=== PATIENT | female | born 1995 | race Caucasian/White ===

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

== ENCOUNTER 2017-04-10 12:29 | Emergency (ER) | payer OTHER ==
[2017-04-10 13:27] LABS: Basophils # (A) 0.1 k/uL (0-0.2); Basophils % (A) 1 %; CH 27.8; CHCM 32.6; Eosinophils # (A) 0.4 k/uL (0-0.7); Eosinophils % (A) 5 %; HCT 40.4 % (34.0-46.0); HDW 2.32; HGB 13.1 gm/dL (11.4-16.0); Luc % (Auto) 1; Lymphocytes # (A) 1.8 k/uL (1.0-4.8); Lymphocytes % (A) 22 %; MCH 27.7 pg (25.0-35.0); MCHC 32.3 g/dL (31.0-37.0); MCV 85.6 fL (80.0-100.0); Mean Platelet Volume 6.8; Monocytes # (A) 0.6 k/uL (0-1.0); Monocytes % (A) 7 %; Neutrophils # (A) 5.5 k/uL (1.3-7.7); Neutrophils % (A) 65 %; RBC 4.71 m/uL (3.80-5.40); RDW 14.3 % (11.5-15.5); WBC 8.5 k/uL (4.0-11.0); WBC (Perox) 8.78
--- NOTE | 2017-04-10 13:31 | XR ---
EXAMINATION TYPE: XR KUB DATE OF EXAM: 04/10/2017 1:20 PM CLINICAL HISTORY: Lower abdominal pain for one week TECHNIQUE: Single upright image of the abdomen is obtained. COMPARISON: None. FINDINGS: Scattered gas is seen in non-distended small bowel loops. Gas and fecal material is seen in non-distended colon. Paucity of gas is noted within the upper abdomen. There is no visceromegaly, pn eumoperitoneum, or abnormal calcification appreciated. The lung bases are clear and the osseous struc tures are intact. IMPRESSION: Nonobstructive bowel gas pattern.
[2017-04-10 13:39] LABS: Anion Gap 10 mmol/L; Blood Urea Nitrogen 13 mg/dL (7-17); Carbon Dioxide 23 mmol/L (22-30); Chloride 104 mmol/L (98-107); Glucose 95 mg/dL (74-99); Potassium 4.4 mmol/L (3.5-5.1); Sodium 137 mmol/L (137-145)
[2017-04-10 13:40] LABS: ALT 47 U/L (9-52); AST 24 U/L (14-36); Alkaline Phosphatase 92 U/L (38-126); Amylase 43 U/L (30-110); Calcium 9.8 mg/dL (8.4-10.2); Non-African American GFR(MDRD) >60 (>60 ml/min/1.73 sqM); Total Bilirubin 0.4 mg/dL (0.2-1.3); Total Protein 7.5 g/dL (6.3-8.2)
[2017-04-10 13:41] LABS: Appearance,Urine Cloudy (Clear); Bilirubin,Urine Negative (Negative); Glucose,Urine (UA) Negative (Negative); Ketones,Urine Negative (Negative); Leukocyte Esterase,Urine Negative (Negative); Mucus,Urine Rare /hpf; Nitrite,Urine Negative (Negative); Particle Count 3750; Protein,Urine Trace (Negative); RBC,Urine <1 /hpf (0-5); Squamous Epithelial Cell,Urine 4 /hpf (0-4); UA Billing (MACRO vs. MICRO) MICRO; Urobilinogen,Urine <2.0 mg/dL (<2.0); WBC,Urine 2 /hpf (0-5)
--- NOTE | 2017-04-10 13:58 | ED ---
Abdominal Pain HPI - General Chief Complaint: Abdominal Pain Stated Complaint: Abd Pain Time Seen by Provider: 04/10/17 12:50 Source: patient, RN notes reviewed Mode of arrival: ambulatory Limitations: no limitations - History of Present Illness Initial Comments: This a 21-year-old female presents emergency Department with chief complaint of lower abdominal pain. Patient states pain in her lower pelvic or suprapubic region and seems to wax and wane . Patient denies any dysuria or urinary frequency. Denies any vaginal bleeding vaginal discharge. She denies any chance . Patient denies any constipation, diarrhea, fever, chills. She states it has been present for last week and no changes. Patient had no prior abdominal surgeries. - Related Data Previous Rx's Medication Instructions Recorded Doxycycline Monohydrate [Monodox] 100 mg PO Q12HR #28 cap 04/10/17 Ibuprofen [Motrin] 600 mg PO Q8HR PRN #30 tab 04/10/17 Allergies Allergy/AdvReac Type Severity Reaction Status Date / Time banana Allergy Rash/Hives Verified 04/10/17 13:12 Review of Systems ROS Statement: Those systems with pertinent positive or pertinent negative responses have been documented in the HPI. ROS Other: All systems not noted in ROS Statement are negative. Past Medical History Past Medical History: No Reported History History of Any Multi-Drug Resistant Organisms: None Reported Past Surgical History: No Surgical Hx Reported Past Psychological History: Depression Smoking Status: Never smoker Past Alcohol Use History: None Reported Past Drug Use History: None Reported General Exam Limitations: no limitations General appearance: alert, in no apparent distress Head exam: Present: atraumatic, normocephalic, normal inspection Neck exam: Present: normal inspection, full ROM. Absent: tenderness, meningismus, lymphadenopathy Respiratory exam: Present: normal lung sounds bilaterally. Absent: respiratory distress, wheezes, rales, rhonchi, stridor Cardiovascular Exam: Present: regular rate, normal rhythm, normal heart sounds. Absent: systolic murmur, diastolic murmur, rubs, gallop, clicks GI/Abdominal exam: Present: soft, tenderness (Suprapubic Tenderness), normal bowel sounds. Absent: distended, guarding, rebound, rigid External exam: Present: normal external exam, other (Exam performed with Paty MANCIA) Speculum exam: Present: vaginal discharge, cervical discharge By manual exam: Present: cervical motion tenderness, adnexal tenderness (Right) Back exam: Absent: CVA tenderness (R), CVA tenderness (L) Skin exam: Present: warm, dry, intact, normal color. Absent: rash Course Vital Signs 04/10/17 12:43 Temperature 98.2 F Pulse Rate 99 Respiratory 18 Rate Blood Pressure 114/62 O2 Sat by Pulse 99 Oximetry Medical Decision Making - Medical Decision Making 21-year-old female presented for lower abdominal pain, pelvic region pain. Patient ultrasound is concerned about pelvic inflammatory disease/pyosaphlinx. We treated with azithromycin, Rocephin in the emergency Department and discharged on doxycycline for 14 days. Patient will follow-up with Dr. Hull her [facility]. Patient will return for any worsening symptoms including fever, increasing pain or any other concerns. - Lab Data Result diagrams: 04/10/17 13:08 04/10/17 13:08 Lab Results 04/10/17 04/10/17 04/10/17 Range/Units 13:08 13:08 13:08 WBC 8.5 (4.0-11.0) k/uL RBC 4.71 (3.80-5.40) m/uL Hgb 13.1 (11.4-16.0) gm/dL Hct 40.4 (34.0-46.0) % MCV 85.6 (80.0-100.0) fL MCH 27.7 (25.0-35.0) pg MCHC 32.3 (31.0-37.0) g/dL RDW 14.3 (11.5-15.5) % Plt Count 334 (150-450) k/uL Neutrophils % 65 % Lymphocytes % 22 % Monocytes % 7 % Eosinophils % 5 % Basophils % 1 % Neutrophils # 5.5 (1.3-7.7) k/uL Lymphocytes # 1.8 (1.0-4.8) k/uL Monocytes # 0.6 (0-1.0) k/uL Eosinophils # 0.4 (0-0.7) k/uL Basophils # 0.1 (0-0.2) k/uL Sodium 137 (137-145) mmol/L Potassium 4.4 (3.5-5.1) mmol/L Chloride 104 (98-107) mmol/L Carbon Dioxide 23 (22-30) mmol/L Anion Gap 10 mmol/L BUN 13 (7-17) mg/dL Creatinine 0.60 (0.52-1.04) mg/dL Est GFR (MDRD) Af Amer >60 (>60 ml/min/1.73 sqM) Est GFR (MDRD) Non-Af >60 (>60 ml/min/1.73 sqM) Glucose 95 (74-99) mg/dL Calcium 9.8 (8.4-10.2) mg/dL Total Bilirubin 0.4 (0.2-1.3) mg/dL AST 24 (14-36) U/L ALT 47 (9-52) U/L Alkaline Phosphatase 92 (38-126) U/L Total Protein 7.5 (6.3-8.2) g/dL Albumin 4.6 (3.5-5.0) g/dL Amylase 43 (30-110) U/L Lipase 65 (23-300) U/L Urine Color Yellow Urine Appearance Cloudy H (Clear) Urine pH 7.0 (5.0-8.0) Ur Specific [place] 1.020 (1.001-1.035) Urine Protein Trace H (Negative) Urine Glucose (UA) Negative (Negative) Urine Ketones Negative (Negative) Urine Blood Negative (Negative) Urine Nitrite Negative (Negative) Urine Bilirubin Negative (Negative) Urine Urobilinogen <2.0 (<2.0) mg/dL Ur Leukocyte Esterase Negative (Negative) Urine RBC <1 (0-5) /hpf Urine WBC 2 (0-5) /hpf Ur Squamous Epith Cells 4 (0-4) /hpf Urine Mucus Rare H (None) /hpf Urine HCG, Qual (Not Detectd) 04/10/17 Range/Units 13:08 WBC (4.0-11.0) k/uL RBC (3.80-5.40) m/uL Hgb (11.4-16.0) gm/dL Hct (34.0-46.0) % MCV (80.0-100.0) fL MCH (25.0-35.0) pg MCHC (31.0-37.0) g/dL RDW (11.5-15.5) % Plt Count (150-450) k/uL Neutrophils % % Lymphocytes % % Monocytes % % Eosinophils % % Basophils % % Neutrophils # (1.3-7.7) k/uL Lymphocytes # (1.0-4.8) k/uL Monocytes # (0-1.0) k/uL Eosinophils # (0-0.7) k/uL Basophils # (0-0.2) k/uL Sodium (137-145) mmol/L Potassium (3.5-5.1) mmol/L Chloride (98-107) mmol/L Carbon Dioxide (22-30) mmol/L Anion Gap mmol/L BUN (7-17) mg/dL Creatinine (0.52-1.04) mg/dL Est GFR (MDRD) Af Amer (>60 ml/min/1.73 sqM) Est GFR (MDRD) Non-Af (>60 ml/min/1.73 sqM) Glucose (74-99) mg/dL Calcium (8.4-10.2) mg/dL Total Bilirubin (0.2-1.3) mg/dL AST (14-36) U/L ALT (9-52) U/L Alkaline Phosphatase (38-126) U/L Total Protein (6.3-8.2) g/dL Albumin (3.5-5.0) g/dL Amylase (30-110) U/L Lipase (23-300) U/L Urine Color Urine Appearance (Clear) Urine pH (5.0-8.0) Ur Specific [place] (1.001-1.035) Urine Protein (Negative) Urine Glucose (UA) (Negative) Urine Ketones (Negative) Urine Blood (Negative) Urine Nitrite (Negative) Urine Bilirubin (Negative) Urine Urobilinogen (<2.0) mg/dL Ur Leukocyte Esterase (Negative) Urine RBC (0-5) /hpf Urine WBC (0-5) /hpf Ur Squamous Epith Cells (0-4) /hpf Urine Mucus (None) /hpf Urine HCG, Qual Not Detected (Not Detectd) Disposition Clinical Impression: Pyosalpinx, PID (acute pelvic inflammatory disease) Disposition: HOME SELF-CARE Condition: Stable Instructions: Pelvic Inflammatory Disease (ED) Additional Instructions: Follow-up with your [facility] as discussed. Please return to the Emergency Department if symptoms worsen or any other concerns. Prescriptions: Doxycycline Monohydrate [Monodox] 100 mg PO Q12HR #28 cap Ibuprofen [Motrin] 600 mg PO Q8HR PRN #30 tab PRN Reason: Pain Referrals: Tatiana Adame III, MD [Primary Care Provider] - 1-2 days Time of Disposition: 16:22
--- NOTE | 2017-04-10 15:10 | US ---
EXAMINATION TYPE: US transvaginal DATE OF EXAM: 04/10/2017 COMPARISON: NONE CLINICAL HISTORY: Pain. General lower pelvic pain, No previous surgeries TECHNIQUE: Transvaginal (TV) Date of LMP: 03/03/2017, EXAM MEASUREMENTS: Uterus: 6.6 x 5.7 x 4.3 cm Endometrial Stripe: 1.5 cm Right Ovary: 2.8 x 1.6 x 1.7 cm Left Ovary: 3.2 x 2.1 x 2.2 cm 1. Uterus: Retroflexed wnl as visualized 2. Endometrium: Upper limits of normal for a premenopausal female 3. Right Ovary: follicles seen 4. Left Ovary: Follicles seen, largest = 1.7 x 1.9 x 1.6 cm Spectral, color and waveform doppler imaging shows good arterial and venous flow within the ovaries ; there is no evidence for ovarian torsion. 5. Bilateral Adnexa: cystic lesion seen in right adnexa, adjacent to uterus = 1.6 x 1.1 x 1.3 cm wit h adjacent free fluid. This is contiguous with an elongated tubular structure seen on image 35 contai barry debris. No internal vascular flow is present. This does not appear to be contiguous with the ova ry. 6. Posterior cul-de-sac: no free fluid IMPRESSION: Right adnexal 1.6 cm cystic region appearing to be contiguous with an elongated tubular structure con taining internal echogenicity and adjacent free fluid. Findings are concerning for hematosalpinx or p yosalpinx with tubo-ovarian abscess. Correlate for history of PID.
[2017-04-10] MEDS ORDERED: RX INFO: IV CONTRAST WAS GIVEN 1 EACH MISC MISCELLANE PRN (15:14)
[2017-04-10] MEDS ORDERED: ONDANSETRON 4 MG/2 ML VIAL IVP STA (15:15)
[2017-04-10] MEDS ORDERED: MORPHINE SULFATE 2 MG/ML SYRINGE IVP ONE (15:15)
--- NOTE | 2017-04-10 16:01 | CT ---
EXAMINATION TYPE: CT abdomen pelvis w con DATE OF EXAM: 04/10/2017 COMPARISON: Transvaginal ultrasound same date HISTORY: Right sided pain x [address] DLP: 1137.40 mGycm Automated exposure control for dose reduction was used. TECHNIQUE: Helical acquisition of images from the lung bases through the pelvis have been completed. CONTRAST: Performed without Oral Contrast and with IV Contrast, patient injected with 100 mL of Omnipaque 300. FINDINGS: LUNG BASES: No significant abnormality is appreciated. AORTA: No significant abnormality is appreciated. LIVER/GB: Liver shows low attenuation possibly due to fatty infiltration, gallbladder is normal PANCREAS: No significant abnormality is seen. SPLEEN: No significant abnormality is seen. ADRENALS: No significant abnormality is seen. KIDNEYS: No significant abnormality is seen. Umbilical hernia contains fat. REPRODUCTIVE ORGANS: No significant abnormality is seen, minimal free fluid in the pelvis BOWEL: Small bowel folds show some thickened dominique. Question some thickened dominique of the transverse colon. The appendix is not inflamed, luminal high density could represent appendicolith. No evident o bstruction. FREE AIR: No Free Air visible. ASCITES: None visible. PELVIC ADENOPATHY: None visualized. RETROPERITONEAL ADENOPATHY: No Retroperitoneal Adenopathy visible. URINARY BLADDER: No significant abnormality is seen. OSSEOUS STRUCTURES: No significant abnormality is seen. IMPRESSION: CORRELATE FOR ENTERITIS, COLITIS. HEPATIC STEATOSIS. PROBABLE PHYSIOLOGIC FREE FLUID IN THE PELVIS. P OSSIBLE APPENDICOLITHS. FOLLOW-UP INDICATED.
[2017-04-10] MEDS ORDERED: AZITHROMYCIN 250 MG TAB PO STA (16:17)
[2017-04-10] MEDS ORDERED: cefTRIAXone 250 MG VIAL IV STA (16:17)
[2017-04-10 17:22] VITALS: BP 113/58; PULSE 79; RESP 18; TEMP 98.1
== END 2017-04-10 17:21 | disposition home or self-care (01) ==
LOC: EC 12:29
DX: N70.91 Salpingitis, unspecified (principal); N73.0 Acute parametritis and pelvic cellulitis; Z91.018 Allergy to other foods
CPT/HCPCS: 99284; 96374; 96375; 36415; 80053; 87591; 87491; 82150; 83690; 85025; 81001; 81025; 87808; 87070; 74000; 93975; 76830; 74177; J2405; J0696; J2270; Q9967; 87205

== ENCOUNTER 2017-09-18 16:27 | Emergency (ER) | payer OTHER ==
[2017-09-18 17:06] VITALS: RESP 18
[2017-09-18 17:31] LABS: Basophils % (A) 0 %; Eosinophils # (A) 0.3 k/uL (0-0.7); Eosinophils % (A) 4 %; HCT 41.9 % (34.0-46.0); HGB 13.9 gm/dL (11.4-16.0); Lymphocytes # (A) 1.6 k/uL (1.0-4.8); Lymphocytes % (A) 24 %; MCH 27.4 pg (25.0-35.0); MCHC 33.1 g/dL (31.0-37.0); MCV 82.7 fL (80.0-100.0); Mean Platelet Volume 7.9; Monocytes # (A) 0.6 k/uL (0-1.0); Monocytes % (A) 8 %; Neutrophils # (A) 4.4 k/uL (1.3-7.7); Neutrophils % (A) 63 %; Platelet Count 210 k/uL (150-450); RBC 5.07 m/uL (3.80-5.40); RDW 12.7 % (11.5-15.5); WBC 6.9 k/uL (4.0-11.0)
[2017-09-18 17:48] LABS: ALT 27 U/L (9-52); AST 20 U/L (14-36); Albumin 4.6 g/dL (3.5-5.0); Alkaline Phosphatase 109 U/L (38-126); Amylase 45 U/L (30-110); Anion Gap 12 mmol/L; Blood Urea Nitrogen 9 mg/dL (7-17); Calcium 9.6 mg/dL (8.4-10.2); Carbon Dioxide 22 mmol/L (22-30); Chloride 106 mmol/L (98-107); Glucose 91 mg/dL (74-99); Lipase 95 U/L (23-300); Potassium 4.3 mmol/L (3.5-5.1); Sodium 140 mmol/L (137-145); Total Bilirubin 0.2 mg/dL (0.2-1.3); Total Protein 7.4 g/dL (6.3-8.2)
--- NOTE | 2017-09-18 19:09 | ED ---
General Adult HPI - General Chief complaint: Abdominal Pain Stated complaint: Stomach pain Time Seen by Provider: 09/18/17 19:04 Source: patient, RN notes reviewed, old records reviewed Mode of arrival: ambulatory Limitations: no limitations - History of Present Illness Initial comments: 22-year-old female with no significant past medical history presents for evaluation of abdominal pain patient describes the pain as sharp in nature. Has been crampy and worsening over the past 3 days. Patient normally has 1-2 bowel movements daily. She states she had one bowel movement yesterday and this was hard. She denies any vaginal bleeding or vaginal discharge. She believes she is not . She denies upper abdominal pain. Describes the pain is primarily around her bellybutton. No nausea vomiting. No diarrhea. No fever or chills. Patient has had issues with abdominal pain in the past. - Related Data Home Medications Medication Instructions Recorded Confirmed Acetaminophen Tab [Tylenol Tab] 325 mg PO Q4H PRN 09/18/17 09/18/17 Previous Rx's Medication Instructions Recorded Polyethylene Glycol 3350 [Miralax] 17 gm PO DAILY #527 gm 09/18/17 Allergies Allergy/AdvReac Type Severity Reaction Status Date / Time banana Allergy Rash/Hives Verified 09/18/17 20:02 Review of Systems ROS Statement: Those systems with pertinent positive or pertinent negative responses have been documented in the HPI. ROS Other: All systems not noted in ROS Statement are negative. Past Medical History Past Medical History: No Reported History History of Any Multi-Drug Resistant Organisms: None Reported Past Surgical History: No Surgical Hx Reported Past Anesthesia/Blood Transfusion Reactions: No Reported Reaction Past Psychological History: Depression Smoking Status: Never smoker Past Alcohol Use History: None Reported Past Drug Use History: None Reported - Past Family History Mother Family Medical History: CVA/TIA Additional Family Medical History / Comment(s): Mother . Patient unsure of how or the age she passed. Father Family Medical History: CVA/TIA Additional Family Medical History / Comment(s): Patient's father passed. Patient unsure of age or how he passed. Brother(s) Family Medical History: Diabetes Mellitus Additional Family Medical History / Comment(s): Pt. reports she has 3 biological brothers who are all diabetic, have PTSD, Depression, and Bipolar. General Exam Limitations: no limitations General appearance: alert, in no apparent distress Head exam: Present: atraumatic, normocephalic Eye exam: Present: normal appearance, PERRL ENT exam: Present: normal exam Neck exam: Present: normal inspection. Absent: tenderness, meningismus Respiratory exam: Present: normal lung sounds bilaterally. Absent: respiratory distress, wheezes Cardiovascular Exam: Present: regular rate, normal rhythm GI/Abdominal exam: Present: soft, tenderness (Generalized tenderness to palpation all 4 quadrants no rebound or guarding). Absent: distended, guarding , rebound Extremities exam: Present: normal inspection, normal capillary refill. Absent: pedal edema Neurological exam: Present: alert, oriented X3, CN II-XII intact. Absent: motor sensory deficit Psychiatric exam: Present: normal affect, normal mood Skin exam: Present: warm, dry, intact. Absent: cyanosis, diaphoretic Course Vital Signs 09/18/17 17:04 Temperature 98.3 F Pulse Rate 97 Respiratory 18 Rate Blood Pressure 97/54 O2 Sat by Pulse 95 Oximetry Medical Decision Making - Medical Decision Making 22-year-old female presenting with generalized crampy abdominal pain. Patient does have mild tenderness although this is nonfocal. History to support constipation although abdominal x-ray does not reveal significant stool burning. There is no obstruction or intraperitoneal free air. CBC and CMP are within normal limits. Patient will give a trial of MiraLAX and will return with worsening or changing symptoms. She will follow-up with her primary care physician. - Lab Data Result diagrams: 09/18/17 17:18 09/18/17 17:18 Lab Results 09/18/17 09/18/17 09/18/17 Range/Units 17:18 17:18 19:15 WBC 6.9 (4.0-11.0) k/uL RBC 5.07 (3.80-5.40) m/uL Hgb 13.9 (11.4-16.0) gm/dL Hct 41.9 (34.0-46.0) % MCV 82.7 (80.0-100.0) fL MCH 27.4 (25.0-35.0) pg MCHC 33.1 (31.0-37.0) g/dL RDW 12.7 (11.5-15.5) % Plt Count 210 (150-450) k/uL Neutrophils % 63 % Lymphocytes % 24 % Monocytes % 8 % Eosinophils % 4 % Basophils % 0 % Neutrophils # 4.4 (1.3-7.7) k/uL Lymphocytes # 1.6 (1.0-4.8) k/uL Monocytes # 0.6 (0-1.0) k/uL Eosinophils # 0.3 (0-0.7) k/uL Basophils # 0.0 (0-0.2) k/uL Sodium 140 (137-145) mmol/L Potassium 4.3 (3.5-5.1) mmol/L Chloride 106 (98-107) mmol/L Carbon Dioxide 22 (22-30) mmol/L Anion Gap 12 mmol/L BUN 9 (7-17) mg/dL Creatinine 0.60 (0.52-1.04) mg/dL Est GFR (CKD-EPI)AfAm >90 (>60 ml/min/1.73 sqM) Est GFR (CKD-EPI)NonAf >90 (>60 ml/min/1.73 sqM) Glucose 91 (74-99) mg/dL Calcium 9.6 (8.4-10.2) mg/dL Total Bilirubin 0.2 (0.2-1.3) mg/dL AST 20 (14-36) U/L ALT 27 (9-52) U/L Alkaline Phosphatase 109 (38-126) U/L Total Protein 7.4 (6.3-8.2) g/dL Albumin 4.6 (3.5-5.0) g/dL Amylase 45 (30-110) U/L Lipase 95 (23-300) U/L Urine Color Urine Appearance (Clear) Urine pH (5.0-8.0) Ur Specific [place] (1.001-1.035) Urine Protein (Negative) Urine Glucose (UA) (Negative) Urine Ketones (Negative) Urine Blood (Negative) Urine Nitrite (Negative) Urine Bilirubin (Negative) Urine Urobilinogen (<2.0) mg/dL Ur Leukocyte Esterase (Negative) Urine RBC (0-5) /hpf Urine WBC (0-5) /hpf Urine WBC Clumps (None) /hpf Ur Squamous Epith Cells (0-4) /hpf Urine Bacteria (None) /hpf Urine Mucus (None) /hpf Urine HCG, Qual Not Detected (Not Detectd) 09/18/17 Range/Units 19:15 WBC (4.0-11.0) k/uL RBC (3.80-5.40) m/uL Hgb (11.4-16.0) gm/dL Hct (34.0-46.0) % MCV (80.0-100.0) fL MCH (25.0-35.0) pg MCHC (31.0-37.0) g/dL RDW (11.5-15.5) % Plt Count (150-450) k/uL Neutrophils % % Lymphocytes % % Monocytes % % Eosinophils % % Basophils % % Neutrophils # (1.3-7.7) k/uL Lymphocytes # (1.0-4.8) k/uL Monocytes # (0-1.0) k/uL Eosinophils # (0-0.7) k/uL Basophils # (0-0.2) k/uL Sodium (137-145) mmol/L Potassium (3.5-5.1) mmol/L Chloride (98-107) mmol/L Carbon Dioxide (22-30) mmol/L Anion Gap mmol/L BUN (7-17) mg/dL Creatinine (0.52-1.04) mg/dL Est GFR (CKD-EPI)AfAm (>60 ml/min/1.73 sqM) Est GFR (CKD-EPI)NonAf (>60 ml/min/1.73 sqM) Glucose (74-99) mg/dL Calcium (8.4-10.2) mg/dL Total Bilirubin (0.2-1.3) mg/dL AST (14-36) U/L ALT (9-52) U/L Alkaline Phosphatase (38-126) U/L Total Protein (6.3-8.2) g/dL Albumin (3.5-5.0) g/dL Amylase (30-110) U/L Lipase (23-300) U/L Urine Color Yellow Urine Appearance Cloudy H (Clear) Urine pH 6.5 (5.0-8.0) Ur Specific [place] 1.019 (1.001-1.035) Urine Protein 1+ H (Negative) Urine Glucose (UA) Negative (Negative) Urine Ketones Negative (Negative) Urine Blood Negative (Negative) Urine Nitrite Negative (Negative) Urine Bilirubin Negative (Negative) Urine Urobilinogen <2.0 (<2.0) mg/dL Ur Leukocyte Esterase Negative (Negative) Urine RBC 9 H (0-5) /hpf Urine WBC 3 (0-5) /hpf Urine WBC Clumps Few H (None) /hpf Ur Squamous Epith Cells 9 H (0-4) /hpf Urine Bacteria Rare H (None) /hpf Urine Mucus Moderate H (None) /hpf Urine HCG, Qual (Not Detectd) Disposition Clinical Impression: Abdominal pain Disposition: HOME SELF-CARE Instructions: Abdominal Pain (ED) Prescriptions: Polyethylene Glycol 3350 [Miralax] 17 gm PO DAILY #527 gm Is patient prescribed a controlled substance at d/c from ED?: No Referrals: Tatiana Adame III, MD [Primary Care Provider] - 1-2 days Time of Disposition: 20:26
[2017-09-18] MEDS ORDERED: DICYCLOMINE 10 MG/ML 2 ML AMP IM STA (19:11)
[2017-09-18 19:49] LABS: Appearance,Urine Cloudy (Clear); Bacteria,Urine Rare /hpf; Bilirubin,Urine Negative (Negative); Blood,Urine Negative (Negative); Color,Urine Yellow; Glucose,Urine (UA) Negative (Negative); Ketones,Urine Negative (Negative); Leukocyte Esterase,Urine Negative (Negative); Mucus,Urine Moderate /hpf; Nitrite,Urine Negative (Negative); PH, Urine 6.5 (5.0-8.0); Protein,Urine 1+ (Negative); RBC,Urine 9 /hpf (0-5); Specific Gravity,Urine 1.019 (1.001-1.035); Squamous Epithelial Cell,Urine 9 /hpf (0-4); Urobilinogen,Urine <2.0 mg/dL (<2.0); WBC,Urine 3 /hpf (0-5)
--- NOTE | 2017-09-18 19:56 | XR ---
EXAMINATION TYPE: XR KUB, two-view DATE OF EXAM: 09/18/2017 COMPARISON: 04/10/2017 HISTORY: Sharp abdominal pain, mildly constipated TECHNIQUE: 2 upright views FINDINGS: Bowel gas pattern is normal. There is no pneumatosis or pneumoperitoneum. The bones and joints and soft tissues and visualized lower chest are unremarkable. IMPRESSION: Negative examination
[2017-09-18 20:36] VITALS: BP 108/58; PULSE 69; TEMP 98.8
== END 2017-09-18 20:36 | disposition home or self-care (01) ==
LOC: EC 16:27
DX: R10.9 Unspecified abdominal pain (principal); Z91.018 Allergy to other foods
CPT/HCPCS: 36415; 80053; 82150; 83690; 85025; 81001; 81025; 74018; 99284; 96372; J0500

== ENCOUNTER 2018-07-02 21:50 | Emergency (ER) | payer OTHER ==
[2018-07-02 21:58] VITALS: BP 111/75; PULSE 97; RESP 20; TEMP 98.4
--- NOTE | 2018-07-02 22:25 | ED ---
Psych HPI - General Chief Complaint: Psychiatric Symptoms Stated Complaint: Suicidal Time Seen by Provider: 07/02/18 22:04 Source: patient Mode of arrival: ambulatory - History of Present Illness Initial Comments: This patient is a 22-year-old woman who presents to be evaluated related to wanting to take an overdose of pills. The patient reports that she had been caught cheating on her now ex fianc, and had an argument. This occurred a few hours ago and then she was feeling very stressed and felt she wanted to take an overdose of pills. Patient denies any auditory hallucinations. MD Complaint: suicidal ideation Onset/Timin -: hour(s) Associated Psychiatric Symptoms: depression Quality: constant Improves With: none Worsens With: none Context: significant life stressor - Related Data Home Medications Medication Instructions Recorded Confirmed Sertraline [Zoloft] 100 mg PO DAILY 07/02/18 07/02/18 Allergies Allergy/AdvReac Type Severity Reaction Status Date / Time banana Allergy Rash/Hives Verified 07/02/18 22:19 morphine AdvReac Nausea & Verified 07/02/18 22:19 Vomiting Review of Systems ROS Statement: Those systems with pertinent positive or pertinent negative responses have been documented in the HPI. ROS Other: All systems not noted in ROS Statement are negative. Constitutional: Denies: fever, chills Respiratory: Denies: cough, dyspnea Cardiovascular: Denies: chest pain, palpitations Gastrointestinal: Denies: abdominal pain, vomiting, diarrhea Genitourinary: Denies: abnormal menses Musculoskeletal: Denies: back pain Skin: Denies: rash Neurological: Denies: headache Psychiatric: Reports: depression, suicidal thoughts. Denies: auditory hallucinations, visual hallucinations, homicidal thoughts Past Medical History Past Medical History: No Reported History History of Any Multi-Drug Resistant Organisms: None Reported Past Surgical History: No Surgical Hx Reported Past Anesthesia/Blood Transfusion Reactions: No Reported Reaction Past Psychological History: Bipolar, Depression Smoking Status: Never smoker Past Alcohol Use History: None Reported Past Drug Use History: None Reported - Past Family History Mother Family Medical History: CVA/TIA Additional Family Medical History / Comment(s): Mother . Patient unsure of how or the age she passed. Father Family Medical History: CVA/TIA Additional Family Medical History / Comment(s): Patient's father passed. Patient unsure of age or how he passed. Brother(s) Family Medical History: Diabetes Mellitus Additional Family Medical History / Comment(s): Pt. reports she has 3 biological brothers who are all diabetic, have PTSD, Depression, and Bipolar. General Exam Limitations: no limitations General appearance: alert, in no apparent distress Head exam: Present: atraumatic, normocephalic Eye exam: Present: normal appearance. Absent: scleral icterus, conjunctival injection ENT exam: Present: normal oropharynx Respiratory exam: Present: normal lung sounds bilaterally. Absent: respiratory distress, wheezes, rales, rhonchi, stridor Cardiovascular Exam: Present: regular rate, normal rhythm, normal heart sounds. Absent: systolic murmur, diastolic murmur, rubs, gallop GI/Abdominal exam: Present: soft. Absent: distended, tenderness, guarding, rebound, mass Extremities exam: Present: normal inspection, normal capillary refill. Absent: pedal edema, calf tenderness Neurological exam: Present: alert, normal gait Psychiatric exam: Present: normal affect, normal mood, suicidal ideation. Absent: agitated, anxious, flat affect, manic, homicidal ideation Skin exam: Present: warm, dry, intact, normal color. Absent: rash Course Vital Signs 07/02/18 21:53 Temperature 98.4 F Pulse Rate 97 Respiratory 20 Rate Blood Pressure 111/75 O2 Sat by Pulse 99 Oximetry Medical Decision Making - Lab Data Lab Results 07/03/18 Range/Units 00:50 Urine Opiates Screen Not Detected (NotDetected) Ur Oxycodone Screen Not Detected (NotDetected) Urine Methadone Screen Not Detected (NotDetected) Ur Propoxyphene Screen Not Detected (NotDetected) Ur Barbiturates Screen Not Detected (NotDetected) U Tricyclic Antidepress Not Detected (NotDetected) Ur Phencyclidine Scrn Not Detected (NotDetected) Ur Amphetamines Screen Not Detected (NotDetected) U Methamphetamines Scrn Not Detected (NotDetected) U Benzodiazepines Scrn Not Detected (NotDetected) Urine Cocaine Screen Not Detected (NotDetected) U Marijuana (THC) Screen Not Detected (NotDetected) Disposition Clinical Impression: Mood disorder Disposition: HOME SELF-CARE Condition: Fair Instructions (If sedation given, give patient instructions): Mood Disorders (ED ) Is patient prescribed a controlled substance at d/c from ED?: No Referrals: Anatoliy Tang, [Primary Care Provider] - 1-2 days
[2018-07-03 01:06] LABS: Amphetamine Screen,Urine Not Detected (NotDetected); Barbiturate Screen,Urine Not Detected (NotDetected); Benzodiazepines Screen,Urine Not Detected (NotDetected); Cocaine Screen,Urine Not Detected (NotDetected); Methadone Screen, Urine Not Detected (NotDetected); Opiate Screen,Urine Not Detected (NotDetected); Oxycodone Screen, Urine Not Detected (NotDetected); Phencyclidine Screen,Urine Not Detected (NotDetected); Tricyclic Antidepressant,Urine Not Detected (NotDetected); Urn Cannabinoid Scrn Not Detected (NotDetected)
== END 2018-07-03 03:37 | disposition home or self-care (01) ==
LOC: EC 21:50
DX: F31.30 Bipolar disorder, current episode depressed, mild or moderate severity, unspecified (principal); R45.851 Suicidal ideations; Z88.5 Allergy status to narcotic agent; Z91.018 Allergy to other foods; Z79.899 Other long term (current) drug therapy; Z81.8 Family history of other mental and behavioral disorders
CPT/HCPCS: 80306; 99284

== ENCOUNTER 2018-08-29 00:45 | Emergency (ER) | payer OTHER ==
[2018-08-29 01:20] VITALS: RESP 18
[2018-08-29] MEDS ORDERED: LIDOCAINE 1% INJ 10MG/ML (20 ML MDV) SQ ONE (02:09)
[2018-08-29 02:34] LABS: Appearance,Urine Cloudy (Clear); Bilirubin,Urine Negative (Negative); Blood,Urine Negative (Negative); Color,Urine Yellow; Glucose,Urine (UA) Negative (Negative); Ketones,Urine Negative (Negative); Leukocyte Esterase,Urine Negative (Negative); Mucus,Urine Many /hpf; Nitrite,Urine Negative (Negative); Protein,Urine 1+ (Negative); RBC,Urine 1 /hpf (0-5); Specific Gravity,Urine 1.037 (1.001-1.035); Squamous Epithelial Cell,Urine 7 /hpf (0-4); WBC,Urine 3 /hpf (0-5)
--- NOTE | 2018-08-29 03:13 | XR ---
EXAM: XR Abdomen, 1 View CLINICAL HISTORY: Pain TECHNIQUE: Frontal supine view of the abdomen/pelvis. COMPARISON: 09/18/2017 FINDINGS: Intraperitoneal space: No pneumoperitoneum identified underlying the hemidiaphragms on the upright examination. Gastrointestinal tract: There is mild to moderate stool in the ascending colon and suggested in the distal rectosigmoid colon. Bowel gas is predominantly noted in the colon. There is a relative paucity of bowel gas in the small bowel. No dilated loops of bowel or significant air-fluid levels identified. Bones/joints: Unremarkable. IMPRESSION: Nonspecific, nonobstructive bowel gas pattern.
[2018-08-29] MEDS ORDERED: MAGNESIUM CITRATE 296 ML BOTTLE PO ONE (03:18)
[2018-08-29] MEDS ORDERED: SULFAMETH-TMP DS STARTER PACK 2 TAB BTL PO STA (03:18)
--- NOTE | 2018-08-29 03:21 | ED ---
Skin/Abscess/FB HPI - General Source: patient Mode of arrival: ambulatory Limitations: no limitations <Pily Campos - Last Filed: 08/29/18 12:33> <Tiarra Liu - Last Filed: 08/29/18 21:58> - General Chief complaint: Skin/Abscess/Foreign Body Stated complaint: Large Boil Vaginal Area Time Seen by Provider: 08/29/18 02:02 - History of Present Illness Initial comments: 22-year-old female patient presents to the emergency department today for evaluation of abscess to the genital region. Patient states that she noticed the area started to swell yesterday. Patient states she did try to squeeze it was unable to get out any drainage. She states the area is becoming increasingly painful. She denies any fever or chills with this. Denies any history of similar lesion. She denies being sexually active or concern for sexually transmitted infections. Denies vaginal bleeding or discharge. Patient is also reporting some mild lower abdominal pain and discomfort. She denies any nausea or vomiting with this. Denies any constipation or diarrhea. States last bowel movement was yesterday was normal for her. Patient denies any recent rash, shortness breath, chest pain, back pain, numbness, tingling, dizziness, weakness, hematuria, dysuria, urinary urgency, urinary frequency, headache, visual changes, or any other complaints. (Pily Campos) - Related Data Home Medications Medication Instructions Recorded Confirmed Sertraline [Zoloft] 100 mg PO DAILY 07/02/18 07/02/18 Previous Rx's Medication Instructions Recorded Sulfamethoxazole/Trimethoprim 1 each PO BID #20 tablet 08/29/18 [Bactrim DS 800-160 mg] Allergies Allergy/AdvReac Type Severity Reaction Status Date / Time banana Allergy Rash/Hives Verified 08/29/18 01:20 morphine AdvReac Nausea & Verified 08/29/18 01:20 Vomiting Review of Systems ROS Other: All systems not noted in ROS Statement are negative. <Pily Campos - Last Filed: 08/29/18 12:33> ROS Other: All systems not noted in ROS Statement are negative. <Tiarra Liu - Last Filed: 08/29/18 21:58> ROS Statement: Those systems with pertinent positive or pertinent negative responses have been documented in the HPI. Past Medical History Past Medical History: No Reported History History of Any Multi-Drug Resistant Organisms: None Reported Past Surgical History: No Surgical Hx Reported Past Anesthesia/Blood Transfusion Reactions: No Reported Reaction Past Psychological History: Anxiety, Bipolar, Depression Smoking Status: Current every day smoker Past Alcohol Use History: None Reported Past Drug Use History: None Reported - Past Family History Mother Family Medical History: CVA/TIA Additional Family Medical History / Comment(s): Mother . Patient unsure of how or the age she passed. Father Family Medical History: CVA/TIA Additional Family Medical History / Comment(s): Patient's father passed. Patient unsure of age or how he passed. Brother(s) Family Medical History: Diabetes Mellitus Additional Family Medical History / Comment(s): Pt. reports she has 3 biological brothers who are all diabetic, have PTSD, Depression, and Bipolar. <Pily Campos M - Last Filed: 08/29/18 12:33> General Exam Limitations: no limitations General appearance: alert, in no apparent distress, other (This is a well- developed, well-nourished adult female patient in no acute distress. Vital signs upon presentation are temperature 98.3F, pulse 88, respirations 18, blood pressure 100/64, pulse ox 97% on room air.) Eye exam: Present: normal appearance, PERRL, EOMI. Absent: scleral icterus, conjunctival injection, periorbital swelling ENT exam: Present: normal exam, normal oropharynx, mucous membranes moist Respiratory exam: Present: normal lung sounds bilaterally. Absent: respiratory distress, wheezes, rales, rhonchi, stridor Cardiovascular Exam: Present: regular rate, normal rhythm, normal heart sounds. Absent: systolic murmur, diastolic murmur, rubs, gallop, clicks GI/Abdominal exam: Present: soft, normal bowel sounds. Absent: distended, tenderness, guarding, rebound, rigid External exam: Present: other (Patient has 2 cm abscess noted to the left upper labia majora, this is fluctuant with small surrounding erythema approximately 1 cm circumferentially. No drainage currently.) Neurological exam: Present: alert, oriented X3, CN II-XII intact Psychiatric exam: Present: normal affect, normal mood Skin exam: Present: warm, dry, intact, normal color. Absent: rash <Pily Campos - Last Filed: 08/29/18 12:33> Course Vital Signs 08/29/18 08/29/18 01:18 03:34 Temperature 98.3 F 98 F Pulse Rate 88 83 Respiratory 18 18 Rate Blood Pressure 100/64 108/60 O2 Sat by Pulse 97 100 Oximetry Procedures - Incision & Drainage Consent Obtained: verbal consent Indication: Abscess Site: vulva/vagina Size (cm): 2 Anesthetic Used: lidocaine 1% Amount (mLs): 5 I&D Cleaning Method: Betadine Scalpel Used: #11 Needle Aspiration Performed?: No Irrigation Performed?: No I&D Drainage Obtained: Pus, Blood Culture Obtained?: Yes Patient Tolerated Procedure: well, no complications <Pily Campos - Last Filed: 08/29/18 12:33> Medical Decision Making - Radiology Data Radiology results: report reviewed, image reviewed <Pily Campos - Last Filed: 08/29/18 12:33> <Tiarra Liu - Last Filed: 08/29/18 21:58> - Medical Decision Making 22-year-old female patient presents to the emergency department today for evaluation of abscess to the left labia majora and some mild lower abdominal pain. Patient is tolerating oral intake denies any vomiting or diarrhea. Physical examination did reveal 2 cm abscess to the left upper labia majora, this was fluctuant, did perform incision and drainage and did obtain culture. Patient's abdomen was soft and nontender. Did perform urinalysis which was negative for any evidence of infection, hCG was negative. KUB x-ray was obtained and showed evidence for colonic stool retention. Patient will be discharged with prescription for Bactrim and instructions to apply warm compresses over the abscessed area. She'll also be given magnesium citrate to 8 with bowel movements. She is instructed to follow-up with her primary care physician for reevaluation of the wound in 1-2 days. Return parameters were discussed in detail. She verbalizes understanding and agrees with this plan. (Pily Campos) I was available for consultation in the emergency department. The history and physical exam were done by the midlevel provider. I was consulted for this patient's care. I reviewed the case with the midlevel provider and based on their presentation of the patient, I agree with the assessment, medical decision making and plan of care as documented. (Tiarra Liu) - Lab Data Lab Results 08/29/18 08/29/18 Range/Units 02:15 02:15 Urine Color Yellow Urine Appearance Cloudy H (Clear) Urine pH 6.0 (5.0-8.0) Ur Specific [place] 1.037 H (1.001-1.035) Urine Protein 1+ H (Negative) Urine Glucose (UA) Negative (Negative) Urine Ketones Negative (Negative) Urine Blood Negative (Negative) Urine Nitrite Negative (Negative) Urine Bilirubin Negative (Negative) Urine Urobilinogen 2.0 (<2.0) mg/dL Ur Leukocyte Esterase Negative (Negative) Urine RBC 1 (0-5) /hpf Urine WBC 3 (0-5) /hpf Ur Squamous Epith Cells 7 H (0-4) /hpf Urine Mucus Many H (None) /hpf Urine HCG, Qual Not Detected (Not Detectd) - Radiology Data One view x-ray of the abdomen is obtained. Report was reviewed in its entirety. Impression by Dr. Servin shows nonspecific, nonobstructive bowel gas pattern however findings did show mild to moderate stool in the ascending colon and suggested and the distal rectosigmoid colon. (Pily Campos) Disposition Is patient prescribed a controlled substance at d/c from ED?: No Time of Disposition: 03:20 <Pily Campos - Last Filed: 08/29/18 12:33> <Tiarra Liu - Last Filed: 08/29/18 21:58> Clinical Impression: Abscess of genital labia, Abdominal pain Disposition: HOME SELF-CARE Condition: Good Instructions (If sedation given, give patient instructions): Abdominal Pain (ED), Abscess Incision and Drainage (DC) Additional Instructions: Apply warm compresses over the abscessed area 20 minutes at a time at least 4 times daily. Drink one half bottle of magnesium citrate, if no stool results within 12 hours drink the other half. Increase fluids and physical activity. Return to the emergency department if abdominal pain changes or worsens. Follow-up with your primary care physician for recheck in 1-2 days. Return to the emergency department for any other new, worsening, or concerning symptoms. Prescriptions: Sulfamethoxazole/Trimethoprim [Bactrim DS 800-160 mg] 1 each PO BID #20 tablet Referrals: Anatoliy Tang, [Primary Care Provider] - 1-2 days
[2018-08-29] MEDS ORDERED: ONDANSETRON ODT 4 MG TAB PO STA (03:32)
[2018-08-29 03:35] VITALS: BP 108/60; PULSE 83; TEMP 98
== END 2018-08-29 03:34 | disposition home or self-care (01) ==
LOC: EC 00:45
DX: N76.4 Abscess of vulva (principal); R10.30 Lower abdominal pain, unspecified; F31.9 Bipolar disorder, unspecified; F41.9 Anxiety disorder, unspecified; F17.200 Nicotine dependence, unspecified, uncomplicated; Z79.899 Other long term (current) drug therapy; Z88.5 Allergy status to narcotic agent; Z91.018 Allergy to other foods
CPT/HCPCS: 56405; 74018; 81001; 81025; 87070; 87205; 99283

== ENCOUNTER 2018-09-03 22:54 | Emergency (ER) | payer OTHER ==
[2018-09-03 23:11] VITALS: BP 106/55; PULSE 100; RESP 18; TEMP 98.6
[2018-09-03] MEDS ORDERED: KETOROLAC 60 MG/2 ML VIAL IM STA (23:19)
--- NOTE | 2018-09-03 23:22 | ED ---
Lower Extremity Injury HPI - General Chief Complaint: Extremity Injury, Lower Stated Complaint: Bilateral Leg Pain Time Seen by Provider: 09/03/18 23:15 Source: patient, RN notes reviewed Mode of arrival: ambulatory Limitations: no limitations - History of Present Illness Initial Comments: 23-year-old female presents emergency Department with chief complaint of bilateral leg pain. Patient states she has been riding around and she'll call days states that she just feels tight and states that she had walking states her legs 8. Patient denies any swelling redness numbness area patient states that she did not take any medications prior to come for this. Patient states that she had no injury no back pain denies any bowel bladder incontinence or re tention. Patient states she just feels like she needs to stretch her legs though she did not attempt to this. - Related Data Home Medications Medication Instructions Recorded Confirmed Sertraline [Zoloft] 100 mg PO DAILY 07/02/18 07/02/18 Previous Rx's Medication Instructions Recorded Sulfamethoxazole/Trimethoprim 1 each PO BID #20 tablet 08/29/18 [Bactrim DS 800-160 mg] Ibuprofen [Motrin] 600 mg PO Q8HR PRN #30 tab 09/03/18 Allergies Allergy/AdvReac Type Severity Reaction Status Date / Time banana Allergy Rash/Hives Verified 09/03/18 23:11 morphine AdvReac Nausea & Verified 09/03/18 23:11 Vomiting Review of Systems ROS Statement: Those systems with pertinent positive or pertinent negative responses have been documented in the HPI. ROS Other: All systems not noted in ROS Statement are negative. Past Medical History Past Medical History: No Reported History History of Any Multi-Drug Resistant Organisms: None Reported Past Surgical History: No Surgical Hx Reported Past Anesthesia/Blood Transfusion Reactions: No Reported Reaction Past Psychological History: Anxiety, Bipolar, Depression Smoking Status: Current every day smoker Past Alcohol Use History: None Reported Past Drug Use History: None Reported - Past Family History Mother Family Medical History: CVA/TIA Additional Family Medical History / Comment(s): Mother . Patient unsure of how or the age she passed. Father Family Medical History: CVA/TIA Additional Family Medical History / Comment(s): Patient's father passed. Patient unsure of age or how he passed. Brother(s) Family Medical History: Diabetes Mellitus Additional Family Medical History / Comment(s): Pt. reports she has 3 biological brothers who are all diabetic, have PTSD, Depression, and Bipolar. General Exam Limitations: no limitations General appearance: alert, in no apparent distress Head exam: Present: atraumatic, normocephalic, normal inspection Respiratory exam: Present: normal lung sounds bilaterally. Absent: respiratory distress, wheezes, rales, rhonchi, stridor Cardiovascular Exam: Present: regular rate, normal rhythm, normal heart sounds. Absent: systolic murmur, diastolic murmur, rubs, gallop, clicks GI/Abdominal exam: Present: soft, normal bowel sounds. Absent: distended, tenderness, guarding, rebound, rigid Extremities exam: Present: other (Lower extremity strength equal bilaterally neurovascular intact equal color equal warmth no lesions or sores. Patient has full range of motion full-strength) Back exam: Present: full ROM. Absent: tenderness, paraspinal tenderness, vertebral tenderness Neurological exam: Present: reflexes normal. Absent: motor sensory deficit Course Vital Signs 09/03/18 23:09 Temperature 98.6 F Pulse Rate 100 Respiratory 18 Rate Blood Pressure 106/55 O2 Sat by Pulse 97 Oximetry Medical Decision Making - Medical Decision Making 31-year-old female presented for leg pain. This is bilateral with no acute findings or concerns. Patient has full strength neurovascular intact there is no localized tenderness. Patient just feels pain when she stretches her legs. Patient we given Toradol and discharge. Disposition Clinical Impression: Leg pain, bilateral Disposition: HOME SELF-CARE Condition: Stable Instructions (If sedation given, give patient instructions): Leg Pain (ED) Additional Instructions: Please return to the Emergency Department if symptoms worsen or any other concerns. Prescriptions: Ibuprofen [Motrin] 600 mg PO Q8HR PRN #30 tab PRN Reason: Pain Is patient prescribed a controlled substance at d/c from ED?: No Referrals: Anatoliy Tang DO [Primary Care Provider] - 1-2 days Time of Disposition: 23:21
== END 2018-09-03 23:32 | disposition home or self-care (01) ==
LOC: EC 22:54
DX: M79.605 Pain in left leg (principal); M79.604 Pain in right leg; F31.9 Bipolar disorder, unspecified; F41.9 Anxiety disorder, unspecified; F17.200 Nicotine dependence, unspecified, uncomplicated; Z79.899 Other long term (current) drug therapy; Z88.5 Allergy status to narcotic agent; Z91.018 Allergy to other foods
CPT/HCPCS: 99283; 96372; J1885

== ENCOUNTER 2018-10-22 14:35 | Emergency (ER) | payer OTHER ==
[2018-10-22 14:40] VITALS: BP 99/64; PULSE 79; RESP 18; TEMP 98
--- NOTE | 2018-10-22 14:46 | ED ---
Female Urogenital HPI - General Chief complaint: Vaginal Bleeding Stated complaint: blood in urine Time Seen by Provider: 10/22/18 14:41 Source: patient Mode of arrival: ambulatory Limitations: no limitations - History of Present Illness Initial comments: 23-year-old male presenting for blood in urine. Patient states that she noticed blood in her urine about hour prior to presentation. She states she is unsure if is coming from her urethra or vagina. Patient states she does have some lower abdominal cramping. Patient states she isn't supposed to start her period until the 15th and feels this is early. Patient states that she has tried for is unsure of her status she denies taking at home test. Patient denies any dysuria urgency or frequency denies any back pain. Chills or night sweats. Patient denies any severe abdominal pain states the lower abdominal cramping is more of a discomfort. Patient denies any radiation of the pain. Remaining review of systems negative upon arrival patient appears well there is no signs of acute distress. Last Menstrual Period: 10/01/18 - Related Data Home Medications Medication Instructions Recorded Confirmed Sertraline [Zoloft] 100 mg PO HS 07/02/18 10/22/18 Pnv No.95/Ferrous Fum/Folic AC 1 tab PO HS 10/22/18 10/22/18 [ Multivitamin Tablet] QUEtiapine [SEROquel] 25 mg PO HS 10/22/18 10/22/18 Allergies Allergy/AdvReac Type Severity Reaction Status Date / Time banana Allergy Rash/Hives Verified 10/22/18 14:49 morphine AdvReac Nausea & Verified 10/22/18 14:49 Vomiting Review of Systems ROS Statement: Those systems with pertinent positive or pertinent negative responses have been documented in the HPI. ROS Other: All systems not noted in ROS Statement are negative. Past Medical History Past Medical History: No Reported History History of Any Multi-Drug Resistant Organisms: None Reported Past Surgical History: No Surgical Hx Reported Past Anesthesia/Blood Transfusion Reactions: No Reported Reaction Past Psychological History: Anxiety, Bipolar, Depression Smoking Status: Current every day smoker Past Alcohol Use History: None Reported Past Drug Use History: None Reported - Past Family History Mother Family Medical History: CVA/TIA Additional Family Medical History / Comment(s): Mother . Patient unsure of how or the age she passed. Father Family Medical History: CVA/TIA Additional Family Medical History / Comment(s): Patient's father passed. Patient unsure of age or how he passed. Brother(s) Family Medical History: Diabetes Mellitus Additional Family Medical History / Comment(s): Pt. reports she has 3 biological brothers who are all diabetic, have PTSD, Depression, and Bipolar. General Exam - General Exam Comments Initial Comments: General: The patient is awake and alert, in no distress, and does not appear acutely ill. Eye: Pupils are equal, round and reactive to light, extra-ocular movements are intact. No nystagmus. There is normal conjunctiva bilaterally. No signs of icterus. Cardiovascular: There is a regular rate and rhythm. No murmur, rub or gallop is appreciated. Respiratory: Lungs are clear to auscultation, respirations are non-labored, breath sounds are equal. No wheezes, stridor, rales, or rhonchi. Gastrointestinal: Soft, non-distended, non-tender abdomen without masses or organomegaly noted. There is no rebound or guarding present. No CVA tenderness. Bowel sounds are unremarkable. Pelvic: No external lesions, normal female hair pattern. Vaginal close a pink well rugated. Cervical os closed. Blood coming from eyes. Scant amount of da rk red blood in vaginal vault. No evidence of vaginal discharge. No adnexal or cervical motion tenderness. Musculoskeletal: Normal ROM, no tenderness. Strength 5/5. Sensation intact. Radial pulses equal bilaterally 2+. Neurological: A&O x 3. CN II-XII intact, There are no obvious motor or sensory deficits. Coordination appears grossly intact. Speech is normal. Skin: Skin is warm and dry and no rashes or lesions are noted. Psychiatric: Cooperative, appropriate mood & affect, normal judgment. Limitations: no limitations Course Vital Signs 10/22/18 14:37 Temperature 98.0 F Pulse Rate 79 Respiratory 18 Rate Blood Pressure 99/64 O2 Sat by Pulse 98 Oximetry Medical Decision Making - Medical Decision Making Very well-appearing 23-year-old female presenting today for chief complaint of blood in urine. Pt has gross blood in urine upon examination of specimen. Pelvic revealed vaginal bleeding. HCG (-). Blood on UA. Not a clean specimen. Will culture, no dysuria, urgency or frequency. No tenderness on abdominal examination or upon adnexal and cervical motion testing. Denies flank or CVA tenderness. At this time feel this is menstruation. Patient was encouraged to take a repeat test if she is concerned for within 1 week. Patient is to follow-up with [facility]-Dr. Head. Patient is agreeable with care plan as well as discharge. After discussing case with Dr. Chan over phone, pt was discharged appearing well. - Lab Data Lab Results 10/22/18 10/22/18 Range/Units 14:54 15:30 Urine Color Yellow Urine Appearance Cloudy H (Clear) Urine pH 6.0 (5.0-8.0) Ur Specific [place] 1.026 (1.001-1.035) Urine Protein 1+ H (Negative) Urine Glucose (UA) Negative (Negative) Urine Ketones Negative (Negative) Urine Blood Moderate H (Negative) Urine Nitrite Negative (Negative) Urine Bilirubin Negative (Negative) Urine Urobilinogen <2.0 (<2.0) mg/dL Ur Leukocyte Esterase Small H (Negative) Urine RBC >182 H (0-5) /hpf Ur Squamous Epith Cells 11 H (0-4) /hpf Urine Bacteria Many H (None) /hpf Urine Mucus Occasional H (None) /hpf Urine HCG, Qual Not Detected (Not Detectd) Disposition Clinical Impression: Vaginal bleeding Disposition: HOME SELF-CARE Condition: Good Instructions (If sedation given, give patient instructions): Menstruation (ED) Additional Instructions: Please use medication as discussed. Please follow-up with OBGYN in the next 2-3 days. Please return to emergency room if the symptoms increase or worsen or for any other concerns. Is patient prescribed a controlled substance at d/c from ED?: No Referrals: Anatoliy Tang DO [Primary Care Provider] - 1-2 days Time of Disposition: 15:46
[2018-10-22 15:44] LABS: Appearance,Urine Cloudy (Clear); Bacteria,Urine Many /hpf; Bilirubin,Urine Negative (Negative); Blood,Urine Moderate (Negative); Color,Urine Yellow; Glucose,Urine (UA) Negative (Negative); Ketones,Urine Negative (Negative); Leukocyte Esterase,Urine Small (Negative); Mucus,Urine Occasional /hpf; Nitrite,Urine Negative (Negative); Protein,Urine 1+ (Negative); RBC,Urine >182 /hpf (0-5); Specific Gravity,Urine 1.026 (1.001-1.035); Squamous Epithelial Cell,Urine 11 /hpf (0-4); Urobilinogen,Urine <2.0 mg/dL (<2.0)
== END 2018-10-22 15:58 | disposition home or self-care (01) ==
LOC: EC 14:35
DX: N93.9 Abnormal uterine and vaginal bleeding, unspecified (principal); R10.30 Lower abdominal pain, unspecified; F41.9 Anxiety disorder, unspecified; F32.9 Major depressive disorder, single episode, unspecified; F17.200 Nicotine dependence, unspecified, uncomplicated; Z79.899 Other long term (current) drug therapy; Z91.018 Allergy to other foods; Z88.5 Allergy status to narcotic agent
CPT/HCPCS: 81001; 81025; 87086; 99284

== ENCOUNTER 2019-02-07 03:37 | Emergency (ER) | payer OTHER ==
[2019-02-07 03:44] VITALS: RESP 16; TEMP 98.2
[2019-02-07 04:17] LABS: Appearance,Urine Cloudy (Clear); Bacteria,Urine Rare /hpf; Bilirubin,Urine Negative (Negative); Blood,Urine Negative (Negative); Color,Urine Yellow; Glucose,Urine (UA) Negative (Negative); Ketones,Urine Negative (Negative); Leukocyte Esterase,Urine Moderate (Negative); Mucus,Urine Moderate /hpf; Nitrite,Urine Negative (Negative); PH, Urine 5.5 (5.0-8.0); Protein,Urine Trace (Negative); RBC,Urine 1 /hpf (0-5); Specific Gravity,Urine 1.031 (1.001-1.035); Squamous Epithelial Cell,Urine 8 /hpf (0-4); Urobilinogen,Urine <2.0 mg/dL (<2.0)
--- NOTE | 2019-02-07 04:52 | XR ---
EXAM: XR Abdomen, 2 Views CLINICAL HISTORY: Abdominal pain. TECHNIQUE: Frontal view of the abdomen/pelvis with upright view of the abdomen. COMPARISON: 08/29/2018. 09/18/2017. FINDINGS: Intraperitoneal space: No free air. Gastrointestinal tract: Nonspecific bowel gas pattern No dilation. Bones/joints: Osseous structures are unremarkable. Other findings: Mild to moderate quantity of stool. No abnormal calcifications. IMPRESSION: Nonspecific bowel gas pattern. No free air.
[2019-02-07] MEDS ORDERED: SODIUM CHLORIDE 0.9% 1,000 ML IV STA (05:52)
[2019-02-07] MEDS ORDERED: ONDANSETRON 4 MG/2 ML VIAL IVP STA (05:52)
[2019-02-07 06:29] LABS: Basophils # (A) 0.1 k/uL (0-0.2); Basophils % (A) 1 %; Eosinophils # (A) 0.6 k/uL (0-0.7); Eosinophils % (A) 5 %; HCT 37.6 % (34.0-46.0); HGB 12.5 gm/dL (11.4-16.0); Lymphocytes # (A) 3.3 k/uL (1.0-4.8); Lymphocytes % (A) 29 %; MCH 29.5 pg (25.0-35.0); MCHC 33.2 g/dL (31.0-37.0); MCV 88.9 fL (80.0-100.0); Mean Platelet Volume 6.2; Monocytes # (A) 0.7 k/uL (0-1.0); Monocytes % (A) 6 %; Neutrophils # (A) 6.4 k/uL (1.3-7.7); Neutrophils % (A) 57 %; Platelet Count 326 k/uL (150-450); RBC 4.23 m/uL (3.80-5.40); RDW 13.6 % (11.5-15.5); WBC 11.3 k/uL (3.8-10.6)
[2019-02-07 06:42] LABS: ALT 42 U/L (9-52); AST 29 U/L (14-36); African American GFR (CKD) >90 (>60 ml/min/1.73 sqM); Albumin 4.4 g/dL (3.5-5.0); Alkaline Phosphatase 78 U/L (38-126); Anion Gap 12 mmol/L; Blood Urea Nitrogen 14 mg/dL (7-17); Calcium 10.1 mg/dL (8.4-10.2); Carbon Dioxide 23 mmol/L (22-30); Chloride 104 mmol/L (98-107); Glucose 92 mg/dL (74-99); Potassium 4.7 mmol/L (3.5-5.1); Sodium 139 mmol/L (137-145); Total Bilirubin 0.2 mg/dL (0.2-1.3); Total Protein 7.4 g/dL (6.3-8.2)
[2019-02-07] MEDS ORDERED: KETOROLAC 30 MG/ML 1 ML VIAL IVP STA (07:10)
--- NOTE | 2019-02-07 07:20 | CT ---
EXAMINATION TYPE: CT abdomen pelvis w con DATE OF EXAM: 02/07/2019 REFERENCE: Previous study dated 04/10/2017. HISTORY: abdominal pain HISTORY: Generalized lower abdominal/pelvic pain, nausea, vomiting CT DLP: 1247.1 mGy Automated exposure control for dose reduction was used. TECHNIQUE: Helical acquisition through the abdomen and pelvis was obtained following the oral ingesti on of without Oral Contrast and following intravenous administration of 100 mL of Isovue 300. The brenda a was reformatted in axial, coronal and sagittal projections. FINDINGS: Visualized portions of the lungs are clear. There is no pleural or pericardial fluid. The heart is not enlarged. Within the abdomen, the liver is upper limits of normal in size. The liver is somewhat low attenuatin g and may be fatty infiltrated. The spleen and gallbladder are normal. Both adrenal glands are normal. Both kidneys demonstrate function and appear morphologically normal. The pancreas is unremarkable. There is no significant retroperitoneal, iliac or inguinal adenopathy. The bladder is unremarkable. The uterus is retroflexed. There is a 1.7 cm hypoattenuating lesion just posterior to the uterus whic h may reflect an ovarian cyst. There is no significant diverticular change and there is no radiographic evidence of diverticulitis. The appendix is unremarkable. Small bowel loops are of normal caliber. There is a periumbilical hernia containing fat only with a mouth measuring 3.7 cm. There is no free fluid and no free air. No bony lesion is seen. IMPRESSION: 1. NO ACUTE INFLAMMATORY ABNORMALITY. 2. QUESTIONABLE, SMALL RIGHT ADNEXAL CYST. 3. PERIUMBILICAL HERNIA CONTAINING FAT ONLY.
[2019-02-07 07:28] VITALS: BP 108/72; PULSE 82
--- NOTE | 2019-02-07 07:43 | ED ---
Abdominal Pain HPI - General Chief Complaint: Abdominal Pain Stated Complaint: dental & abdominal pain Time Seen by Provider: 02/07/19 03:45 Source: patient Mode of arrival: ambulatory Limitations: no limitations - History of Present Illness Initial Comments: The patient is a 23 year old female with no past medical history presents emergency Department with reported lower abdominal cramping and left-sided tooth pain. The patient reports that her tooth has been hurting her for the past month. She also admits to lower abdominal cramping that has been present for 3 days. The patient does have poor dentition. Normally does not follow with a dentist. States that she has had previous cavities filled however she did believe she lost one. She has not been taking anything for her pain at home. She does have a follow-up appointment scheduled with her dentist however she is concerned it is infected. Denies any shortness of breath or throat pain. This did not feel as if her throat is closing off. No reported fevers or chills. No facial swelling. The patient then developed the lower abdominal cramping 3 days ago. She has had associated nausea and has had difficulty holding down food and drink. She denies any abnormal vaginal bleeding or discharge. Denies any dysuria, hematuria and difficulty voiding. Denies any changes in her bowel moments include diarrhea, constant patient, melanotic stools or hematochezia. No sick contacts with similar symptoms. No recent travel or antibiotic use. There are no other alleviating, precipitating or modifying factors - Related Data Home Medications Medication Instructions Recorded Confirmed Sertraline [Zoloft] 100 mg PO HS 07/02/18 02/07/19 QUEtiapine [SEROquel] 25 mg PO HS 10/22/18 02/07/19 Previous Rx's Medication Instructions Recorded Amoxic-Pot Clav 875-125Mg 1 tab PO Q12HR #14 tablet 02/07/19 [Augmentin 875-125] Naproxen [Naprosyn] 500 mg PO Q12HR PRN #20 tab 02/07/19 Allergies Allergy/AdvReac Type Severity Reaction Status Date / Time banana Allergy Rash/Hives Verified 02/07/19 07:52 morphine AdvReac Nausea & Verified 02/07/19 07:52 Vomiting Review of Systems ROS Statement: Those systems with pertinent positive or pertinent negative responses have been documented in the HPI. ROS Other: All systems not noted in ROS Statement are negative. Past Medical History Past Medical History: No Reported History History of Any Multi-Drug Resistant Organisms: None Reported Past Surgical History: No Surgical Hx Reported Past Anesthesia/Blood Transfusion Reactions: No Reported Reaction Past Psychological History: Anxiety, Bipolar, Depression Smoking Status: Current every day smoker Past Alcohol Use History: None Reported Past Drug Use History: None Reported - Past Family History Mother Family Medical History: CVA/TIA Additional Family Medical History / Comment(s): Mother . Patient unsure of how or the age she passed. Father Family Medical History: CVA/TIA Additional Family Medical History / Comment(s): Patient's father passed. Patient unsure of age or how he passed. Brother(s) Family Medical History: Diabetes Mellitus Additional Family Medical History / Comment(s): Pt. reports she has 3 biological brothers who are all diabetic, have PTSD, Depression, and Bipolar. General Exam Limitations: no limitations General appearance: alert, in no apparent distress Head exam: Present: atraumatic, normocephalic, normal inspection Eye exam: Present: normal appearance, PERRL, EOMI. Absent: scleral icterus, conjunctival injection, periorbital swelling ENT exam: Present: normal exam, mucous membranes moist, other (multiple dental caries. No signs of ludwigs angina. No dental abscess. No oral swelling. No drooling, trismus, hoarseness or stridor) Neck exam: Present: normal inspection. Absent: tenderness, meningismus, lymphadenopathy Respiratory exam: Present: normal lung sounds bilaterally. Absent: respiratory distress, wheezes, rales, rhonchi, stridor Cardiovascular Exam: Present: regular rate, normal rhythm, normal heart sounds. Absent: systolic murmur, diastolic murmur, rubs, gallop, clicks GI/Abdominal exam: Present: soft, normal bowel sounds. Absent: distended, tenderness, guarding, rebound, rigid Extremities exam: Present: normal inspection, full ROM, normal capillary refill. Absent: tenderness, pedal edema, joint swelling, calf tenderness Back exam: Present: normal inspection Neurological exam: Present: alert, oriented X3, CN II-XII intact Psychiatric exam: Present: normal affect, normal mood Skin exam: Present: warm, dry, intact, normal color. Absent: rash Course Vital Signs 02/07/19 02/07/19 02/07/19 03:42 06:20 06:40 Temperature 98.2 F Pulse Rate 98 Respiratory 16 Rate Blood Pressure 115/70 108/62 107/68 O2 Sat by Pulse 98 100 99 Oximetry 02/07/19 02/07/19 02/07/19 07:10 07:20 07:27 Temperature Pulse Rate 82 Respiratory 16 Rate Blood Pressure 118/74 117/77 108/72 O2 Sat by Pulse 99 99 99 Oximetry Medical Decision Making - Medical Decision Making Upon arrival the patient is placed into room 17. 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 A thorough history and physical exam was performed. Pe ripheral IV is established. The patient was given a liter bolus of normal saline. She was also given 4 miligrams of Zofran for nausea and 15 mg of Toradol for pain. Lab studies were conducted. She was sent over for CT for abdomen and pelvis. Laboratory studies are essentially unremarkable. CT does not demonstrate any acute findings. I did discuss these results with the patient. States she feels improved at this time. She is able to tolerate by mouth intake. Abdomen remained soft without peritoneal signs. I will provide the patient with a prescription for Zofran. I also provided her with prescription for Augmentin for her dental pain. She is to take Naprosyn for her dental pain. The patient to follow-up with her dentist for extraction of the tooth. She does follow up with her primary care physician for abdominal pain. If she has any new or worsening symptoms she should return to the emergency room. The patient was discharged in stable condition - Lab Data Result diagrams: 02/07/19 06:07 02/07/19 06:07 Lab Results 02/07/19 02/07/19 02/07/19 Range/Units 03:44 03:44 06:07 WBC (3.8-10.6) k/uL RBC (3.80-5.40) m/uL Hgb (11.4-16.0) gm/dL Hct (34.0-46.0) % MCV (80.0-100.0) fL MCH (25.0-35.0) pg MCHC (31.0-37.0) g/dL RDW (11.5-15.5) % Plt Count (150-450) k/uL Neutrophils % % Lymphocytes % % Monocytes % % Eosinophils % % Basophils % % Neutrophils # (1.3-7.7) k/uL Lymphocytes # (1.0-4.8) k/uL Monocytes # (0-1.0) k/uL Eosinophils # (0-0.7) k/uL Basophils # (0-0.2) k/uL Sodium (137-145) mmol/L Potassium (3.5-5.1) mmol/L Chloride (98-107) mmol/L Carbon Dioxide (22-30) mmol/L Anion Gap mmol/L BUN (7-17) mg/dL Creatinine (0.52-1.04) mg/dL Est GFR (CKD-EPI)AfAm (>60 ml/min/1.73 sqM) Est GFR (CKD-EPI)NonAf (>60 ml/min/1.73 sqM) Glucose (74-99) mg/dL Plasma Lactic Acid [place] 1.2 (0.7-2.0) mmol/L Calcium (8.4-10.2) mg/dL Total Bilirubin (0.2-1.3) mg/dL AST (14-36) U/L ALT (9-52) U/L Alkaline Phosphatase (38-126) U/L Total Protein (6.3-8.2) g/dL Albumin (3.5-5.0) g/dL Lipase (23-300) U/L Urine Color Yellow Urine Appearance Cloudy H (Clear) Urine pH 5.5 (5.0-8.0) Ur Specific [place] 1.031 (1.001-1.035) Urine Protein Trace H (Negative) Urine Glucose (UA) Negative (Negative) Urine Ketones Negative (Negative) Urine Blood Negative (Negative) Urine Nitrite Negative (Negative) Urine Bilirubin Negative (Negative) Urine Urobilinogen <2.0 (<2.0) mg/dL Ur Leukocyte Esterase Moderate H (Negative) Urine RBC 1 (0-5) /hpf Urine WBC 7 H (0-5) /hpf Ur Squamous Epith Cells 8 H (0-4) /hpf Urine Bacteria Rare H (None) /hpf Urine Mucus Moderate H (None) /hpf Urine HCG, Qual Not Detected (Not Detectd) 02/07/19 02/07/19 Range/Units 06:07 06:07 WBC 11.3 H (3.8-10.6) k/uL RBC 4.23 (3.80-5.40) m/uL Hgb 12.5 (11.4-16.0) gm/dL Hct 37.6 (34.0-46.0) % MCV 88.9 (80.0-100.0) fL MCH 29.5 (25.0-35.0) pg MCHC 33.2 (31.0-37.0) g/dL RDW 13.6 (11.5-15.5) % Plt Count 326 (150-450) k/uL Neutrophils % 57 % Lymphocytes % 29 % Monocytes % 6 % Eosinophils % 5 % Basophils % 1 % Neutrophils # 6.4 (1.3-7.7) k/uL Lymphocytes # 3.3 (1.0-4.8) k/uL Monocytes # 0.7 (0-1.0) k/uL Eosinophils # 0.6 (0-0.7) k/uL Basophils # 0.1 (0-0.2) k/uL Sodium 139 (137-145) mmol/L Potassium 4.7 (3.5-5.1) mmol/L Chloride 104 (98-107) mmol/L Carbon Dioxide 23 (22-30) mmol/L Anion Gap 12 mmol/L BUN 14 (7-17) mg/dL Creatinine 0.58 (0.52-1.04) mg/dL Est GFR (CKD-EPI)AfAm >90 (>60 ml/min/1.73 sqM) Est GFR (CKD-EPI)NonAf >90 (>60 ml/min/1.73 sqM) Glucose 92 (74-99) mg/dL Plasma Lactic Acid [place] (0.7-2.0) mmol/L Calcium 10.1 (8.4-10.2) mg/dL Total Bilirubin 0.2 (0.2-1.3) mg/dL AST 29 (14-36) U/L ALT 42 (9-52) U/L Alkaline Phosphatase 78 (38-126) U/L Total Protein 7.4 (6.3-8.2) g/dL Albumin 4.4 (3.5-5.0) g/dL Lipase 73 (23-300) U/L Urine Color Urine Appearance (Clear) Urine pH (5.0-8.0) Ur Specific [place] (1.001-1.035) Urine Protein (Negative) Urine Glucose (UA) (Negative) Urine Ketones (Negative) Urine Blood (Negative) Urine Nitrite (Negative) Urine Bilirubin (Negative) Urine Urobilinogen (<2.0) mg/dL Ur Leukocyte Esterase (Negative) Urine RBC (0-5) /hpf Urine WBC (0-5) /hpf Ur Squamous Epith Cells (0-4) /hpf Urine Bacteria (None) /hpf Urine Mucus (None) /hpf Urine HCG, Qual (Not Detectd) Disposition Clinical Impression: Abdominal pain, Dentalgia Disposition: HOME SELF-CARE Condition: Stable Instructions (If sedation given, give patient instructions): Abdominal Pain (ED), Toothache (ED) Additional Instructions: Please follow-up with your primary care doctor in 2-4 days. Return to the emergency room for any new or worsening symptoms. You must see a dentist to have your tooth extracted Prescriptions: Amoxic-Pot Clav 875-125Mg [Augmentin 875-125] 1 tab PO Q12HR #14 tablet Naproxen [Naprosyn] 500 mg PO Q12HR PRN #20 tab PRN Reason: Pain Is patient prescribed a controlled substance at d/c from ED?: No Referrals: Anatoliy Tang DO [Primary Care Provider] - 1-2 days Time of Disposition: 07:43
== END 2019-02-07 07:49 | disposition home or self-care (01) ==
LOC: EC 03:37
DX: K02.9 Dental caries, unspecified (principal); R10.30 Lower abdominal pain, unspecified; R11.0 Nausea; F31.9 Bipolar disorder, unspecified; F41.9 Anxiety disorder, unspecified; F17.200 Nicotine dependence, unspecified, uncomplicated; Z88.5 Allergy status to narcotic agent; Z91.018 Allergy to other foods; Z79.899 Other long term (current) drug therapy
CPT/HCPCS: 99284; 96374; 96375; 96361; 36415; 80053; 83605; 83690; 85025; 81001; 81025; 74018; 74177; J2405; J1885; Q9967

== ENCOUNTER 2019-03-15 10:49 | Emergency (ER) | payer OTHER ==
[2019-03-15 11:10] VITALS: RESP 16; TEMP 98
[2019-03-15] MEDS ORDERED: SODIUM CHLORIDE 0.9% 1,000 ML IV STA (11:21)
[2019-03-15] MEDS ORDERED: SODIUM CHLORIDE 0.9% 1,000 ML IV ONE (11:21)
[2019-03-15 12:01] VITALS: BP 103/63; PULSE 73
[2019-03-15 12:22] LABS: Basophils # (A) 0.1 k/uL (0-0.2); Basophils % (A) 1 %; Eosinophils # (A) 0.2 k/uL (0-0.7); Eosinophils % (A) 2 %; HCT 39.7 % (34.0-46.0); Lymphocytes # (A) 1.7 k/uL (1.0-4.8); Lymphocytes % (A) 15 %; MCH 29.3 pg (25.0-35.0); MCHC 32.6 g/dL (31.0-37.0); MCV 89.9 fL (80.0-100.0); Mean Platelet Volume 6.2; Monocytes # (A) 0.7 k/uL (0-1.0); Monocytes % (A) 6 %; Neutrophils # (A) 8.1 k/uL (1.3-7.7); Neutrophils % (A) 74 %; Platelet Count 315 k/uL (150-450); RBC 4.42 m/uL (3.80-5.40); RDW 12.9 % (11.5-15.5)
[2019-03-15 12:30] LABS: Appearance,Urine Cloudy (Clear); Bacteria,Urine Occasional /hpf; Bilirubin,Urine Negative (Negative); Blood,Urine Negative (Negative); Color,Urine Yellow; Glucose,Urine (UA) Negative (Negative); Ketones,Urine 1+ (Negative); Leukocyte Esterase,Urine Moderate (Negative); Mucus,Urine Many /hpf; Nitrite,Urine Negative (Negative); PH, Urine 6.5 (5.0-8.0); Protein,Urine Trace (Negative); Specific Gravity,Urine 1.024 (1.001-1.035); Squamous Epithelial Cell,Urine 7 /hpf (0-4); Urobilinogen,Urine <2.0 mg/dL (<2.0); WBC,Urine 4 /hpf (0-5)
[2019-03-15 12:33] LABS: ALT 24 U/L (9-52); AST 19 U/L (14-36); African American GFR (CKD) >90 (>60 ml/min/1.73 sqM); Albumin 4.2 g/dL (3.5-5.0); Alkaline Phosphatase 70 U/L (38-126); Amylase <30 U/L (30-110); Anion Gap 9 mmol/L; Blood Urea Nitrogen 8 mg/dL (7-17); Calcium 9.6 mg/dL (8.4-10.2); Carbon Dioxide 21 mmol/L (22-30); Chloride 107 mmol/L (98-107); Glucose 86 mg/dL (74-99); Potassium 4.7 mmol/L (3.5-5.1); Sodium 137 mmol/L (137-145); Total Bilirubin 0.6 mg/dL (0.2-1.3); Total Protein 7.3 g/dL (6.3-8.2)
--- NOTE | 2019-03-15 12:33 | ED ---
Abdominal Pain HPI - General Chief Complaint: Abdominal Pain Stated Complaint: early /abdominal pain Time Seen by Provider: 03/15/19 11:07 Source: patient, RN notes reviewed, old records reviewed Mode of arrival: ambulatory Limitations: no limitations - History of Present Illness Initial Comments: Pt is a pleasant 23 year old female, approximately 10 weeks presents with lower abdominal cramping. She denies vaginal bleeding or di scharge. She is to see Dr. Couch on Saturday. Patient has no specific fevers or chills. Denies nausea and vomiting. She reports normal urination and bowel habits. She has not had any testing on this . - Related Data Home Medications Medication Instructions Recorded Confirmed Sertraline [Zoloft] 100 mg PO HS 07/02/18 02/07/19 QUEtiapine [SEROquel] 25 mg PO HS 10/22/18 02/07/19 Previous Rx's Medication Instructions Recorded Amoxic-Pot Clav 875-125Mg 1 tab PO Q12HR #14 tablet 02/07/19 [Augmentin 875-125] Naproxen [Naprosyn] 500 mg PO Q12HR PRN #20 tab 02/07/19 Cephalexin [Keflex] 500 mg PO Q6HR 3 Days #12 cap 03/15/19 Allergies Allergy/AdvReac Type Severity Reaction Status Date / Time banana Allergy Rash/Hives Verified 02/07/19 07:52 morphine AdvReac Nausea & Verified 02/07/19 07:52 Vomiting Review of Systems ROS Statement: Those systems with pertinent positive or pertinent negative responses have been documented in the HPI. ROS Other: All systems not noted in ROS Statement are negative. Past Medical History Past Medical History: No Reported History History of Any Multi-Drug Resistant Organisms: None Reported Past Surgical History: No Surgical Hx Reported Past Anesthesia/Blood Transfusion Reactions: No Reported Reaction Past Psychological History: Anxiety, Bipolar, Depression Smoking Status: Current every day smoker Past Alcohol Use History: None Reported Past Drug Use History: None Reported - Past Family History Mother Family Medical History: CVA/TIA Additional Family Medical History / Comment(s): Mother . Patient unsure of how or the age she passed. Father Family Medical History: CVA/TIA Additional Family Medical History / Comment(s): Patient's father passed. Patient unsure of age or how he passed. Brother(s) Family Medical History: Diabetes Mellitus Additional Family Medical History / Comment(s): Pt. reports she has 3 biological brothers who are all diabetic, have PTSD, Depression, and Bipolar. General Exam - General Exam Comments Initial Comments: 23 year old female, no distress. Limitations: no limitations General appearance: alert, in no apparent distress Head exam: Present: atraumatic, normocephalic, normal inspection Eye exam: Present: normal appearance, PERRL, EOMI. Absent: scleral icterus, conjunctival injection, periorbital swelling ENT exam: Present: normal exam, mucous membranes moist Neck exam: Present: normal inspection. Absent: tenderness, meningismus, lymphadenopathy Respiratory exam: Present: normal lung sounds bilaterally. Absent: respiratory distress, wheezes, rales, rhonchi, stridor Cardiovascular Exam: Present: regular rate, normal rhythm, normal heart sounds. Absent: systolic murmur, diastolic murmur, rubs, gallop, clicks GI/Abdominal exam: Present: soft, tenderness (miniminal suprapubic tenderness. ), normal bowel sounds. Absent: distended, guarding, rebound, rigid Back exam: Present: normal inspection Neurological exam: Present: alert, oriented X3, CN II-XII intact Psychiatric exam: Present: normal affect, normal mood Course Vital Signs 03/15/19 03/15/19 11:07 11:59 Temperature 98 F Pulse Rate 82 73 Respiratory 16 16 Rate Blood Pressure 135/100 103/63 O2 Sat by Pulse 99 100 Oximetry Medical Decision Making - Medical Decision Making Patient is a 23 year old female with CC of lower abdominal pain in early . She has minimal suprapubic tenderness. Patient US shows viable IUP measuring 6 weeks. UA shows asymptomatic bacteuria. Will place on ABX. Patient is Rh positive and denies vaginal bleeding. Discussed PCP and OB follow up. - Lab Data Result diagrams: 03/15/19 11:55 03/15/19 11:55 Lab Results 03/15/19 03/15/19 03/15/19 Range/Units 11:55 11:55 11:55 WBC (3.8-10.6) k/uL RBC (3.80-5.40) m/uL Hgb (11.4-16.0) gm/dL Hct (34.0-46.0) % MCV (80.0-100.0) fL MCH (25.0-35.0) pg MCHC (31.0-37.0) g/dL RDW (11.5-15.5) % Plt Count (150-450) k/uL Neutrophils % % Lymphocytes % % Monocytes % % Eosinophils % % Basophils % % Neutrophils # (1.3-7.7) k/uL Lymphocytes # (1.0-4.8) k/uL Monocytes # (0-1.0) k/uL Eosinophils # (0-0.7) k/uL Basophils # (0-0.2) k/uL PT (9.0-12.0) sec INR (<1.2) APTT (22.0-30.0) sec Sodium 137 (137-145) mmol/L Potassium 4.7 (3.5-5.1) mmol/L Chloride 107 (98-107) mmol/L Carbon Dioxide 21 L (22-30) mmol/L Anion Gap 9 mmol/L BUN 8 (7-17) mg/dL Creatinine 0.59 (0.52-1.04) mg/dL Est GFR (CKD-EPI)AfAm >90 (>60 ml/min/1.73 sqM) Est GFR (CKD-EPI)NonAf >90 (>60 ml/min/1.73 sqM) Glucose 86 (74-99) mg/dL Calcium 9.6 (8.4-10.2) mg/dL Total Bilirubin 0.6 (0.2-1.3) mg/dL AST 19 (14-36) U/L ALT 24 (9-52) U/L Alkaline Phosphatase 70 (38-126) U/L Total Protein 7.3 (6.3-8.2) g/dL Albumin 4.2 (3.5-5.0) g/dL Amylase <30 L (30-110) U/L Lipase 62 (23-300) U/L HCG, Quant 00696.7 mIU/mL Urine Color Urine Appearance (Clear) Urine pH (5.0-8.0) Ur Specific [place] (1.001-1.035) Urine Protein (Negative) Urine Glucose (UA) (Negative) Urine Ketones (Negative) Urine Blood (Negative) Urine Nitrite (Negative) Urine Bilirubin (Negative) Urine Urobilinogen (<2.0) mg/dL Ur Leukocyte Esterase (Negative) Urine WBC (0-5) /hpf Ur Squamous Epith Cells (0-4) /hpf Urine Bacteria (None) /hpf Urine Mucus (None) /hpf Chlamydia Source Urine Chlamydia DNA (PCR) Negative (Neg,Equiv) N. gonorrhoeae Source N.gonorrhoeae DNA Probe (Neg,Equiv) Blood Type A Positive Blood Type Recheck No Previous Record Bld Type Recheck Status No 03/15/19 03/15/19 03/15/19 Range/Units 11:55 11:55 11:55 WBC 11.0 H (3.8-10.6) k/uL RBC 4.42 (3.80-5.40) m/uL Hgb 13.0 (11.4-16.0) gm/dL Hct 39.7 (34.0-46.0) % MCV 89.9 (80.0-100.0) fL MCH 29.3 (25.0-35.0) pg MCHC 32.6 (31.0-37.0) g/dL RDW 12.9 (11.5-15.5) % Plt Count 315 (150-450) k/uL Neutrophils % 74 % Lymphocytes % 15 % Monocytes % 6 % Eosinophils % 2 % Basophils % 1 % Neutrophils # 8.1 H (1.3-7.7) k/uL Lymphocytes # 1.7 (1.0-4.8) k/uL Monocytes # 0.7 (0-1.0) k/uL Eosinophils # 0.2 (0-0.7) k/uL Basophils # 0.1 (0-0.2) k/uL PT 10.3 (9.0-12.0) sec INR 1.0 (<1.2) APTT 25.0 (22.0-30.0) sec Sodium (137-145) mmol/L Potassium (3.5-5.1) mmol/L Chloride (98-107) mmol/L Carbon Dioxide (22-30) mmol/L Anion Gap mmol/L BUN (7-17) mg/dL Creatinine (0.52-1.04) mg/dL Est GFR (CKD-EPI)AfAm (>60 ml/min/1.73 sqM) Est GFR (CKD-EPI)NonAf (>60 ml/min/1.73 sqM) Glucose (74-99) mg/dL Calcium (8.4-10.2) mg/dL Total Bilirubin (0.2-1.3) mg/dL AST (14-36) U/L ALT (9-52) U/L Alkaline Phosphatase (38-126) U/L Total Protein (6.3-8.2) g/dL Albumin (3.5-5.0) g/dL Amylase (30-110) U/L Lipase (23-300) U/L HCG, Quant mIU/mL Urine Color Urine Appearance (Clear) Urine pH (5.0-8.0) Ur Specific [place] (1.001-1.035) Urine Protein (Negative) Urine Glucose (UA) (Negative) Urine Ketones (Negative) Urine Blood (Negative) Urine Nitrite (Negative) Urine Bilirubin (Negative) Urine Urobilinogen (<2.0) mg/dL Ur Leukocyte Esterase (Negative) Urine WBC (0-5) /hpf Ur Squamous Epith Cells (0-4) /hpf Urine Bacteria (None) /hpf Urine Mucus (None) /hpf Chlamydia Source Chlamydia DNA (PCR) (Neg,Equiv) N. gonorrhoeae Source Urine N.gonorrhoeae DNA Probe Negative (Neg,Equiv) Blood Type Blood Type Recheck Bld Type Recheck Status 03/15/19 Range/Units 11:55 WBC (3.8-10.6) k/uL RBC (3.80-5.40) m/uL Hgb (11.4-16.0) gm/dL Hct (34.0-46.0) % MCV (80.0-100.0) fL MCH (25.0-35.0) pg MCHC (31.0-37.0) g/dL RDW (11.5-15.5) % Plt Count (150-450) k/uL Neutrophils % % Lymphocytes % % Monocytes % % Eosinophils % % Basophils % % Neutrophils # (1.3-7.7) k/uL Lymphocytes # (1.0-4.8) k/uL Monocytes # (0-1.0) k/uL Eosinophils # (0-0.7) k/uL Basophils # (0-0.2) k/uL PT (9.0-12.0) sec INR (<1.2) APTT (22.0-30.0) sec Sodium (137-145) mmol/L Potassium (3.5-5.1) mmol/L Chloride (98-107) mmol/L Carbon Dioxide (22-30) mmol/L Anion Gap mmol/L BUN (7-17) mg/dL Creatinine (0.52-1.04) mg/dL Est GFR (CKD-EPI)AfAm (>60 ml/min/1.73 sqM) Est GFR (CKD-EPI)NonAf (>60 ml/min/1.73 sqM) Glucose (74-99) mg/dL Calcium (8.4-10.2) mg/dL Total Bilirubin (0.2-1.3) mg/dL AST (14-36) U/L ALT (9-52) U/L Alkaline Phosphatase (38-126) U/L Total Protein (6.3-8.2) g/dL Albumin (3.5-5.0) g/dL Amylase (30-110) U/L Lipase (23-300) U/L HCG, Quant mIU/mL Urine Color Yellow Urine Appearance Cloudy H (Clear) Urine pH 6.5 (5.0-8.0) Ur Specific [place] 1.024 (1.001-1.035) Urine Protein Trace H (Negative) Urine Glucose (UA) Negative (Negative) Urine Ketones 1+ H (Negative) Urine Blood Negative (Negative) Urine Nitrite Negative (Negative) Urine Bilirubin Negative (Negative) Urine Urobilinogen <2.0 (<2.0) mg/dL Ur Leukocyte Esterase Moderate H (Negative) Urine WBC 4 (0-5) /hpf Ur Squamous Epith Cells 7 H (0-4) /hpf Urine Bacteria Occasional H (None) /hpf Urine Mucus Many H (None) /hpf Chlamydia Source Chlamydia DNA (PCR) (Neg,Equiv) N. gonorrhoeae Source N.gonorrhoeae DNA Probe (Neg,Equiv) Blood Type Blood Type Recheck Bld Type Recheck Status - Radiology Data Radiology results: report reviewed US shows viable IUP measuring 6 weeks and 1 day. KATE is 11/07/2019 Disposition Clinical Impression: 6 weeks gestation of , Asymptomatic bacteriuria during Disposition: HOME SELF-CARE Condition: Good Instructions (If sedation given, give patient instructions): (ED) Additional Instructions: Follow-up tomorrow with your CAR MANAGER. Return to the emergency department if any alarming signs or symptoms occur. Prescriptions: Cephalexin [Keflex] 500 mg PO Q6HR 3 Days #12 cap Is patient prescribed a controlled substance at d/c from ED?: No Referrals: Anatoliy Tang DO [Primary Care Provider] - 1-2 days Time of Disposition: 14:08
[2019-03-15 12:40] LABS: Prothrombin Time 10.3 sec (9.0-12.0)
--- NOTE | 2019-03-15 13:05 | US ---
EXAMINATION TYPE: Transabdominal DATE OF EXAM: 03/15/2019 12:38 PM COMPARISON: NONE CLINICAL HISTORY: abd pain, early preg. Pelvic pain x 1 day, + at home test 2 days ago, gra eduar 2, para 1 EXAM PERFORMED: Transabdominal (TA) EXAM MEASUREMENTS: GESTATIONAL AGE / DATING Physician Established: Not established yet Dates by LMP: (10 weeks/3 days) EDC: 10/08/2019 Dates by First Scan: This is 1st scan Dates by Current Scan for: ( 6 weeks/1 days) EDC: 11/07/2019 MATERNAL ANATOMY Uterus: 9.7 x 6.3 x 6.7cm, retroverted Right Ovary: 3.6 x 2.3 x 2.8cm Left Ovary: 2.9 x 1.5 x 2.0cm Post CDS / Adnexa: wnl Presence of free fluid: no Presence of corpus luteal cyst: right ovary: 1.5 x 1.8 x 1.3cm Presence of subchorionic bleed: no GESTATION / SURVEY CRL: 0.5cm (6 weeks/2 days) MSD: 1.6cm (5 weeks/6 days) Yolk Sac (normal less than 6mm): 3.6mm Heart Rate: 119 bpm Rhythm: Normal IUP: Viable IUP Date of LMP: 01/01/2019 Beta HcG (if available): Not available at time of exam. IMPRESSION: VIABLE INTRAUTERINE GESTATION WITH A GESTATIONAL AGE OF 6 WEEKS 1 DAY +/- 5 DAYS. ESTIMATED DATE CONF INEMENT BASED ON THIS EXAMINATION IS 11/07/2019
[2019-03-15 13:16] LABS: HCG,Quantitative Serum 39144.7 mIU/mL
[2019-03-17 13:50] LABS: C. trachomatis,PCR Negative (Neg,Equiv); Chlamydia trachomatis Source Urine
[2019-03-17 14:10] LABS: N. gonorrhoeae,PCR Negative (Neg,Equiv); Neisseria Source Urine
== END 2019-03-15 14:15 | disposition home or self-care (01) ==
LOC: EC 10:49
DX: O99.89 Other specified diseases and conditions complicating pregnancy, childbirth and the puerperium (principal); R82.71 Bacteriuria; O99.341 Other mental disorders complicating pregnancy, first trimester; F41.9 Anxiety disorder, unspecified; F31.9 Bipolar disorder, unspecified; O99.331 Smoking (tobacco) complicating pregnancy, first trimester; F17.200 Nicotine dependence, unspecified, uncomplicated; Z3A.01 Less than 8 weeks gestation of pregnancy; Z79.899 Other long term (current) drug therapy; Z88.5 Allergy status to narcotic agent; Z91.018 Allergy to other foods
CPT/HCPCS: 36415; 76801; 80053; 81001; 82150; 83690; 84702; 85025; 85610; 85730; 86900; 86901; 87491; 87591; 96360; 99284

== ENCOUNTER 2019-07-08 19:48 | Outpatient (CLI) | payer OTHER ==
--- NOTE | 2019-07-08 21:42 | US ---
EXAMINATION TYPE: US OB limited DATE OF EXAM: 07/08/2019 COMPARISON: US CLINICAL HISTORY: AUTUMN and cervical length if AUTUMN within normal limit. AUTUMN and Cervix length if AUTUMN wn l. EXAM PERFORMED: Transabdominal (TA) GESTATIONAL AGE / DATING Physician Established: (22 weeks/6 days) EDC: 11/05/2019 No growth performed on today?s study per ordering physician SURVEY AUTUMN: 18.22 cm Upper limits of normal for hospital guidelines (10-18 cm). Ultrasound evidence of premature rupture of membranes? No CERVICAL LENGTH (transabdominal: norm > 3.0cm): 3.36 cm Limited. Transvaginal exam unnecessary per doctor. HEART RATE: 150 bpm RHYTHM: Normal IMPRESSION: Negative exam. Amniotic fluid is normal. Normal cervix. Cervix is closed.
[2019-07-08 21:58] VITALS: BP 115/69; PULSE 104; RESP 18; TEMP 97.1
--- NOTE | 2019-07-19 10:03 | P.MSEPDOC ---
Presenting Problems - Arrival Data Date of Arrival on Unit: 07/08/19 Time of Arrival on Unit: 19:48 Mode of Transport: Ambulatory - Complaint OB-Reason for Admission/Chief Complaint: Rule Out SROM, Decreased Movement, Pain Comment: pt here for leaking clear fluid since this morning, cramping since 1600, and states no movement since last night at 2130 Medical History - Information : 2 Para: 1 Term: 1 : 0 Abortions: Spontaneous or Elective: 0 Number of Living Children: 0 - Gestational Age Gestational Age by KATE (wks/days): 22 Weeks and 6 Days Review of Systems - Review of Systems Constitutional: No problems Breast: No problems ENT: No problems Cardiovascular: No problems Respiratory: No problems Gastrointestinal: No problems Genitourinary: No problems Musculoskeletal: No problems Neurological: No problems Skin: No problems Vital Signs - Temperature Temperature: 97.1 F Temperature Source: Temporal Artery Scan - Pulse Right Pulse Oximetery Pulse Rate: 104 Pulse Assessment Method: Pulse Oximetry - Respirations Respiratory Rate: 18 Oxygen Delivery Method: Room Air O2 Sat by Pulse Oximetry: 99 - Blood Pressure Right Arm Blood Pressure: 115/69 Blood Pressure Mean: 84 Blood Pressure Source: Automatic Cuff Medical Screen Scoring (Pre) - Cervical Exam Dilation: 0 cm = 0 Membranes: Intact - Uterine Contractions Frequency: N/A Duration: N/A Intensity: N/A - Maternal Vital Signs Maternal Temperature: N/A Maternal Blood Pressure: N/A Signs of Preeclampsia: N/A Maternal Respirations: N/A - Maternal Trauma Maternal Trauma: N/A - Assessment - Baby A Baseline FHR: 150 Heart Rate - NICHD Category: Category I (Normal) = 0 Position: N/A Station: N/A - Total Score - Baby A Total Score - Baby A: 0 - Total Score - Baby B Total Score - Baby B: 0 - Total Score - Baby C Total Score - Baby C: 0 - Level of Risk - Baby A Level of Risk - Baby A: Low (0-5) - Level of Risk - Baby B Level of Risk - Baby B: Low (0-5) - Level of Risk - Baby C Level of Risk - Baby C: Low (0-5) Physician Notification (Pre) - Physician Notified Physician Notified Date: 07/08/19 Physician Notified Time: 20:47 New Order Received: Yes - Notification Comment Comment: Amnisure negative, no leaking noted on sterile speculum exam, US done for AUTUMN (18), cervix closed, thick, high. pt discharged home with instructions to follow up with her physician tomorrow. Disposition - Disposition OB Disposition: Discharge to home Discharge Date: 07/08/19 Discharge Time: 21:45 I agree with the RN Medical Screening Exam: Yes Risk & Benefit of care provided described in d/c instruction: Yes Diagnosis: FALSE LABOR BEFORE 37 COMPLETED WEEKS OF GEST, SECOND TRI
== END 2019-07-08 21:45 | disposition home or self-care (01) ==
LOC: FBPOP 19:48
PROVIDERS: ATTEND Obstetrics & Gynecology
DX: O47.02 False labor before 37 completed weeks of gestation, second trimester (principal); Z3A.22 22 weeks gestation of pregnancy
CPT/HCPCS: 76815; G0463; 99213

== ENCOUNTER → 2020-05-28 | Outpatient (CLI) | payer OTHER ==
--- NOTE | 2020-05-28 13:19 | MR ---
EXAMINATION TYPE: MR cervical spine wo con DATE OF EXAM: 05/28/2020 COMPARISON: None HISTORY: Neck pain, stiffness, headaches Multiplanar multiecho imaging of the cervical spine was performed without contrast. Cervical vertebra have normal alignment. Disc spaces are normal. Cervical spinal cord has normal sign al pattern. There is no edema. There is no cervical paraspinal mass. There is no evidence of bony kristina tructive process. The neural foramina appear widely patent. IMPRESSION: Normal MR scan of the cervical spine.
== END | disposition home or self-care (01) ==
LOC: RADMRIMAIN 12:30
PROVIDERS: ATTEND Specialist
DX: Q07.00 Arnold-Chiari syndrome without spina bifida or hydrocephalus (principal)
CPT/HCPCS: 72141

== ENCOUNTER → 2020-06-16 | Outpatient (CLI) | payer OTHER ==
--- NOTE | 2020-06-16 13:45 | XR ---
EXAMINATION TYPE: XR thoracic spine complete DATE OF EXAM: 06/16/2020 COMPARISON: None HISTORY: Back pain, Chiari malformation, seizure TECHNIQUE: Three-view thoracic spine FINDINGS: There are 12 thoracic type vertebral bodies. The pedicles are intact. Disc heights are pres erved. Vertebral body heights are preserved. Alignment is normal. IMPRESSION: 1. Normal three-view thoracic spine
--- NOTE | 2020-06-16 13:46 | XR ---
EXAMINATION TYPE: XR cervical spine comp DATE OF EXAM: 06/16/2020 COMPARISON: None HISTORY: Pain Chiari malformation TECHNIQUE: Five-view cervical spine FINDINGS: Vertebral body heights are preserved. Disc heights are preserved. Alignment is normal. Post erior spinal lamellar line is intact. Foramen are patent. Prevertebral space is normal. The odontoid is limited with overlying occiput. IMPRESSION: 1. Normal 5 view cervical spine
== END | disposition home or self-care (01) ==
LOC: RADXRMAIN 11:58
PROVIDERS: ATTEND Nurse Practitioner Family
DX: M54.2 Cervicalgia (principal)
CPT/HCPCS: 72050; 72072

== ENCOUNTER 2021-02-09 13:10 | Emergency (ER) | payer OTHER ==
--- NOTE | 2021-02-09 13:49 | ED ---
Dizziness HPI - General Chief Complaint: Dizziness Stated Complaint: Dizziness Source: patient Mode of arrival: ambulatory Limitations: no limitations - History of Present Illness Initial Comments: Patient is a 25-year-old female with past medical history of Chiari malformation who presents emergency Department with reported generalized fatigue and vertigo. She states that for the past several days she has had extreme weakness with poor food intake. She also has the sensation that the room is spinning on her. Denies any recent head trauma. States that her malformation and causes her to have frequent headaches however denies any dizziness. She denies any unilateral numbness, tingling or weakness. No concern for . No abdominal pain. No changes in her bowel or bladder habits. No vomiting. No chest pain or shortness of breath. She did see Dr. Nicole in office for her symptoms and he recommended that she come into the emergency room for further evaluation. No other alleviating, precipitating or modifying factors - Related Data Home Medications Medication Instructions Recorded Confirmed Cyclobenzaprine [Flexeril] 10 mg PO BID PRN 02/09/21 02/09/21 Meclizine [Antivert] 25 mg PO TID PRN 02/09/21 02/09/21 Norelgestromin/Ethin.estradiol 1 patch TRANSDERM DIRECTED 02/09/21 02/09/21 [Xulane 150-35 Mcg/Day Patch] Ondansetron [Zofran] 4 mg PO BID PRN 02/09/21 02/09/21 SUMAtriptan succinate [Imitrex] 50 mg PO DAILY PRN 02/09/21 02/09/21 Sertraline [Zoloft] 25 mg PO DIRECTED 02/09/21 02/09/21 levETIRAcetam 1,000 mg PO BID 02/09/21 02/09/21 Allergies Allergy/AdvReac Type Severity Reaction Status Date / Time banana Allergy Rash/Hives Verified 02/09/21 15:05 morphine AdvReac Nausea & Verified 02/09/21 15:05 Vomiting Review of Systems ROS Statement: Those systems with pertinent positive or pertinent negative responses have been documented in the HPI. ROS Other: All systems not noted in ROS Statement are negative. Past Medical History Past Medical History: No Reported History Additional Past Medical History / Comment(s): chiari malformation. History of Any Multi-Drug Resistant Organisms: None Reported Past Surgical History: No Surgical Hx Reported Past Anesthesia/Blood Transfusion Reactions: No Reported Reaction Past Psychological History: Anxiety, Bipolar, Depression Smoking Status: Never smoker Past Alcohol Use History: None Reported Past Drug Use History: None Reported - Past Family History Mother Family Medical History: CVA/TIA Additional Family Medical History / Comment(s): Mother . Patient unsure of how or the age she passed. Father Family Medical History: CVA/TIA Additional Family Medical History / Comment(s): Patient's father passed. Patient unsure of age or how he passed. Brother(s) Family Medical History: Diabetes Mellitus Additional Family Medical History / Comment(s): Pt. reports she has 3 biological brothers who are all diabetic, have PTSD, Depression, and Bipolar. General Exam Limitations: no limitations Course Vital Signs 02/09/21 02/09/21 02/09/21 13:23 15:30 16:42 Temperature 98.6 F 97.8 F Pulse Rate 93 92 90 Respiratory 16 20 20 Rate Blood Pressure 94/65 100/77 118/68 O2 Sat by Pulse 95 98 98 Oximetry EKG Findings - EKG Comments: EKG Findings:: EKG demonstrates normal sinus rhythm with a ventricular rate of 7 7. NM interval is 132. QRS 84. QTC of 407. No acute ST segment elevations or depressions concerning for ischemic changes. No signs of Mutck-Zfzjdferx-Oychr or Brugada syndrome Medical Decision Making - Medical Decision Making Upon arrival patient is placed into room 14. A thorough history and physical exam is performed. She is to continuous pulse ox and cardiac monitoring. 12- lead EKG was performed. Laboratory studies are conducted and reviewed. Laboratory studies are within normal limits. Urinalysis demonstrates large leukocyte esterase, 6 red blood cells and 6 white blood cells. Patient has no urinary complaints. HCG is negative. CT of the brain is performed which inserts no acute intracranial process. She was given a dose of meclizine without improvement in her symptoms. I did discuss diagnosis, differential treatment options. Patient is eager to go home at this time. Patient will follow up with her primary care physician in regards to her symptoms. Return for any new or worsening symptoms. Patient agreed to the treatment plan and was discharged home in stable condition - Lab Data Result diagrams: 02/09/21 14:16 09/23/21 14:16 Lab Results 02/09/21 02/09/21 02/09/21 Range/Units 14:16 14:16 14:16 WBC 9.3 (3.8-10.6) k/uL RBC 4.54 (3.80-5.40) m/uL Hgb 12.4 (11.4-16.0) gm/dL Hct 39.4 (34.0-46.0) % MCV 86.7 (80.0-100.0) fL MCH 27.4 (25.0-35.0) pg MCHC 31.6 (31.0-37.0) g/dL RDW 13.0 (11.5-15.5) % Plt Count 420 (150-450) k/uL MPV 7.0 Neutrophils % 68 % Lymphocytes % 21 % Monocytes % 6 % Eosinophils % 3 % Basophils % 0 % Neutrophils # 6.4 (1.3-7.7) k/uL Lymphocytes # 1.9 (1.0-4.8) k/uL Monocytes # 0.6 (0-1.0) k/uL Eosinophils # 0.3 (0-0.7) k/uL Basophils # 0.0 (0-0.2) k/uL Sodium (137-145) mmol/L Potassium (3.5-5.1) mmol/L Chloride (98-107) mmol/L Carbon Dioxide (22-30) mmol/L Anion Gap mmol/L BUN (7-17) mg/dL Creatinine (0.52-1.04) mg/dL Est GFR (CKD-EPI)AfAm (>60 ml/min/1.73 sqM) Est GFR (CKD-EPI)NonAf (>60 ml/min/1.73 sqM) Glucose (74-99) mg/dL Calcium (8.4-10.2) mg/dL Total Bilirubin (0.2-1.3) mg/dL AST (14-36) U/L ALT (4-34) U/L Alkaline Phosphatase (38-126) U/L Troponin I (0.000-0.034) ng/mL Total Protein (6.3-8.2) g/dL Albumin (3.5-5.0) g/dL Urine Color Light Yellow Urine Appearance Clear (Clear) Urine pH 6.5 (5.0-8.0) Ur Specific [place] 1.009 (1.001-1.035) Urine Protein Negative (Negative) Urine Glucose (UA) Negative (Negative) Urine Ketones Negative (Negative) Urine Blood Negative (Negative) Urine Nitrite Negative (Negative) Urine Bilirubin Negative (Negative) Urine Urobilinogen <2.0 (<2.0) mg/dL Ur Leukocyte Esterase Large H (Negative) Urine RBC 6 H (0-5) /hpf Urine WBC 6 H (0-5) /hpf Ur Squamous Epith Cells 2 (0-4) /hpf Urine Bacteria Rare H (None) /hpf Urine Mucus Rare H (None) /hpf Urine HCG, Qual Not Detected (Not Detectd) 02/09/21 02/09/21 Range/Units 14:16 14:16 WBC (3.8-10.6) k/uL RBC (3.80-5.40) m/uL Hgb (11.4-16.0) gm/dL Hct (34.0-46.0) % MCV (80.0-100.0) fL MCH (25.0-35.0) pg MCHC (31.0-37.0) g/dL RDW (11.5-15.5) % Plt Count (150-450) k/uL MPV Neutrophils % % Lymphocytes % % Monocytes % % Eosinophils % % Basophils % % Neutrophils # (1.3-7.7) k/uL Lymphocytes # (1.0-4.8) k/uL Monocytes # (0-1.0) k/uL Eosinophils # (0-0.7) k/uL Basophils # (0-0.2) k/uL Sodium 136 L (137-145) mmol/L Potassium 5.0 (3.5-5.1) mmol/L Chloride 107 (98-107) mmol/L Carbon Dioxide 20 L (22-30) mmol/L Anion Gap 9 mmol/L BUN 9 (7-17) mg/dL Creatinine 0.60 (0.52-1.04) mg/dL Est GFR (CKD-EPI)AfAm >90 (>60 ml/min/1.73 sqM) Est GFR (CKD-EPI)NonAf >90 (>60 ml/min/1.73 sqM) Glucose 93 (74-99) mg/dL Calcium 9.3 (8.4-10.2) mg/dL Total Bilirubin 0.6 (0.2-1.3) mg/dL AST 32 (14-36) U/L ALT 12 (4-34) U/L Alkaline Phosphatase 69 (38-126) U/L Troponin I <0.012 (0.000-0.034) ng/mL Total Protein 7.4 (6.3-8.2) g/dL Albumin 4.2 (3.5-5.0) g/dL Urine Color Urine Appearance (Clear) Urine pH (5.0-8.0) Ur Specific [place] (1.001-1.035) Urine Protein (Negative) Urine Glucose (UA) (Negative) Urine Ketones (Negative) Urine Blood (Negative) Urine Nitrite (Negative) Urine Bilirubin (Negative) Urine Urobilinogen (<2.0) mg/dL Ur Leukocyte Esterase (Negative) Urine RBC (0-5) /hpf Urine WBC (0-5) /hpf Ur Squamous Epith Cells (0-4) /hpf Urine Bacteria (None) /hpf Urine Mucus (None) /hpf Urine HCG, Qual (Not Detectd) Disposition Clinical Impression: Vertigo Disposition: HOME SELF-CARE Condition: Stable Instructions (If sedation given, give patient instructions): Dizziness (ED) Additional Instructions: Follow-up with primary care doctor in 2-4 days. Return to the ED for any new or worsening symptoms. Is patient prescribed a controlled substance at d/c from ED?: No Referrals: Tony Rizzo MD [Primary Care Provider] - 1-2 days Time of Disposition: 16:21
[2021-02-09] MEDS ORDERED: SODIUM CHLORIDE 0.9% 1,000 ML IV ONE (14:05)
[2021-02-09] MEDS ORDERED: MECLIZINE 12.5 MG TAB PO STA (14:05)
[2021-02-09 14:48] LABS: Basophils % (A) 0 %; Eosinophils # (A) 0.3 k/uL (0-0.7); Eosinophils % (A) 3 %; HCT 39.4 % (34.0-46.0); HGB 12.4 gm/dL (11.4-16.0); Lymphocytes # (A) 1.9 k/uL (1.0-4.8); Lymphocytes % (A) 21 %; MCH 27.4 pg (25.0-35.0); MCHC 31.6 g/dL (31.0-37.0); MCV 86.7 fL (80.0-100.0); Monocytes # (A) 0.6 k/uL (0-1.0); Monocytes % (A) 6 %; Neutrophils # (A) 6.4 k/uL (1.3-7.7); Neutrophils % (A) 68 %; Platelet Count 420 k/uL (150-450); RBC 4.54 m/uL (3.80-5.40); WBC 9.3 k/uL (3.8-10.6)
[2021-02-09 14:55] LABS: ALT 12 U/L (4-34); AST 32 U/L (14-36); African American GFR (CKD) >90 (>60 ml/min/1.73 sqM); Albumin 4.2 g/dL (3.5-5.0); Alkaline Phosphatase 69 U/L (38-126); Anion Gap 9 mmol/L; Blood Urea Nitrogen 9 mg/dL (7-17); Calcium 9.3 mg/dL (8.4-10.2); Carbon Dioxide 20 mmol/L (22-30); Chloride 107 mmol/L (98-107); Glucose 93 mg/dL (74-99); Non-African American GFR(CKD) >90 (>60 ml/min/1.73 sqM); Sodium 136 mmol/L (137-145); Total Bilirubin 0.6 mg/dL (0.2-1.3); Total Protein 7.4 g/dL (6.3-8.2)
[2021-02-09 14:59] LABS: Appearance,Urine Clear (Clear); Bacteria,Urine Rare /hpf; Bilirubin,Urine Negative (Negative); Blood,Urine Negative (Negative); Color,Urine Light Yellow; Glucose,Urine (UA) Negative (Negative); Ketones,Urine Negative (Negative); Leukocyte Esterase,Urine Large (Negative); Mucus,Urine Rare /hpf; Nitrite,Urine Negative (Negative); PH, Urine 6.5 (5.0-8.0); Protein,Urine Negative (Negative); RBC,Urine 6 /hpf (0-5); Specific Gravity,Urine 1.009 (1.001-1.035); Squamous Epithelial Cell,Urine 2 /hpf (0-4); Urobilinogen,Urine <2.0 mg/dL (<2.0); WBC,Urine 6 /hpf (0-5)
--- NOTE | 2021-02-09 15:30 | CT ---
EXAMINATION TYPE: CT brain wo con DATE OF EXAM: 02/09/2021 COMPARISON: None HISTORY: Headache and dizziness with visual disturbance. CT DLP: 1080.[address] of the brain was performed. The ventricles, basal cisterns and sulci overlying the cerebral convexities demonstrate a normal appe arance. There is no evidence for intracranial hemorrhage or sulcal effacement. No mass effects are seen. Osseous calvarium is intact. If symptoms persist consider MRI as clinically warranted. IMPRESSION: 1. No acute intracranial process is seen at this time.
[2021-02-09 16:42] VITALS: RESP 20
[2021-02-09 16:43] VITALS: BP 118/68; PULSE 90; TEMP 97.8
== END 2021-02-09 16:42 | disposition home or self-care (01) ==
LOC: EC 13:10
DX: R42 Dizziness and giddiness (principal); R51.9 Headache, unspecified; R53.83 Other fatigue; F31.9 Bipolar disorder, unspecified; F41.9 Anxiety disorder, unspecified
CPT/HCPCS: 36415; 70450; 80053; 81001; 81025; 84484; 85025; 93005; 96360; 99284

== ENCOUNTER 2021-08-12 11:55 | Emergency (ER) | payer OTHER ==
[2021-08-12 12:25] VITALS: RESP 18
[2021-08-12 12:43] LABS: Basophils % (A) 0 %; Eosinophils # (A) 0.1 k/uL (0-0.7); Eosinophils % (A) 1 %; HCT 37.8 % (34.0-46.0); HGB 12.3 gm/dL (11.4-16.0); Lymphocytes # (A) 1.8 k/uL (1.0-4.8); Lymphocytes % (A) 20 %; MCH 27.9 pg (25.0-35.0); MCHC 32.6 g/dL (31.0-37.0); MCV 85.5 fL (80.0-100.0); Mean Platelet Volume 6.7; Monocytes # (A) 0.5 k/uL (0-1.0); Monocytes % (A) 6 %; Neutrophils # (A) 6.6 k/uL (1.3-7.7); Neutrophils % (A) 72 %; Platelet Count 372 k/uL (150-450); RBC 4.42 m/uL (3.80-5.40); RDW 14.4 % (11.5-15.5); WBC 9.1 k/uL (3.8-10.6)
[2021-08-12 12:45] LABS: Appearance,Urine Cloudy (Clear); Bacteria,Urine Few /hpf; Bilirubin,Urine Negative (Negative); Blood,Urine Negative (Negative); Color,Urine Yellow; Glucose,Urine (UA) Negative (Negative); Ketones,Urine 2+ (Negative); Leukocyte Esterase,Urine Moderate (Negative); Mucus,Urine Many /hpf; Nitrite,Urine Negative (Negative); Protein,Urine 1+ (Negative); RBC,Urine 5 /hpf (0-5); Specific Gravity,Urine 1.028 (1.001-1.035); Squamous Epithelial Cell,Urine 12 /hpf (0-4); Urobilinogen,Urine <2.0 mg/dL (<2.0); WBC,Urine 6 /hpf (0-5)
[2021-08-12 12:53] LABS: ALT 14 U/L (4-34); AST 19 U/L (14-36); African American GFR (CKD) >90 (>60 ml/min/1.73 sqM); Alkaline Phosphatase 70 U/L (38-126); Anion Gap 9 mmol/L; Blood Urea Nitrogen 7 mg/dL (7-17); Calcium 8.9 mg/dL (8.4-10.2); Carbon Dioxide 19 mmol/L (22-30); Chloride 106 mmol/L (98-107); Glucose 91 mg/dL (74-99); Non-African American GFR(CKD) >90 (>60 ml/min/1.73 sqM); Potassium 4.2 mmol/L (3.5-5.1); Sodium 134 mmol/L (137-145); Total Bilirubin 0.5 mg/dL (0.2-1.3); Total Protein 7.1 g/dL (6.3-8.2)
[2021-08-12] MEDS ORDERED: SODIUM CHLORIDE 0.9% 1,000 ML IV ONE (12:56)
[2021-08-12] MEDS ORDERED: ONDANSETRON 4 MG/2 ML VIAL IVP STA (12:56)
--- NOTE | 2021-08-12 13:05 | ED ---
General Adult HPI - General Chief complaint: Back Pain/Injury Stated complaint: Abdominal pain, 7weeks Time Seen by Provider: 08/12/21 12:00 Source: patient Mode of arrival: ambulatory Limitations: no limitations - History of Present Illness Initial comments: 25-year-old female presents emergency room with suprapubic cramping which started this morning. Reports that she is currently 7 weeks [address] Head. Has had an ultrasound to confirm normal . Awoke this morning with pain. Denies any bleeding. No fevers or vaginal discharge. No changes in her urination to include dysuria, hematuria or difficult voiding. Denies diarrhea, hematochezia, constipation or melenic stools. Patient has had issues with hyperglycemia in previous . Reports her blood type is A+. No other alleviating, precipitating or modifying factors. - Related Data Home Medications Medication Instructions Recorded Confirmed Cyclobenzaprine [Flexeril] 10 mg PO BID PRN 02/09/21 02/09/21 Meclizine [Antivert] 25 mg PO TID PRN 02/09/21 02/09/21 Norelgestromin/Ethin.estradiol 1 patch TRANSDERM DIRECTED 02/09/21 02/09/21 [Xulane 150-35 Mcg/Day Patch] Ondansetron [Zofran] 4 mg PO BID PRN 02/09/21 02/09/21 SUMAtriptan succinate [Imitrex] 50 mg PO DAILY PRN 02/09/21 02/09/21 Sertraline [Zoloft] 25 mg PO DIRECTED 02/09/21 02/09/21 levETIRAcetam 1,000 mg PO BID 02/09/21 02/09/21 Previous Rx's Medication Instructions Recorded Cephalexin [Keflex] 500 mg PO BID #14 cap 08/12/21 Allergies Allergy/AdvReac Type Severity Reaction Status Date / Time banana Allergy Rash/Hives Verified 08/12/21 12:25 morphine AdvReac Nausea & Verified 08/12/21 12:25 Vomiting Review of Systems ROS Statement: Those systems with pertinent positive or pertinent negative responses have been documented in the HPI. ROS Other: All systems not noted in ROS Statement are negative. Past Medical History Past Medical History: No Reported History Additional Past Medical History / Comment(s): chiari malformation. G8, P2, A5 History of Any Multi-Drug Resistant Organisms: None Reported Past Surgical History: No Surgical Hx Reported Past Anesthesia/Blood Transfusion Reactions: No Reported Reaction Past Psychological History: Anxiety, Bipolar, Depression Smoking Status: Never smoker Past Alcohol Use History: None Reported Past Drug Use History: None Reported - Past Family History Mother Family Medical History: CVA/TIA Additional Family Medical History / Comment(s): Mother . Patient unsure of how or the age she passed. Father Family Medical History: CVA/TIA Additional Family Medical History / Comment(s): Patient's father passed. Patient unsure of age or how he passed. Brother(s) Family Medical History: Diabetes Mellitus Additional Family Medical History / Comment(s): Pt. reports she has 3 biological brothers who are all diabetic, have PTSD, Depression, and Bipolar. General Exam Limitations: no limitations Course Vital Signs 08/12/21 08/12/21 08/12/21 12:00 12:36 15:00 Temperature 98.7 F 98.0 F Pulse Rate 79 72 74 Respiratory 18 18 18 Rate Blood Pressure 110/72 109/69 112/77 O2 Sat by Pulse 100 99 98 Oximetry Medical Decision Making - Medical Decision Making Upon arrival patient was placed in room 22. A thorough history and physical exam was performed. IV access was established the patient was given a 1 L bolus of normal saline, 650 mg Tylenol, 4 mg of Zofran. Laboratory studies are conducted which demonstrates 2+ ketones in the urine, moderate leukocyte esterase, 6 white blood cells and few bacteria. Specimen is not a clean catch however since she is she will be treated for urinary tract infection with Keflex. Quant is 92,125. Ultrasound was performed which demonstrates intrauterine measuring 7 weeks, 6 days. Tiny subchorionic bleed. Patient has no active bleeding at this time. Patient will be discharged home and instructed to take Tylenol. She has been prescribed Zofran by her primary care doctor. She is to follow up with them next week. Return for any new or worsening symptoms. Patient agreed to the treatment plan she is discharged home in stable condition - Lab Data Result diagrams: 08/12/21 12:34 08/12/21 12:34 Lab Results 08/12/21 08/12/21 08/12/21 Range/Units 12:34 12:34 12:35 WBC 9.1 (3.8-10.6) k/uL RBC 4.42 (3.80-5.40) m/uL Hgb 12.3 (11.4-16.0) gm/dL Hct 37.8 (34.0-46.0) % MCV 85.5 (80.0-100.0) fL MCH 27.9 (25.0-35.0) pg MCHC 32.6 (31.0-37.0) g/dL RDW 14.4 (11.5-15.5) % Plt Count 372 (150-450) k/uL MPV 6.7 Neutrophils % 72 % Lymphocytes % 20 % Monocytes % 6 % Eosinophils % 1 % Basophils % 0 % Neutrophils # 6.6 (1.3-7.7) k/uL Lymphocytes # 1.8 (1.0-4.8) k/uL Monocytes # 0.5 (0-1.0) k/uL Eosinophils # 0.1 (0-0.7) k/uL Basophils # 0.0 (0-0.2) k/uL Sodium 134 L (137-145) mmol/L Potassium 4.2 (3.5-5.1) mmol/L Chloride 106 (98-107) mmol/L Carbon Dioxide 19 L (22-30) mmol/L Anion Gap 9 mmol/L BUN 7 (7-17) mg/dL Creatinine 0.63 (0.52-1.04) mg/dL Est GFR (CKD-EPI)AfAm >90 (>60 ml/min/1.73 sqM) Est GFR (CKD-EPI)NonAf >90 (>60 ml/min/1.73 sqM) Glucose 91 (74-99) mg/dL Calcium 8.9 (8.4-10.2) mg/dL Total Bilirubin 0.5 (0.2-1.3) mg/dL AST 19 (14-36) U/L ALT 14 (4-34) U/L Alkaline Phosphatase 70 (38-126) U/L Total Protein 7.1 (6.3-8.2) g/dL Albumin 4.0 (3.5-5.0) g/dL HCG, Quant 01055.5 mIU/mL Urine Color Yellow Urine Appearance Cloudy H (Clear) Urine pH 7.0 (5.0-8.0) Ur Specific [place] 1.028 (1.001-1.035) Urine Protein 1+ H (Negative) Urine Glucose (UA) Negative (Negative) Urine Ketones 2+ H (Negative) Urine Blood Negative (Negative) Urine Nitrite Negative (Negative) Urine Bilirubin Negative (Negative) Urine Urobilinogen <2.0 (<2.0) mg/dL Ur Leukocyte Esterase Moderate H (Negative) Urine RBC 5 (0-5) /hpf Urine WBC 6 H (0-5) /hpf Ur Squamous Epith Cells 12 H (0-4) /hpf Urine Bacteria Few H (None) /hpf Urine Mucus Many H (None) /hpf Disposition Clinical Impression: Suprapubic pain, First trimester , Abnormal urinalysis Disposition: HOME SELF-CARE Condition: Stable Instructions (If sedation given, give patient instructions): Abdominal Pain in (ED) Additional Instructions: Please take the antibiotics as directed. Call your [facility] ANALYST and follow-up with him next week. Return for any new or worsening symptoms Prescriptions: Cephalexin [Keflex] 500 mg PO BID #14 cap Is patient prescribed a controlled substance at d/c from ED?: No Referrals: Tony Rizzo MD [Primary Care Provider] - 1-2 days Juanito Head DO [REFERRING] - 1-2 days Time of Disposition: 14:49
[2021-08-12] MEDS ORDERED: ACETAMINOPHEN TAB 325 MG TAB PO STA (13:06)
[2021-08-12] MEDS ORDERED: cefTRIAXone IN SWFI 1,000 MG/10 ML SYRINGE IVP STA (13:26)
--- NOTE | 2021-08-12 13:55 | US ---
EXAMINATION TYPE: Transabdominal DATE OF EXAM: 08/12/2021 1:45 PM COMPARISON: NONE CLINICAL HISTORY: 7 weeks , pain. Pelvic pain EXAM PERFORMED: Transabdominal (TA) EXAM MEASUREMENTS: GESTATIONAL AGE / DATING Physician Established: Not yet established Dates by LMP: (9 weeks/4 days) EDC: 03/13/2022 Dates by First Scan: No previous this is first scan Dates by Current Scan for: (7 weeks/6 days) EDC: 03/25/2022 MATERNAL ANATOMY Uterus: 10.9 x 6.5 x 7.1cm Right Ovary: 2.1 x 1.4 x 1.8cm Left Ovary: 2.8 x 2.2 x 2.7cm Post CDS / Adnexa: wnl Presence of free fluid: no Presence of corpus luteal cyst: left ovary: 2.1 x 1.5 x 2.1cm Presence of subchorionic bleed: 2.1 x 1.0 x 1.9cm inferior to gestational sac GESTATION / SURVEY CRL: 1.5cm (7 weeks/6 days) Yolk Sac (normal less than 6mm): 4.1mm Heart Rate: 161 bpm Rhythm: Normal IUP: Viable IUP Date of LMP: 06/06/2021 Beta HcG (if available): Not available at time of exam IMPRESSION: 1. Single live intrauterine with calculated ultrasound age of 7 weeks 6 days by crown rump length. 2. Tiny subchorionic bleed.
[2021-08-12 14:01] LABS: HCG,Quantitative Serum 92125.5 mIU/mL
[2021-08-12 15:17] VITALS: BP 112/77; PULSE 74; TEMP 98
== END 2021-08-12 15:00 | disposition home or self-care (01) ==
LOC: EC 11:55
DX: O26.891 Other specified pregnancy related conditions, first trimester (principal); O28.8 Other abnormal findings on antenatal screening of mother; O99.341 Other mental disorders complicating pregnancy, first trimester; R10.2 Pelvic and perineal pain; F41.9 Anxiety disorder, unspecified; F31.9 Bipolar disorder, unspecified; Z88.5 Allergy status to narcotic agent; Z3A.01 Less than 8 weeks gestation of pregnancy
CPT/HCPCS: 99284; 96374; 96375; 96361; 36415; 80053; 85025; 81001; 84702; 76801; J2405; J0696

== ENCOUNTER 2021-09-15 12:09 | Emergency (ER) | payer OTHER ==
[2021-09-15 12:21] VITALS: TEMP 98.4
[2021-09-15] MEDS ORDERED: SODIUM CHLORIDE 0.9% 1,000 ML IV STA (12:42)
[2021-09-15 13:40] LABS: Basophils % (A) 0 %; Eosinophils # (A) 0.1 k/uL (0-0.7); Eosinophils % (A) 1 %; HCT 36.6 % (34.0-46.0); HGB 11.9 gm/dL (11.4-16.0); Lymphocytes # (A) 1.8 k/uL (1.0-4.8); Lymphocytes % (A) 17 %; MCH 27.4 pg (25.0-35.0); MCHC 32.7 g/dL (31.0-37.0); Mean Platelet Volume 6.9; Monocytes # (A) 0.5 k/uL (0-1.0); Monocytes % (A) 4 %; Neutrophils # (A) 8.2 k/uL (1.3-7.7); Neutrophils % (A) 77 %; Platelet Count 337 k/uL (150-450); RBC 4.35 m/uL (3.80-5.40); RDW 15.1 % (11.5-15.5); WBC 10.8 k/uL (3.8-10.6)
--- NOTE | 2021-09-15 13:40 | US ---
EXAMINATION TYPE: Transabdominal DATE OF EXAM: 09/15/2021 1:16 PM COMPARISON: Prior also August 12, 2021 CLINICAL HISTORY: Abdominal Pain. Abdominal cramping EXAM PERFORMED: Transabdominal (TA) EXAM MEASUREMENTS: GESTATIONAL AGE / DATING Physician Established: Not yet established Dates by LMP: (12 weeks/3 days) EDC: 03/27/22 Dates by First Scan: (12 weeks/5 days) EDC: 03/25/22 Dates by Current Scan for: (13 weeks/4 days) EDC: 03/19/22 MATERNAL ANATOMY Uterus: 15.1 x 6.6 x 10.5cm Right Ovary: 2.6 x 1.8 x 2.5cm Left Ovary: 2.8 x 2.1 x 2.1cm Post CDS / Adnexa: wnl Presence of free fluid: no Presence of corpus luteal cyst: yes, cystic area left ovary = 2.0 x 1.6 x 1.4cm GESTATION / SURVEY CRL: 7.4cm (13 weeks/4 days) Yolk Sac (normal less than 6mm): not seen Heart Rate: 165 bpm Rhythm: Normal IUP: Viable IUP Age Appropriate Anatomy Cord Insertion: wnl Limbs: wnl Calvarium: wnl Date of LMP: 06/20/21 Beta HcG (if available): Not available at this time Single live intrauterine gestation is redemonstrated. No free fluid in pelvic cul-de-sac. Satisfactor y interval growth based on biometry measurements. Both ovaries are present. Within the left ovary there is suspected corpus luteal cyst redemonstrated. IMPRESSION: As above.
[2021-09-15 13:49] LABS: ALT 10 U/L (4-34); AST 15 U/L (14-36); African American GFR (CKD) >90 (>60 ml/min/1.73 sqM); Albumin 3.8 g/dL (3.5-5.0); Alkaline Phosphatase 56 U/L (38-126); Amylase 60 U/L (30-110); Anion Gap 8 mmol/L; Appearance,Urine Cloudy (Clear); Bacteria,Urine Occasional /hpf; Bilirubin,Urine Negative (Negative); Blood Urea Nitrogen 10 mg/dL (7-17); Blood,Urine Negative (Negative); Budding Yeast,Urine Rare /hpf; Calcium 9.1 mg/dL (8.4-10.2); Carbon Dioxide 21 mmol/L (22-30); Chloride 106 mmol/L (98-107); Color,Urine Yellow; Glucose 81 mg/dL (74-99); Glucose,Urine (UA) Negative (Negative); Ketones,Urine 2+ (Negative); Leukocyte Esterase,Urine Negative (Negative); Lipase 76 U/L (23-300); Mucus,Urine Occasional /hpf; Nitrite,Urine Negative (Negative); Non-African American GFR(CKD) >90 (>60 ml/min/1.73 sqM); PH, Urine 7.5 (5.0-8.0); Potassium 4.2 mmol/L (3.5-5.1); Protein,Urine Trace (Negative); RBC,Urine 1 /hpf (0-5); Sodium 135 mmol/L (137-145); Specific Gravity,Urine 1.024 (1.001-1.035); Squamous Epithelial Cell,Urine 4 /hpf (0-4); Total Bilirubin 0.3 mg/dL (0.2-1.3); Total Protein 7.1 g/dL (6.3-8.2); Urobilinogen,Urine <2.0 mg/dL (<2.0); WBC,Urine 2 /hpf (0-5)
--- NOTE | 2021-09-15 14:40 | ED ---
Abdominal Pain HPI - General Chief Complaint: Abdominal Pain Stated Complaint: 13 weeks , Abd pain, vomiting Time Seen by Provider: 09/15/21 12:29 Source: patient, RN notes reviewed Mode of arrival: ambulatory Limitations: no limitations - History of Present Illness Initial Comments: This is a 26-year-old female who presents to the emergency department for abdominal pain that began yesterday. Patient is 13 weeks . Denies any vaginal bleeding or discharge. States that she has associated nausea and vomiting. States that she is concerned because she has had 3 miscarriages in the past, and wants to make sure that the baby is okay. She does have a prescription for Zofran and took one of them yesterday. She did have an ultrasound at 7 weeks with a minor subchorionic bleed and has not had issues since. She is not scheduled to see her suture winder hand again for a few weeks. MD Complaint: abdominal pain Onset/Timin -: days(s) - Related Data Patient : Yes Number of weeks : 13 Home Medications Medication Instructions Recorded Confirmed Cyclobenzaprine [Flexeril] 10 mg PO BID PRN 02/09/21 02/09/21 Meclizine [Antivert] 25 mg PO TID PRN 02/09/21 02/09/21 Norelgestromin/Ethin.estradiol 1 patch TRANSDERM DIRECTED 02/09/21 02/09/21 [Xulane 150-35 Mcg/Day Patch] Ondansetron [Zofran] 4 mg PO BID PRN 02/09/21 02/09/21 SUMAtriptan succinate [Imitrex] 50 mg PO DAILY PRN 02/09/21 02/09/21 Sertraline [Zoloft] 25 mg PO DIRECTED 02/09/21 02/09/21 levETIRAcetam 1,000 mg PO BID 02/09/21 02/09/21 Previous Rx's Medication Instructions Recorded Cephalexin [Keflex] 500 mg PO BID #14 cap 08/12/21 Cephalexin [Keflex] 500 mg PO Q8HR 5 Days #15 cap 09/15/21 Allergies Allergy/AdvReac Type Severity Reaction Status Date / Time banana Allergy Rash/Hives Verified 09/15/21 12:21 morphine AdvReac Nausea & Verified 09/15/21 12:21 Vomiting Review of Systems ROS Statement: Those systems with pertinent positive or pertinent negative responses have been documented in the HPI. ROS Other: All systems not noted in ROS Statement are negative. Constitutional: Denies: fever, chills ENT: Denies: ear pain, throat pain Respiratory: Denies: cough, dyspnea Cardiovascular: Denies: chest pain, palpitations Gastrointestinal: Reports: abdominal pain, nausea, vomiting. Denies: diarrhea, constipation Genitourinary: Denies: urgency, dysuria Musculoskeletal: Denies: back pain Skin: Denies: rash Neurological: Denies: headache Past Medical History Past Medical History: No Reported History Additional Past Medical History / Comment(s): chiari malformation. G9, P2, A5 History of Any Multi-Drug Resistant Organisms: None Reported Past Surgical History: No Surgical Hx Reported Past Anesthesia/Blood Transfusion Reactions: No Reported Reaction Past Psychological History: Anxiety, Bipolar, Depression Smoking Status: Never smoker Past Alcohol Use History: None Reported Past Drug Use History: None Reported - Past Family History Mother Family Medical History: CVA/TIA Additional Family Medical History / Comment(s): Mother . Patient unsure of how or the age she passed. Father Family Medical History: CVA/TIA Additional Family Medical History / Comment(s): Patient's father passed. Patient unsure of age or how he passed. Brother(s) Family Medical History: Diabetes Mellitus Additional Family Medical History / Comment(s): Pt. reports she has 3 biological brothers who are all diabetic, have PTSD, Depression, and Bipolar. General Exam Limitations: no limitations General appearance: alert, in no apparent distress Head exam: Present: atraumatic, normocephalic, normal inspection Respiratory exam: Present: normal lung sounds bilaterally. Absent: respiratory distress, wheezes, rales, rhonchi, stridor Cardiovascular Exam: Present: regular rate, normal rhythm, normal heart sounds. Absent: systolic murmur, diastolic murmur, rubs, gallop, clicks Neurological exam: Present: alert, oriented X3, CN II-XII intact Psychiatric exam: Present: normal affect, normal mood Skin exam: Present: warm, dry, intact, normal color. Absent: rash Course Vital Signs 09/15/21 09/15/21 12:19 15:11 Temperature 98.4 F Pulse Rate 94 89 Respiratory 20 17 Rate Blood Pressure 111/71 106/80 O2 Sat by Pulse 98 99 Oximetry Medical Decision Making - Medical Decision Making This is a 26-year-old female who presents to the emergency department for abdominal pain with . Lab work was unremarkable and she was negative for COVID and influenza. UA did reveal asymptomatic bacteriuria. Patient discharged with a 5 day course of Keflex. ultrasound obtained, which revealed a single live intrauterine with a heart rate of 165 bpm. Discussed with the patient that this may be related to round ligament pain and I suggested a maternity support belt. She can also take Tylenol as needed for pain. Instructed her to follow up with her suture winder hand to discuss this issue further. Return precautions reviewed in depth, the patient is instructed to return to the emergency department with any new, worsening, or concerning symptoms. Patient verbalized understanding. This case was discussed in detail with the attending ED physician. Presentation, findings, and treatment plan discussed in detail as well. - Lab Data Result diagrams: 09/15/21 13:24 09/15/21 13:24 Lab Results 09/15/21 09/15/21 09/15/21 Range/Units 13:24 13:24 13:24 WBC 10.8 H (3.8-10.6) k/uL RBC 4.35 (3.80-5.40) m/uL Hgb 11.9 (11.4-16.0) gm/dL Hct 36.6 (34.0-46.0) % MCV 84.0 (80.0-100.0) fL MCH 27.4 (25.0-35.0) pg MCHC 32.7 (31.0-37.0) g/dL RDW 15.1 (11.5-15.5) % Plt Count 337 (150-450) k/uL MPV 6.9 Neutrophils % 77 % Lymphocytes % 17 % Monocytes % 4 % Eosinophils % 1 % Basophils % 0 % Neutrophils # 8.2 H (1.3-7.7) k/uL Lymphocytes # 1.8 (1.0-4.8) k/uL Monocytes # 0.5 (0-1.0) k/uL Eosinophils # 0.1 (0-0.7) k/uL Basophils # 0.0 (0-0.2) k/uL Sodium 135 L (137-145) mmol/L Potassium 4.2 (3.5-5.1) mmol/L Chloride 106 (98-107) mmol/L Carbon Dioxide 21 L (22-30) mmol/L Anion Gap 8 mmol/L BUN 10 (7-17) mg/dL Creatinine 0.47 L (0.52-1.04) mg/dL Est GFR (CKD-EPI)AfAm >90 (>60 ml/min/1.73 sqM) Est GFR (CKD-EPI)NonAf >90 (>60 ml/min/1.73 sqM) Glucose 81 (74-99) mg/dL Plasma Lactic Acid [place] (0.7-2.0) mmol/L Calcium 9.1 (8.4-10.2) mg/dL Total Bilirubin 0.3 (0.2-1.3) mg/dL AST 15 (14-36) U/L ALT 10 (4-34) U/L Alkaline Phosphatase 56 (38-126) U/L Troponin I (0.000-0.034) ng/mL Total Protein 7.1 (6.3-8.2) g/dL Albumin 3.8 (3.5-5.0) g/dL Amylase 60 (30-110) U/L Lipase 76 (23-300) U/L HCG, Quant 04028.0 mIU/mL Urine Color Yellow Urine Appearance Cloudy H (Clear) Urine pH 7.5 (5.0-8.0) Ur Specific [place] 1.024 (1.001-1.035) Urine Protein Trace H (Negative) Urine Glucose (UA) Negative (Negative) Urine Ketones 2+ H (Negative) Urine Blood Negative (Negative) Urine Nitrite Negative (Negative) Urine Bilirubin Negative (Negative) Urine Urobilinogen <2.0 (<2.0) mg/dL Ur Leukocyte Esterase Negative (Negative) Urine RBC 1 (0-5) /hpf Urine WBC 2 (0-5) /hpf Ur Squamous Epith Cells 4 (0-4) /hpf Urine Bacteria Occasional H (None) /hpf Urine Mucus Occasional H (None) /hpf Urine Yeast (Budding) Rare H (None) /hpf Coronavirus (PCR) (Not Detectd) Influenza Type A RNA (Not Detectd) Influenza Type B (PCR) (Not Detectd) 09/15/21 09/15/21 09/15/21 Range/Units 13:24 13:24 13:24 WBC (3.8-10.6) k/uL RBC (3.80-5.40) m/uL Hgb (11.4-16.0) gm/dL Hct (34.0-46.0) % MCV (80.0-100.0) fL MCH (25.0-35.0) pg MCHC (31.0-37.0) g/dL RDW (11.5-15.5) % Plt Count (150-450) k/uL MPV Neutrophils % % Lymphocytes % % Monocytes % % Eosinophils % % Basophils % % Neutrophils # (1.3-7.7) k/uL Lymphocytes # (1.0-4.8) k/uL Monocytes # (0-1.0) k/uL Eosinophils # (0-0.7) k/uL Basophils # (0-0.2) k/uL Sodium (137-145) mmol/L Potassium (3.5-5.1) mmol/L Chloride (98-107) mmol/L Carbon Dioxide (22-30) mmol/L Anion Gap mmol/L BUN (7-17) mg/dL Creatinine (0.52-1.04) mg/dL Est GFR (CKD-EPI)AfAm (>60 ml/min/1.73 sqM) Est GFR (CKD-EPI)NonAf (>60 ml/min/1.73 sqM) Glucose (74-99) mg/dL Plasma Lactic Acid [place] 1.4 (0.7-2.0) mmol/L Calcium (8.4-10.2) mg/dL Total Bilirubin (0.2-1.3) mg/dL AST (14-36) U/L ALT (4-34) U/L Alkaline Phosphatase (38-126) U/L Troponin I <0.012 (0.000-0.034) ng/mL Total Protein (6.3-8.2) g/dL Albumin (3.5-5.0) g/dL Amylase (30-110) U/L Lipase (23-300) U/L HCG, Quant mIU/mL Urine Color Urine Appearance (Clear) Urine pH (5.0-8.0) Ur Specific [place] (1.001-1.035) Urine Protein (Negative) Urine Glucose (UA) (Negative) Urine Ketones (Negative) Urine Blood (Negative) Urine Nitrite (Negative) Urine Bilirubin (Negative) Urine Urobilinogen (<2.0) mg/dL Ur Leukocyte Esterase (Negative) Urine RBC (0-5) /hpf Urine WBC (0-5) /hpf Ur Squamous Epith Cells (0-4) /hpf Urine Bacteria (None) /hpf Urine Mucus (None) /hpf Urine Yeast (Budding) (None) /hpf Coronavirus (PCR) (Not Detectd) Influenza Type A RNA Not Detected (Not Detectd) Influenza Type B (PCR) Not Detected (Not Detectd) 09/15/21 Range/Units 13:24 WBC (3.8-10.6) k/uL RBC (3.80-5.40) m/uL Hgb (11.4-16.0) gm/dL Hct (34.0-46.0) % MCV (80.0-100.0) fL MCH (25.0-35.0) pg MCHC (31.0-37.0) g/dL RDW (11.5-15.5) % Plt Count (150-450) k/uL MPV Neutrophils % % Lymphocytes % % Monocytes % % Eosinophils % % Basophils % % Neutrophils # (1.3-7.7) k/uL Lymphocytes # (1.0-4.8) k/uL Monocytes # (0-1.0) k/uL Eosinophils # (0-0.7) k/uL Basophils # (0-0.2) k/uL Sodium (137-145) mmol/L Potassium (3.5-5.1) mmol/L Chloride (98-107) mmol/L Carbon Dioxide (22-30) mmol/L Anion Gap mmol/L BUN (7-17) mg/dL Creatinine (0.52-1.04) mg/dL Est GFR (CKD-EPI)AfAm (>60 ml/min/1.73 sqM) Est GFR (CKD-EPI)NonAf (>60 ml/min/1.73 sqM) Glucose (74-99) mg/dL Plasma Lactic Acid [place] (0.7-2.0) mmol/L Calcium (8.4-10.2) mg/dL Total Bilirubin (0.2-1.3) mg/dL AST (14-36) U/L ALT (4-34) U/L Alkaline Phosphatase (38-126) U/L Troponin I (0.000-0.034) ng/mL Total Protein (6.3-8.2) g/dL Albumin (3.5-5.0) g/dL Amylase (30-110) U/L Lipase (23-300) U/L HCG, Quant mIU/mL Urine Color Urine Appearance (Clear) Urine pH (5.0-8.0) Ur Specific [place] (1.001-1.035) Urine Protein (Negative) Urine Glucose (UA) (Negative) Urine Ketones (Negative) Urine Blood (Negative) Urine Nitrite (Negative) Urine Bilirubin (Negative) Urine Urobilinogen (<2.0) mg/dL Ur Leukocyte Esterase (Negative) Urine RBC (0-5) /hpf Urine WBC (0-5) /hpf Ur Squamous Epith Cells (0-4) /hpf Urine Bacteria (None) /hpf Urine Mucus (None) /hpf Urine Yeast (Budding) (None) /hpf Coronavirus (PCR) Not Detected (Not Detectd) Influenza Type A RNA (Not Detectd) Influenza Type B (PCR) (Not Detectd) - Radiology Data Radiology results: report reviewed, image reviewed Disposition Clinical Impression: Abdominal pain in Disposition: HOME SELF-CARE Instructions (If sedation given, give patient instructions): Abdominal Pain in (ED) Additional Instructions: Return to the emergency department with any new, worsening, or concerning symptoms. Consider purchasing a maternity support belt for pain. You can use Tylenol as needed. Take the Keflex as prescribed for 5 days. Contact your suture winder hand for a follow-up appointment. Prescriptions: Cephalexin [Keflex] 500 mg PO Q8HR 5 Days #15 cap Is patient prescribed a controlled substance at d/c from ED?: No Referrals: Tony Rizzo MD [Primary Care Provider] - 1-2 days
[2021-09-15 15:12] VITALS: BP 106/80; PULSE 89; RESP 17
== END 2021-09-15 15:12 | disposition home or self-care (01) ==
LOC: EC 12:09
DX: O26.891 Other specified pregnancy related conditions, first trimester (principal); R10.9 Unspecified abdominal pain; O99.341 Other mental disorders complicating pregnancy, first trimester; F31.9 Bipolar disorder, unspecified; F41.9 Anxiety disorder, unspecified; Z3A.13 13 weeks gestation of pregnancy; Z20.822 Contact with and (suspected) exposure to COVID-19; Z79.899 Other long term (current) drug therapy
CPT/HCPCS: 36415; 76801; 80053; 81001; 82150; 83605; 83690; 84484; 84702; 85025; 87502; 87635; 96360; 99284

== ENCOUNTER 2021-09-21 16:35 | Emergency (ER) | payer OTHER ==
[2021-09-21 17:04] VITALS: RESP 18
[2021-09-21] MEDS ORDERED: METOCLOPRAMIDE 10 MG TAB PO STA (17:05)
[2021-09-21] MEDS ORDERED: SODIUM CHLORIDE 0.9% 2,000 ML IV STA (18:04)
[2021-09-21] MEDS ORDERED: diphenhydrAMINE 50 MG/ML 1 ML VIAL IVP STA (18:04)
[2021-09-21] MEDS ORDERED: PYRIDOXINE 100 MG/ML 1 ML VIAL IVP STA (18:05)
[2021-09-21] MEDS ORDERED: METOCLOPRAMIDE 5 MG/ML 2 ML VIAL IVP STA (18:11)
--- NOTE | 2021-09-21 18:15 | ED ---
General Adult HPI - General Chief complaint: Nausea/Vomiting/Diarrhea Stated complaint: Vomiting(13 weeks preg.) Time Seen by Provider: 09/21/21 18:02 Source: patient, RN notes reviewed Mode of arrival: wheelchair Limitations: no limitations - History of Present Illness Initial comments: This is a pleasant 26-year-old female who is A0. Patient presents to the emergency department today complaining of nausea and vomiting. Patient states this been going on for at least 5 or 6 days. Patient was seen here on September 15 for similar symptomology. She's vomited about 6 times in last 12 hours. She is describing watery vomitus. Patient denies any hematemesis or coffee-ground emesis. Despite the triage note patient states she does not have diarrhea. Occasional cramping abdominal pain. Intermittent, no alleviating or exacerbating factors. Patient is just over 14 weeks . Denies any vaginal bleeding or vaginal discharge. Patient's engineer byproduct is Dr. Head. Kamilla at home prescribed by her OB doctor that this is not controlling the vomiting. Patient denies any other significant past medical history. No headache, no fever or chills, no changes in vision or hearing, no sore throat or difficulty with speech, no neck pain, no chest pain or shortness of breath, no changes in urination or bowel movements, no numbness or tingling, no extremity pain, no skin rashes or lesions. - Related Data Home Medications Medication Instructions Recorded Confirmed levETIRAcetam 1,000 mg PO HS 02/09/21 09/21/21 Ondansetron Odt [Zofran Odt] 4 mg PO Q12HR PRN 09/21/21 09/21/21 Pnv,Calcium 72/Iron/Folic Acid 1 tab PO DAILY 09/21/21 09/21/21 [ Plus Tablet] Previous Rx's Medication Instructions Recorded Doxylamine/Pyridoxine HCl (B6) 1 tab PO HS PRN #24 tab 09/21/21 [Alec Ochoa 10-10 mg Tablet] Nitrofurantoin Monohyd/M-Cryst 100 mg PO Q12HR #14 cap 09/21/21 [Macrobid] Allergies Allergy/AdvReac Type Severity Reaction Status Date / Time banana Allergy Rash/Hives Verified 09/21/21 18:39 morphine AdvReac Nausea & Verified 09/21/21 18:39 Vomiting Review of Systems ROS Statement: Those systems with pertinent positive or pertinent negative responses have been documented in the HPI. ROS Other: All systems not noted in ROS Statement are negative. Past Medical History Past Medical History: No Reported History Additional Past Medical History / Comment(s): chiari malformation. History of Any Multi-Drug Resistant Organisms: None Reported Past Surgical History: No Surgical Hx Reported Past Anesthesia/Blood Transfusion Reactions: No Reported Reaction Past Psychological History: No Psychological Hx Reported Smoking Status: Never smoker Past Alcohol Use History: None Reported Past Drug Use History: None Reported - Past Family History Mother Family Medical History: CVA/TIA Additional Family Medical History / Comment(s): Mother . Patient unsure of how or the age she passed. Father Family Medical History: CVA/TIA Additional Family Medical History / Comment(s): Patient's father passed. Patient unsure of age or how he passed. Brother(s) Family Medical History: Diabetes Mellitus Additional Family Medical History / Comment(s): Pt. reports she has 3 biological brothers who are all diabetic, have PTSD, Depression, and Bipolar. General Exam - General Exam Comments Initial Comments: Patient appears to be adequately hydrated with moist mucous membranes. Capillary refill is less than 2 seconds. No mottling, skin turgor, good color. Vital signs noted, patient tachycardic. Limitations: no limitations General appearance: alert, in distress (Mild) Head exam: Present: atraumatic, normocephalic, normal inspection Eye exam: Present: normal appearance, PERRL, EOMI. Absent: scleral icterus, conjunctival injection, periorbital swelling ENT exam: Present: normal exam, normal oropharynx, mucous membranes moist, normal external ear exam. Absent: mucous membranes dry Neck exam: Present: normal inspection, full ROM. Absent: tenderness, meningismus, lymphadenopathy Respiratory exam: Present: normal lung sounds bilaterally. Absent: respiratory distress, wheezes, rales, rhonchi, stridor, chest wall tenderness, accessory muscle use Cardiovascular Exam: Present: regular rate, normal rhythm, normal heart sounds. Absent: systolic murmur, diastolic murmur, rubs, gallop, clicks GI/Abdominal exam: Present: soft, normal bowel sounds. Absent: distended, tenderness, guarding, rebound, rigid, diminished bowel sounds, hyperactive bowel sounds, hypoactive bowel sounds, organomegaly Extremities exam: Present: normal inspection, full ROM, normal capillary refill. Absent: tenderness, pedal edema, joint swelling, calf tenderness Back exam: Present: normal inspection Neurological exam: Present: alert, oriented X3, CN II-XII intact Psychiatric exam: Present: normal affect, normal mood. Absent: anxious, flat affect Skin exam: Present: warm, dry, intact, normal color. Absent: rash, cyanosis, diaphoretic, erythema, urticaria, vesicles, petechiae, pallor, mottled, abrasion Course Vital Signs 09/21/21 09/21/21 09/21/21 17:02 18:54 19:46 Temperature 98 F 97.5 F L Pulse Rate 114 H 94 Respiratory 18 18 Rate Blood Pressure 122/65 114/71 O2 Sat by Pulse 96 97 Oximetry - Reevaluation(s) Reevaluation #1: 09/21/21 21:14 Medical record is reviewed Symptoms are improved here in the emergency department Patient is informed of results and questions answered Patient in no distress Patient much improved after treatment and fluids. Patient able to hold down fluids without difficulty. Patient requesting discharge. There was 4+ ketones on urinalysis. No evidence of infectious process. Medical Decision Making - Medical Decision Making Patient presents with nausea and vomiting . Occasional crampy abdominal pain. Patient is beyond the first trimester. Patient's also had a very mild cough which I noted on physical examination. Lungs were clear however. I'm going to add on a COVID-19 test as patient is being seen during a spiking cases. Certainly this could be hyperemesis related to . We'll treat billie bianchi. Patient no distress at discharge. We'll have patient follow up with Dr. Head. Patient already has Zofran at home. Discussed increasing clear liquids. Calling Dr. Head in the morning. Patient concurs with this treatment plan. Patient requesting discharge. Supervising physicians Dr. Chan Patient was told to return to the ER for any signs or symptoms worsen. Told to return immediately if any other problems arise. All questions answered. Treatment plan discussed. Patient in agreement Every effort has been made to ensure accuracy of this dictation. However, due to the limitations of electronic medical records and dictation devices, errors in charting still occur. Offered admission. Patient states she wants to go. Discussed risks versus benefits. Patient is lucid, alert and oriented 4, able make her own medical decisions. I did tell the patient that if anything worsens she can come back here immediately. She concurs with this. Repeat urinalysis had a significant number of white cells. I'm going to cover with antibiotics until she can see her engineer byproduct. Urine culture sent. - Lab Data Result diagrams: 09/21/21 18:16 09/21/21 18:16 Lab Results 09/21/21 09/21/21 09/21/21 Range/Units 18:16 18:16 18:16 WBC 11.1 H (3.8-10.6) k/uL RBC 4.55 (3.80-5.40) m/uL Hgb 12.6 (11.4-16.0) gm/dL Hct 38.7 (34.0-46.0) % MCV 85.1 (80.0-100.0) fL MCH 27.7 (25.0-35.0) pg MCHC 32.5 (31.0-37.0) g/dL RDW 15.8 H (11.5-15.5) % Plt Count 319 (150-450) k/uL MPV 7.0 Neutrophils % 87 % Lymphocytes % 8 % Monocytes % 4 % Eosinophils % 0 % Basophils % 0 % Neutrophils # 9.6 H (1.3-7.7) k/uL Lymphocytes # 0.9 L (1.0-4.8) k/uL Monocytes # 0.4 (0-1.0) k/uL Eosinophils # 0.1 (0-0.7) k/uL Basophils # 0.0 (0-0.2) k/uL Sodium 135 L (137-145) mmol/L Potassium 4.0 (3.5-5.1) mmol/L Chloride 105 (98-107) mmol/L Carbon Dioxide 19 L (22-30) mmol/L Anion Gap 11 mmol/L BUN 6 L (7-17) mg/dL Creatinine 0.48 L (0.52-1.04) mg/dL Est GFR (CKD-EPI)AfAm >90 (>60 ml/min/1.73 sqM) Est GFR (CKD-EPI)NonAf >90 (>60 ml/min/1.73 sqM) Glucose 108 H (74-99) mg/dL Calcium 9.3 (8.4-10.2) mg/dL Total Bilirubin 0.3 (0.2-1.3) mg/dL AST 15 (14-36) U/L ALT 13 (4-34) U/L Alkaline Phosphatase 67 (38-126) U/L Total Protein 7.4 (6.3-8.2) g/dL Albumin 4.3 (3.5-5.0) g/dL Lipase 74 (23-300) U/L Urine Color Urine Appearance (Clear) Urine pH (5.0-8.0) Ur Specific [place] (1.001-1.035) Urine Protein (Negative) Urine Glucose (UA) (Negative) Urine Ketones (Negative) Urine Blood (Negative) Urine Nitrite (Negative) Urine Bilirubin (Negative) Urine Urobilinogen (<2.0) mg/dL Ur Leukocyte Esterase (Negative) Urine RBC (0-5) /hpf Urine WBC (0-5) /hpf Ur Squamous Epith Cells (0-4) /hpf Urine Bacteria (None) /hpf Urine Mucus (None) /hpf Coronavirus (PCR) Not Detected (Not Detectd) 09/21/21 09/21/21 Range/Units 19:00 21:04 WBC (3.8-10.6) k/uL RBC (3.80-5.40) m/uL Hgb (11.4-16.0) gm/dL Hct (34.0-46.0) % MCV (80.0-100.0) fL MCH (25.0-35.0) pg MCHC (31.0-37.0) g/dL RDW (11.5-15.5) % Plt Count (150-450) k/uL MPV Neutrophils % % Lymphocytes % % Monocytes % % Eosinophils % % Basophils % % Neutrophils # (1.3-7.7) k/uL Lymphocytes # (1.0-4.8) k/uL Monocytes # (0-1.0) k/uL Eosinophils # (0-0.7) k/uL Basophils # (0-0.2) k/uL Sodium (137-145) mmol/L Potassium (3.5-5.1) mmol/L Chloride (98-107) mmol/L Carbon Dioxide (22-30) mmol/L Anion Gap mmol/L BUN (7-17) mg/dL Creatinine (0.52-1.04) mg/dL Est GFR (CKD-EPI)AfAm (>60 ml/min/1.73 sqM) Est GFR (CKD-EPI)NonAf (>60 ml/min/1.73 sqM) Glucose (74-99) mg/dL Calcium (8.4-10.2) mg/dL Total Bilirubin (0.2-1.3) mg/dL AST (14-36) U/L ALT (4-34) U/L Alkaline Phosphatase (38-126) U/L Total Protein (6.3-8.2) g/dL Albumin (3.5-5.0) g/dL Lipase (23-300) U/L Urine Color Yellow Yellow Urine Appearance Cloudy H Cloudy H (Clear) Urine pH 6.5 7.0 (5.0-8.0) Ur Specific [place] 1.032 1.020 (1.001-1.035) Urine Protein 1+ H Trace H (Negative) Urine Glucose (UA) Negative Negative (Negative) Urine Ketones 4+ H 4+ H (Negative) Urine Blood Negative Negative (Negative) Urine Nitrite Negative Negative (Negative) Urine Bilirubin Negative Negative (Negative) Urine Urobilinogen 2.0 <2.0 (<2.0) mg/dL Ur Leukocyte Esterase Negative Small H (Negative) Urine RBC 2 1 (0-5) /hpf Urine WBC 1 21 H (0-5) /hpf Ur Squamous Epith Cells 3 5 H (0-4) /hpf Urine Bacteria Rare H Moderate H (None) /hpf Urine Mucus Many H Many H (None) /hpf Coronavirus (PCR) (Not Detectd) Disposition Clinical Impression: Vomiting affecting , UTI (urinary tract infection) Narrative: Possible UTI, although there are 5 squamous epithelial cells Disposition: HOME SELF-CARE Condition: Good Instructions (If sedation given, give patient instructions): Hyperemesis Gravidarum (ED), Acute Nausea and Vomiting (ED) Additional Instructions: Follow-up with your regular physician as directed. Return to the ER immediately if any symptoms worsen, new symptoms arise, or any other problems develop. Call Dr. Head at 8 AM in the morning to schedule follow-up appointment and let him know that you were in the ER. Prescriptions: Nitrofurantoin Monohyd/M-Cryst [Macrobid] 100 mg PO Q12HR #14 cap Is patient prescribed a controlled substance at d/c from ED?: No Referrals: Tony Rizzo MD [Primary Care Provider] - 1-2 days Juanito Head DO [REFERRING] - 1-2 days Time of Disposition: 21:23
[2021-09-21 18:30] LABS: Basophils % (A) 0 %; Eosinophils # (A) 0.1 k/uL (0-0.7); Eosinophils % (A) 0 %; HCT 38.7 % (34.0-46.0); HGB 12.6 gm/dL (11.4-16.0); Lymphocytes # (A) 0.9 k/uL (1.0-4.8); Lymphocytes % (A) 8 %; MCH 27.7 pg (25.0-35.0); MCHC 32.5 g/dL (31.0-37.0); MCV 85.1 fL (80.0-100.0); Monocytes # (A) 0.4 k/uL (0-1.0); Monocytes % (A) 4 %; Neutrophils # (A) 9.6 k/uL (1.3-7.7); Neutrophils % (A) 87 %; Platelet Count 319 k/uL (150-450); RBC 4.55 m/uL (3.80-5.40); RDW 15.8 % (11.5-15.5); WBC 11.1 k/uL (3.8-10.6)
[2021-09-21 18:50] LABS: ALT 13 U/L (4-34); AST 15 U/L (14-36); African American GFR (CKD) >90 (>60 ml/min/1.73 sqM); Albumin 4.3 g/dL (3.5-5.0); Alkaline Phosphatase 67 U/L (38-126); Anion Gap 11 mmol/L; Blood Urea Nitrogen 6 mg/dL (7-17); Calcium 9.3 mg/dL (8.4-10.2); Carbon Dioxide 19 mmol/L (22-30); Chloride 105 mmol/L (98-107); Glucose 108 mg/dL (74-99); Lipase 74 U/L (23-300); Non-African American GFR(CKD) >90 (>60 ml/min/1.73 sqM); Sodium 135 mmol/L (137-145); Total Bilirubin 0.3 mg/dL (0.2-1.3); Total Protein 7.4 g/dL (6.3-8.2)
[2021-09-21 18:55] VITALS: TEMP 97.5
[2021-09-21 19:20] LABS: Appearance,Urine Cloudy (Clear); Bacteria,Urine Rare /hpf; Bilirubin,Urine Negative (Negative); Blood,Urine Negative (Negative); Color,Urine Yellow; Glucose,Urine (UA) Negative (Negative); Ketones,Urine 4+ (Negative); Leukocyte Esterase,Urine Negative (Negative); Mucus,Urine Many /hpf; Nitrite,Urine Negative (Negative); PH, Urine 6.5 (5.0-8.0); Protein,Urine 1+ (Negative); RBC,Urine 2 /hpf (0-5); Specific Gravity,Urine 1.032 (1.001-1.035); Squamous Epithelial Cell,Urine 3 /hpf (0-4); WBC,Urine 1 /hpf (0-5)
--- NOTE | 2021-09-21 19:33 | US ---
EXAMINATION TYPE: Transabdominal DATE OF EXAM: 09/21/2021 7:18 PM COMPARISON: 08/12/21 and 09/15/21 CLINICAL HISTORY: Abdominal cramping, . Vomiting EXAM PERFORMED: Transabdominal (TA) EXAM MEASUREMENTS: GESTATIONAL AGE / DATING Physician Established: (13 weeks/6 days) EDC: 03/23/22 Dates by First Scan: (7 weeks/6 days) EDC: 03/25/22 Dates by Current Scan for: (13 weeks/6 days) EDC: 03/23/22 MATERNAL ANATOMY Uterus: 15.7 x 9.4 x 10.0 cm Right Ovary: 2.3 x 2.2 x 2.4 cm Left Ovary: 3.1 x 2.2 x 2.9 cm Post CDS / Adnexa: wnl Presence of free fluid: no Presence of corpus luteal cyst: Left ovary 1.1 x 1.4 x 1.3 cm Presence of subchorionic bleed: no GESTATION / SURVEY CRL: 7.79 cm (13 weeks/6 days) MSD: wnl Yolk Sac: not seen; anterior placenta noted Heart Rate: 172 bpm Rhythm: Normal IUP: Viable IUP IMPRESSION: 1. Single live intrauterine with calculated ultrasound age of 13 weeks 6 days by crown rump length with an estimated date of delivery of 03/23/2022.
[2021-09-21 19:47] VITALS: BP 114/71; PULSE 94
[2021-09-21] MEDS ORDERED: ONDANSETRON 4 MG/2 ML VIAL IVP STA (19:48)
[2021-09-21 21:14] LABS: Appearance,Urine Cloudy (Clear); Bacteria,Urine Moderate /hpf; Bilirubin,Urine Negative (Negative); Blood,Urine Negative (Negative); Color,Urine Yellow; Glucose,Urine (UA) Negative (Negative); Ketones,Urine 4+ (Negative); Leukocyte Esterase,Urine Small (Negative); Mucus,Urine Many /hpf; Nitrite,Urine Negative (Negative); Protein,Urine Trace (Negative); RBC,Urine 1 /hpf (0-5); Squamous Epithelial Cell,Urine 5 /hpf (0-4); Urobilinogen,Urine <2.0 mg/dL (<2.0); WBC,Urine 21 /hpf (0-5)
[2021-09-21] MEDS ORDERED: NITROFURANTOIN MONOHYD/M-CRYST 100 MG CAP PO STA (21:20)
== END 2021-09-21 21:33 | disposition home or self-care (01) ==
LOC: EC 16:35
DX: O23.41 Unspecified infection of urinary tract in pregnancy, first trimester (principal); N39.0 Urinary tract infection, site not specified; O21.9 Vomiting of pregnancy, unspecified; Z20.822 Contact with and (suspected) exposure to COVID-19; Z3A.13 13 weeks gestation of pregnancy
CPT/HCPCS: 36415; 80053; 83690; 85025; 81001; 87635; 76801; 99284; 96374; 96375 ×3; 96361 ×3; J1200; J3415; J2765; J2405

== ENCOUNTER 2021-10-25 14:10 | Emergency (ER) | payer OTHER ==
[2021-10-25 14:16] VITALS: RESP 18; TEMP 98.2
--- NOTE | 2021-10-25 14:50 | ED ---
General Adult HPI - General Source: patient, RN notes reviewed Mode of arrival: ambulatory Limitations: no limitations <Onofre Hidalgo - Last Filed: 10/25/21 14:49> <Rashad Salvador - Last Filed: 10/25/21 17:11> - General Chief complaint: OB/Uterine Contractions Stated complaint: 18 wks preg, abd pain Time Seen by Provider: 10/25/21 14:34 - History of Present Illness Initial comments: 26-year-old female presents emergency Department chief complaint left-sided abdominal discomfort. She states it's mild does fluctuate. Patient states that she is 18 weeks she is A0 currently seen Dr. Cardoza. She has a known ovarian cyst as side. She states that it does hurt to twist and bend at times no urinary frequency or dysuria the usual. Patient denies any vaginal bleeding or vaginal discharge no flank pain no chest pain or shortness of breath (Onofre Hidalgo) - Related Data Home Medications Medication Instructions Recorded Confirmed levETIRAcetam 1,000 mg PO HS 02/09/21 10/25/21 Pnv,Calcium 72/Iron/Folic Acid 1 tab PO DAILY 09/21/21 10/25/21 [ Plus Tablet] Acetaminophen [Tylenol] 500 mg PO Q4-6H PRN 10/25/21 10/25/21 Ondansetron Odt [Zofran Odt] 8 mg PO Q6H PRN 10/25/21 10/25/21 Previous Rx's Medication Instructions Recorded Doxylamine/Pyridoxine HCl (B6) 1 tab PO HS PRN #24 tab 09/21/21 [Alec Ochoa 10-10 mg Tablet] Allergies Allergy/AdvReac Type Severity Reaction Status Date / Time banana Allergy Rash/Hives Verified 10/25/21 16:02 morphine AdvReac Nausea & Verified 10/25/21 16:02 Vomiting Review of Systems ROS Other: All systems not noted in ROS Statement are negative. <Onofre Hidalgo - Last Filed: 10/25/21 14:49> ROS Other: All systems not noted in ROS Statement are negative. <Rashad Salvador - Last Filed: 10/25/21 17:11> ROS Statement: Those systems with pertinent positive or pertinent negative responses have been documented in the HPI. Past Medical History Past Medical History: No Reported History Additional Past Medical History / Comment(s): chiari malformation. History of Any Multi-Drug Resistant Organisms: None Reported Past Surgical History: No Surgical Hx Reported Past Anesthesia/Blood Transfusion Reactions: No Reported Reaction Past Psychological History: No Psychological Hx Reported Smoking Status: Never smoker Past Alcohol Use History: None Reported Past Drug Use History: None Reported - Past Family History Mother Family Medical History: CVA/TIA Additional Family Medical History / Comment(s): Mother . Patient unsure of how or the age she passed. Father Family Medical History: CVA/TIA Additional Family Medical History / Comment(s): Patient's father passed. Patient unsure of age or how he passed. Brother(s) Family Medical History: Diabetes Mellitus Additional Family Medical History / Comment(s): Pt. reports she has 3 biological brothers who are all diabetic, have PTSD, Depression, and Bipolar. <Onofre Hidalgo - Last Filed: 10/25/21 14:49> General Exam Limitations: no limitations General appearance: alert, in no apparent distress Head exam: Present: atraumatic, normocephalic, normal inspection Eye exam: Present: normal appearance, PERRL, EOMI. Absent: scleral icterus, conjunctival injection, periorbital swelling ENT exam: Present: normal exam, normal oropharynx, mucous membranes moist Neck exam: Present: normal inspection, full ROM. Absent: tenderness, meningismus, lymphadenopathy Respiratory exam: Present: normal lung sounds bilaterally. Absent: respiratory distress, wheezes, rales, rhonchi, stridor Cardiovascular Exam: Present: regular rate, normal rhythm, normal heart sounds. Absent: systolic murmur, diastolic murmur, rubs, gallop, clicks GI/Abdominal exam: Present: soft, tenderness (Minimal left), normal bowel sounds. Absent: distended, guarding, rebound, rigid <Onofre Hidalgo - Last Filed: 10/25/21 14:49> Course Vital Signs 10/25/21 14:13 Temperature 98.2 F Pulse Rate 93 Respiratory 18 Rate Blood Pressure 101/61 O2 Sat by Pulse 99 Oximetry Medical Decision Making <Rashad Salvador - Last Filed: 10/25/21 17:11> - Medical Decision Making Patient reevaluated and resting comfortably in bed. History confirmed. Feel heart tones are present. No vaginal bleeding. Abdomen soft and nontender. Patient is comfortable with discharge home. Patient advised close follow-up with ADMINISTRATIVE PROFESSIONAL and to increase fluids. (Rashad Salvador) - Lab Data Lab Results 10/25/21 Range/Units 15:45 Urine Color Light Yellow Urine Appearance Cloudy H (Clear) Urine pH 7.5 (5.0-8.0) Ur Specific [place] 1.012 (1.001-1.035) Urine Protein Trace H (Negative) Urine Glucose (UA) Negative (Negative) Urine Ketones 2+ H (Negative) Urine Blood Negative (Negative) Urine Nitrite Negative (Negative) Urine Bilirubin Negative (Negative) Urine Urobilinogen <2.0 (<2.0) mg/dL Ur Leukocyte Esterase Small H (Negative) Urine RBC 3 (0-5) /hpf Urine WBC 5 (0-5) /hpf Ur Squamous Epith Cells 6 H (0-4) /hpf Urine Bacteria Many H (None) /hpf Urine Mucus Occasional H (None) /hpf Disposition <Onofre Hidalgo - Last Filed: 10/25/21 14:49> Is patient prescribed a controlled substance at d/c from ED?: No Time of Disposition: 17:10 <Rashad Salvador - Last Filed: 10/25/21 17:11> Clinical Impression: Disposition: HOME SELF-CARE Condition: Stable Instructions (If sedation given, give patient instructions): Ovarian Cyst (ED), (ED) Additional Instructions: Please do follow-up with your ADMINISTRATIVE PROFESSIONAL in the next one to 2 days for recheck. Please also follow-up with primary care physician in the next one to 2 days for recheck. Increase fluids. Return for pain, no movement, bleeding, worsening symptoms or other concerns. Referrals: Tony Rizzo MD [Primary Care Provider] - 1-2 days
[2021-10-25 16:07] LABS: Appearance,Urine Cloudy (Clear); Bacteria,Urine Many /hpf; Bilirubin,Urine Negative (Negative); Blood,Urine Negative (Negative); Color,Urine Light Yellow; Glucose,Urine (UA) Negative (Negative); Leukocyte Esterase,Urine Small (Negative); Mucus,Urine Occasional /hpf; Nitrite,Urine Negative (Negative); PH, Urine 7.5 (5.0-8.0); Protein,Urine Trace (Negative); RBC,Urine 3 /hpf (0-5); Specific Gravity,Urine 1.012 (1.001-1.035); Squamous Epithelial Cell,Urine 6 /hpf (0-4); Urobilinogen,Urine <2.0 mg/dL (<2.0); WBC,Urine 5 /hpf (0-5)
[2021-10-25 16:13] LABS: Ketones,Urine 2+ (Negative)
[2021-10-25 18:58] VITALS: BP 110/57; PULSE 79
== END 2021-10-25 17:33 | disposition home or self-care (01) ==
LOC: EC 14:10
DX: O26.892 Other specified pregnancy related conditions, second trimester (principal); R10.9 Unspecified abdominal pain; Z3A.18 18 weeks gestation of pregnancy
CPT/HCPCS: 81001; 99284

== ENCOUNTER 2021-11-14 10:22 | Outpatient (CLI) | payer OTHER ==
[2021-11-14 11:06] LABS: Appearance,Urine Clear (Clear); Bilirubin,Urine Negative (Negative); Blood,Urine Negative (Negative); Color,Urine Yellow; Glucose,Urine (UA) Negative (Negative); Ketones,Urine 4+ (Negative); Leukocyte Esterase,Urine Negative (Negative); Nitrite,Urine Negative (Negative); Protein,Urine Trace (Negative); Specific Gravity,Urine 1.018 (1.001-1.035); Urobilinogen,Urine <2.0 mg/dL (<2.0)
[2021-11-14] MEDS ORDERED: ONDANSETRON 4 MG/2 ML VIAL IVP STA (11:41)
[2021-11-14] MEDS: DEXTROSE 5%-LACTATED RINGERS 1,000 ML IV SCH ×2 (12:36→13:12)
[2021-11-14] MEDS ORDERED: ACETAMINOPHEN IV (For NPO) 1,000 MG in EMPTY BAG 1 BAG IVPB STA (13:09)
[2021-11-14 13:19] LABS: African American GFR (CKD) >90 (>60 ml/min/1.73 sqM); Anion Gap 9 mmol/L; Blood Urea Nitrogen 5 mg/dL (7-17); Calcium 8.7 mg/dL (8.4-10.2); Carbon Dioxide 17 mmol/L (22-30); Chloride 109 mmol/L (98-107); Glucose 71 mg/dL (74-99); Non-African American GFR(CKD) >90 (>60 ml/min/1.73 sqM); Sodium 135 mmol/L (137-145)
[2021-11-14 14:44] VITALS: BP 98/59; PULSE 87; RESP 16; TEMP 97
--- NOTE | 2021-11-30 07:45 | P.MSEPDOC ---
Presenting Problems - Arrival Data Date of Arrival on Unit: 11/14/21 Time of Arrival on Unit: 10:22 Mode of Transport: Wheelchair - Complaint OB-Reason for Admission/Chief Complaint: Acute Nausea/Vomiting Comment: Lower ab pain, N/V/D x 3 days Medical History - Information : 8 Para: 2 Term: 1 : 1 Abortions: Spontaneous or Elective: 5 - Gestational Age Gestational Age by KATE (wks/days): 23 Weeks and 0 Days - History Complications: Prior Review of Systems - Review of Systems Constitutional: No problems Breast: No problems ENT: No problems Cardiovascular: No problems Respiratory: No problems Gastrointestinal: Diarrhea Genitourinary: No problems Musculoskeletal: No problems Neurological: No problems Skin: No problems Vital Signs - Temperature Temperature: 97 F Temperature Source: Temporal Artery Scan - Pulse Right Sitting Brachial Pulse Rate: 87 Pulse Assessment Method: Automatic Cuff - Respirations Respiratory Rate: 16 Oxygen Delivery Method: Room Air O2 Sat by Pulse Oximetry: 97 - Blood Pressure Right Arm Sitting Blood Pressure: 98/59 Blood Pressure Mean: 72 Blood Pressure Source: Automatic Cuff Medical Screen Scoring - Assessment - Baby A Baseline FHR: 140 Heart Rate - NICHD Category: Category I (Normal) Physician Notification - Physician Notified Physician Notified Date: 11/14/21 Physician Notified Time: 14:28 Physician: Kyung Cardoza New Order Received: Yes - Notification Comment Comment: Spk c\Dr. Cardoza, advsd of pts arrival to triage, c/o N/V/D and lower ace ab pain, worse on left. Pts report of L ovarian cyst, being observed during , pt reports pain in round ligament area, sharp. UA shows +4 Ketones. Orders rec'd for 2 bags D5LR, BMP, Zofran 4mg IVP once. *After administration of fluids and zofran, pt reports some relief, pain decreased slightly. *Orders rec'd for Ofirmev 1000mg IVP once. *Pt able to tolerate ice chips and saltine crackers. Orders rec'd to d/c pt home, advsd to obtain maternity support belt, pelvic rest, appt c\Dr. Cardoza 11/27/2021. Maternal Triage Index - Maternal Triage Index Presenting for scheduled procedure w/no complaint: No - Stat/Priority 1 Stat Priority 1: No - Urgent/Priority 2 Urgent Priority 2: No - Prompt/Priority 3 Prompt Priority 3: No - Non-Urgent/Priority 4 Non-Urgent Priority 4: Yes Criteria Met for Priority 4: 23wk, N/V/D Disposition - Disposition OB Disposition: Physician follow up in office, Discharge to home, Written follow up instructions reviewed Discharge Date: 11/14/21 Discharge Time: 14:35 I agree with the RN Medical Screening Exam: Yes Case reviewed; plan agreed upon as documented in EMR&OBIX.: Yes Diagnosis: LATE VOMITING OF
== END 2021-11-14 14:35 | disposition home or self-care (01) ==
LOC: FBPOP 10:22
PROVIDERS: ATTEND Obstetrics & Gynecology
DX: O21.2 Late vomiting of pregnancy (principal); Z3A.23 23 weeks gestation of pregnancy; Z91.018 Allergy to other foods
CPT/HCPCS: 96361; 96365; 96375; 36415; 80048; 81003; G0463; J2405; J0131; 99214

== ENCOUNTER 2021-11-29 19:56 | Outpatient (CLI) | payer OTHER ==
[2021-11-29] MEDS ORDERED: LACTATED RINGERS 1,000 ML IV SCH (20:30)
[2021-11-29 21:09] LABS: Amorphous Sediment,Urine Rare /hpf; Appearance,Urine Cloudy (Clear); Bacteria,Urine Few /hpf; Bilirubin,Urine Negative (Negative); Blood,Urine Negative (Negative); Color,Urine Light Yellow; Glucose,Urine (UA) Negative (Negative); Leukocyte Esterase,Urine Negative (Negative); Mucus,Urine Occasional /hpf; Nitrite,Urine Negative (Negative); Protein,Urine Negative (Negative); RBC,Urine <1 /hpf (0-5); Squamous Epithelial Cell,Urine 1 /hpf (0-4); Urobilinogen,Urine <2.0 mg/dL (<2.0); WBC,Urine 1 /hpf (0-5)
[2021-11-29 21:56] LABS: Ketones,Urine 2+ (Negative)
[2021-11-29 23:28] VITALS: BP 119/67; PULSE 85; RESP 16; TEMP 97.4
--- NOTE | 2021-11-30 07:52 | P.MSEPDOC ---
Presenting Problems - Arrival Data Date of Arrival on Unit: 11/29/21 Time of Arrival on Unit: 19:56 Mode of Transport: Wheelchair - Complaint OB-Reason for Admission/Chief Complaint: Possible Onset of Labor Comment: Patient arrives to triage with complaits of contractions every five minutes for. the past hour. Patient is timing them lasting a minute. Patient has history of a . delivery at 36 weeks. Patient also claims to be leaking fluid. Medical History - Information : 8 Para: 2 Term: 1 : 1 Abortions: Spontaneous or Elective: 5 Number of Living Children: 2 - Gestational Age Gestational Age by KATE (wks/days): 25 Weeks and 1 Days - History Complications: Prior Review of Systems - Review of Systems Constitutional: No problems Breast: No problems ENT: No problems Cardiovascular: No problems Respiratory: No problems Gastrointestinal: No problems Genitourinary: No problems Musculoskeletal: No problems Neurological: No problems Skin: No problems Vital Signs - Temperature Temperature: 97.4 F Temperature Source: Temporal Artery Scan - Pulse Right Brachial Pulse Rate: 85 Pulse Assessment Method: Automatic Cuff - Respirations Respiratory Rate: 16 Oxygen Delivery Method: Room Air O2 Sat by Pulse Oximetry: 99 - Blood Pressure Right Arm Blood Pressure: 119/67 Blood Pressure Mean: 84 Blood Pressure Source: Automatic Cuff Medical Screen Scoring - Cervical Exam Membranes: Intact - Assessment - Baby A Baseline FHR: 150 Heart Rate - NICHD Category: Category I (Normal) Physician Notification - Physician Notified Physician Notified Date: 11/29/21 Physician Notified Time: 20:25 Physician: Kyung Cardoza Order Received: Yes - Notification Comment Comment: RN spoke with Dr. Cardoza. RN relayed that contractions were not tracing per toco. but patient was breathing through contractions that she rates as a 7/10 approximately. every three to five minutes. Cervical exam was closed and thick. Amnisure and FFN. collected. heart tones auscultated at 150 bpm. movement noted per patient. and per auscultation. Dr. Cardoza would like a UA, FFN sent, an IV inserted and a liter. bolus given, and to recheck. Cervical exam unchanged on recheck. Negative FFN. Negative amnisure. UA unremarkable. Maternal Triage Index - Maternal Triage Index Presenting for scheduled procedure w/no complaint: No - Stat/Priority 1 Stat Priority 1: No - Urgent/Priority 2 Urgent Priority 2: Yes Provider Notified: Kyung Cardoza Provider Notified Time: 20:25 Criteria Met for Priority 2: <34 with complaints of contractions Disposition - Disposition OB Disposition: Physician follow up in office, Discharge to home Discharge Date: 11/29/21 Discharge Time: 22:15 I agree with the RN Medical Screening Exam: Yes Case reviewed; plan agreed upon as documented in EMR&OBIX.: Yes Diagnosis: FALSE LABOR BEFORE 37 COMPLETED WEEKS OF GEST, THIRD TRI
== END 2021-11-29 22:15 | disposition home or self-care (01) ==
LOC: FBPOP 19:56
PROVIDERS: ATTEND Obstetrics & Gynecology
DX: O47.02 False labor before 37 completed weeks of gestation, second trimester (principal); Z3A.25 25 weeks gestation of pregnancy; Z91.018 Allergy to other foods
CPT/HCPCS: 59025; 96360; 84112; 36415; 82731; 81001; G0463; 96361; 99214

== ENCOUNTER 2021-12-01 09:28 | Outpatient (CLI) | payer OTHER ==
[2021-12-01 10:48] VITALS: BP 116/65; PULSE 106; RESP 17; TEMP 96.9
--- NOTE | 2021-12-20 00:34 | P.MSEPDOC ---
Presenting Problems - Arrival Data Date of Arrival on Unit: 12/01/21 Time of Arrival on Unit: 09:28 Mode of Transport: Wheelchair - Complaint OB-Reason for Admission/Chief Complaint: Possible Onset of Labor, Rule Out PROM Comment: pt presented to triage for leakiing fluid and c/o contractions every 5 minutes rating pain 10/10 Medical History - Information : 8 Para: 2 Term: 1 : 1 Abortions: Spontaneous or Elective: 5 Number of Living Children: 2 - Gestational Age Gestational Age by KATE (wks/days): 25 Weeks and 3 Days - History Complications: Prior Review of Systems - Review of Systems Constitutional: No problems Breast: No problems ENT: No problems Cardiovascular: No problems Respiratory: No problems Gastrointestinal: No problems Genitourinary: No problems Musculoskeletal: No problems Neurological: No problems Skin: No problems Vital Signs - Temperature Temperature: 96.9 F Temperature Source: Temporal Artery Scan - Pulse Right Brachial Pulse Rate: 106 Pulse Assessment Method: Automatic Cuff - Respirations Respiratory Rate: 17 Oxygen Delivery Method: Room Air - Blood Pressure Right Arm Blood Pressure: 116/65 Blood Pressure Mean: 82 Blood Pressure Source: Automatic Cuff Medical Screen Scoring - Cervical Exam Dilation (cm): 0 - Uterine Contractions Frequency From (mins): 0 - Assessment - Baby A Baseline FHR: 140 Heart Rate - NICHD Category: Category I (Normal) Physician Notification - Physician Notified Physician Notified Date: 12/01/21 Physician Notified Time: 10:15 Physician: Mathieu Harrison Order Received: Yes - Notification Comment Comment: amniosure negative, cervical exam closed/thick/high, no contractions per toco or palpation, category 1 FHT's, FFN negative 2 days ago when pt in triage, pt discharged home with instructions to follow up on Saturday with Dr. Cardoza at scheduled appt Maternal Triage Index - Maternal Triage Index Presenting for scheduled procedure w/no complaint: No - Stat/Priority 1 Stat Priority 1: No - Urgent/Priority 2 Urgent Priority 2: No - Prompt/Priority 3 Prompt Priority 3: No - Non-Urgent/Priority 4 Non-Urgent Priority 4: Yes Criteria Met for Priority 4: pt presented to triage for leakiing fluid and c/o contractions every 5 minutes rating pain 10/10, GA 25 3/7 Disposition - Disposition OB Disposition: Physician follow up in office, Triage, Discharge to home, Written follow up instructions reviewed Discharge Date: 12/01/21 Discharge Time: 10:30 I agree with the RN Medical Screening Exam: Yes Case reviewed; plan agreed upon as documented in EMR&OBIX.: Yes Diagnosis: FALSE LABOR BEFORE 37 COMPLETED WEEKS OF GEST, THIRD TRI
== END 2021-12-01 10:30 | disposition home or self-care (01) ==
LOC: FBPOP 09:28
PROVIDERS: ATTEND Obstetrics & Gynecology
DX: O47.02 False labor before 37 completed weeks of gestation, second trimester (principal); Z3A.25 25 weeks gestation of pregnancy; Z91.018 Allergy to other foods
CPT/HCPCS: 84112; G0463; 99213

== ENCOUNTER 2021-12-05 11:44 | Outpatient (CLI) | payer OTHER ==
[2021-12-05 12:39] LABS: Appearance,Urine Clear (Clear); Bilirubin,Urine Negative (Negative); Blood,Urine Negative (Negative); Color,Urine Colorless; Glucose,Urine (UA) Negative (Negative); Ketones,Urine Negative (Negative); Leukocyte Esterase,Urine Negative (Negative); Nitrite,Urine Negative (Negative); PH, Urine 7.5 (5.0-8.0); Protein,Urine Negative (Negative); Specific Gravity,Urine 1.005 (1.001-1.035); Urobilinogen,Urine <2.0 mg/dL (<2.0)
[2021-12-05] MEDS ORDERED: BETAMET ACET-BETAMETH SOD PHOS 6 MG/ML MDV IM SCH (12:45)
[2021-12-05] MEDS ORDERED: LACTATED RINGERS 1,000 ML IV SCH (12:45)
[2021-12-05] MEDS ORDERED: ACETAMINOPHEN IV (For NPO) 1,000 MG in EMPTY BAG 1 BAG IVPB ONE (13:27)
[2021-12-05 14:30] VITALS: BP 117/65; PULSE 106; RESP 17; TEMP 96.8
--- NOTE | 2021-12-20 00:35 | P.MSEPDOC ---
Presenting Problems - Arrival Data Date of Arrival on Unit: 12/05/21 Time of Arrival on Unit: 11:44 Mode of Transport: Wheelchair - Complaint OB-Reason for Admission/Chief Complaint: Pain Comment: pt presents to triage for contractions that she rates 10/10 Medical History - Information : 8 Para: 2 Term: 1 : 1 Abortions: Spontaneous or Elective: 5 Number of Living Children: 2 - Gestational Age Gestational Age by KATE (wks/days): 26 Weeks and 0 Days Review of Systems - Review of Systems Constitutional: No problems Breast: No problems ENT: No problems Cardiovascular: No problems Respiratory: No problems Gastrointestinal: No problems Genitourinary: No problems Musculoskeletal: No problems Neurological: No problems Skin: No problems Vital Signs - Temperature Temperature: 96.8 F Temperature Source: Temporal Artery Scan - Pulse Right Brachial Pulse Rate: 106 Pulse Assessment Method: Automatic Cuff - Respirations Respiratory Rate: 17 Oxygen Delivery Method: Room Air - Blood Pressure Right Arm Blood Pressure: 117/65 Blood Pressure Mean: 82 Blood Pressure Source: Automatic Cuff Medical Screen Scoring - Cervical Exam Dilation (cm): 0 - Uterine Contractions Duration From (seconds): 10 Duration To (seconds): 30 Intensity: Mild - Assessment - Baby A Baseline FHR: 145 Heart Rate - NICHD Category: Category I (Normal) Physician Notification - Physician Notified Physician Notified Date: 12/05/21 Physician Notified Time: 12:36 Physician: Kyung Cardoza New Order Received: Yes - Notification Comment Comment: UA and FFN negative, 1 liter of LR given, dose of offirmive and 1st dose of celestone given, cervical exam closed, pt not having any contractions for 45 minutes before discharge, pt will return tomorrow for second dose of celestone, pt to be on pelvic rest, and increase oral fluids, and make appt to be seen next week in the office with Dr. Cardoza Maternal Triage Index - Maternal Triage Index Presenting for scheduled procedure w/no complaint: No - Stat/Priority 1 Stat Priority 1: Yes Provider Notified: Kyung Cardoza Provider Notified Time: 12:36 Criteria Met for Priority 1: pt presents to triage for contractions that she rates 10/10 - Urgent/Priority 2 Urgent Priority 2: No - Prompt/Priority 3 Prompt Priority 3: No - Non-Urgent/Priority 4 Non-Urgent Priority 4: No Disposition - Disposition OB Disposition: Physician follow up in office, Triage, Discharge to home, Written follow up instructions reviewed Discharge Date: 12/05/21 Discharge Time: 14:11 I agree with the RN Medical Screening Exam: Yes Case reviewed; plan agreed upon as documented in EMR&OBIX.: Yes Diagnosis: FALSE LABOR BEFORE 37 COMPLETED WEEKS OF GEST, THIRD TRI
== END 2021-12-05 14:11 | disposition home or self-care (01) ==
LOC: FBPOP 11:44
PROVIDERS: ATTEND Obstetrics & Gynecology
DX: O47.02 False labor before 37 completed weeks of gestation, second trimester (principal); Z3A.26 26 weeks gestation of pregnancy; Z91.018 Allergy to other foods
CPT/HCPCS: 96361; 96365; 96372; 82731; 81003; G0463; J0131; J0702; 99214

== ENCOUNTER 2021-12-06 12:33 | Outpatient (CLI) | payer OTHER ==
[2021-12-06] MEDS ORDERED: BETAMET ACET-BETAMETH SOD PHOS 6 MG/ML MDV IM SCH (12:45)
[2021-12-06 13:14] VITALS: BP 97/54; PULSE 101; RESP 14; TEMP 96.4
--- NOTE | 2021-12-20 00:36 | P.MSEPDOC ---
Presenting Problems - Arrival Data Date of Arrival on Unit: 12/06/21 Time of Arrival on Unit: 12:45 Mode of Transport: Ambulatory - Complaint OB-Reason for Admission/Chief Complaint: Other Comment: second celestone injection Medical History - Information : 8 Para: 2 Term: 2 : 0 Abortions: Spontaneous or Elective: 5 Number of Living Children: 2 - Gestational Age Gestational Age by KATE (wks/days): 26 Weeks and 1 Days Review of Systems - Review of Systems Constitutional: No problems Breast: No problems ENT: No problems Cardiovascular: No problems Respiratory: No problems Gastrointestinal: No problems Genitourinary: No problems Musculoskeletal: No problems Neurological: No problems Skin: No problems Vital Signs - Temperature Temperature: 96.4 F Temperature Source: Temporal Artery Scan - Pulse Right Brachial Pulse Rate: 101 Pulse Assessment Method: Automatic Cuff - Respirations Respiratory Rate: 14 Oxygen Delivery Method: Room Air - Blood Pressure Right Arm Blood Pressure: 97/54 Blood Pressure Mean: 68 Blood Pressure Source: Automatic Cuff Physician Notification - Physician Notified Physician Notified Date: 12/06/21 Physician Notified Time: 12:55 Physician: dr jansen New Order Received: Yes - Notification Comment Comment: dr posadas pt here for second celestone injection only, no nst required per . pt may be discharged home after injection Maternal Triage Index - Maternal Triage Index Presenting for scheduled procedure w/no complaint: No - Stat/Priority 1 Stat Priority 1: No - Urgent/Priority 2 Urgent Priority 2: No - Prompt/Priority 3 Prompt Priority 3: No - Non-Urgent/Priority 4 Non-Urgent Priority 4: No - Scheduled/Requesting Priority 5 Scheduled/Requesting Priority 5: Yes Criteria Met for Priority 5: second dose of celestone Disposition - Disposition OB Disposition: Physician follow up in office, Discharge to home Discharge Date: 12/06/21 Discharge Time: 13:13 I agree with the RN Medical Screening Exam: Yes Case reviewed; plan agreed upon as documented in EMR&OBIX.: Yes Diagnosis: FALSE LABOR BEFORE 37 COMPLETED WEEKS OF GEST, THIRD TRI
== END 2021-12-06 13:14 | disposition home or self-care (01) ==
LOC: FBPOP 12:33
PROVIDERS: ATTEND Obstetrics & Gynecology
DX: O47.02 False labor before 37 completed weeks of gestation, second trimester (principal); Z3A.26 26 weeks gestation of pregnancy; Z91.018 Allergy to other foods
CPT/HCPCS: 96372; G0463; J0702; 99214

== ENCOUNTER 2021-12-11 10:24 | Outpatient (CLI) | payer OTHER ==
[2021-12-11 11:41] VITALS: BP 106/61; PULSE 100; RESP 16; TEMP 97.7
--- NOTE | 2022-01-05 08:24 | P.MSEPDOC ---
Presenting Problems - Arrival Data Date of Arrival on Unit: 12/11/21 Time of Arrival on Unit: 10:24 Mode of Transport: Ambulatory - Complaint OB-Reason for Admission/Chief Complaint: Rule Out PROM, Pain Comment: patient states she has been cramping rating 8/10 and poss leaking fluid since this morning Medical History - Information : 8 Para: 2 Term: 1 : 1 Abortions: Spontaneous or Elective: 5 Number of Living Children: 2 - Gestational Age Gestational Age by KATE (wks/days): 26 Weeks and 6 Days Review of Systems - Review of Systems Constitutional: No problems Breast: No problems ENT: No problems Cardiovascular: No problems Respiratory: No problems Gastrointestinal: No problems Genitourinary: No problems Musculoskeletal: No problems Neurological: No problems Skin: No problems Vital Signs - Temperature Temperature: 97.7 F Temperature Source: Oral - Pulse Pulse Oximetery Pulse Rate: 100 Pulse Assessment Method: Pulse Oximetry - Respirations Respiratory Rate: 16 Oxygen Delivery Method: Room Air O2 Sat by Pulse Oximetry: 100 - Blood Pressure Right Arm Blood Pressure: 106/61 Blood Pressure Mean: 76 Blood Pressure Source: Automatic Cuff Medical Screen Scoring - Cervical Exam Membranes: Intact - Uterine Contractions Resting: Soft to palpation - Assessment - Baby A Baseline FHR: 150 Heart Rate - NICHD Category: Category I (Normal) NST: Reactive Physician Notification - Physician Notified Physician Notified Date: 12/11/21 Physician Notified Time: 11:20 Physician: Leta Sandoval Order Received: Yes - Notification Comment Comment: can send patient home, reassure that all labor signs are neg at this time, keep scheduled appt with dr. jansen on saturday12/13/21 Maternal Triage Index - Maternal Triage Index Presenting for scheduled procedure w/no complaint: No - Stat/Priority 1 Stat Priority 1: No - Urgent/Priority 2 Urgent Priority 2: No - Prompt/Priority 3 Prompt Priority 3: No - Non-Urgent/Priority 4 Non-Urgent Priority 4: Yes Criteria Met for Priority 4: patient states she has been having constant cramping 8/10 and poss leaking fluid Disposition - Disposition OB Disposition: Discharge to home Discharge Date: 12/11/21 Discharge Time: 11:30 I agree with the RN Medical Screening Exam: Yes Case reviewed; plan agreed upon as documented in EMR&OBIX.: Yes Diagnosis: rule out labor
== END 2021-12-11 11:30 | disposition home or self-care (01) ==
LOC: FBPOP 10:24
PROVIDERS: ATTEND Obstetrics & Gynecology
DX: O26.892 Other specified pregnancy related conditions, second trimester (principal); R10.9 Unspecified abdominal pain; Z3A.26 26 weeks gestation of pregnancy; Z91.018 Allergy to other foods
CPT/HCPCS: 84112; G0463; 99213

== ENCOUNTER 2021-12-16 15:19 | Outpatient (CLI) | payer OTHER ==
[2021-12-16 16:18] VITALS: BP 114/60; PULSE 89; RESP 18; TEMP 96.4
--- NOTE | 2022-01-05 08:29 | P.MSEPDOC ---
Presenting Problems - Arrival Data Date of Arrival on Unit: 12/16/21 Time of Arrival on Unit: 15:19 Mode of Transport: Wheelchair - Complaint OB-Reason for Admission/Chief Complaint: Possible Onset of Labor, Pain Comment: pt c/o contractions q5mins starting around 1200 and constant lower pelvic pain. Medical History - Information : 8 Para: 2 Term: 1 : 1 Abortions: Spontaneous or Elective: 5 Number of Living Children: 2 - Gestational Age Gestational Age by KATE (wks/days): 27 Weeks and 4 Days Review of Systems - Review of Systems Constitutional: No problems Breast: No problems ENT: No problems Cardiovascular: No problems Respiratory: No problems Gastrointestinal: No problems Genitourinary: No problems Musculoskeletal: No problems Neurological: No problems Skin: No problems Vital Signs - Temperature Temperature: 96.4 F Temperature Source: Temporal Artery Scan - Pulse Right Pulse Rate: 89 Pulse Assessment Method: Pulse Oximetry - Respirations Respiratory Rate: 18 Oxygen Delivery Method: Room Air - Blood Pressure Right Arm Blood Pressure: 114/60 Blood Pressure Mean: 78 Blood Pressure Source: Automatic Cuff Medical Screen Scoring - Cervical Exam Dilation (cm): 0 Membranes: Intact - Assessment - Baby A Baseline FHR: 150 Heart Rate - NICHD Category: Category I (Normal) Physician Notification - Physician Notified Physician Notified Date: 12/16/21 Physician Notified Time: 16:56 Physician: Leta Sandoval Order Received: Yes (d/c home with follow up instructions.) Maternal Triage Index - Maternal Triage Index Presenting for scheduled procedure w/no complaint: No - Stat/Priority 1 Stat Priority 1: No - Urgent/Priority 2 Urgent Priority 2: No - Prompt/Priority 3 Prompt Priority 3: No - Non-Urgent/Priority 4 Non-Urgent Priority 4: Yes Criteria Met for Priority 4: c/o contractions every 5mins starting around 1200 today with constant lower pelvic pain rating 8/10 on pain scale. Disposition - Disposition OB Disposition: Discharge to home Discharge Date: 12/16/21 Discharge Time: 16:56 I agree with the RN Medical Screening Exam: No Physician's MSE Comment: Inadequate documentation Case reviewed; plan agreed upon as documented in EMR&OBIX.: No Diagnosis: Rule out labor
== END 2021-12-16 16:58 | disposition home or self-care (01) ==
LOC: FBPOP 15:19
PROVIDERS: ATTEND Obstetrics & Gynecology
DX: O26.892 Other specified pregnancy related conditions, second trimester (principal); R10.2 Pelvic and perineal pain; Z3A.27 27 weeks gestation of pregnancy; Z91.018 Allergy to other foods
CPT/HCPCS: 84112; 82731; G0463; 99213

== ENCOUNTER 2021-12-25 14:41 | Outpatient (CLI) | payer OTHER ==
[2021-12-25] MEDS ORDERED: ACETAMINOPHEN TAB 500 MG TAB PO STA (15:25)
[2021-12-25 16:13] VITALS: BP 103/59; PULSE 86; RESP 16; TEMP 98.2
--- NOTE | 2021-12-29 08:50 | P.MSEPDOC ---
Presenting Problems - Arrival Data Date of Arrival on Unit: 12/25/21 Time of Arrival on Unit: 14:42 Mode of Transport: Ambulatory - Complaint OB-Reason for Admission/Chief Complaint: Other Comment: sudden migraine, nausea (resolved) and "baby dropped" Medical History - Information : 8 Para: 2 Term: 1 : 1 Abortions: Spontaneous or Elective: 5 Number of Living Children: 2 - Gestational Age Gestational Age by KATE (wks/days): 26 Weeks and 6 Days Review of Systems - Review of Systems Constitutional: No problems Breast: No problems ENT: No problems Cardiovascular: No problems Respiratory: No problems Gastrointestinal: No problems Genitourinary: No problems Musculoskeletal: No problems Neurological: No problems Skin: No problems Vital Signs - Temperature Temperature: 98.2 F Temperature Source: Oral - Pulse Pulse Oximetery Pulse Rate: 86 Pulse Assessment Method: Pulse Oximetry - Respirations Respiratory Rate: 16 Oxygen Delivery Method: Room Air - Blood Pressure Right Arm Blood Pressure: 103/59 Blood Pressure Mean: 73 Blood Pressure Source: Automatic Cuff Medical Screen Scoring - Cervical Exam Dilation (cm): 0 Membranes: Intact - Uterine Contractions Frequency From (mins): 1 Frequency To (mins): 3 Duration From (seconds): 30 Duration To (seconds): 40 Resting: Soft to palpation - Assessment - Baby A Baseline FHR: 145 Heart Rate - NICHD Category: Category I (Normal) Physician Notification - Physician Notified Physician Notified Date: 12/25/21 Physician Notified Time: 15:23 Physician: Kuyng Cardoza Order Received: Yes - Notification Comment Comment: 1000 mg tylenol, cervical exam, Maternal Triage Index - Maternal Triage Index Presenting for scheduled procedure w/no complaint: No - Stat/Priority 1 Stat Priority 1: No - Urgent/Priority 2 Urgent Priority 2: No - Prompt/Priority 3 Prompt Priority 3: No - Non-Urgent/Priority 4 Non-Urgent Priority 4: Yes Criteria Met for Priority 4: migraine, cramping Disposition - Disposition OB Disposition: Physician follow up in office, Discharge to home Discharge Date: 12/25/21 Discharge Time: 16:11 I agree with the RN Medical Screening Exam: Yes Case reviewed; plan agreed upon as documented in EMR&OBIX.: Yes Diagnosis: RELATED CONDITIONS, UNSPECIFIED, THIRD TRIMESTER
== END 2021-12-25 16:13 | disposition home or self-care (01) ==
LOC: FBPOP 14:41
PROVIDERS: ATTEND Obstetrics & Gynecology
DX: O26.892 Other specified pregnancy related conditions, second trimester (principal); O99.355 Diseases of the nervous system complicating the puerperium; R11.0 Nausea; G43.909 Migraine, unspecified, not intractable, without status migrainosus; Z91.018 Allergy to other foods; Z3A.26 26 weeks gestation of pregnancy
CPT/HCPCS: 99213

== ENCOUNTER 2021-12-27 10:22 | Outpatient (CLI) | payer OTHER ==
[2021-12-27 11:02] VITALS: BP 104/64; PULSE 90; RESP 18; TEMP 98
--- NOTE | 2021-12-29 08:53 | P.MSEPDOC ---
Presenting Problems - Arrival Data Date of Arrival on Unit: 12/27/21 Time of Arrival on Unit: 10:22 Mode of Transport: Wheelchair - Complaint OB-Reason for Admission/Chief Complaint: Pain Comment: Pt states contractions since 2129 last night. Every 5 minutes today Medical History - Information : 4 Para: 2 Term: 2 : 0 Abortions: Spontaneous or Elective: 1 Number of Living Children: 2 - Gestational Age Gestational Age by KATE (wks/days): 27 Weeks and 1 Days - History Comment: Hx epilepsy, on Keppra. Last seizure 5 mo ago Review of Systems - Review of Systems Constitutional: No problems Breast: No problems ENT: No problems Cardiovascular: No problems Respiratory: No problems Gastrointestinal: No problems Genitourinary: No problems Musculoskeletal: No problems Neurological: No problems Skin: No problems Vital Signs - Temperature Temperature: 98.0 F Temperature Source: Oral - Pulse Right Sitting Brachial Pulse Rate: 90 Pulse Assessment Method: Automatic Cuff - Respirations Respiratory Rate: 18 Oxygen Delivery Method: Room Air O2 Sat by Pulse Oximetry: 100 - Blood Pressure Right Arm Sitting Blood Pressure: 104/64 Blood Pressure Mean: 77 Blood Pressure Source: Automatic Cuff Medical Screen Scoring - Cervical Exam Dilation (cm): 0 Effacement (%): 0 Station: -2 Membranes: Intact - Assessment - Baby A Baseline FHR: 140 Heart Rate - NICHD Category: Category I (Normal) Physician Notification - Physician Notified Physician Notified Date: 12/27/21 Physician Notified Time: 10:45 Physician: Kyung Cardoza Order Received: Yes - Notification Comment Comment: FFN collected and held. Cervix remains closed and thick, same as 12/25/21. Pt reports having steroids x2 doses. Irritability on monitor, and abdomen soft to palpation. + movement. Ok to dc home. Pt to rest, increase po fluids and pelvic rest. Follow up as scheduled. Maternal Triage Index - Maternal Triage Index Presenting for scheduled procedure w/no complaint: No - Stat/Priority 1 Stat Priority 1: No - Urgent/Priority 2 Urgent Priority 2: No - Prompt/Priority 3 Prompt Priority 3: Yes Criteria Met for Priority 3: 27 1/7, c/o contractions. Disposition - Disposition OB Disposition: Physician follow up in office, Discharge to home Discharge Date: 12/27/21 Discharge Time: 10:56 I agree with the RN Medical Screening Exam: Yes Case reviewed; plan agreed upon as documented in EMR&OBIX.: Yes Diagnosis: FALSE LABOR BEFORE 37 COMPLETED WEEKS OF GEST, THIRD TRI
== END 2021-12-27 10:55 | disposition home or self-care (01) ==
LOC: FBPOP 10:22
PROVIDERS: ATTEND Obstetrics & Gynecology
DX: O47.02 False labor before 37 completed weeks of gestation, second trimester (principal); Z3A.27 27 weeks gestation of pregnancy; Z91.018 Allergy to other foods
CPT/HCPCS: 99213

== ENCOUNTER 2022-01-14 08:28 | Outpatient (CLI) | payer OTHER ==
[2022-01-14] MEDS ORDERED: LACTATED RINGERS 1,000 ML IV ONE (09:15)
[2022-01-14 10:38] VITALS: BP 107/65; PULSE 92; RESP 17; TEMP 96.4
--- NOTE | 2022-01-29 08:15 | P.MSEPDOC ---
Presenting Problems - Arrival Data Date of Arrival on Unit: 01/14/22 Time of Arrival on Unit: 08: Mode of Transport: Wheelchair - Complaint OB-Reason for Admission/Chief Complaint: Possible Onset of Labor, Pain Comment: vaginal pressure and contractions pt states started at 0000. pt states she feels contractions 5-10 minutes apart. pt rates pain 9/10. Medical History - Information : 8 Para: 2 Term: 1 : 1 Abortions: Spontaneous or Elective: 5 Number of Living Children: 2 - Gestational Age Gestational Age by KATE (wks/days): 30 Weeks and 2 Days - History Complications: Prior Comment: 36 weeks with first delivery. Review of Systems - Review of Systems Constitutional: No problems Breast: No problems ENT: No problems Cardiovascular: No problems Respiratory: No problems Gastrointestinal: No problems Genitourinary: No problems Musculoskeletal: No problems Neurological: No problems Skin: No problems Vital Signs - Temperature Temperature: 96.4 F Temperature Source: Temporal Artery Scan - Pulse Right Pulse Oximetery Pulse Rate: 92 Pulse Assessment Method: Pulse Oximetry - Respirations Respiratory Rate: 17 Oxygen Delivery Method: Room Air O2 Sat by Pulse Oximetry: 100 - Blood Pressure Right Arm Blood Pressure: 107/65 Blood Pressure Mean: 79 Blood Pressure Source: Automatic Cuff Medical Screen Scoring - Cervical Exam Dilation (cm): 0 Effacement (%): 0 Membranes: Intact - Uterine Contractions Frequency From (mins): 1 Frequency To (mins): 3 Duration From (seconds): 30 Duration To (seconds): 40 Intensity: Mild Resting: Soft to palpation - Assessment - Baby A Baseline FHR: 140 Heart Rate - NICHD Category: Category I (Normal) NST: Reactive Physician Notification - Physician Notified Physician Notified Date: 01/14/22 Physician Notified Time: 09:05 Physician: Leta Sandoval New Order Received: Yes (send FFN, give 1 Liter IV fluids) Maternal Triage Index - Maternal Triage Index Presenting for scheduled procedure w/no complaint: No - Stat/Priority 1 Stat Priority 1: No - Urgent/Priority 2 Urgent Priority 2: Yes Provider Notified: Leta Sandoval Provider Notified Time: 09:05 Criteria Met for Priority 2: 30 2/7 weeks gestation with complaints of and detectable uterine contractions. Disposition - Disposition OB Disposition: Discharge to home Discharge Date: 01/14/22 Discharge Time: 10:15 I agree with the RN Medical Screening Exam: No Physician's MSE Comment: FFN negative, received hydration, cervical exam reassuring. Case reviewed; plan agreed upon as documented in EMR&OBIX.: Yes Diagnosis: contractions
== END 2022-01-14 10:15 | disposition home or self-care (01) ==
LOC: FBPOP 08:28
PROVIDERS: ATTEND Obstetrics & Gynecology
DX: O60.03 Preterm labor without delivery, third trimester (principal); Z3A.30 30 weeks gestation of pregnancy
CPT/HCPCS: 59025; 96360; 82731; G0463; 99213; 99214

== ENCOUNTER 2022-01-16 13:16 | Outpatient (CLI) | payer OTHER ==
[2022-01-16 14:11] VITALS: BP 112/61; PULSE 81; RESP 16; TEMP 98
--- NOTE | 2022-02-01 20:06 | P.MSEPDOC ---
Presenting Problems - Arrival Data Date of Arrival on Unit: 01/16/22 Time of Arrival on Unit: 13:16 Mode of Transport: Wheelchair - Complaint OB-Reason for Admission/Chief Complaint: Rule Out PROM Comment: gush of clear fluid around 1200 Medical History - Information : 4 Para: 2 Term: 1 : 1 Abortions: Spontaneous or Elective: 1 Number of Living Children: 2 - Gestational Age Gestational Age by KATE (wks/days): 30 Weeks and 0 Days - History Complications: Prior Review of Systems - Review of Systems Constitutional: No problems Breast: No problems ENT: No problems Cardiovascular: No problems Respiratory: No problems Gastrointestinal: No problems Genitourinary: No problems Musculoskeletal: No problems Neurological: No problems Skin: No problems Vital Signs - Temperature Temperature: 98.0 F Temperature Source: Temporal Artery Scan - Pulse Pulse Oximetery Pulse Rate: 81 Pulse Assessment Method: Pulse Oximetry - Respirations Respiratory Rate: 16 Oxygen Delivery Method: Room Air O2 Sat by Pulse Oximetry: 99 - Blood Pressure Right Arm Blood Pressure: 112/61 Blood Pressure Mean: 78 Blood Pressure Source: Automatic Cuff Medical Screen Scoring - Cervical Exam Dilation (cm): 0 Effacement (%): 0 Station: -2 Membranes: Intact - Uterine Contractions Frequency From (mins): 2 Frequency To (mins): 2 Duration From (seconds): 40 Duration To (seconds): 60 Intensity: Mild Resting: Soft to palpation - Assessment - Baby A Baseline FHR: 140 Heart Rate - NICHD Category: Category I (Normal) NST: Reactive Physician Notification - Physician Notified Physician Notified Date: 01/16/22 Physician Notified Time: 13:55 Physician: Kyung Cardoza New Order Received: Yes - Notification Comment Comment: Dr. Cardoza called, report given on pt's c/o of SROM around noon, amnisure. negative, NST reactive, cx every 2 mins but pt does not complain of them. Pt was seen in. the office yesterday and was closed. Vitals are WNL. Orders to check cervix and if. closed, pt is to be discharged home and follow up in 2 weeks. Maternal Triage Index - Maternal Triage Index Presenting for scheduled procedure w/no complaint: No - Stat/Priority 1 Stat Priority 1: No - Urgent/Priority 2 Urgent Priority 2: Yes Provider Notified: Kyung Cardoza Provider Notified Time: 13:55 Criteria Met for Priority 2: 30 weeks, c/o gush of clear fluid around 1200 Disposition - Disposition OB Disposition: Physician follow up in office, Discharge to home Discharge Date: 01/16/22 Discharge Time: 14:05 I agree with the RN Medical Screening Exam: Yes Case reviewed; plan agreed upon as documented in EMR&OBIX.: Yes Diagnosis: FALSE LABOR BEFORE 37 COMPLETED WEEKS OF GEST, THIRD TRI
== END 2022-01-16 14:05 | disposition home or self-care (01) ==
LOC: FBPOP 13:16
PROVIDERS: ATTEND Obstetrics & Gynecology
DX: O47.03 False labor before 37 completed weeks of gestation, third trimester (principal); Z3A.37 37 weeks gestation of pregnancy; Z91.018 Allergy to other foods
CPT/HCPCS: 59025; 84112; G0463; 99213

== ENCOUNTER 2022-01-17 23:27 | Outpatient (CLI) | payer OTHER ==
[2022-01-18 00:31] VITALS: BP 112/65; PULSE 90; RESP 16; TEMP 97.9
--- NOTE | 2022-01-29 08:58 | P.MSEPDOC ---
Presenting Problems - Arrival Data Date of Arrival on Unit: 01/17/22 Time of Arrival on Unit: 23:27 Mode of Transport: Wheelchair - Complaint OB-Reason for Admission/Chief Complaint: Rule Out PROM Medical History - Information : 4 Para: 2 Term: 1 : 1 Abortions: Spontaneous or Elective: 1 Number of Living Children: 2 - Gestational Age Gestational Age by KATE (wks/days): 30 Weeks and 2 Days Review of Systems - Review of Systems Constitutional: No problems Breast: No problems ENT: No problems Cardiovascular: No problems Respiratory: No problems Gastrointestinal: No problems Genitourinary: No problems Musculoskeletal: No problems Neurological: No problems Skin: No problems Vital Signs - Temperature Temperature: 97.9 F Temperature Source: Oral - Pulse Right Pulse Rate: 90 Pulse Assessment Method: Automatic Cuff - Respirations Respiratory Rate: 16 Oxygen Delivery Method: Room Air O2 Sat by Pulse Oximetry: 100 - Blood Pressure Right Arm Blood Pressure: 112/65 Blood Pressure Mean: 80 Blood Pressure Source: Automatic Cuff Medical Screen Scoring - Cervical Exam Dilation (cm): 0 Membranes: Intact - Uterine Contractions Frequency From (mins): 1 Frequency To (mins): 2 Duration From (seconds): 40 Duration To (seconds): 50 Intensity: Mild Resting: Soft to palpation - Assessment - Baby A Baseline FHR: 135 Heart Rate - NICHD Category: Category I (Normal) NST: Reactive Physician Notification - Physician Notified Physician Notified Date: 01/18/22 Physician Notified Time: 23:55 New Order Received: Yes (discharge) Maternal Triage Index - Urgent/Priority 2 Urgent Priority 2: Yes Provider Notified: Leta Sandoval Provider Notified Time: 23:55 Criteria Met for Priority 2: amnisure negative Disposition - Disposition OB Disposition: Discharge to home Discharge Date: 01/18/22 Discharge Time: 00:15 I agree with the RN Medical Screening Exam: No Physician's MSE Comment: Negative amnio sure testing and status reported to physician however no notation of regular contraction activity reported to me. This was documented in [facility]. Case reviewed; plan agreed upon as documented in EMR&OBIX.: No Diagnosis: rule out rupture of membranes
== END 2022-01-18 00:15 | disposition home or self-care (01) ==
LOC: FBPOP 23:27
PROVIDERS: ATTEND Obstetrics & Gynecology
DX: O26.893 Other specified pregnancy related conditions, third trimester (principal); R10.30 Lower abdominal pain, unspecified; Z3A.30 30 weeks gestation of pregnancy
CPT/HCPCS: 59025; 84112; G0463; 99213

== ENCOUNTER 2022-01-19 19:46 | Outpatient (CLI) | payer OTHER ==
[2022-01-19 21:36] VITALS: BP 107/68; PULSE 96; RESP 16; TEMP 96.5
--- NOTE | 2022-03-16 17:29 | P.MSEPDOC ---
Presenting Problems - Arrival Data Date of Arrival on Unit: 01/19/22 Time of Arrival on Unit: 19:46 Mode of Transport: Wheelchair - Complaint OB-Reason for Admission/Chief Complaint: Rule Out PROM Comment: Pt reports fluid running down leg after bathing; approx 1630, clear. No continued leaking, did not need to wear pad. Medical History - Information : 4 Para: 1 Term: 1 : 1 Abortions: Spontaneous or Elective: 1 Number of Living Children: 2 - Gestational Age Gestational Age by KATE (wks/days): 30 Weeks and 3 Days - History Complications: Prior Review of Systems - Review of Systems Constitutional: No problems Breast: No problems ENT: No problems Cardiovascular: No problems Respiratory: No problems Gastrointestinal: No problems Genitourinary: No problems Musculoskeletal: No problems Neurological: No problems Skin: No problems Vital Signs - Temperature Temperature: 96.5 F Temperature Source: Temporal Artery Scan - Pulse Right Sitting Brachial Pulse Rate: 96 Pulse Assessment Method: Automatic Cuff - Respirations Respiratory Rate: 16 Oxygen Delivery Method: Room Air O2 Sat by Pulse Oximetry: 98 - Blood Pressure Right Arm Sitting Blood Pressure: 107/68 Blood Pressure Mean: 81 Blood Pressure Source: Automatic Cuff Medical Screen Scoring - Cervical Exam Dilation (cm): 1 Effacement (%): 0 Station: -2 Membranes: Intact - Uterine Contractions Frequency From (mins): 2 Frequency To (mins): 4 Duration From (seconds): 40 Duration To (seconds): 60 Intensity: Mild Resting: Soft to palpation - Assessment - Baby A Baseline FHR: 145 Heart Rate - NICHD Category: Category I (Normal) NST: Reactive Physician Notification - Physician Notified Physician Notified Date: 01/19/22 Physician Notified Time: 21:15 Physician: Hilda Chinchilla New Order Received: Yes - Notification Comment Comment: Spk c\Dr. Chinchilla, advsd pt of Dr. Cardoza, , 30 07/24, c/o possible PROM at 1630, clear fluid down leg x 1, no continued leaking, perineum dry, no fluid on mothers pad or with SVE, Amnisure negative, reactive nst. Contrx 2-4min, mild to palpation. Pt hx reflects contractions since 23wks. FFN on 01/14 neg. Appt c\Dr. Cardoza 01/23. Orders rec'd to d/c home, follow up as scheduled. Maternal Triage Index - Maternal Triage Index Presenting for scheduled procedure w/no complaint: No - Stat/Priority 1 Stat Priority 1: No - Urgent/Priority 2 Urgent Priority 2: Yes Provider Notified: Hilda Chinchilla Provider Notified Time: 21:15 Criteria Met for Priority 2: Possible PPROM at 1630, clear fluid. Disposition - Disposition OB Disposition: Discharge to home, Written follow up instructions reviewed Discharge Date: 01/19/22 Discharge Time: 21:30 I agree with the RN Medical Screening Exam: Yes Case reviewed; plan agreed upon as documented in EMR&OBIX.: Yes Diagnosis: FALSE LABOR BEFORE 37 COMPLETED WEEKS OF GEST, THIRD TRI
== END 2022-01-19 21:30 | disposition home or self-care (01) ==
LOC: FBPOP 19:46
PROVIDERS: ATTEND Obstetrics & Gynecology Obstetrics
DX: O47.03 False labor before 37 completed weeks of gestation, third trimester (principal); Z3A.30 30 weeks gestation of pregnancy; Z91.018 Allergy to other foods
CPT/HCPCS: 59025; G0463; 99213

== ENCOUNTER 2022-01-22 17:24 | Outpatient (CLI) | payer OTHER ==
[2022-01-22 19:55] VITALS: BP 109/67; PULSE 104; RESP 18; TEMP 97.9
--- NOTE | 2022-04-03 13:45 | P.MSEPDOC ---
Presenting Problems - Arrival Data Date of Arrival on Unit: 01/22/22 Time of Arrival on Unit: 17:30 Mode of Transport: Wheelchair - Complaint OB-Reason for Admission/Chief Complaint: Rule Out SROM Comment: Pt c/o vaginal pressure, contractions, loss mucous plug and leaking of fluid Medical History - Information : 4 Para: 2 Term: 1 : 1 Abortions: Spontaneous or Elective: 0 Number of Living Children: 2 - Gestational Age Gestational Age by KATE (wks/days): 30 Weeks and 6 Days - History Comment: Epilepsy, on Keppra, previous delivery at 36 weeks Review of Systems - Review of Systems Constitutional: No problems Breast: No problems ENT: No problems Cardiovascular: No problems Respiratory: No problems Gastrointestinal: No problems Genitourinary: No problems Musculoskeletal: No problems Neurological: No problems Skin: No problems Vital Signs - Temperature Temperature: 97.9 F Temperature Source: Oral - Pulse Right Sitting Brachial Pulse Rate: 104 Pulse Assessment Method: Automatic Cuff - Respirations Respiratory Rate: 18 Oxygen Delivery Method: Room Air O2 Sat by Pulse Oximetry: 100 - Blood Pressure Right Arm Sitting Blood Pressure: 109/67 Blood Pressure Mean: 81 Blood Pressure Source: Automatic Cuff Medical Screen Scoring - Cervical Exam Dilation (cm): 1 Effacement (%): 0 Station: -3 Membranes: Intact Physician Notification - Physician Notified Physician Notified Date: 01/22/22 Physician Notified Time: 18:15 Physician: Hilda Chinchilla New Order Received: Yes - Notification Comment Comment: Ok to dc home if cervix remains unchanged. Reinforced pelvic rest, increase hydration, rest. Follow up with Dr Cardoza tomorrow as scheduled. Maternal Triage Index - Maternal Triage Index Presenting for scheduled procedure w/no complaint: No - Stat/Priority 1 Stat Priority 1: No - Urgent/Priority 2 Urgent Priority 2: Yes Provider Notified: Hilda Chinchilla Provider Notified Time: 18:00 Criteria Met for Priority 2: Amnisure neg, Reactive NST, cx remains unchanged at 1cm/th/high Disposition - Disposition OB Disposition: Discharge to home Discharge Date: 01/22/22 Discharge Time: 19:11 I agree with the RN Medical Screening Exam: Yes Case reviewed; plan agreed upon as documented in EMR&OBIX.: Yes Diagnosis: FALSE LABOR BEFORE 37 COMPLETED WEEKS OF GEST, THIRD TRI
== END 2022-01-22 19:15 | disposition home or self-care (01) ==
LOC: FBPOP 17:24
PROVIDERS: ATTEND Obstetrics & Gynecology Obstetrics
DX: O47.03 False labor before 37 completed weeks of gestation, third trimester (principal); Z3A.30 30 weeks gestation of pregnancy; Z91.018 Allergy to other foods
CPT/HCPCS: 59025; 84112; G0463; 99213

== ENCOUNTER 2022-02-11 21:55 | Outpatient (CLI) | payer OTHER ==
[2022-02-11 22:43] VITALS: BP 99/67; PULSE 104; RESP 16; TEMP 97
--- NOTE | 2022-04-03 13:49 | P.MSEPDOC ---
Presenting Problems - Arrival Data Date of Arrival on Unit: 02/11/22 Time of Arrival on Unit: 21:55 Mode of Transport: Wheelchair - Complaint OB-Reason for Admission/Chief Complaint: Rule Out SROM Comment: Pt comes to triage with c/o possible SROM at 2099 Medical History - Information : 4 Para: 2 Term: 1 : 1 Abortions: Spontaneous or Elective: 1 Number of Living Children: 2 - Gestational Age Gestational Age by KATE (wks/days): 33 Weeks and 5 Days Review of Systems - Review of Systems Constitutional: No problems Breast: No problems ENT: No problems Cardiovascular: No problems Respiratory: No problems Gastrointestinal: No problems Genitourinary: No problems Musculoskeletal: No problems Neurological: No problems Skin: No problems Vital Signs - Temperature Temperature: 97.0 F Temperature Source: Temporal Artery Scan - Pulse Pulse Oximetery Pulse Rate: 104 Pulse Assessment Method: Pulse Oximetry - Respirations Respiratory Rate: 16 Oxygen Delivery Method: Room Air O2 Sat by Pulse Oximetry: 99 - Blood Pressure Right Arm Blood Pressure: 99/67 Blood Pressure Mean: 77 Blood Pressure Source: Automatic Cuff Medical Screen Scoring - Cervical Exam Dilation (cm): 1.5 Effacement (%): 50 Station: -2 Membranes: Intact - Uterine Contractions Resting: Soft to palpation - Assessment - Baby A Baseline FHR: 135 Heart Rate - NICHD Category: Category I (Normal) NST: Reactive Physician Notification - Physician Notified Physician Notified Date: 02/11/22 Physician Notified Time: 22:22 Physician: Hilda Chinchilla New Order Received: Yes - Notification Comment Comment: RN spoke with Dr. Chinchilla regarding pt's c/o SROM around 2099. Reported on maternal vital signs, category 1 FHT, reactive NST, irregular contx, negative amnisure and cervical exam of 1.5/50/-2. Orders received to discharge pt home. Maternal Triage Index - Maternal Triage Index Presenting for scheduled procedure w/no complaint: No - Stat/Priority 1 Stat Priority 1: No - Urgent/Priority 2 Urgent Priority 2: No - Prompt/Priority 3 Prompt Priority 3: No - Non-Urgent/Priority 4 Non-Urgent Priority 4: Yes Criteria Met for Priority 4: Pt comes to triage with c/o possible SROM at 2099 Disposition - Disposition OB Disposition: Discharge to home, Written follow up instructions reviewed Discharge Date: 02/11/22 Discharge Time: 22:28 I agree with the RN Medical Screening Exam: Yes Case reviewed; plan agreed upon as documented in EMR&OBIX.: Yes Diagnosis: FALSE LABOR BEFORE 37 COMPLETED WEEKS OF GEST, THIRD TRI
== END 2022-02-11 22:28 | disposition home or self-care (01) ==
LOC: FBPOP 21:55
PROVIDERS: ATTEND Obstetrics & Gynecology Obstetrics
DX: O47.03 False labor before 37 completed weeks of gestation, third trimester (principal); Z3A.33 33 weeks gestation of pregnancy; Z91.018 Allergy to other foods
CPT/HCPCS: 59025; 84112; G0463; 99213

== ENCOUNTER 2022-02-21 11:48 | Outpatient (CLI) | payer OTHER ==
[2022-02-21 12:45] VITALS: BP 132/77; PULSE 101; RESP 16; TEMP 97
--- NOTE | 2022-03-07 10:33 | P.MSEPDOC ---
Presenting Problems - Arrival Data Date of Arrival on Unit: 02/21/22 Time of Arrival on Unit: 11:48 Mode of Transport: Ambulatory - Complaint OB-Reason for Admission/Chief Complaint: Rule Out PROM Medical History - Information : 3 Para: 2 Term: 1 : 1 Abortions: Spontaneous or Elective: 0 Number of Living Children: 2 - Gestational Age Gestational Age by KATE (wks/days): 35 Weeks and 5 Days Review of Systems - Review of Systems Constitutional: No problems Breast: No problems ENT: No problems Cardiovascular: No problems Respiratory: No problems Gastrointestinal: No problems Genitourinary: No problems Musculoskeletal: No problems Neurological: No problems Skin: No problems Vital Signs - Temperature Temperature: 97.0 F Temperature Source: Oral - Pulse Right Pulse Rate: 101 Pulse Assessment Method: Pulse Oximetry - Respirations Respiratory Rate: 16 Oxygen Delivery Method: Room Air O2 Sat by Pulse Oximetry: 98 - Blood Pressure Right Arm Blood Pressure: 132/77 Blood Pressure Mean: 95 Blood Pressure Source: Automatic Cuff Medical Screen Scoring - Cervical Exam Dilation (cm): 1 Station: -2 Membranes: Intact - Assessment - Baby A Baseline FHR: 150 Heart Rate - NICHD Category: Category I (Normal) NST: Reactive Physician Notification - Physician Notified Physician Notified Date: 02/21/22 Physician Notified Time: 12:35 Physician: Frida Mckinney New Order Received: Yes (discharge home) Maternal Triage Index - Maternal Triage Index Presenting for scheduled procedure w/no complaint: No - Stat/Priority 1 Stat Priority 1: No - Urgent/Priority 2 Urgent Priority 2: Yes Provider Notified: Frida Mckinney Provider Notified Time: 12:35 Criteria Met for Priority 2: amnisure negative Disposition - Disposition OB Disposition: Discharge to home Discharge Date: 02/21/22 Discharge Time: 12:45 I agree with the RN Medical Screening Exam: Yes Physician's MSE Comment: I have neither seen nor examined the patient Case reviewed; plan agreed upon as documented in EMR&OBIX.: Yes Diagnosis: RELATED CONDITIONS, UNSPECIFIED, THIRD TRIMESTER
== END 2022-02-21 12:45 | disposition home or self-care (01) ==
LOC: FBPOP 11:48
PROVIDERS: ATTEND Obstetrics & Gynecology
DX: O26.93 Pregnancy related conditions, unspecified, third trimester (principal); Z3A.35 35 weeks gestation of pregnancy; Z91.018 Allergy to other foods
CPT/HCPCS: 59025; 84112; G0463; 99213

== ENCOUNTER 2022-02-21 19:50 | Outpatient (CLI) | payer OTHER ==
[2022-02-21 20:36] VITALS: BP 112/64; PULSE 118; RESP 17; TEMP 97.1
--- NOTE | 2022-03-08 11:41 | P.MSEPDOC ---
Presenting Problems - Arrival Data Date of Arrival on Unit: 02/21/22 Time of Arrival on Unit: 19:50 Mode of Transport: Wheelchair - Complaint OB-Reason for Admission/Chief Complaint: Rule Out SROM Comment: Pt presents to triage with c/o SROM around 1630. Pt describes feeling a "gush of fluid" Medical History - Information : 4 Para: 2 Term: 2 : 0 Abortions: Spontaneous or Elective: 1 Number of Living Children: 2 - Gestational Age Gestational Age by KATE (wks/days): 35 Weeks and 1 Days Review of Systems - Review of Systems Constitutional: No problems Breast: No problems ENT: No problems Cardiovascular: No problems Respiratory: No problems Gastrointestinal: No problems Genitourinary: No problems Musculoskeletal: No problems Neurological: No problems Skin: No problems Vital Signs - Temperature Temperature: 97.1 F Temperature Source: Temporal Artery Scan - Pulse Pulse Oximetery Pulse Rate: 118 Pulse Assessment Method: Pulse Oximetry - Respirations Respiratory Rate: 17 Oxygen Delivery Method: Room Air O2 Sat by Pulse Oximetry: 98 - Blood Pressure Right Arm Blood Pressure: 112/64 Blood Pressure Mean: 80 Blood Pressure Source: Automatic Cuff Medical Screen Scoring - Cervical Exam Dilation (cm): 3.5 Effacement (%): 50 Station: -3 Membranes: Intact - Uterine Contractions Resting: Soft to palpation - Assessment - Baby A Baseline FHR: 145 Heart Rate - NICHD Category: Category I (Normal) NST: Reactive Physician Notification - Physician Notified Physician Notified Date: 02/21/22 Physician Notified Time: 20:15 Physician: Leta Sandoval Order Received: Yes - Notification Comment Comment: RN spoke with Dr. Sandoval regarding triage pt c/o SROM around 1630. Reported on maternal vital signs WNL, category 1 FHT, reactive NST, irregular contx pattern, cervical exam of 3.5-4/50/-3 and negative amnisure. Orders received from Dr. Sandoval to discharge pt home. Maternal Triage Index - Maternal Triage Index Presenting for scheduled procedure w/no complaint: No - Stat/Priority 1 Stat Priority 1: No - Urgent/Priority 2 Urgent Priority 2: No - Prompt/Priority 3 Prompt Priority 3: Yes Criteria Met for Priority 3: Pt presents to triage with c/o SROM around 1630. Pt describes feeling a "gush of fluid," 35 1/7 weeks Disposition - Disposition OB Disposition: Discharge to home, Written follow up instructions reviewed Discharge Date: 02/21/22 Discharge Time: 20:21 I agree with the RN Medical Screening Exam: Yes Case reviewed; plan agreed upon as documented in EMR&OBIX.: Yes Diagnosis: rule out rupture of membranes
== END 2022-02-21 20:21 | disposition home or self-care (01) ==
LOC: FBPOP 19:50
PROVIDERS: ATTEND Obstetrics & Gynecology
DX: Z03.71 Encounter for suspected problem with amniotic cavity and membrane ruled out (principal); Z91.018 Allergy to other foods
CPT/HCPCS: 59025; 84112; G0463; 99213

== ENCOUNTER 2022-02-26 12:10 | Outpatient (CLI) | payer OTHER ==
[2022-02-26 13:28] VITALS: BP 116/64; PULSE 105; RESP 17; TEMP 96.9
== END 2022-02-26 12:55 | disposition home or self-care (01) ==
LOC: FBPOP 12:10
PROVIDERS: ATTEND Obstetrics & Gynecology
DX: O36.8131 Decreased fetal movements, third trimester, fetus 1 (principal); Z3A.35 35 weeks gestation of pregnancy; Z91.018 Allergy to other foods
CPT/HCPCS: 59025; 84112; G0463; 99213

== ENCOUNTER 2022-03-04 21:22 | Outpatient (CLI) | payer OTHER ==
[2022-03-04] MEDS: LACTATED RINGERS 1,000 ML IV SCH ×2 (22:30→23:04)
[2022-03-04 23:05] LABS: Amorphous Sediment,Urine Rare /hpf; Appearance,Urine Turbid (Clear); Bacteria,Urine Rare /hpf; Bilirubin,Urine Negative (Negative); Blood,Urine Negative (Negative); Budding Yeast,Urine Few /hpf; Color,Urine Yellow; Glucose,Urine (UA) Negative (Negative); Ketones,Urine Negative (Negative); Leukocyte Esterase,Urine Trace (Negative); Mucus,Urine Rare /hpf; Nitrite,Urine Negative (Negative); PH, Urine 7.5 (5.0-8.0); Protein,Urine Negative (Negative); RBC,Urine 2 /hpf (0-5); Specific Gravity,Urine 1.012 (1.001-1.035); Squamous Epithelial Cell,Urine 1 /hpf (0-4); Urobilinogen,Urine <2.0 mg/dL (<2.0); WBC,Urine 7 /hpf (0-5)
[2022-03-05 01:18] VITALS: BP 106/67; PULSE 107; RESP 16; TEMP 97.7
--- NOTE | 2022-04-07 10:38 | P.MSEPDOC ---
Presenting Problems - Arrival Data Date of Arrival on Unit: 03/04/22 Time of Arrival on Unit: 21:22 Mode of Transport: Wheelchair - Complaint OB-Reason for Admission/Chief Complaint: Possible Onset of Labor, Rule Out SROM Comment: contractions all day that got stronger about 1999, gush of fluid at 1999 Medical History - Information : 4 Para: 2 Term: 1 : 1 Abortions: Spontaneous or Elective: 1 Number of Living Children: 2 - Gestational Age Gestational Age by KATE (wks/days): 36 Weeks and 6 Days - History Complications: Prior Comment: pt delivered first baby at 36 weeks Review of Systems - Review of Systems Constitutional: No problems Breast: No problems ENT: No problems Cardiovascular: No problems Respiratory: No problems Gastrointestinal: No problems Genitourinary: No problems Musculoskeletal: No problems Neurological: No problems Skin: No problems Comment: pt is epileptic, last seizure was 5 months ago Vital Signs - Temperature Temperature: 97.7 F Temperature Source: Oral - Pulse Right Sitting Pulse Rate: 107 Pulse Assessment Method: Automatic Cuff - Respirations Respiratory Rate: 16 Oxygen Delivery Method: Room Air O2 Sat by Pulse Oximetry: 98 - Blood Pressure Right Arm Sitting Blood Pressure: 106/67 Blood Pressure Mean: 80 Blood Pressure Source: Automatic Cuff Medical Screen Scoring - Cervical Exam Dilation (cm): 4 Effacement (%): 50 Station: -3 Membranes: Intact - Uterine Contractions Frequency From (mins): 2 Frequency To (mins): 60 Duration From (seconds): 3 Duration To (seconds): 90 Intensity: Moderate Resting: Soft to palpation - Assessment - Baby A Baseline FHR: 135 Heart Rate - NICHD Category: Category I (Normal) NST: Reactive Physician Notification - Physician Notified Physician Notified Date: 03/04/22 Physician Notified Time: 22:10 Physician: Mathieu Harrison Order Received: Yes (IV hydration, send UA, recheck cervix in an hour.) - Notification Comment Comment: cervical check at 1 hour 4cm (notified at [id number]), cervical check at 2 hours remains 4cm. Pt still alma (notified at [id number]) Maternal Triage Index - Maternal Triage Index Presenting for scheduled procedure w/no complaint: No - Stat/Priority 1 Stat Priority 1: No - Urgent/Priority 2 Urgent Priority 2: No - Prompt/Priority 3 Prompt Priority 3: Yes Criteria Met for Priority 3: pt 36 5/7 c/o of possible SROM, pt is alma every 1.5 to 3 minutes Disposition - Disposition OB Disposition: Discharge to home, Written follow up instructions reviewed Discharge Date: 03/05/22 Discharge Time: 00:45 I agree with the RN Medical Screening Exam: Yes Physician's MSE Comment: I have neither seen nor examined the patient. Case reviewed; plan agreed upon as documented in EMR&OBIX.: Yes Diagnosis: RELATED CONDITIONS, UNSPECIFIED, THIRD TRIMESTER
== END 2022-03-05 00:45 | disposition home or self-care (01) ==
LOC: FBPOP 21:22
PROVIDERS: ATTEND Obstetrics & Gynecology
DX: O26.893 Other specified pregnancy related conditions, third trimester (principal); Z3A.36 36 weeks gestation of pregnancy; O62.0 Primary inadequate contractions; Z91.018 Allergy to other foods
CPT/HCPCS: 59025; 96360; 96361; 84112; 81001; G0463; 99213; 99214

== ENCOUNTER 2022-03-07 18:43 | Outpatient (CLI) | payer OTHER ==
[2022-03-07 19:28] LABS: Amorphous Sediment,Urine Rare /hpf; Appearance,Urine Turbid (Clear); Bacteria,Urine Rare /hpf; Bilirubin,Urine Negative (Negative); Blood,Urine Negative (Negative); Color,Urine Light Yellow; Glucose,Urine (UA) Negative (Negative); Ketones,Urine Negative (Negative); Leukocyte Esterase,Urine Negative (Negative); Mucus,Urine Rare /hpf; Nitrite,Urine Negative (Negative); PH, Urine 7.5 (5.0-8.0); Protein,Urine Negative (Negative); RBC,Urine 3 /hpf (0-5); Specific Gravity,Urine 1.011 (1.001-1.035); Squamous Epithelial Cell,Urine 1 /hpf (0-4); Urobilinogen,Urine <2.0 mg/dL (<2.0); WBC,Urine 1 /hpf (0-5)
[2022-03-07 21:04] VITALS: BP 119/72; PULSE 111; RESP 16; TEMP 97.5
--- NOTE | 2022-04-03 14:04 | P.MSEPDOC ---
Presenting Problems - Arrival Data Date of Arrival on Unit: 03/07/22 Time of Arrival on Unit: 18:44 Mode of Transport: Ambulatory - Complaint OB-Reason for Admission/Chief Complaint: Possible Onset of Labor, Rule Out SROM Comment: possible srom at 1730 contractions on and off today Medical History - Information : 4 Para: 2 Term: 1 : 1 Abortions: Spontaneous or Elective: 1 Number of Living Children: 2 - Gestational Age Gestational Age by KATE (wks/days): 37 Weeks and 1 Days Review of Systems - Review of Systems Constitutional: No problems Breast: No problems ENT: No problems Cardiovascular: No problems Respiratory: No problems Gastrointestinal: No problems Genitourinary: No problems Musculoskeletal: No problems Neurological: No problems Skin: No problems Comment: pt is epileptic Vital Signs - Temperature Temperature: 97.5 F Temperature Source: Oral - Pulse Right Sitting Pulse Rate: 111 Pulse Assessment Method: Automatic Cuff - Respirations Respiratory Rate: 16 Oxygen Delivery Method: Room Air O2 Sat by Pulse Oximetry: 97 - Blood Pressure Right Arm Sitting Blood Pressure: 119/72 Blood Pressure Mean: 87 Blood Pressure Source: Automatic Cuff Medical Screen Scoring - Cervical Exam Dilation (cm): 4 Effacement (%): 60 Station: -2 Membranes: Intact - Assessment - Baby A Baseline FHR: 135 Heart Rate - NICHD Category: Category I (Normal) NST: Reactive Physician Notification - Physician Notified Physician Notified Date: 03/07/22 Physician Notified Time: 19:00 Physician: Hilda Chinchilla New Order Received: Yes (u/a, cervical check, amnisure) Maternal Triage Index - Maternal Triage Index Presenting for scheduled procedure w/no complaint: No - Stat/Priority 1 Stat Priority 1: No - Urgent/Priority 2 Urgent Priority 2: No - Prompt/Priority 3 Prompt Priority 3: No - Non-Urgent/Priority 4 Non-Urgent Priority 4: Yes Criteria Met for Priority 4: 1730 possible srom Disposition - Disposition OB Disposition: Discharge to home, Written follow up instructions reviewed Discharge Date: 03/07/22 Discharge Time: 20:20 I agree with the RN Medical Screening Exam: Yes Case reviewed; plan agreed upon as documented in EMR&OBIX.: Yes Diagnosis: FALSE LABOR AT OR AFTER 37 COMPLETED WEEKS OF GESTATION
== END 2022-03-07 20:20 | disposition home or self-care (01) ==
LOC: FBPOP 18:43
PROVIDERS: ATTEND Obstetrics & Gynecology Obstetrics
DX: O47.1 False labor at or after 37 completed weeks of gestation (principal); Z3A.37 37 weeks gestation of pregnancy; Z91.018 Allergy to other foods
CPT/HCPCS: 59025; 84112; 81001; G0463; 99213

== ENCOUNTER 2022-03-09 10:23 | Inpatient (IN) | payer OTHER ==
[2022-03-09] MEDS ORDERED: TERBUTALINE 1 MG/ML VIAL SQ PRN (11:03)
[2022-03-09] MEDS ORDERED: LIDOCAINE 0.5% (PF) 5 MG/ML (50 ML SDV) SQ PRN (11:03)
[2022-03-09] MEDS ORDERED: CARBOPROST TROMETHAMINE 250 MCG/ML 1 ML AMP IM PRN (11:03)
[2022-03-09] MEDS ORDERED: METHYLERGONOVINE 0.2 MG/ML 1 ML AMP IM PRN (11:03)
[2022-03-09] MEDS ORDERED: OXYTOCIN 10 UNIT/ML 1 ML VIAL IM PRN (11:03)
[2022-03-09] MEDS: LACTATED RINGERS 1,000 ML IV SCH ×2 (11:13→12:10)
[2022-03-09] MEDS ORDERED: OXYTOCIN 30 UNITS/500 ML NS 30 UNIT in SALINE 1 500ML.BAG IV SCH ×2 (11:15→14:45)
[2022-03-09 11:26] LABS: Basophils % (A) 0 %; Eosinophils # (A) 0.1 k/uL (0-0.7); Eosinophils % (A) 1 %; HCT 31.8 % (34.0-46.0); Hypochromasia Moderate; Lymphocytes # (A) 1.3 k/uL (1.0-4.8); Lymphocytes % (A) 11 %; MCH 24.9 pg (25.0-35.0); MCHC 31.5 g/dL (31.0-37.0); Mean Platelet Volume 8.1; Monocytes # (A) 0.9 k/uL (0-1.0); Monocytes % (A) 7 %; Neutrophils # (A) 9.5 k/uL (1.3-7.7); Neutrophils % (A) 79 %; Platelet Count 301 k/uL (150-450); RBC 4.03 m/uL (3.80-5.40); RDW 15.5 % (11.5-15.5)
--- NOTE | 2022-03-09 12:13 | P.HPOB ---
History of Present Illness H&P Date: 03/09/22 Chief Complaint: Contractions Ms. Thao is a 26 year old at 37 weeks, 3 days who presents to OB triage with complain of regular contractions every 3-6 minutes. She was checked in the office 2 days ago at 4 cm and today she is 6/70/-2. She desires an epidural at this time. Her water was artificially ruptured at approximately 1145. HbsAg negative, RPR non-reactive, HIV non-reactive, Hep C Ab neg, Rubella immune, Rh positive. This is notable for polyhdramnios, LGA infant at 96%ile. Obstetric History: 1 early SAB followed by 1 ptVD at 36 weeks, no complication (6#8oz) followed by 1 FTVD at 39 weeks (7#6oz) without any complications. Gynecoloic History: Unremarkable for STDs or cervical procedures Medical History: Anxiety, Depression, Asthma, Epilepsy, POCS, Spinal Stenosis, Frequent Yeast Infections, Chiari Malformation Surgical History: Denies Medications: Albuterol prn, ferrous sulfate, zofran prn, vitamins, Keppra 500 BID. Last seizure June 2021. Social History: Denies any smoking, drinking, or drug use in the . Is single. Allergies: NKDA Past Medical History Past Medical History: Seizure Disorder Additional Past Medical History / Comment(s): chiari malformation. History of Any Multi-Drug Resistant Organisms: None Reported Past Surgical History: No Surgical Hx Reported Past Anesthesia/Blood Transfusion Reactions: No Reported Reaction Past Psychological History: No Psychological Hx Reported Smoking Status: Former smoker Past Alcohol Use History: None Reported Additional Past Alcohol Use History / Comment(s): Pt. denies alcohol use. BAT 0 Past Drug Use History: None Reported Additional Drug Use History / Comment(s): Pt. denies any drug use. UDS negative - Past Family History Mother Family Medical History: CVA/TIA Additional Family Medical History / Comment(s): Mother . Patient unsure of how or the age she passed. Father Family Medical History: CVA/TIA Additional Family Medical History / Comment(s): Patient's father passed. Patient unsure of age or how he passed. Brother(s) Family Medical History: Diabetes Mellitus Additional Family Medical History / Comment(s): Pt. reports she has 3 biological brothers who are all diabetic, have PTSD, Depression, and Bipolar. Medications and Allergies Home Medications Medication Instructions Recorded Confirmed Type levETIRAcetam 1,000 mg PO HS 02/09/21 03/09/22 History Vit No.180/Iron/Folic 1 tab PO DAILY 09/21/21 03/09/22 History [ Plus Tablet] Cephalexin [Keflex] 500 mg PO DAILY 03/05/22 03/09/22 History Allergies Allergy/AdvReac Type Severity Reaction Status Date / Time banana Allergy Rash/Hives Verified 03/09/22 10:37 Exam Vital Signs Temp Pulse Resp BP Pulse Ox 03/09/22 11:52 97.0 F L 126 H 18 99/58 100 03/09/22 11:45 120 H 03/09/22 11:24 96.3 F L 121 H 18 116/73 99 Intake and Output 03/08/22 03/09/22 03/09/22 22:59 06:59 14:59 Other: Weight 91.626 kg Results Result Diagrams: 03/09/22 11:10 Abnormal Lab Results - Last 24 Hours (Table) 03/09/22 Range/Units 11:10 WBC 12.0 H (3.8-10.6) k/uL Hgb 10.0 L (11.4-16.0) gm/dL Hct 31.8 L (34.0-46.0) % MCV 79.0 L (80.0-100.0) fL MCH 24.9 L (25.0-35.0) pg Neutrophils # 9.5 H (1.3-7.7) k/uL
[2022-03-09] MEDS ORDERED: ROPIVACAINE 100 MG, fentaNYL (PF). 200 MCG in SODIUM CHLORIDE 0.9% 76 ML EPIDURAL ONE (13:00)
--- NOTE | 2022-03-09 14:40 | P.PROBDLV ---
Vaginal Delivery Note - . Vaginal Delivery Note: DATE OF DELIVERY: 03/09/2022 EBL: 100 mL Findings: Viable Male , Apgars 8/9, Weight 3530 grams This is a 26-year-old female, 4, para 2, EDC 03/27/2022 at 37.3 weeks' gestation. Patient presented with regular contractions and active labor. Please see admitting H&P for details. is remarkable for group B strep culture is negative. Blood type A+. One hour Glucola negative. Rubella status immune. Patient was admitted, artificial rupture of membranes was performed, and oxytocin augmentation was started. Oxytocin was titrated per hospital protocol. Patient requested epidural, and this was placed without difficulty per anesthesi a. She progressed well through the first stage of labor. heart tones were reassuring throughout labor. Patient became completely dilated at 1355 hours and began the second stage of labor at 1408. She pushed the infant quite successfully in the occiput anterior position. The perineal body was draped in the usual sterile fashion. The delivered occiput anterior, and restituted accordingly. The right anterior shoulder was then easily delivered from underneath the pubic symphysis. The patient was officially delivered of a liveborn male at 1410 hours. Umbilical cord was doubly clamped and ligated. was placed on the maternal abdomen where nurses evaluated the infant. scores of 8 and 9 at one and five minutes respectively were given. The placenta delivered spontaneously with gentle traction and suprapubic pressure. It was inspected and noted to be intact with trivascular cord at 1412 hours. At this time, the perineal body was redraped. Inspection of the cervix, vagina, perineum, periurethral and perirectal areas revealed a small second-degree perineal laceration. This was easily repaired in the usual fashion using 3-0 Vicryl suture. All sponge, needle, and instrument counts are correct at the end of this procedure. The patient was in stable condition and allowed to begin the bonding process with her .
[2022-03-09] MEDS ORDERED: diphenhydrAMINE 50 MG/ML 1 ML VIAL IVP PRN ×2 (14:41)
[2022-03-09] MEDS ORDERED: ZOLPIDEM 5 MG TAB PO PRN (14:41)
[2022-03-09] MEDS ORDERED: diphenhydrAMINE 50 MG CAP PO PRN (14:41)
[2022-03-09] MEDS ORDERED: BENZOCAINE/MENTHOL SPRAY 1 GM/SPRAY AEROSOL TOPICAL PRN (14:41)
[2022-03-09] MEDS ORDERED: LANOLIN CREAM 5 GM TUBE TOPICAL PRN (14:41)
[2022-03-09] MEDS ORDERED: HYDROCORTISONE 2.5% RECTAL CREAM 30 GM TUBE RECTAL PRN (14:41)
[2022-03-09] MEDS ORDERED: diphenhydrAMINE 25 MG CAP PO PRN (14:41)
[2022-03-09] MEDS ORDERED: SIMETHICONE 80 MG CHEWABLE PO PRN (14:41)
[2022-03-09] MEDS: IBUPROFEN 600 MG TAB PO PRN ×2 (15:46→21:30)
[2022-03-09] MEDS: ACETAMINOPHEN TAB 325 MG TAB PO PRN (18:03)
[2022-03-09] MEDS: SENNOSIDES-DOCUSATE SODIUM 1 EACH TAB PO SCH (20:13)
[2022-03-09] MEDS ORDERED: levETIRAcetam 500 MG TAB PO SCH (21:00)
[2022-03-10] MEDS: ACETAMINOPHEN TAB 325 MG TAB PO PRN ×2 (00:25→08:19)
[2022-03-10] MEDS: IBUPROFEN 600 MG TAB PO PRN ×2 (04:43→14:06)
[2022-03-10 07:57] VITALS: RESP 14
[2022-03-10] MEDS: SENNOSIDES-DOCUSATE SODIUM 1 EACH TAB PO SCH (08:19)
[2022-03-10 08:42] LABS: Basophils % (A) 0 %; Eosinophils # (A) 0.2 k/uL (0-0.7); Eosinophils % (A) 2 %; HCT 30.4 % (34.0-46.0); HGB 9.7 gm/dL (11.4-16.0); Hypochromasia Marked; Lymphocytes # (A) 1.3 k/uL (1.0-4.8); Lymphocytes % (A) 14 %; MCH 25.6 pg (25.0-35.0); MCV 79.9 fL (80.0-100.0); Mean Platelet Volume 7.8; Monocytes % (A) 11 %; Neutrophils # (A) 6.5 k/uL (1.3-7.7); Neutrophils % (A) 70 %; Platelet Count 273 k/uL (150-450); RDW 15.4 % (11.5-15.5); WBC 9.2 k/uL (3.8-10.6)
--- NOTE | 2022-03-10 09:45 | P.DS ---
Providers Date of admission: 03/09/22 10:56 Expected date of discharge: 03/10/22 Attending physician: Frida Mckinney MD Primary care physician: Stated None - Discharge Diagnosis(es) (1) 37 weeks gestation of Current Visit: Yes Status: Acute (2) Spontaneous onset of labor Current Visit: Yes Status: Acute (3) Status post normal vaginal delivery Current Visit: Yes Status: Acute (4) Perineal laceration with delivery, second degree Current Visit: Yes Status: Acute Hospital Course: This is a 26 year old 4 now para 4 woman who presented at 37-3/7 weeks gestation in spontaneous labor. Her had been complicated by advanced cervical dilation and frequent contractions. Following admission she underwent artificial rupture of membranes with Pitocin augmentation. She received an epidural anesthetic. She went on to deliver a liveborn male with Apgars of 8 at 1 minute and 9 at 5 minutes. Please see the delivery summary for details. The patient's course was unremarkable. By day #1 she was ambulating and voiding without difficulty and was tolerating a general diet. Her lochia had significantly decreased since the time of delivery. Admission hemoglobin was 10 and her hemoglobin is 9.7. She was discharged home on day #1 with routine instructions for care and follow-up. Procedures: Normal spontaneous vaginal delivery Patient Condition at Discharge: Good Plan - Discharge Summary New Discharge Prescriptions: No Action levETIRAcetam 1,000 mg PO HS Vit No.180/Iron/Folic [ Plus Tablet] 1 tab PO DAILY Cephalexin [Keflex] 500 mg PO DAILY Discharge Medication List levETIRAcetam 1,000 mg PO HS 02/09/21 [History] Vit No.180/Iron/Folic [ Plus Tablet] 1 tab PO DAILY 09/21/21 [History] Cephalexin [Keflex] 500 mg PO DAILY 03/05/22 [History] Follow up Appointment(s)/Referral(s): Frida Mckinney MD [STAFF PHYSICIAN] - 6 Weeks Activity/Diet/Wound Care/Special Instructions: Follow-up in the office in 6 weeks . Call with any concerning signs or symptoms including heavy vaginal bleeding, severe abdominal pain, fever greater than 101, swelling or redness of the lower extremities, foul vaginal discharge, or signs of depression. Nothing in the vagina for 6 weeks after delivery, specifically no intercourse. Discharge Disposition: HOME SELF-CARE
[2022-03-10 13:52] VITALS: BP 106/76; PULSE 83; TEMP 97.8
== END 2022-03-10 14:52 | disposition home or self-care (01) | DRG 807 ==
LOC: FBPOP 10:23 → 4FBP 10:56
PROVIDERS: ADMIT Obstetrics & Gynecology; ATTEND Obstetrics & Gynecology
PROC: 4A0HXCZ Measurement of Products of Conception, Cardiac Rate, External Approach (ICD-10-PCS; principal; 2022-03-09)
PROC: 10907ZC Drainage of Amniotic Fluid, Therapeutic from Products of Conception, Via Natural or Artificial Opening (ICD-10-PCS; principal; 2022-03-09)
PROC: 0KQM0ZZ Repair Perineum Muscle, Open Approach (ICD-10-PCS; principal; 2022-03-09)
PROC: 10E0XZZ Delivery of Products of Conception, External Approach (ICD-10-PCS; principal; 2022-03-09)
DX: O99.354 Diseases of the nervous system complicating childbirth (principal); Z37.0 Single live birth; O70.1 Second degree perineal laceration during delivery; O36.63X0 Maternal care for excessive fetal growth, third trimester, not applicable or unspecified; F32.A Depression, unspecified; O99.344 Other mental disorders complicating childbirth; G40.909 Epilepsy, unspecified, not intractable, without status epilepticus; J45.909 Unspecified asthma, uncomplicated; O99.52 Diseases of the respiratory system complicating childbirth; Z3A.37 37 weeks gestation of pregnancy; Z87.891 Personal history of nicotine dependence; Z91.018 Allergy to other foods; Z87.59 Personal history of other complications of pregnancy, childbirth and the puerperium
CPT/HCPCS: 59025; 85025; 86850; 86900; 86901; 99213

== ENCOUNTER → 2022-08-30 | Outpatient (CLI) | payer OTHER ==
[2022-08-30 22:03] LABS: Basophils # (A) 0.04 X 10*3/uL (0.00-0.10); Basophils % (A) 0.5 %; Eosinophils # (A) 0.23 X 10*3/uL (0.04-0.35); HCT 36.3 % (37.2-46.3); HGB 11.3 g/dL (12.0-15.0); Immature Grans, Automated 0.3 %; Lymphocytes # (A) 2.59 X 10*3/uL (0.90-5.00); MCH 26.2 pg (27.0-32.0); MCHC 31.1 g/dL (32.0-37.0); MCV 84.2 fL (80.0-97.0); Mean Platelet Volume 9.5 fL (9.5-12.2); Monocytes # (A) 0.74 X 10*3/uL (0.20-1.00); Monocytes % (A) 9.7 %; NRBC Per 100 WBC 0 /100 WBCS (0.0-0.0); Neutrophils # (A) 3.99 X 10*3/uL (1.80-7.70); Neutrophils % (A) 52.5 %; Platelet Count 348 X 10*3/uL (140-440); RBC 4.31 X 10*6/uL (4.10-5.20); RDW 13.7 % (11.5-14.5); WBC 7.61 X 10*3/uL (4.50-10.00)
== END | disposition home or self-care (01) ==
LOC: LABWHC1 13:28
PROVIDERS: ATTEND Obstetrics & Gynecology
DX: Z01.812 Encounter for preprocedural laboratory examination (principal)
CPT/HCPCS: 36415; 85025

== ENCOUNTER 2022-09-04 08:44 | Day surgery (SDC) | payer OTHER ==
[2022-08-01 15:29] VITALS: BMI 32.4
--- NOTE | 2022-08-31 12:56 | P.HPOB ---
History of Present Illness H&P Date: 08/31/22 Chief Complaint: Desires permanent sterilization 26 year old who desires permanent sterilization. Past Medical History Past Medical History: Seizure Disorder Additional Past Medical History / Comment(s): chiari malformation., migraine induced seizures (started age 23)., spinal stenosis, [id number] born [birth year]., History of Any Multi-Drug Resistant Organisms: None Reported Past Surgical History: No Surgical Hx Reported Past Anesthesia/Blood Transfusion Reactions: No Reported Reaction Smoking Status: Former smoker - Past Family History Mother Family Medical History: No Reported History Medications and Allergies Home Medications Medication Instructions Recorded Confirmed Type levETIRAcetam [Keppra] 500 mg PO HS 04/18/22 08/01/22 History Allergies Allergy/AdvReac Type Severity Reaction Status Date / Time banana Allergy Rash/Hives Verified 08/01/22 15:20 Exam obese. on CV exam, RRR, S1/S2. Lungs CTAB. abdomen soft, non-tender. Assessment and Plan Assessment: 26 year old presenting for permanent sterilization via laparoscopic tubal ligation with filshie clips Plan: Discussed risks, benefits, and alternatives to laparoscopic tubal ligation with filshie clips including risk of bleeding, infection, damage to surrounding structures, postoperative VTE, laparotomy. Patient understands risks and desires to proceed. Time with Patient: Less than 30 (15 minutes)
[~2022-09-04 08:44] MED LIST: DEXAMETHASONE SOD PHOSPHATE 4 MG/ML 1 ML VIAL IV ONE; LACTATED RINGERS 1,000 ML IV SCH; LIDOCAINE 1% (10MG/ML) FOR IV START INTRADERMA PRN; MIDAZOLAM 2 MG/2 ML VIAL IV PRN; ONDANSETRON 4 MG/2 ML VIAL IVP ONE; Pre Op ABX Message 1 EACH MISC MISCELLANE ONE
[2022-09-04 10:04] LABS: ALT 24 U/L (4-34); AST 19 U/L (14-36); African American GFR (CKD) >90 (>60 ml/min/1.73 sqM); Albumin 4.1 g/dL (3.5-5.0); Alkaline Phosphatase 69 U/L (38-126); Anion Gap 5 mmol/L; Blood Urea Nitrogen 13 mg/dL (7-17); Calcium 9.1 mg/dL (8.4-10.2); Carbon Dioxide 27 mmol/L (22-30); Chloride 106 mmol/L (98-107); Glucose 97 mg/dL (74-99); Non-African American GFR(CKD) >90 (>60 ml/min/1.73 sqM); Potassium 4.4 mmol/L (3.5-5.1); Sodium 138 mmol/L (137-145); Total Bilirubin 0.5 mg/dL (0.2-1.3)
[2022-09-04] MEDS ORDERED: fentaNYL (PF) 50 MCG/ML 2 ML AMP ONE (10:31)
[2022-09-04] MEDS ORDERED: NEOSTIGMINE 1 MG/ML 10 ML VIAL ONE (10:31)
[2022-09-04] MEDS ORDERED: ROCURONIUM 10 MG/ML (5 ML VIAL) IV ONE (10:31)
[2022-09-04] MEDS ORDERED: MIDAZOLAM 2 MG/2 ML VIAL ONE (10:31)
[2022-09-04] MEDS ORDERED: PROPOFOL 10 MG/ML 20 ML VIAL IV ONE (10:31)
[2022-09-04] MEDS ORDERED: LIDOCAINE 2% INJ 20 MG/ML (2 ML VIAL) ONE (10:31)
[2022-09-04] MEDS ORDERED: KETOROLAC 15 MG/ML 1 ML VIAL ONE (10:31)
[2022-09-04] MEDS ORDERED: GLYCOPYRROLATE 0.2 MG/ML 2 ML VIAL ONE (10:31)
[2022-09-04] MEDS ORDERED: diphenhydrAMINE 50 MG/ML 1 ML VIAL ONE (10:31)
[2022-09-04] MEDS ORDERED: SUCCINYLCHOLINE CHLORIDE 200 MG/10 ML VIAL IV ONE (10:31)
[2022-09-04] MEDS ORDERED: BUPIVACAINE (PF) 0.25% 30 ML VIAL SQ ONE ×3 (10:35→11:13)
--- NOTE | 2022-09-04 11:25 | P.OP ---
Date of Procedure: 09/04/22 Preoperative Diagnosis: Desires permanent sterilization Postoperative Diagnosis: Same Procedure(s) Performed: Laparoscopic Bilateral Tubal Ligation with Filshie Clips Implants: Filshie Clips x2 Anesthesia: GUERAA Surgeon: Frida Mckinney Estimated Blood Loss (ml): 5 IV fluids (ml): 800 Urine output (ml): 50 Pathology: none sent Condition: stable Disposition: same day Indications for Procedure: This is a 27 year old who desired permanent sterilization. Alternatives to tubal ligation including LARCs were discussed with the patient. Discussed risks, and benefits to laparoscopic tubal ligation with filshie clips including risk of bleeding, infection, damage to surrounding structures, postoperative VTE, laparotomy. Patient understands risks and desires to proceed. Operative Findings: Normal pelvic and abdominal anatomy. Grossly normal appearing ovaries bilaterally. Normal fallopian tubes. No injury to abodminal structures noted on abdominal survey. Grossly normal appearing liver. Description of Procedure: Patient was taken to the OR with IV fluid running and pneumatic compression stockings on both legs. General anesthesia was obtained without difficulty. The patient was placed in the dorsal lithotomy position with Silas-type stirrups with knees bent at 30 degree angles. Examination under anesthesia revealed a normal-sized, anteverted uterus. The patient as prepared and draped. The bladder was emptied. A speculum was placed into the vagina. The anterior lip of the cervix was grasped with a single-toothed tenaculum. A uterine manipulator was introduced. The abdomen was manually elevated. A horizontal skin incision was made just above the umbilical fold. The Veress needle was introduced into the peritoneal cavity at a straight angle without difficulty. A saline drop test was performed to validate intraperitoneal placement. The pneumoperitoneum was established with CO2 gas to a pressure of 15mmHg. A 5mm trocar was inserted into the abdomen under direct laparoscopic visualization. Intraabdominal survey revealed lack of any visceral or vascular injury. The pelvic anatomy was noted as above. Two additional laparoscopic assist ports were placed in the right and left lower quadrants. A Jennifer Grasper was used to pickle sorter the fimbriated end of the left fallopian tube. A Filshie clip was placed in the midisthmic portion of the fallopian tube. This was repeated on the right fallopian tube. Excellent hemostasis was noted at the end of the case. The incisions were closed with 4-0 Monocryl and skin glue. The patient tolerated the procedure well. All instruments were removed from the abdomen and vagina, and all counts were correct times two. The patient was taken to the recovery room in stable condition.
[2022-09-04] MEDS: HYDROmorphone 0.5 MG/0.5 ML SYRINGE IVP PRN ×3 (11:42→12:15)
[2022-09-04 11:48] VITALS: TEMP 97
[2022-09-04 11:55] VITALS: RESP 16
[2022-09-04] MEDS ORDERED: LACTATED RINGERS 1,000 ML IV ONE (12:29)
[2022-09-04 13:21] VITALS: BP 110/71; PULSE 64
== END 2022-09-04 14:32 | disposition home or self-care (01) ==
LOC: OR 08:44
PROVIDERS: ATTEND Obstetrics & Gynecology
DX: Z30.2 Encounter for sterilization (principal); G40.909 Epilepsy, unspecified, not intractable, without status epilepticus; G43.909 Migraine, unspecified, not intractable, without status migrainosus; Q07.00 Arnold-Chiari syndrome without spina bifida or hydrocephalus; Z87.39 Personal history of other diseases of the musculoskeletal system and connective tissue; Z87.891 Personal history of nicotine dependence; Z79.899 Other long term (current) drug therapy; Z91.018 Allergy to other foods
CPT/HCPCS: 58671; 81025; 80053; J2250; J0330; J1200; J1100; J2710; J2405; J3010; J1885; J2704; J1170; J2001

== ENCOUNTER 2022-09-18 14:43 | Emergency (ER) | payer OTHER ==
[2022-09-18 14:56] VITALS: TEMP 97.9
[2022-09-18] MEDS ORDERED: SODIUM CHLORIDE 0.9% 1,000 ML IV STA (16:30)
[2022-09-18 17:23] LABS: Basophils % (A) 0 %; Eosinophils # (A) 0.3 k/uL (0-0.7); Eosinophils % (A) 3 %; HCT 39.1 % (34.0-46.0); HGB 12.8 gm/dL (11.4-16.0); Lymphocytes # (A) 2.3 k/uL (1.0-4.8); Lymphocytes % (A) 25 %; MCH 26.3 pg (25.0-35.0); MCHC 32.7 g/dL (31.0-37.0); MCV 80.5 fL (80.0-100.0); Mean Platelet Volume 7.2; Monocytes # (A) 0.6 k/uL (0-1.0); Monocytes % (A) 6 %; Neutrophils # (A) 6.1 k/uL (1.3-7.7); Neutrophils % (A) 65 %; Platelet Count 344 k/uL (150-450); RBC 4.85 m/uL (3.80-5.40); RDW 13.9 % (11.5-15.5); WBC 9.4 k/uL (3.8-10.6)
[2022-09-18 17:31] LABS: ALT 21 U/L (4-34); AST 20 U/L (14-36); African American GFR (CKD) >90 (>60 ml/min/1.73 sqM); Albumin 4.8 g/dL (3.5-5.0); Alkaline Phosphatase 79 U/L (38-126); Anion Gap 14 mmol/L; Blood Urea Nitrogen 13 mg/dL (7-17); Calcium 9.5 mg/dL (8.4-10.2); Carbon Dioxide 24 mmol/L (22-30); Chloride 101 mmol/L (98-107); Glucose 93 mg/dL (74-99); Magnesium 1.9 mg/dL (1.6-2.3); Non-African American GFR(CKD) >90 (>60 ml/min/1.73 sqM); Potassium 4.3 mmol/L (3.5-5.1); Sodium 139 mmol/L (137-145); Total Bilirubin 0.4 mg/dL (0.2-1.3)
[2022-09-18 17:43] LABS: Appearance,Urine Clear (Clear); Bilirubin,Urine Negative (Negative); Blood,Urine Moderate (Negative); Color,Urine Yellow; Glucose,Urine (UA) Negative (Negative); Ketones,Urine Negative (Negative); Leukocyte Esterase,Urine Negative (Negative); Mucus,Urine Few /hpf; Nitrite,Urine Negative (Negative); Protein,Urine Trace (Negative); RBC,Urine <1 /hpf (0-5); Specific Gravity,Urine 1.013 (1.001-1.035); Squamous Epithelial Cell,Urine 3 /hpf (0-4); Urobilinogen,Urine <2.0 mg/dL (<2.0); WBC,Urine 1 /hpf (0-5)
[2022-09-18] MEDS ORDERED: ONDANSETRON 4 MG/2 ML VIAL IVP STA (18:28)
--- NOTE | 2022-09-18 19:02 | ED ---
General Adult HPI - General Chief complaint: Seizure Stated complaint: SEIZURES Time Seen by Provider: 09/18/22 16:10 Source: patient, RN notes reviewed Mode of arrival: ambulatory Limitations: no limitations - History of Present Illness Initial comments: 27-year-old female presents emergency Department with chief complaint of increased seizure frequency. Patient has a history of epilepsy and takes Keppra 1000mg daily which she states that she has been taking regularly. Patient states that she had 3 seizures today lasting about 1 minute each with 30 seconds in between. This was witnessed by her mother. Patient notes mild confusion following the seizures. She states that she has had increase in seizures in the past 2 weeks following her recent tubal ligation. She states that her seizures are stress-induced. She states that she is fatigued. Denies headache, dizziness. Dr. Nicole is her neurologist. - Related Data Home Medications Medication Instructions Recorded Confirmed levETIRAcetam [Keppra] 500 mg PO HS 04/18/22 09/04/22 Previous Rx's Medication Instructions Recorded Acetaminophen Tab [Tylenol] 650 mg PO Q6H PRN #30 tab 09/04/22 oxyCODONE HCL [Roxicodone] 5 mg PO Q6HR PRN 3 Days #12 tab 09/04/22 Allergies Allergy/AdvReac Type Severity Reaction Status Date / Time banana Allergy Rash/Hives Verified 09/18/22 14:56 Review of Systems ROS Statement: Those systems with pertinent positive or pertinent negative responses have been documented in the HPI. ROS Other: All systems not noted in ROS Statement are negative. Past Medical History Past Medical History: Seizure Disorder Additional Past Medical History / Comment(s): chiari malformation., migraine induced seizures (started age 23)., spinal stenosis, [id number] born [birth year]., History of Any Multi-Drug Resistant Organisms: None Reported Past Surgical History: No Surgical Hx Reported Past Anesthesia/Blood Transfusion Reactions: No Reported Reaction Additional Past Anesthesia/Blood Transfusion Reaction / Comment(s): no hx blood transfusion Past Psychological History: Anxiety, Depression Smoking Status: Former smoker Past Alcohol Use History: None Reported Past Drug Use History: Marijuana - Past Family History Mother Additional Family Medical History / Comment(s): Mother . Patient unsure of how or the age she passed. Father Additional Family Medical History / Comment(s): Patient's father passed. Patient unsure of age or how he passed. Brother(s) Additional Family Medical History / Comment(s): Pt. reports she has 3 biological brothers who are all diabetic, have PTSD, Depression, and Bipolar. General Exam Limitations: no limitations General appearance: alert, in no apparent distress Head exam: Present: atraumatic, normocephalic, normal inspection Eye exam: Present: normal appearance, PERRL, EOMI. Absent: scleral icterus, conjunctival injection, periorbital swelling ENT exam: Present: normal exam, mucous membranes moist Neck exam: Present: normal inspection, full ROM. Absent: tenderness, meningismus, lymphadenopathy Respiratory exam: Present: normal lung sounds bilaterally. Absent: respiratory distress, wheezes, rales, rhonchi, stridor Cardiovascular Exam: Present: regular rate, normal rhythm, normal heart sounds. Absent: systolic murmur, diastolic murmur, rubs, gallop, clicks GI/Abdominal exam: Present: soft, normal bowel sounds. Absent: distended, tenderness, guarding, rebound, rigid Neurological exam: Present: alert, oriented X3, CN II-XII intact Expanded Speech: Present: fluid speech Cranial nerves: EOM's Intact: Normal, Gag Reflex: Normal, Facial Sensation: Normal Motor strength exam: RUE: 5, LUE: 5, RLE: 5, LLE: 5 Eye Response: (4) open spontaneously Motor Response: (6) obeys commands Verbal Response: (5) oriented [place] Total: 15 Psychiatric exam: Present: normal affect, normal mood Skin exam: Present: warm, dry, intact, normal color. Absent: rash Course Vital Signs 09/18/22 09/18/22 09/18/22 14:51 18:15 18:30 Temperature 97.9 F Pulse Rate 125 H 88 87 Respiratory 20 21 20 Rate Blood Pressure 82/57 101/68 98/71 O2 Sat by Pulse 98 96 96 Oximetry 09/18/22 19:22 Temperature Pulse Rate 96 Respiratory 16 Rate Blood Pressure 109/62 O2 Sat by Pulse 100 Oximetry Medical Decision Making - Medical Decision Making Was pt. sent in by a medical professional or institution (, PA, NETWORK DEVELOPER, urgent care, hospital, or jail...) When possible be specific @ -No Did you speak to anyone other than the patient for history (EMS, parent, family, police, friend...)? What history was obtained from this source @ -No Did you review nursing and triage notes (agree or disagree)? Why? @ -I reviewed and agree with nursing and triage notes Were old charts reviewed (outside hosp., previous admission, EMS record, old EKG, old radiological studies, urgent care reports/EKG's, jail records)? Report findings @ -No old charts were reviewed Differential Diagnosis (chest pain, altered mental status, abdominal pain women, abdominal pain men, vaginal bleeding, weakness, fever, dyspnea, syncope, headache, dizziness, GI bleed, back pain, seizure, CVA, palpatations, mental health, musculoskeletal)? @ -Differential Seizure: Recurrent seizure disorder, febrile seizure, alcohol withdrawal, stimulants, meningitis, encephalitis, intercranial hemorrhage, intracranial tumor, stroke, eclampsia, thyrotoxicosis, hypocalcemia, hyponatremia, hypernatremia, hypomagnesemia, psychogenic, this is not meant to be an all-inclusive list. EKG interpreted by me (3pts min.). @ -EKG shows sinus rhythm rate 97, ND 159, QRS 108, QTQTc 120351 X-rays interpreted by me (1pt min.). @ -None done CT interpreted by me (1pt min.). @ -None done U/S interpreted by me (1pt. min.). @ -None done What testing was considered but not performed or refused? (CT, X-rays, U/S, labs)? Why? @ -None What meds were considered but not given or refused? Why? @ -None Did you discuss the management of the patient with other professionals (professionals i.e. , PA, NETWORK DEVELOPER, lab, RT, psych nurse, bilingual social worker, director employee communications, teacher, surveillance dual rate officer, rehabilitation caseworker)? Give summary @ -No Was smoking cessation discussed for >3mins.? @ -No Was critical care preformed (if so, how long)? @ -No Were there social determinants of health that impacted care today? How? (Homelessness, low income, unemployed, alcoholism, drug addiction, transportation, low edu. Level, literacy, decrease access to med. care, care home, rehab)? @ -No Was there de-escalation of care discussed even if they declined (Discuss DNR or withdrawal of care, Hospice)? DNR status @ -No What co-morbidities impacted this encounter? (DM, HTN, Smoking, COPD, CAD, Cancer, CVA, ARF, Chemo, Hep., AIDS, mental health diagnosis, sleep apnea, morbid obesity)? @ -None Was patient admitted / discharged? Hospital course, mention meds given and route, prescriptions, significant lab abnormalities, going to OR and other pertinent info. @ -Discharged. Patient presented emergency department after witnessed seizure with a history of epilepsy. EKG was obtained which showed sinus rhythm.CBC showed WBC 9.4, hemoglobin 12.8, hematocrit 39.1; sodium 139, potassium 4.3, chloride 101, creatinine 0.69, Glucose 93; UA showed trace protein, moderate blood, negative nitrites, negative leukocytes. Patient was administered 1L of NS and zofran. Keppra level was ordered awaiting results. Upon reevaluation, patient was well appearing, VSS, patient back to baseline with no recurrent seizures while in the emergency department. Case discussed with my attending, Dr. Chavira. Patient discharged in stable condition. Patient advised to follow up with her neurologist. Undiagnosed new problem with uncertain prognosis? @ -No Drug Therapy requiring intensive monitoring for toxicity (Heparin, Nitro, Insulin, Cardizem)? @ -No Were any procedures done? @ -No Diagnosis/symptom? @ -seizure with history of epilepsy Acute, or Chronic, or Acute on Chronic? @ - Uncomplicated (without systemic symptoms) or Complicated (systemic symptoms)? @ -uncomplicated Side effects of treatment? @ -No Exacerbation, Progression, or Severe Exacerbation? @ -No Poses a threat to life or bodily function? How? (Chest pain, [place], [place], pneumonia, PE, COPD, DKA, ARF, appy, cholecystitis, CVA, Diverticulitis, Homicidal, Shira cidal, threat to staff... and all critical care pts) @ -No - Lab Data Result diagrams: 09/18/22 16:51 09/18/22 16:51 Lab Results 09/18/22 09/18/22 09/18/22 Range/Units 16:51 16:51 16:51 WBC 9.4 (3.8-10.6) k/uL RBC 4.85 (3.80-5.40) m/uL Hgb 12.8 (11.4-16.0) gm/dL Hct 39.1 (34.0-46.0) % MCV 80.5 (80.0-100.0) fL MCH 26.3 (25.0-35.0) pg MCHC 32.7 (31.0-37.0) g/dL RDW 13.9 (11.5-15.5) % Plt Count 344 (150-450) k/uL MPV 7.2 Neutrophils % 65 % Lymphocytes % 25 % Monocytes % 6 % Eosinophils % 3 % Basophils % 0 % Neutrophils # 6.1 (1.3-7.7) k/uL Lymphocytes # 2.3 (1.0-4.8) k/uL Monocytes # 0.6 (0-1.0) k/uL Eosinophils # 0.3 (0-0.7) k/uL Basophils # 0.0 (0-0.2) k/uL Sodium 139 (137-145) mmol/L Potassium 4.3 (3.5-5.1) mmol/L Chloride 101 (98-107) mmol/L Carbon Dioxide 24 (22-30) mmol/L Anion Gap 14 mmol/L BUN 13 (7-17) mg/dL Creatinine 0.69 (0.52-1.04) mg/dL Est GFR (CKD-EPI)AfAm >90 (>60 ml/min/1.73 sqM) Est GFR (CKD-EPI)NonAf >90 (>60 ml/min/1.73 sqM) Glucose 93 (74-99) mg/dL Calcium 9.5 (8.4-10.2) mg/dL Magnesium 1.9 (1.6-2.3) mg/dL Total Bilirubin 0.4 (0.2-1.3) mg/dL AST 20 (14-36) U/L ALT 21 (4-34) U/L Alkaline Phosphatase 79 (38-126) U/L Total Protein 8.0 (6.3-8.2) g/dL Albumin 4.8 (3.5-5.0) g/dL Urine Color Yellow Urine Appearance Clear (Clear) Urine pH 6.0 (5.0-8.0) Ur Specific [place] 1.013 (1.001-1.035) Urine Protein Trace H (Negative) Urine Glucose (UA) Negative (Negative) Urine Ketones Negative (Negative) Urine Blood Moderate H (Negative) Urine Nitrite Negative (Negative) Urine Bilirubin Negative (Negative) Urine Urobilinogen <2.0 (<2.0) mg/dL Ur Leukocyte Esterase Negative (Negative) Urine RBC <1 (0-5) /hpf Urine WBC 1 (0-5) /hpf Ur Squamous Epith Cells 3 (0-4) /hpf Urine Mucus Few H (None) /hpf Disposition Clinical Impression: Epileptic seizure, generalized Disposition: HOME SELF-CARE Condition: Stable Instructions (If sedation given, give patient instructions): Seizure/Epilepsy Discharge Instructions & Follow-Up Additional Instructions: Please return to the Emergency Department if symptoms worsen or any other c oncerns. Is patient prescribed a controlled substance at d/c from ED?: No Referrals: Tony Rizzo MD [Primary Care Provider] - 1-2 days Time of Disposition: 19:07
[2022-09-18 19:23] VITALS: BP 109/62; PULSE 96; RESP 16
== END 2022-09-18 19:23 | disposition home or self-care (01) ==
LOC: EC 14:43
DX: G40.909 Epilepsy, unspecified, not intractable, without status epilepticus (principal); F41.9 Anxiety disorder, unspecified; F32.A Depression, unspecified; Z87.891 Personal history of nicotine dependence; F12.90 Cannabis use, unspecified, uncomplicated; Z91.018 Allergy to other foods; Z79.899 Other long term (current) drug therapy
CPT/HCPCS: 36415; 93005; 80053; 80177; 83735; 85025; 81001; 99284; 96374; 96361; J2405

== ENCOUNTER 2023-03-08 10:48 | Emergency (ER) | payer OTHER ==
[2023-03-08 11:04] VITALS: TEMP 98.1
[2023-03-08] MEDS ORDERED: LORazepam 2 MG/ML INJ IV STA (11:23)
[2023-03-08 11:37] LABS: Basophils % (A) 0 %; Eosinophils # (A) 0.3 k/uL (0-0.7); Eosinophils % (A) 2 %; HCT 33.7 % (34.0-46.0); Lymphocytes # (A) 1.4 k/uL (1.0-4.8); Lymphocytes % (A) 13 %; MCH 27.4 pg (25.0-35.0); MCHC 32.8 g/dL (31.0-37.0); MCV 83.7 fL (80.0-100.0); Mean Platelet Volume 7.5; Monocytes # (A) 0.6 k/uL (0-1.0); Monocytes % (A) 5 %; Neutrophils # (A) 8.7 k/uL (1.3-7.7); Neutrophils % (A) 79 %; Platelet Count 281 k/uL (150-450); RBC 4.02 m/uL (3.80-5.40); RDW 13.9 % (11.5-15.5)
[2023-03-08 11:47] LABS: ALT 15 U/L (4-34); AST 20 U/L (14-36); African American GFR (CKD) >90 (>60 ml/min/1.73 sqM); Albumin 3.8 g/dL (3.5-5.0); Alkaline Phosphatase 86 U/L (38-126); Anion Gap 13 mmol/L; Blood Urea Nitrogen 20 mg/dL (7-17); Calcium 8.7 mg/dL (8.4-10.2); Carbon Dioxide 17 mmol/L (22-30); Chloride 109 mmol/L (98-107); Glucose 93 mg/dL (74-99); Non-African American GFR(CKD) >90 (>60 ml/min/1.73 sqM); Potassium 3.7 mmol/L (3.5-5.1); Sodium 139 mmol/L (137-145); Total Bilirubin 0.3 mg/dL (0.2-1.3); Total Protein 6.3 g/dL (6.3-8.2)
--- NOTE | 2023-03-08 12:04 | ED ---
General Adult HPI - General Chief complaint: Seizure Stated complaint: Seizure Time Seen by Provider: 03/08/23 11:00 Source: patient, EMS, RN notes reviewed, old records reviewed Mode of arrival: EMS Limitations: no limitations - History of Present Illness Initial comments: This is a 27-year-old female who states she has a history of seizures for the la st 3 years. Patient states there induced by stress. Patient states today she was being stressed by her [id number] and she had a seizure while she was sitting on the ground. Patient states she did not hit her head when she went down to the ground. Patient states she woke up and everybody was around her boyfriend states that she immediately recognized her mother when she came out of her seizure-like activity. Patient agrees that she remembers waking up immediately and recognizing her surroundings. Patient denies any recent fever chills or cough per patient denies headache patient denies any numbness weakness. Patient states this is typical of her seizures that there induced when she is under stress or has a lot of anxiety. - Related Data Home Medications Medication Instructions Recorded Confirmed levETIRAcetam [Keppra] 500 mg PO HS 04/18/22 09/04/22 Previous Rx's Medication Instructions Recorded Acetaminophen Tab [Tylenol] 650 mg PO Q6H PRN #30 tab 09/04/22 oxyCODONE HCL [Roxicodone] 5 mg PO Q6HR PRN 3 Days #12 tab 09/04/22 Allergies Allergy/AdvReac Type Severity Reaction Status Date / Time banana Allergy Rash/Hives Verified 09/18/22 14:56 Review of Systems ROS Statement: Those systems with pertinent positive or pertinent negative responses have been documented in the HPI. ROS Other: All systems not noted in ROS Statement are negative. Past Medical History Past Medical History: Seizure Disorder Additional Past Medical History / Comment(s): chiari malformation., migraine induced seizures (started age 23)., spinal stenosis, [id number] born [birth year]., History of Any Multi-Drug Resistant Organisms: None Reported Past Surgical History: No Surgical Hx Reported Past Anesthesia/Blood Transfusion Reactions: No Reported Reaction Additional Past Anesthesia/Blood Transfusion Reaction / Comment(s): no hx blood transfusion Past Psychological History: Anxiety, Depression Smoking Status: Former smoker Past Alcohol Use History: None Reported Past Drug Use History: Marijuana - Past Family History Mother Additional Family Medical History / Comment(s): Mother . Patient unsure of how or the age she passed. Father Additional Family Medical History / Comment(s): Patient's father passed. Patient unsure of age or how he passed. Brother(s) Additional Family Medical History / Comment(s): Pt. reports she has 3 biological brothers who are all diabetic, have PTSD, Depression, and Bipolar. General Exam - General Exam Comments Initial Comments: GENERAL: Patient is well-developed and well-nourished. Patient is nontoxic and well-hyd rated and is in no acute distress. ENT: Neck is soft and supple. No significant lymphadenopathy is noted. Oropharynx is clear. Moist mucous membranes. Neck has full range of motion without elicit ing any pain. EYES: The sclera were anicteric and conjunctiva were pink and moist. Extraocular m ovements were intact and pupils were equal round and reactive to light. Eyelids were unremarkable. PULMONARY: Unlabored respirations. Good breath sounds bilaterally. No audible rales rhonchi or wheezing was noted. CARDIOVASCULAR: There is a regular rate and rhythm without any murmurs gallops or rubs. ABDOMEN: Soft and nontender with normal bowel sounds. SKIN: Skin is clear with no lesions or rashes and otherwise unremarkable. NEUROLOGIC: Patient is alert and oriented x3. Cranial nerves II through XII are grossly intact. Motor and sensory are also intact. Normal speech, volume and content. Symmetrical smile. MUSCULOSKELETAL: Normal extremities with adequate strength and full range of motion. No lower extremity swelling or edema. No calf tenderness. LYMPHATICS: No significant lymphadenopathy is noted PSYCHIATRIC: Normal psychiatric evaluation. Limitations: no limitations Course Vital Signs 03/08/23 03/08/23 03/08/23 10:50 11:03 12:00 Temperature 98.1 F Pulse Rate 104 H 90 85 Respiratory 16 18 18 Rate Blood Pressure 108/66 103/70 98/69 O2 Sat by Pulse 100 100 100 Oximetry Medical Decision Making - Medical Decision Making EKG is interpreted by myself. EKG shows a sinus rhythm at 93 bpm DC interval 270 QRS is 92 QT interval 367 QTC is 418. Patient's EKG shows no ST segment elevation or depression. Was pt. sent in by a medical professional or institution (, PA, HELICOPTER SPECIALIST, urgent care, hospital, or intermediate...) When possible be specific @ -No Did you speak to anyone other than the patient for history (EMS, parent, family, police, friend...)? What history was obtained from this source @ -Boyfriend gave most of the history Did you review nursing and triage notes (agree or disagree)? Why? @ -I reviewed and agree with nursing and triage notes Were old charts reviewed (outside hosp., previous admission, EMS record, old EKG, old radiological studies, urgent care reports/EKG's, intermediate records)? Report findings @ -I reviewed prior charts and prior lab work on this patient. Differential Diagnosis (chest pain, altered mental status, abdominal pain women, abdominal pain men, vaginal bleeding, weakness, fever, dyspnea, syncope, headache, dizziness, GI bleed, back pain, seizure, CVA, palpatations, mental health, musculoskeletal)? @ -Differential Seizure: Recurrent seizure disorder, febrile seizure, alcohol withdrawal, stimulants, meningitis, encephalitis, intercranial hemorrhage, intracranial tumor, stroke, eclampsia, thyrotoxicosis, hypocalcemia, hyponatremia, hypernatremia, hypomagnesemia, psychogenic, this is not meant to be an all-inclusive list. EKG interpreted by me (3pts min.). @ -As above X-rays interpreted by me (1pt min.). @ -None done CT interpreted by me (1pt min.). @ -None done U/S interpreted by me (1pt. min.). @ -None done What testing was considered but not performed or refused? (CT, X-rays, U/S, labs)? Why? @ -None What meds were considered but not given or refused? Why? @ -None Did you discuss the management of the patient with other professionals (professionals i.e. , PA, HELICOPTER SPECIALIST, lab, RT, psych nurse, social media campaign manager, spindle frame carver, teacher, youth officer, showcase trimmer)? Give summary @ -No Was smoking cessation discussed for >3mins.? @ -No Was critical care preformed (if so, how long)? @ -No Were there social determinants of health that impacted care today? How? (Homelessness, low income, unemployed, alcoholism, drug addiction, transportation, low edu. Level, literacy, decrease access to med. care, residential, rehab)? @ -No Was there de-escalation of care discussed even if they declined (Discuss DNR or withdrawal of care, Hospice)? DNR status @ -No What co-morbidities impacted this encounter? (DM, HTN, Smoking, COPD, CAD, Cancer, CVA, ARF, Chemo, Hep., AIDS, mental health diagnosis, sleep apnea, morbid obesity)? @ -None Was patient admitted / discharged? Hospital course, mention meds given and route, prescriptions, significant lab abnormalities, going to OR and other pertinent info. @ -To the boyfriend the patient was having a seizure that lasted about a minute and then it seemed to subside and then it came back again that this multiple times it sounds as though she had no postictal state and it sounds like a nonepileptic type seizure and this is what the boyfriend states she always has. Patient has had no seizures while in the emergency department. Patient to get 0.5 of Ativan. Patient is in no distress and willing to go home. Undiagnosed new problem with uncertain prognosis? @ -No Drug Therapy requiring intensive monitoring for toxicity (Heparin, Nitro, Insulin, Cardizem)? @ -No Were any procedures done? @ -No Diagnosis/symptom? @ -Seizure Acute, or Chronic, or Acute on Chronic? @ -Acute Uncomplicated (without systemic symptoms) or Complicated (systemic symptoms)? @ -Complicated Side effects of treatment? @ -No Exacerbation, Progression, or Severe Exacerbation? @ -No Poses a threat to life or bodily function? How? (Chest pain, [place], [place], pneumonia, PE, COPD, DKA, ARF, appy, cholecystitis, CVA, Diverticulitis, Homicidal, Suici dharmesh, threat to staff... and all critical care pts) @ -No - Lab Data Result diagrams: 03/08/23 11:26 03/08/23 11:26 Lab Results 03/08/23 03/08/23 Range/Units 11:26 11:26 WBC 11.0 H (3.8-10.6) k/uL RBC 4.02 (3.80-5.40) m/uL Hgb 11.0 L (11.4-16.0) gm/dL Hct 33.7 L (34.0-46.0) % MCV 83.7 (80.0-100.0) fL MCH 27.4 (25.0-35.0) pg MCHC 32.8 (31.0-37.0) g/dL RDW 13.9 (11.5-15.5) % Plt Count 281 (150-450) k/uL MPV 7.5 Neutrophils % 79 % Lymphocytes % 13 % Monocytes % 5 % Eosinophils % 2 % Basophils % 0 % Neutrophils # 8.7 H (1.3-7.7) k/uL Lymphocytes # 1.4 (1.0-4.8) k/uL Monocytes # 0.6 (0-1.0) k/uL Eosinophils # 0.3 (0-0.7) k/uL Basophils # 0.0 (0-0.2) k/uL Sodium 139 (137-145) mmol/L Potassium 3.7 (3.5-5.1) mmol/L Chloride 109 H (98-107) mmol/L Carbon Dioxide 17 L (22-30) mmol/L Anion Gap 13 mmol/L BUN 20 H (7-17) mg/dL Creatinine 0.66 (0.52-1.04) mg/dL Est GFR (CKD-EPI)AfAm >90 (>60 ml/min/1.73 sqM) Est GFR (CKD-EPI)NonAf >90 (>60 ml/min/1.73 sqM) Glucose 93 (74-99) mg/dL Calcium 8.7 (8.4-10.2) mg/dL Total Bilirubin 0.3 (0.2-1.3) mg/dL AST 20 (14-36) U/L ALT 15 (4-34) U/L Alkaline Phosphatase 86 (38-126) U/L Total Protein 6.3 (6.3-8.2) g/dL Albumin 3.8 (3.5-5.0) g/dL Disposition Clinical Impression: Generalized seizure Disposition: HOME SELF-CARE Instructions (If sedation given, give patient instructions): Seizure/Epilepsy Discharge Instructions & Follow-Up, Recurrent Seizures in Adults (ED) Is patient prescribed a controlled substance at d/c from ED?: No Referrals: Tony Rizzo MD [Primary Care Provider] - 1-2 days Time of Disposition: 12:54
[2023-03-08 12:11] VITALS: RESP 18
[2023-03-08 13:46] VITALS: BP 109/75; PULSE 93
== END 2023-03-08 13:28 | disposition home or self-care (01) ==
LOC: EC 10:48
DX: G40.409 Other generalized epilepsy and epileptic syndromes, not intractable, without status epilepticus (principal); F12.90 Cannabis use, unspecified, uncomplicated; Z86.59 Personal history of other mental and behavioral disorders; Z87.891 Personal history of nicotine dependence; Z91.018 Allergy to other foods
CPT/HCPCS: 99284; 36415; 80053; 80177; 85025; 96374; J2060

== ENCOUNTER 2023-08-04 23:24 | Emergency (ER) | payer OTHER ==
[2023-08-04 23:54] VITALS: TEMP 97.7
[2023-08-05] MEDS: SODIUM CHLORIDE 0.9% 1,000 ML IV STA (00:26)
[2023-08-05] MEDS: levETIRAcetam IV 500 MG/5 ML VIAL IVP STA (00:26)
[2023-08-05 00:39] LABS: Basophils % (A) 0 %; Eosinophils # (A) 0.2 k/uL (0-0.7); Eosinophils % (A) 3 %; HCT 32.3 % (34.0-46.0); HGB 10.6 gm/dL (11.4-16.0); Hypochromasia Slight; Lymphocytes # (A) 2.4 k/uL (1.0-4.8); Lymphocytes % (A) 38 %; MCH 27.6 pg (25.0-35.0); MCHC 32.9 g/dL (31.0-37.0); MCV 83.9 fL (80.0-100.0); Mean Platelet Volume 8.2; Monocytes # (A) 0.4 k/uL (0-1.0); Monocytes % (A) 6 %; Neutrophils # (A) 3.3 k/uL (1.3-7.7); Neutrophils % (A) 51 %; Platelet Count 317 k/uL (150-450); RBC 3.85 m/uL (3.80-5.40); RDW 13.9 % (11.5-15.5); WBC 6.5 k/uL (3.8-10.6)
[2023-08-05 01:33] LABS: ALT 16 U/L (4-34); AST 22 U/L (14-36); African American GFR (CKD) >90 (>60 ml/min/1.73 sqM); Albumin 4.2 g/dL (3.5-5.0); Alkaline Phosphatase 69 U/L (38-126); Anion Gap 9 mmol/L; Blood Urea Nitrogen 13 mg/dL (7-17); Calcium 9.3 mg/dL (8.4-10.2); Carbon Dioxide 22 mmol/L (22-30); Chloride 108 mmol/L (98-107); Glucose 99 mg/dL (74-99); Magnesium 2.1 mg/dL (1.6-2.3); Non-African American GFR(CKD) >90 (>60 ml/min/1.73 sqM); Potassium 4.2 mmol/L (3.5-5.1); Sodium 139 mmol/L (137-145); Total Bilirubin 0.3 mg/dL (0.2-1.3); Total Protein 6.9 g/dL (6.3-8.2)
[2023-08-05 01:48] LABS: Appearance,Urine Cloudy (Clear); Bacteria,Urine Rare /hpf; Bilirubin,Urine Negative (Negative); Blood,Urine Negative (Negative); Color,Urine Colorless; Glucose,Urine (UA) Negative (Negative); Ketones,Urine Negative (Negative); Leukocyte Esterase,Urine Large (Negative); Mucus,Urine Few /hpf; Nitrite,Urine Negative (Negative); PH, Urine 6.5 (5.0-8.0); Protein,Urine Negative (Negative); RBC,Urine 4 /hpf (0-5); Specific Gravity,Urine 1.013 (1.001-1.035); Squamous Epithelial Cell,Urine 4 /hpf (0-4); Urobilinogen,Urine <2.0 mg/dL (<2.0); WBC,Urine 15 /hpf (0-5)
[2023-08-05 02:02] LABS: Amphetamine Screen,Urine Not Detected (NotDetected); Barbiturate Screen,Urine Not Detected (NotDetected); Benzodiazepines Screen,Urine Not Detected (NotDetected); Cocaine Screen,Urine Not Detected (NotDetected); Methadone Screen, Urine Not Detected (NotDetected); Opiate Screen,Urine Not Detected (NotDetected); Oxycodone Screen, Urine Not Detected (NotDetected); Phencyclidine Screen,Urine Not Detected (NotDetected); Tricyclic Antidepressant,Urine Not Detected (NotDetected); Urn Cannabinoid Scrn Detected (NotDetected)
--- NOTE | 2023-08-05 02:07 | ED ---
Seizure HPI - General Chief Complaint: Seizure Stated Complaint: Seizure, Chest Pain Time Seen by Provider: 08/04/23 23:55 Source: patient Mode of arrival: ambulatory Limitations: no limitations - History of Present Illness Initial Comments: 27-year-old female present with chief complaint of seizure. Patient has history of seizures, was not taking her medication for the last 3 weeks. She just started taking her medication again yesterday. States that she was unable to afford her medication for some time. Patient takes 500 mg of Keppra daily. Her partner at bedside states that she had a less than 5-minute long seizure while sitting in a chair this evening. Patient did have nausea afterwards with no vomiting. She admits to diffuse muscle aches. She states that she has some tightness over the chest. No fevers or chills. No numbness or tingling. - Related Data Home Medications Medication Instructions Recorded Confirmed levETIRAcetam [Keppra] 500 mg PO HS 04/18/22 09/04/22 Previous Rx's Medication Instructions Recorded Acetaminophen Tab [Tylenol] 650 mg PO Q6H PRN #30 tab 09/04/22 oxyCODONE HCL [Roxicodone] 5 mg PO Q6HR PRN 3 Days #12 tab 09/04/22 Allergies Allergy/AdvReac Type Severity Reaction Status Date / Time banana Allergy Rash/Hives Verified 09/18/22 14:56 Review of Systems ROS Statement: Those systems with pertinent positive or pertinent negative responses have been documented in the HPI. ROS Other: All systems not noted in ROS Statement are negative. Past Medical History Past Medical History: Seizure Disorder Additional Past Medical History / Comment(s): chiari malformation., migraine induced seizures (started age 23)., spinal stenosis, [id number] born [birth year]., History of Any Multi-Drug Resistant Organisms: None Reported Past Surgical History: No Surgical Hx Reported Past Anesthesia/Blood Transfusion Reactions: No Reported Reaction Additional Past Anesthesia/Blood Transfusion Reaction / Comment(s): no hx blood transfusion Past Psychological History: Anxiety, Depression Smoking Status: Former smoker Past Alcohol Use History: None Reported Past Drug Use History: Marijuana - Past Family History Mother Additional Family Medical History / Comment(s): Mother . Patient unsure of how or the age she passed. Father Additional Family Medical History / Comment(s): Patient's father passed. Patient unsure of age or how he passed. Brother(s) Additional Family Medical History / Comment(s): Pt. reports she has 3 biological brothers who are all diabetic, have PTSD, Depression, and Bipolar. General Exam Limitations: no limitations General appearance: alert, in no apparent distress Head exam: Present: atraumatic, normocephalic Eye exam: Present: normal appearance, PERRL, EOMI Pupils: Present: normal accommodation Neck exam: Present: normal inspection, full ROM. Absent: meningismus Respiratory exam: Present: normal lung sounds bilaterally. Absent: respiratory distress, wheezes, rales, rhonchi, stridor Cardiovascular Exam: Present: regular rate, normal rhythm, normal heart sounds. Absent: systolic murmur, diastolic murmur, rubs, gallop, clicks Extremities exam: Present: normal inspection Neurological exam: Present: alert, oriented X3 Psychiatric exam: Present: normal affect, normal mood Skin exam: Present: warm, dry Course Vital Signs 08/04/23 08/05/23 23:26 02:18 Temperature 97.7 F Pulse Rate 65 56 L Respiratory 16 17 Rate Blood Pressure 127/83 104/78 O2 Sat by Pulse 97 98 Oximetry Medical Decision Making - Medical Decision Making Was pt. sent in by a medical professional or institution (TERELL Banuelos, REINSURANCE CLAIM ANALYST, urgent care, hospital, or [facility]...) When possible be specific @ -No Did you speak to anyone other than the patient for history (EMS, parent, family, police, friend...)? What history was obtained from this source @ -No Did you review nursing and triage notes (agree or disagree)? Why? @ -I reviewed and agree with nursing and triage notes Were old charts reviewed (outside hosp., previous admission, EMS record, old EKG, old radiological studies, urgent care reports/EKG's, [facility] records)? Report findings @ -No old charts were reviewed Differential Diagnosis (chest pain, altered mental status, abdominal pain women, abdominal pain men, vaginal bleeding, weakness, fever, dyspnea, syncope, headache, dizziness, GI bleed, back pain, seizure, CVA, palpatations, mental health, musculoskeletal)? @ -MDM Differential Seizure: Recurrent seizure disorder, febrile seizure, alcohol withdrawal, stimulants, meningitis, encephalitis, intercranial hemorrhage, intracranial tumor, stroke, eclampsia, thyrotoxicosis, hypocalcemia, hyponatremia, hypernatremia, hyp omagnesemia, psychogenic this is not meant to be an all-inclusive list EKG interpreted by me (3pts min.). @ -EKG shows sinus bradycardia ventricular rate 50. IA interval 161. QRS 93. QT 427. QTc 399. X-rays interpreted by me (1pt min.). @ -None done CT interpreted by me (1pt min.). @ -None done U/S interpreted by me (1pt. min.). @ -None done What testing was considered but not performed or refused? (CT, X-rays, U/S, labs)? Why? @ -None What meds were considered but not given or refused? Why? @ -None Did you discuss the management of the patient with other professionals (josh contreras i.e. , PA, REINSURANCE CLAIM ANALYST, lab, RT, psych nurse, director social service, appliance installer, teacher, police officer booking, case briefer)? Give summary @ -No Was smoking cessation discussed for >3mins.? @ -No Was critical care preformed (if so, how long)? @ -No Were there social determinants of health that impacted care today? How? (Homelessness, low income, unemployed, alcoholism, drug addiction, transportation, low edu. Level, literacy, decrease access to med. care, prison, rehab)? @ -No Was there de-escalation of care discussed even if they declined (Discuss DNR or withdrawal of care, Hospice)? DNR status @ -No What co-morbidities impacted this encounter? (DM, HTN, Smoking, COPD, CAD, Cancer, CVA, ARF, Chemo, Hep., AIDS, mental health diagnosis, sleep apnea, morbid obesity)? @ -None Was patient admitted / discharged? Hospital course, mention meds given and route, prescriptions, significant lab abnormalities, going to OR and other pertinent info. @ -27-year-old female presenting with chief complaint of seizure. Patient has history of seizures. She was not taking her Keppra for the last 3 weeks and just resumed yesterday. On physical exam GCS is 15 and no deficits are noted. Lab work requires no action. Urine shows 15 WBC, patient is having no urinary symptoms. Negative hCG. Urine toxicology positive for marijuana. Keppra level sent out. Patient is given 1 g of Keppra IV. On reassessment she is resting comfortably. She is instructed to continue on her prescribed medication dose and follow-up with her neurologist Dr. Nicole. Discharged home. Follow-up with PCP. Report back to ER with any new or worsening symptoms. Discussed return parameters and answered all questions. Patient conveyed verbal understanding and agreed to the plan. I discussed this case in detail with my attending Dr. Chavira Undiagnosed new problem with uncertain prognosis? @ -No Drug Therapy requiring intensive monitoring for toxicity (Heparin, Nitro, Insulin, Cardizem)? @ -No Were any procedures done? @ -No Diagnosis/symptom? @ -Recurrent seizure disorder Acute, or Chronic, or Acute on Chronic? @ -Acute on chronic Uncomplicated (without systemic symptoms) or Complicated (systemic symptoms)? @ -Uncomplicated Side effects of treatment? @ -No Exacerbation, Progression, or Severe Exacerbation? @ -No Poses a threat to life or bodily function? How? (Chest pain, [place], [place], pneumonia, PE, COPD, DKA, ARF, appy, cholecystitis, CVA, Diverticulitis, Homicidal, Suicidal, threat to staff... and all critical care pts) @ -Unlikely - Lab Data Result diagrams: 08/05/23 00:24 08/05/23 00:24 Lab Results 08/05/23 08/05/23 08/05/23 Range/Units 00:24 00:24 01:40 WBC 6.5 (3.8-10.6) k/uL RBC 3.85 (3.80-5.40) m/uL Hgb 10.6 L (11.4-16.0) gm/dL Hct 32.3 L (34.0-46.0) % MCV 83.9 (80.0-100.0) fL MCH 27.6 (25.0-35.0) pg MCHC 32.9 (31.0-37.0) g/dL RDW 13.9 (11.5-15.5) % Plt Count 317 (150-450) k/uL MPV 8.2 Neutrophils % 51 % Lymphocytes % 38 % Monocytes % 6 % Eosinophils % 3 % Basophils % 0 % Neutrophils # 3.3 (1.3-7.7) k/uL Lymphocytes # 2.4 (1.0-4.8) k/uL Monocytes # 0.4 (0-1.0) k/uL Eosinophils # 0.2 (0-0.7) k/uL Basophils # 0.0 (0-0.2) k/uL Hypochromasia Slight Sodium 139 (137-145) mmol/L Potassium 4.2 (3.5-5.1) mmol/L Chloride 108 H (98-107) mmol/L Carbon Dioxide 22 (22-30) mmol/L Anion Gap 9 mmol/L BUN 13 (7-17) mg/dL Creatinine 0.50 L (0.52-1.04) mg/dL Est GFR (CKD-EPI)AfAm >90 (>60 ml/min/1.73 sqM) Est GFR (CKD-EPI)NonAf >90 (>60 ml/min/1.73 sqM) Glucose 99 (74-99) mg/dL Calcium 9.3 (8.4-10.2) mg/dL Magnesium 2.1 (1.6-2.3) mg/dL Total Bilirubin 0.3 (0.2-1.3) mg/dL AST 22 (14-36) U/L ALT 16 (4-34) U/L Alkaline Phosphatase 69 (38-126) U/L Total Protein 6.9 (6.3-8.2) g/dL Albumin 4.2 (3.5-5.0) g/dL Urine Color Colorless Urine Appearance Cloudy H (Clear) Urine pH 6.5 (5.0-8.0) Ur Specific [place] 1.013 (1.001-1.035) Urine Protein Negative (Negative) Urine Glucose (UA) Negative (Negative) Urine Ketones Negative (Negative) Urine Blood Negative (Negative) Urine Nitrite Negative (Negative) Urine Bilirubin Negative (Negative) Urine Urobilinogen <2.0 (<2.0) mg/dL Ur Leukocyte Esterase Large H (Negative) Urine RBC 4 (0-5) /hpf Urine WBC 15 H (0-5) /hpf Ur Squamous Epith Cells 4 (0-4) /hpf Urine Bacteria Rare H (None) /hpf Urine Mucus Few H (None) /hpf Urine HCG, Qual (Not Detectd) Urine Opiates Screen Not Detected (NotDetected) Ur Oxycodone Screen Not Detected (NotDetected) Urine Methadone Screen Not Detected (NotDetected) Ur Barbiturates Screen Not Detected (NotDetected) U Tricyclic Antidepress Not Detected (NotDetected) Ur Phencyclidine Scrn Not Detected (NotDetected) Ur Amphetamines Screen Not Detected (NotDetected) U Methamphetamines Scrn Not Detected (NotDetected) U Benzodiazepines Scrn Not Detected (NotDetected) Urine Cocaine Screen Not Detected (NotDetected) U Marijuana (THC) Screen Detected H (NotDetected) 08/05/23 Range/Units 01:40 WBC (3.8-10.6) k/uL RBC (3.80-5.40) m/uL Hgb (11.4-16.0) gm/dL Hct (34.0-46.0) % MCV (80.0-100.0) fL MCH (25.0-35.0) pg MCHC (31.0-37.0) g/dL RDW (11.5-15.5) % Plt Count (150-450) k/uL MPV Neutrophils % % Lymphocytes % % Monocytes % % Eosinophils % % Basophils % % Neutrophils # (1.3-7.7) k/uL Lymphocytes # (1.0-4.8) k/uL Monocytes # (0-1.0) k/uL Eosinophils # (0-0.7) k/uL Basophils # (0-0.2) k/uL Hypochromasia Sodium (137-145) mmol/L Potassium (3.5-5.1) mmol/L Chloride (98-107) mmol/L Carbon Dioxide (22-30) mmol/L Anion Gap mmol/L BUN (7-17) mg/dL Creatinine (0.52-1.04) mg/dL Est GFR (CKD-EPI)AfAm (>60 ml/min/1.73 sqM) Est GFR (CKD-EPI)NonAf (>60 ml/min/1.73 sqM) Glucose (74-99) mg/dL Calcium (8.4-10.2) mg/dL Magnesium (1.6-2.3) mg/dL Total Bilirubin (0.2-1.3) mg/dL AST (14-36) U/L ALT (4-34) U/L Alkaline Phosphatase (38-126) U/L Total Protein (6.3-8.2) g/dL Albumin (3.5-5.0) g/dL Urine Color Urine Appearance (Clear) Urine pH (5.0-8.0) Ur Specific [place] (1.001-1.035) Urine Protein (Negative) Urine Glucose (UA) (Negative) Urine Ketones (Negative) Urine Blood (Negative) Urine Nitrite (Negative) Urine Bilirubin (Negative) Urine Urobilinogen (<2.0) mg/dL Ur Leukocyte Esterase (Negative) Urine RBC (0-5) /hpf Urine WBC (0-5) /hpf Ur Squamous Epith Cells (0-4) /hpf Urine Bacteria (None) /hpf Urine Mucus (None) /hpf Urine HCG, Qual Not Detected (Not Detectd) Urine Opiates Screen (NotDetected) Ur Oxycodone Screen (NotDetected) Urine Methadone Screen (NotDetected) Ur Barbiturates Screen (NotDetected) U Tricyclic Antidepress (NotDetected) Ur Phencyclidine Scrn (NotDetected) Ur Amphetamines Screen (NotDetected) U Methamphetamines Scrn (NotDetected) U Benzodiazepines Scrn (NotDetected) Urine Cocaine Screen (NotDetected) U Marijuana (THC) Screen (NotDetected) Disposition Clinical Impression: Seizure Disposition: HOME SELF-CARE Condition: Good Instructions (If sedation given, give patient instructions): Recurrent Seizures in Adults (ED) Additional Instructions: Follow-up with PCP and neurologist. Report back to ER with any new or worsening symptoms. Is patient prescribed a controlled substance at d/c from ED?: No Referrals: Tony Rizzo MD [Primary Care Provider] - 1-2 days Gumaro Nicole MD [Medical Doctor] - 1-2 days Time of Disposition: 02:07
[2023-08-05 02:41] VITALS: BP 104/78; PULSE 56; RESP 17
== END 2023-08-05 02:23 | disposition home or self-care (01) ==
LOC: EC 23:24
DX: G40.909 Epilepsy, unspecified, not intractable, without status epilepticus (principal); R00.1 Bradycardia, unspecified; F12.90 Cannabis use, unspecified, uncomplicated; Z91.018 Allergy to other foods; Z87.891 Personal history of nicotine dependence
CPT/HCPCS: 36415; 93005; 80053; 80177; 83735; 85025; 81001; 81025; 80306; 99284; 96374; 96361; J1953

== ENCOUNTER 2023-08-28 16:18 | Emergency (ER) | payer OTHER ==
[2023-08-28 16:21] LABS: Glucose,Whole Blood 83 mg/dL (70-110)
[2023-08-28] MEDS: LORazepam 2 MG/ML INJ IV STA (16:28)
--- NOTE | 2023-08-28 16:36 | ED ---
Seizure HPI - General Chief Complaint: Seizure Stated Complaint: Seizure Time Seen by Provider: 08/28/23 16:24 Source: EMS Mode of arrival: EMS Limitations: altered mental status - History of Present Illness Initial Comments: This is a 27-year-old woman arriving by ambulance for evaluation for suspected seizures. Most of the history comes from the patient's mother, there is also the patient's housemate here, giving history as well. They report that the patient was having what they seem to be describing as absence seizures earlier today around 1. She had a number of these and then they called EMS when she had a tonic-clonic seizure. These came on at home. They state that she had just had a vaccination and were concerned that this may have brought on the seizures. The patient did not fall and there was no trauma noted. No fevers at home. They report that to their knowledge the patient has been compliant with her medications. MD Complaint: seizure Onset/Timin -: hour(s) Description of Episode: loss of consciousness, tonic-clonic movement -: second(s) Witnessed: yes - by bystander Trauma: No Seizure History: known seizure disorder Place: home Possible Precipitating Event: medication Associated Symptoms: denies other symptoms Treatments Prior to Arrival: none - Related Data Home Medications Medication Instructions Recorded Confirmed levETIRAcetam [Keppra] 500 mg PO HS 04/18/22 09/04/22 Previous Rx's Medication Instructions Recorded Acetaminophen Tab [Tylenol] 650 mg PO Q6H PRN #30 tab 09/04/22 oxyCODONE HCL [Roxicodone] 5 mg PO Q6HR PRN 3 Days #12 tab 09/04/22 Allergies Allergy/AdvReac Type Severity Reaction Status Date / Time banana Allergy Rash/Hives Verified 08/28/23 16:30 Review of Systems ROS Statement: Those systems with pertinent positive or pertinent negative responses have been documented in the HPI. ROS Other: All systems not noted in ROS Statement are negative. Limitations: ROS unobtainable due to patients medical condition Past Medical History Past Medical History: Seizure Disorder Additional Past Medical History / Comment(s): chiari malformation., migraine induced seizures (started age 23)., spinal stenosis, [id number] born [birth year]., History of Any Multi-Drug Resistant Organisms: None Reported Past Surgical History: No Surgical Hx Reported Past Anesthesia/Blood Transfusion Reactions: No Reported Reaction Additional Past Anesthesia/Blood Transfusion Reaction / Comment(s): no hx blood transfusion Past Psychological History: Anxiety, Depression Smoking Status: Former smoker Past Alcohol Use History: None Reported Past Drug Use History: Marijuana - Past Family History Mother Additional Family Medical History / Comment(s): Mother . Patient unsure of how or the age she passed. Father Additional Family Medical History / Comment(s): Patient's father passed. Patient unsure of age or how he passed. Brother(s) Additional Family Medical History / Comment(s): Pt. reports she has 3 biological brothers who are all diabetic, have PTSD, Depression, and Bipolar. General Exam Limitations: altered mental status General appearance: alert, in no apparent distress Head exam: Present: atraumatic, normocephalic Eye exam: Present: normal appearance, PERRL. Absent: scleral icterus, conjunctival injection ENT exam: Present: normal oropharynx Neck exam: Present: normal inspection. Absent: tenderness Respiratory exam: Present: normal lung sounds bilaterally. Absent: respiratory distress, wheezes, rales, rhonchi, stridor, accessory muscle use Cardiovascular Exam: Present: regular rate, normal rhythm, normal heart sounds. Absent: systolic murmur, diastolic murmur, rubs, gallop GI/Abdominal exam: Present: soft. Absent: distended, tenderness, guarding, rebound, rigid, mass Extremities exam: Present: normal inspection, full ROM, normal capillary refill. Absent: pedal edema, joint swelling, calf tenderness Back exam: Present: normal inspection Neurological exam: Present: alert, oriented X3, CN II-XII intact Skin exam: Present: warm, dry, intact, normal color. Absent: rash Course Vital Signs 08/28/23 08/28/23 08/28/23 16:19 17:54 18:49 Temperature 98 F Pulse Rate 79 70 70 Respiratory 22 20 12 Rate Blood Pressure 99/65 103/66 100/74 O2 Sat by Pulse 100 96 70 L Oximetry 08/28/23 19:22 Temperature Pulse Rate 71 Respiratory 16 Rate Blood Pressure 104/70 O2 Sat by Pulse 100 Oximetry Medical Decision Making - Medical Decision Making There was additional history from the patient after she had become alert. She had not taken her anticonvulsants since yesterday. Discussed results, follow-up, return parameters. Was pt. sent in by a medical professional or institution (TERELL Banuelos, OFFICE SERVICE COORDINATOR, urgent c are, hospital, or [facility]...) When possible be specific @ -[No] Did you speak to anyone other than the patient for history (EMS, parent, family, police, friend...)? What history was obtained from this source @ -[Family did contribute to history Did you review nursing and triage notes (agree or disagree)? Why? @ -[I reviewed and agree with nursing and triage notes] Were old charts reviewed (outside hosp., previous admission, EMS record, old EKG, old radiological studies, urgent care reports/EKG's, [facility] records)? Report findings @ -[No old charts were reviewed] Differential Diagnosis (chest pain, altered mental status, abdominal pain women, abdominal pain men, vaginal bleeding, weakness, fever, dyspnea, syncope, headache, dizziness, GI bleed, back pain, seizure, CVA, palpatations, mental health, musculoskeletal)? @ -[Differential Seizure: Recurrent seizure disorder, febrile seizure, alcohol withdrawal, stimulants, meningitis, encephalitis, intercranial hemorrhage, intracranial tumor, stroke, eclampsia, thyrotoxicosis, hypocalcemia, hyponatremia, hypernatremia, hy pomagnesemia, psychogenic, this is not meant to be an all-inclusive list. EKG interpreted by me (3pts min.). @ -[As above] X-rays interpreted by me (1pt min.). @ -[None done] CT interpreted by me (1pt min.). @ -[None done] U/S interpreted by me (1pt. min.). @ -[None done] What testing was considered but not performed or refused? (CT, X-rays, U/S, labs)? Why? @ -[None] What meds were considered but not given or refused? Why? @ -[None] Did you discuss the management of the patient with other professionals (professionals i.e. TERELL Banuelos, OFFICE SERVICE COORDINATOR, lab, RT, psych nurse, clinical social work aide, carbon dioxide operator, teacher, deck officer, protective services case worker)? Give summary @ -[No] Was smoking cessation discussed for >3mins.? @ -[No] Was critical care preformed (if so, how long)? @ -[No] Were there social determinants of health that impacted care today? How? (Homelessness, low income, unemployed, alcoholism, drug addiction, transportation, low edu. Level, literacy, decrease access to med. care, fdc, rehab)? @ -[No] Was there de-escalation of care discussed even if they declined (Discuss DNR or withdrawal of care, Hospice)? DNR status @ -[No] What co-morbidities impacted this encounter? (DM, HTN, Smoking, COPD, CAD, Cancer, CVA, ARF, Chemo, Hep., AIDS, mental health diagnosis, sleep apnea, morbid obesity)? @ -[None] Was patient admitted / discharged? Hospital course, mention meds given and route, prescriptions, significant lab abnormalities, going to OR and other pertinent info. @ -[See above Undiagnosed new problem with uncertain prognosis? @ -[No] Drug Therapy requiring intensive monitoring for toxicity (Heparin, Nitro, Insulin, Cardizem)? @ -[No] Were any procedures done? @ -[No] Diagnosis/symptom? @ -[Acute seizure Acute, or Chronic, or Acute on Chronic? @ -[Acute on chronic Uncomplicated (without systemic symptoms) or Complicated (systemic symptoms)? @ -[Uncomplicated Side effects of treatment? @ -[No] Exacerbation, Progression, or Severe Exacerbation? @ -[No] Poses a threat to life or bodily function? How? (Chest pain, USA, [place], pneumonia, PE, COPD, DKA, ARF, appy, cholecystitis, CVA, Diverticulitis, Homicidal, Suicidal, threat to staff... and all critical care pts) @ -[No] - Lab Data Result diagrams: 08/28/23 16:32 08/28/23 16:32 Lab Results 08/28/23 08/28/23 08/28/23 Range/Units 16:20 16:32 16:32 WBC 7.7 (3.8-10.6) k/uL RBC 4.12 (3.80-5.40) m/uL Hgb 11.0 L (11.4-16.0) gm/dL Hct 34.9 (34.0-46.0) % MCV 84.6 (80.0-100.0) fL MCH 26.8 (25.0-35.0) pg MCHC 31.6 (31.0-37.0) g/dL RDW 14.6 (11.5-15.5) % Plt Count 301 (150-450) k/uL MPV 7.5 Neutrophils % 64 % Lymphocytes % 24 % Monocytes % 8 % Eosinophils % 3 % Basophils % 1 % Neutrophils # 4.9 (1.3-7.7) k/uL Lymphocytes # 1.9 (1.0-4.8) k/uL Monocytes # 0.6 (0-1.0) k/uL Eosinophils # 0.2 (0-0.7) k/uL Basophils # 0.0 (0-0.2) k/uL Sodium 139 (137-145) mmol/L Potassium 4.1 (3.5-5.1) mmol/L Chloride 108 H (98-107) mmol/L Carbon Dioxide 22 (22-30) mmol/L Anion Gap 9 mmol/L BUN 15 (7-17) mg/dL Creatinine 0.66 (0.52-1.04) mg/dL Est GFR (CKD-EPI)AfAm >90 (>60 ml/min/1.73 sqM) Est GFR (CKD-EPI)NonAf >90 (>60 ml/min/1.73 sqM) Glucose 87 (74-99) mg/dL POC Glucose (mg/dL) 83 (70-110) mg/dL POC Glu Filing Clerk ID August Plasma Lactic Acid Morales (0.7-2.0) mmol/L Calcium 9.3 (8.4-10.2) mg/dL Magnesium 1.8 (1.6-2.3) mg/dL Total Bilirubin 0.3 (0.2-1.3) mg/dL AST 19 (14-36) U/L ALT 17 (4-34) U/L Alkaline Phosphatase 70 (38-126) U/L Total Protein 6.8 (6.3-8.2) g/dL Albumin 4.2 (3.5-5.0) g/dL Levetiracetam (3.0-60.0) ug/mL 08/28/23 08/28/23 Range/Units 16:32 16:38 WBC (3.8-10.6) k/uL RBC (3.80-5.40) m/uL Hgb (11.4-16.0) gm/dL Hct (34.0-46.0) % MCV (80.0-100.0) fL MCH (25.0-35.0) pg MCHC (31.0-37.0) g/dL RDW (11.5-15.5) % Plt Count (150-450) k/uL MPV Neutrophils % % Lymphocytes % % Monocytes % % Eosinophils % % Basophils % % Neutrophils # (1.3-7.7) k/uL Lymphocytes # (1.0-4.8) k/uL Monocytes # (0-1.0) k/uL Eosinophils # (0-0.7) k/uL Basophils # (0-0.2) k/uL Sodium (137-145) mmol/L Potassium (3.5-5.1) mmol/L Chloride (98-107) mmol/L Carbon Dioxide (22-30) mmol/L Anion Gap mmol/L BUN (7-17) mg/dL Creatinine (0.52-1.04) mg/dL Est GFR (CKD-EPI)AfAm (>60 ml/min/1.73 sqM) Est GFR (CKD-EPI)NonAf (>60 ml/min/1.73 sqM) Glucose (74-99) mg/dL POC Glucose (mg/dL) (70-110) mg/dL POC Glu Filing Clerk ID Plasma Lactic Acid Morales 1.3 (0.7-2.0) mmol/L Calcium (8.4-10.2) mg/dL Magnesium (1.6-2.3) mg/dL Total Bilirubin (0.2-1.3) mg/dL AST (14-36) U/L ALT (4-34) U/L Alkaline Phosphatase (38-126) U/L Total Protein (6.3-8.2) g/dL Albumin (3.5-5.0) g/dL Levetiracetam 14.5 (3.0-60.0) ug/mL - EKG Data -: EKG Interpreted by Me EKG shows normal: sinus rhythm, axis (Normal), intervals (Normal), QRS complexes (Normal), ST-T waves (Normal) Rate: normal (Rate 78 bpm) Interpretation: normal EKG Disposition Clinical Impression: Epileptic seizure, generalized Disposition: HOME SELF-CARE Condition: Good Instructions (If sedation given, give patient instructions): Seizure/Epilepsy Discharge Instructions & Follow-Up, Recurrent Seizures in Adults (ED) Is patient prescribed a controlled substance at d/c from ED?: No Referrals: Tony Rizzo MD [Primary Care Provider] - 1-2 days Gumaro Nicole MD [Medical Doctor] - 1-2 days
[2023-08-28 16:41] VITALS: TEMP 98
[2023-08-28 16:45] LABS: Basophils % (A) 1 %; Eosinophils # (A) 0.2 k/uL (0-0.7); Eosinophils % (A) 3 %; HCT 34.9 % (34.0-46.0); Lymphocytes # (A) 1.9 k/uL (1.0-4.8); Lymphocytes % (A) 24 %; MCH 26.8 pg (25.0-35.0); MCHC 31.6 g/dL (31.0-37.0); MCV 84.6 fL (80.0-100.0); Mean Platelet Volume 7.5; Monocytes # (A) 0.6 k/uL (0-1.0); Monocytes % (A) 8 %; Neutrophils # (A) 4.9 k/uL (1.3-7.7); Neutrophils % (A) 64 %; Platelet Count 301 k/uL (150-450); RBC 4.12 m/uL (3.80-5.40); RDW 14.6 % (11.5-15.5); WBC 7.7 k/uL (3.8-10.6)
[2023-08-28 17:10] LABS: ALT 17 U/L (4-34); AST 19 U/L (14-36); African American GFR (CKD) >90 (>60 ml/min/1.73 sqM); Albumin 4.2 g/dL (3.5-5.0); Alkaline Phosphatase 70 U/L (38-126); Anion Gap 9 mmol/L; Blood Urea Nitrogen 15 mg/dL (7-17); Calcium 9.3 mg/dL (8.4-10.2); Carbon Dioxide 22 mmol/L (22-30); Chloride 108 mmol/L (98-107); Glucose 87 mg/dL (74-99); Magnesium 1.8 mg/dL (1.6-2.3); Non-African American GFR(CKD) >90 (>60 ml/min/1.73 sqM); Potassium 4.1 mmol/L (3.5-5.1); Sodium 139 mmol/L (137-145); Total Bilirubin 0.3 mg/dL (0.2-1.3); Total Protein 6.8 g/dL (6.3-8.2)
[2023-08-28] MEDS: levETIRAcetam 500 MG TAB PO STA (18:47)
[2023-08-28 19:44] VITALS: BP 104/70; PULSE 71; RESP 16
== END 2023-08-28 19:23 | disposition home or self-care (01) ==
LOC: EC 16:18
DX: G40.409 Other generalized epilepsy and epileptic syndromes, not intractable, without status epilepticus (principal); F12.90 Cannabis use, unspecified, uncomplicated; Z87.891 Personal history of nicotine dependence; Z91.018 Allergy to other foods
CPT/HCPCS: 36415; 93005; 80053; 80177; 83605; 83735; 85025; 99284; 96374; J2060

== ENCOUNTER 2023-09-08 13:30 | Inpatient (IN) | payer OTHER ==
--- NOTE | 2023-09-08 13:57 | ED ---
General Adult HPI - General Chief complaint: Seizure Stated complaint: Seizure Time Seen by Provider: 09/08/23 13:32 Source: patient, EMS Mode of arrival: EMS Limitations: no limitations - History of Present Illness Initial comments: Dictation was produced using [employer] dictation software. please excuse any grammatical, word or spelling errors. Chief Complaint: 28-year-old female past medical history of seizure and Chiari malformations presents to the emergency department for seizure History of Present Illness: Patient 28-year-old female she has past medical history of seizures takes Keppra. Patient had a seizure approximately 2 hours prior to arrival while at [facility]. EMS was called patient was brought to the emergency department. En route she had another seizure. Seizure lasted approximately 30 minutes. Second seizure lasted approximately 15 seconds. No meds given. Patient complaining of poor speech and right arm numbness and paralysis. Patient has no history of Carlos's paralysis. She does however have history of dysarthria after having a seizure. The ROS documented in this emergency department record has been reviewed and co nfirmed by me. Those systems with pertinent positive or negative responses have been documented in the HPI. All other systems are other negative and/or noncontributory. - Related Data Allergies Allergy/AdvReac Type Severity Reaction Status Date / Time banana Allergy Rash/Hives Verified 09/08/23 13:44 Review of Systems ROS Statement: Those systems with pertinent positive or pertinent negative responses have been documented in the HPI. ROS Other: All systems not noted in ROS Statement are negative. Past Medical History Past Medical History: Seizure Disorder Additional Past Medical History / Comment(s): chiari malformation., migraine induced seizures (started age 23)., spinal stenosis, [id number] born [birth year]., History of Any Multi-Drug Resistant Organisms: None Reported Past Surgical History: No Surgical Hx Reported Past Anesthesia/Blood Transfusion Reactions: No Reported Reaction Additional Past Anesthesia/Blood Transfusion Reaction / Comment(s): no hx blood transfusion Past Psychological History: Anxiety, Depression Smoking Status: Former smoker Past Alcohol Use History: None Reported Past Drug Use History: Marijuana - Past Family History Mother Additional Family Medical History / Comment(s): Mother . Patient unsure of how or the age she passed. Father Additional Family Medical History / Comment(s): Patient's father passed. Patient unsure of age or how he passed. Brother(s) Additional Family Medical History / Comment(s): Pt. reports she has 3 biological brothers who are all diabetic, have PTSD, Depression, and Bipolar. General Exam - General Exam Comments Initial Comments: PHYSICAL EXAM: General Impression: Alert and oriented x3, not in acute distress HEENT: Normocephalic atraumatic, extra-ocular movements intact, pupils equal and reactive to light bilaterally, mucous membranes moist. Cardiovascular: Heart regular rate and rhythm Chest: Able to complete full sentences, no retractions, no tachypnea Abdomen: abdomen soft, non-tender, non-distended, no organomegaly Musculoskeletal: Pulses present and equal in all extremities, no peripheral edema Motor: no focal deficits noted Neurological: CN II-XII grossly intact, no facial droop, dysarthric, slow speech, 1+ strength of the right upper extremity, reported numbness to the right arm Skin: Intact with no visualized rashes Psych: Normal affect and mood Limitations: no limitations Course Vital Signs 09/08/23 13:38 Temperature 98.0 F Pulse Rate 61 Respiratory 18 Rate Blood Pressure 104/68 O2 Sat by Pulse 100 Oximetry - Reevaluation(s) Reevaluation #1: 09/08/23 15:[address] Porras who is agreeable with keeping patient admitted to the hospital. Request patient be loaded with 1 g of Keppra. Case also discussed with stroke neurologist who is agreeable that patient not a alteplase or thrombectomy candidate. EKG Findings - EKG Comments: EKG Findings:: My EKG interpretation: Ventricular rate 64, sinus rhythm,. 174, cures 93, QTc 419. No NM prolongation, no QTC prolongation, no ST or T-wave changes noted. Overall, this EKG is unremarkable Medical Decision Making - Medical Decision Making Was pt. sent in by a medical professional or institution (, PA, TAX INTERN, urgent care, hospital, or senior living...) When possible be specific @ -No Did you speak to anyone other than the patient for history (EMS, parent, family, police, friend...)? What history was obtained from this source @ -No Did you review nursing and triage notes (agree or disagree)? Why? @ -I reviewed and agree with nursing and triage notes Were old charts reviewed (outside hosp., previous admission, EMS record, old EKG, old radiological studies, urgent care reports/EKG's, senior living records)? Report findings @ -No old charts were reviewed Differential Diagnosis (chest pain, altered mental status, abdominal pain women, abdominal pain men, vaginal bleeding, musculoskeletal, weakness, fever, dyspnea, syncope, headache, dizziness, GI bleed, back pain, seizure, CVA, palpatations, mental health)? @ -Differential Seizure: Recurrent seizure disorder, febrile seizure, alcohol withdrawal, stimulants, meningitis, encephalitis, intercranial hemorrhage, intracranial tumor, stroke, eclampsia, thyrotoxicosis, hypocalcemia, hyponatremia, hypernatremia, hypomagnesemia, psychogenic, this is not meant to be an all-inclusive list. EKG interpreted by me (3pts min.). @ -See above X-rays interpreted by me (1pt min.). @ -Chest x-ray is nonacute CT interpreted by me (1pt min.). @ -CT scan of the head and C-spine CT angiography shows no acute processes U/S interpreted by me (1pt. min.). @ -None done What testing was considered but not performed or refused? (CT, X-rays, U/S, labs)? Why? @ -None What meds were considered but not given or refused? Why? @ -None Did you discuss the management of the patient with other professionals (professionals i.e. , PA, TAX INTERN, lab, RT, psych nurse, social director, offset press assistant, teacher, disability liaison officer, caser)? Give summary @ -See above Was smoking cessation discussed for >3mins.? @ -No Was critical care preformed (if so, how long)? @ -Yes, 33 minutes Were there social determinants of health that impacted care today? How? (Homelessness, low income, unemployed, alcoholism, drug addiction, transportation, low edu. Level, literacy, decrease access to med. care, penitentiary, rehab)? @ -No Was there de-escalation of care discussed even if they declined (Discuss DNR or withdrawal of care, Hospice)? DNR status @ -No What co-morbidities impacted this encounter? (DM, HTN, Smoking, COPD, CAD, Cancer, CVA, ARF, Chemo, Hep., AIDS, mental health diagnosis, sleep apnea, morbid obesity)? @ -None Was patient admitted / discharged? Hospital course, mention meds given and route, prescriptions, significant lab abnormalities, going to OR and other pertinent info. @ -28-year-old female presents emergency department with focal neurologic symptoms after having suffered 2 seizures. Vital signs upon arrival are within acceptable limits. Patient has mild degree of aphasia, dysarthria. She does however have significant drift of her right upper extremity with associated numbness and tingling. Patient activated code stroke for rapid CT imaging. CTs are negative. Case discussed with neurology who is agreeable with patient being admitted to our facility. Patient not candidate for thrombolytics and thrombectomy. Undiagnosed new problem with uncertain prognosis? @ -No Drug Therapy requiring intensive monitoring for toxicity (Heparin, Nitro, Insulin, Cardizem)? @ -No Were any procedures done? @ -No Diagnosis/symptom? Acute, or Chronic, or Acute on Chronic? Uncomplicated (without systemic symptoms) or Complicated (systemic symptoms)? @ -Complex seizure Side effects of treatment? @ -No Exacerbation, Progression, or Severe Exacerbation? @ -No Poses a threat to life or bodily function? How? (Chest pain, USA, CT, pneumonia, PE, COPD, DKA, ARF, appy, cholecystitis, CVA, Diverticulitis, Homicidal, Suicidal, threat to staff... and all critical care pts) @ -yes - Lab Data Result diagrams: 09/08/23 14:10 09/08/23 14:10 Lab Results 09/08/23 09/08/23 09/08/23 Range/Units 14:10 14:10 14:10 WBC 6.8 (3.8-10.6) k/uL RBC 4.17 (3.80-5.40) m/uL Hgb 11.2 L (11.4-16.0) gm/dL Hct 35.1 (34.0-46.0) % MCV 84.3 (80.0-100.0) fL MCH 26.9 (25.0-35.0) pg MCHC 31.9 (31.0-37.0) g/dL RDW 14.1 (11.5-15.5) % Plt Count 351 (150-450) k/uL MPV 7.5 Neutrophils % 61 % Lymphocytes % 29 % Monocytes % 6 % Eosinophils % 2 % Basophils % 1 % Neutrophils # 4.1 (1.3-7.7) k/uL Lymphocytes # 2.0 (1.0-4.8) k/uL Monocytes # 0.4 (0-1.0) k/uL Eosinophils # 0.1 (0-0.7) k/uL Basophils # 0.0 (0-0.2) k/uL PT 10.8 (10.0-12.5) sec INR 1.0 (<1.2) APTT 24.4 (22.0-30.0) sec Sodium 139 (137-145) mmol/L Potassium 4.6 (3.5-5.1) mmol/L Chloride 109 H (98-107) mmol/L Carbon Dioxide 23 (22-30) mmol/L Anion Gap 7 mmol/L BUN 16 (7-17) mg/dL Creatinine 0.67 (0.52-1.04) mg/dL Est GFR (CKD-EPI)AfAm >90 (>60 ml/min/1.73 sqM) Est GFR (CKD-EPI)NonAf >90 (>60 ml/min/1.73 sqM) Glucose 84 (74-99) mg/dL Calcium 9.4 (8.4-10.2) mg/dL Total Bilirubin 0.3 (0.2-1.3) mg/dL AST 18 (14-36) U/L ALT 16 (4-34) U/L Alkaline Phosphatase 73 (38-126) U/L Creatine Kinase 83 (30-135) U/L Troponin I (0.000-0.034) ng/mL Total Protein 6.8 (6.3-8.2) g/dL Albumin 4.1 (3.5-5.0) g/dL 09/08/23 Range/Units 14:10 WBC (3.8-10.6) k/uL RBC (3.80-5.40) m/uL Hgb (11.4-16.0) gm/dL Hct (34.0-46.0) % MCV (80.0-100.0) fL MCH (25.0-35.0) pg MCHC (31.0-37.0) g/dL RDW (11.5-15.5) % Plt Count (150-450) k/uL MPV Neutrophils % % Lymphocytes % % Monocytes % % Eosinophils % % Basophils % % Neutrophils # (1.3-7.7) k/uL Lymphocytes # (1.0-4.8) k/uL Monocytes # (0-1.0) k/uL Eosinophils # (0-0.7) k/uL Basophils # (0-0.2) k/uL PT (10.0-12.5) sec INR (<1.2) APTT (22.0-30.0) sec Sodium (137-145) mmol/L Potassium (3.5-5.1) mmol/L Chloride (98-107) mmol/L Carbon Dioxide (22-30) mmol/L Anion Gap mmol/L BUN (7-17) mg/dL Creatinine (0.52-1.04) mg/dL Est GFR (CKD-EPI)AfAm (>60 ml/min/1.73 sqM) Est GFR (CKD-EPI)NonAf (>60 ml/min/1.73 sqM) Glucose (74-99) mg/dL Calcium (8.4-10.2) mg/dL Total Bilirubin (0.2-1.3) mg/dL AST (14-36) U/L ALT (4-34) U/L Alkaline Phosphatase (38-126) U/L Creatine Kinase (30-135) U/L Troponin I <0.012 (0.000-0.034) ng/mL Total Protein (6.3-8.2) g/dL Albumin (3.5-5.0) g/dL Disposition Clinical Impression: Seizure Disposition: ADMITTED IP TO THIS [facility] Condition: Fair Referrals: Tony Rizzo MD [Primary Care Provider] - 1-2 days Decision Time: 15:27
[2023-09-08 14:20] LABS: Basophils % (A) 1 %; Eosinophils # (A) 0.1 k/uL (0-0.7); Eosinophils % (A) 2 %; HCT 35.1 % (34.0-46.0); HGB 11.2 gm/dL (11.4-16.0); Lymphocytes % (A) 29 %; MCH 26.9 pg (25.0-35.0); MCHC 31.9 g/dL (31.0-37.0); MCV 84.3 fL (80.0-100.0); Mean Platelet Volume 7.5; Monocytes # (A) 0.4 k/uL (0-1.0); Monocytes % (A) 6 %; Neutrophils # (A) 4.1 k/uL (1.3-7.7); Neutrophils % (A) 61 %; Platelet Count 351 k/uL (150-450); RBC 4.17 m/uL (3.80-5.40); RDW 14.1 % (11.5-15.5); WBC 6.8 k/uL (3.8-10.6)
--- NOTE | 2023-09-08 14:21 | CT ---
EXAMINATION TYPE: CT brain wo con CT DLP: 1099.6 mGycm, Automated exposure control for dose reduction was used. DATE OF EXAM: 09/08/2023 2:09 PM COMPARISON: None. CLINICAL INDICATION:Female, 28 years old with history of Neuro deficit, acute, stroke suspected, Hx o f seizures. x3 seizures today. Unable to move right arm. TECHNIQUE: Brain: Axial CT images of the brain were obtained with coronal and sagittal reformats created and rev iewed. Contrast used: None. Oral contrast used: None. FINDINGS: Extra-axial spaces: No abnormal extra-axial fluid collections. Basilar cisterns are patent. Ventricular system: Within normal limits. Cerebral parenchyma: No increased attenuation to suggest acute intraparenchymal hemorrhage. The gra y-white matter interface appears maintained. No significant atrophy. White matter unremarkable by C T. Cerebellum: No acute abnormality. There are low-lying cerebellar tonsils causing crowding at the fora men magnum. Mass effect: No evidence of mass effect or midline shift. Intracranial vasculature: Unremarkable Soft tissues: No acute or concerning abnormality. Visualized orbits: Orbital contents appear grossly intact. Calvarium/osseous structures: No evidence of calvarial fracture. Paranasal sinuses and mastoid air cells: Moderate mucosal thickening with near complete opacification of the right maxillary sinus. Mild mucosal thickening in the left maxillary. No significant paranasa l sinus fluid. The mastoid air cells are clear. MRI is more sensitive for detecting acute processes such as infarct, and may be considered if clinica lly warranted. IMPRESSION: 1. No acute intracranial CT abnormality. 2. Moderate mucosal thickening with near complete opacification of the right maxillary sinus.
[2023-09-08 14:38] LABS: Partial Thromboplastin Time 24.4 sec (22.0-30.0); Prothrombin Time 10.8 sec (10.0-12.5)
--- NOTE | 2023-09-08 14:41 | CT ---
EXAMINATION TYPE: CT angio head neck DATE OF EXAM: 09/08/2023 2:21 PM COMPARISON: Same date CT head. CLINICAL INDICATION:Female, 28 years old with history of Neuro deficit, acute, stroke suspected; PHH, Hx of seizures. x3 seizures today. Unable to move right arm. TECHNIQUE: Axially acquired helical CT angiogram of the head and neck was obtained with contrast. Axi al images are supplemented with 3D reconstructions which were post-processed at [facility] NASCET criteria used. Contrast used: 65ml mL of Isovue 370 with IV Contrast, Oral contrast used: None. CT DLP: 351 mGycm, Automated exposure control for dose reduction was used. FINDINGS: CTA Neck: A 3 vessel aortic arch is shown. There is no significant atherosclerotic plaque in the aortic arch o r the origins of the branch vessels. Right carotid system: The common carotid is patent. There is no hemodynamically significant diameter stenosis, dissection, nor pseudoaneurysm present. Left carotid system: The common carotid is patent. There is no hemodynamically significant diameter s tenosis, dissection, nor pseudoaneurysm present. Vertebral arteries: There is no significant atherosclerotic plaque or narrowing at the origins of the vertebral arteries. The vertebrals are then otherwise patent to the skull base. The left vertebral artery is dominant. Other: Visualized neck soft tissues show no concerning abnormality. Thyroid appears minimally heterog eneous with possible tiny hypodense nodularity. Cervical spine appears intact. Mild developmentally r etroflexed dens. Imaged portions of the lung apices show no infiltrate or pneumothorax. CTA Head: The intracranial ICAs are patent. Carotid termini are patent. Bilateral posterior communicating arter ies are widely patent, there is essentially a origin of the hospital television rental clerk. Bilateral ACAs, MCAs, and dis daniel arborization patterns appear normal. The intracranial vertebral arteries enhance normally. Basilar artery is patent and unremarkable. Milian nt basilar tip without evidence of aneurysm. Basilar essentially ends as a small contribution to the left CRISIS WORKER. No intracranial large vessel occlusion, hemodynamically significant stenosis, aneurysm, dissection, o r arteriovenous malformation is shown. The dural venous sinuses appear grossly patent without evidence of thrombosis. Other: Please refer to same-day CT head report.. IMPRESSION: CTA neck: 1. Patent CTA Neck. 2. No hemodynamically significant diameter stenosis, dissection, nor pseudoaneurysm in the cervical carotid or vertebral arteries. CTA head: 1. Patent CTA Head. 2. No intracranial large vessel occlusion, significant stenosis, or sizable aneurysm detected in the limits of CTA.
[2023-09-08 14:43] LABS: ALT 16 U/L (4-34); AST 18 U/L (14-36); African American GFR (CKD) >90 (>60 ml/min/1.73 sqM); Albumin 4.1 g/dL (3.5-5.0); Alkaline Phosphatase 73 U/L (38-126); Anion Gap 7 mmol/L; Blood Urea Nitrogen 16 mg/dL (7-17); Calcium 9.4 mg/dL (8.4-10.2); Carbon Dioxide 23 mmol/L (22-30); Chloride 109 mmol/L (98-107); Creatine Kinase 83 U/L (30-135); Glucose 84 mg/dL (74-99); Non-African American GFR(CKD) >90 (>60 ml/min/1.73 sqM); Potassium 4.6 mmol/L (3.5-5.1); Sodium 139 mmol/L (137-145); Total Bilirubin 0.3 mg/dL (0.2-1.3); Total Protein 6.8 g/dL (6.3-8.2)
[2023-09-08] MEDS: levETIRAcetam IV 1,000 MG in SODIUM CHLORIDE 0.9% 250 ML IVPB ONE (15:20)
[2023-09-08] MEDS ORDERED: NALOXONE 0.4 MG/ML 1 ML VIAL IV PRN (15:24)
[2023-09-08] MEDS: levETIRAcetam IV 500 MG/5 ML VIAL IVP ONE (15:47)
[2023-09-08] MEDS: SODIUM CHLORIDE 0.9% 1,000 ML IV SCH (15:59)
--- NOTE | 2023-09-08 18:09 | XR ---
EXAMINATION TYPE: XR chest 2V DATE OF EXAM: 09/08/2023 3:22 PM CLINICAL INDICATION:Female, 28 years old with history of altered mental status; H COMPARISON: None TECHNIQUE: XR chest 2V. Frontal and lateral views of the chest.. FINDINGS: Lines/Tubes/Devices: No indwelling lines are seen. Heart/mediastinum: Heart size is normal. Mediastinum appears normal. Pulmonary vascularity: Not increased, Lungs/Pleura: There is no evidence of pleural effusion, focal consolidation, or pneumothorax. Musculoskeletal: No acute osseous abnormality demonstrated in the limits of the exam. There is strai ghtening of the normal thoracic kyphosis. Other findings: None. IMPRESSION: No acute cardiopulmonary abnormality.
[2023-09-09 09:07] VITALS: RESP 16
[2023-09-09] MEDS: levETIRAcetam 500 MG TAB PO SCH (09:27)
[2023-09-09] MEDS: LACOSAMIDE 50 MG TABLET PO SCH (09:27)
[2023-09-09] MEDS: SUMAtriptan succinate 50 MG TAB PO PRN (10:00)
[2023-09-09] MEDS: ENOXAPARIN 40 MG/0.4 ML SYRINGE SQ SCH (10:02)
[2023-09-09 12:10] VITALS: BP 107/59; PULSE 75; TEMP 98
--- NOTE | 2023-09-09 13:13 | P.CNNES ---
History of Present Illness Consult date: 09/09/23 Requesting physician: Tyrone Chan Reason for Consult: seizure History of Present Illness: this is a 28-year-old woman with history of seizure who presents to the hospital because of multiple seizures yesterday. She stated that she was at [facility] and yesterday she she had a seizure is not recalled episode. According to the patient she was having generalized shaking of her entire body then afterwards she had weakness over the right side but denies any aura. This episode happened while at [facility]. She denies any urinary, bowel incontinence or tongue bite. she was told yesterday she had a total of 3 seizures.per the ED note it's reported that her first seizure was 30 minutes and duration, second seizure was 15 seconds and the she had poor speech right sided numbness and paralysis that the patient complained of. Patient states she is on Keppra 1500 twice a day and Vimpat 50 mg twice a day. She stated that the Vimpat was started about 2 weeks ago. She follows up with Dr. Nicole for her seizures and she stated she had multiple EEGs at his office as well as a long-term EEG at [facility] and she was told she has epileptic seizure. She stated that she's going under a lot of stress in which she has 3 kids and her youngest is 1 year old and that she was homeless from May until 3 weeks ago until moving with her friend. Her is under SSI. Of note as stated above she stated that she is on Keppra 1500 mg twice a day, Vimpat 50 mg twice a day and event that was started 2 weeks ago. Upon speaking with the nurse she states she had a prescription that was sent to her pharmacy about 2 weeks ago for the Keppra 500 mg 2 tablets twice a day. Then she notified the nurse she was a asked by her neurologist to go up on Keppra to 1500 mg twice a day 2 weeks ago. patient states she is been having seizures since 2012. Some of the workup during his hospital visit consisted of: patient is afebrile. White blood cells 6.8K sodium is 139, BUN, creatinine, AST ALT CK level all within normal limits Glucose serum is 84, calcium is 9.4. CT of the head is reported as no acute intracranial CT abnormality. Moderate mucosal thickening with near complete opacification of the right maxillary sinus.I personally reviewed the CT and I agree there is no acute subacute ischemia. There is no significant visible bleed. CT angiography is negative for any significant stenosis, sizable aneurysm or dissection. Review of Systems Review of system: The 12 point system was reviewed and apparent positive and negative per HPI. Past Medical History Past Medical History: Seizure Disorder, Thyroid Disorder Additional Past Medical History / Comment(s): chiari malformation., migraine induced seizures (started age 23)., spinal stenosis, [id number] born [birth year].,. PTSD History of Any Multi-Drug Resistant Organisms: None Reported Past Surgical History: No Surgical Hx Reported Past Anesthesia/Blood Transfusion Reactions: No Reported Reaction Additional Past Anesthesia/Blood Transfusion Reaction / Comment(s): no hx blood transfusion Smoking Status: Former smoker - Past Family History Mother Additional Family Medical History / Comment(s): Mother . Patient unsure of how or the age she passed. Father Additional Family Medical History / Comment(s): Patient's father passed. Patient unsure of age or how he passed. Brother(s) Additional Family Medical History / Comment(s): Pt. reports she has 3 biological brothers who are all diabetic, have PTSD, Depression, and Bipolar. Medications and Allergies Home Medications Medication Instructions Recorded Confirmed Type Lacosamide [Vimpat] 50 mg PO BID 09/08/23 09/08/23 History SUMAtriptan succinate [Imitrex] 50 mg PO BID PRN 09/08/23 09/08/23 History Sertraline [Zoloft] 100 mg PO HS 09/08/23 09/08/23 History levETIRAcetam [Keppra] 1,000 mg PO BID 09/08/23 09/08/23 History Allergies Allergy/AdvReac Type Severity Reaction Status Date / Time banana Allergy Rash/Hives Verified 09/08/23 15:36 Physical Examination - Vital Signs Vital Signs: Vital Signs Temp Pulse Pulse Resp BP BP Pulse Ox 09/09/23 12:00 98 F 75 16 107/59 100 09/09/23 08:43 97.7 F 80 16 102/58 99 09/09/23 08:04 73 14 101/61 100 09/09/23 06:35 62 16 110/68 100 09/09/23 05:00 51 L 16 108/59 98 09/09/23 02:38 53 L 16 105/66 100 09/08/23 22:03 97.7 F 61 18 94/57 100 09/08/23 18:43 77 18 97/61 98 09/08/23 15:40 70 18 101/65 100 09/08/23 13:38 98.0 F 61 18 104/68 100 Intake and Output 09/08/23 09/09/23 09/09/23 22:59 06:59 14:59 Intake Total 118 Balance 118 Intake: Oral 118 Other: Weight 73.936 kg GENERAL: The patient is lying in bed and is not in acute distress. NEUROLOGICAL: Higher mental function: The patient is awake, alert, oriented to self, place and time. Patient is following commands. No aphasia and no neglect. Cranial nerves: The pupils are round, equal and reactive to light and accommodation. Visual hughes are full to confrontation throughout. Extraocular movement is intact no nystagmus is noted. Facial sensation is normal to touch throughout. The facial strength is normal throughout. Hearing is normal bilaterally to hand rub. Tongue is midline and moved [id number] without any difficulty. No dysarthria is noted. Shoulder shrug is normal bilaterally. Motor: The strength is 5 over 5 throughout. Normal tone and bulk. Cerebellum: Normal finger to nose heel to ocampo bilaterally. Sensation: Sensation is normal to touch throughout. Reflexes (right/left): 2+ throughout. Plantars are downgoing bilaterally. Results - Laboratory Findings CBC and BMP: 09/08/23 14:10 09/08/23 14:10 Abnormal Lab Findings: Abnormal Labs 09/08/23 09/08/23 14:10 14:10 Hgb 11.2 L Chloride 109 H Assessment and Plan Assessment: this is a 28-year-old female with history of seizures who presents emergency department because of a breakthrough seizure and the patient states the she had the about 3 seizure. Per the ED teamher first seizure was about 30 minutes and the second seizure was about 15 seconds. Patient complained of poor speech, right arm numbness and weakness after the seizure. She states she is on Keppra 1500 mg twice a day and Vimpat 50 mg twice a day. She states her that that was started 2 weeks ago by her neurologist and given conflicting answers in which she stating that she is on Keppra 1500 mg twice a day but per the nurse she had a prescription of the Keppra for a total of thousand milligrams twice a day about 2 weeks ago. Breakthrough seizure in which she had multiple seizure-like activity that reported with weakness numbness and speech difficulty suggestive of Carlos paralysis: her labs were unremarkable. Patient is to have a prolonged seizure would expect lab abnormality. Unsure if the patient has nonepileptic seizure in addition to her history of epileptic seizure. she states she is under a lot of stress in which she was homeless from May up until 3 weeks ago and deals with 3 kids. History of seizures and according to patient she was notified to her epileptic Plan: her Keppra 1500 mg bid is resumed. I increased her home Vimpat from 50 mg twice a day 20 100 mg twice a day. I ordered a routine EEG and the preliminary as there is no seizures or discharges Seizure percussion seizure pads Per the [facility] because of the seizure, to avoid driving for 6 month until no further seizure from her last seizure, avoid heights, avoids swimming unassisted, avoid using heavy machinery notified the patient to see a psychiatrist, therapist's and to have her stress under control as much as possible. We'll defer the rest of the medical management to primary and other specialists Upon discharge the patient needs to follow-up with her neurologist (Dr. Nicole) as an outpatient within 1-2 weeks. The plan is discussed with patient and her nurse. Thank you for the consultation. Time with Patient: Greater than 30
--- NOTE | 2023-09-09 16:47 | P.HPIM ---
History of Present Illness H&P Date: 09/09/23 Chief Complaint: Seizure This is a pleasant 78-year-old patient, follows with Dr. Rizzo. Also follows with neurologist Floresita. Has a known history of seizures. Chiari malformation. Migraine induced seizures started age of 23. PTSD. Bipolar. About 2 weeks ago by her neurologist Keppra dose was increased to 1500 mg twice daily. Also she was started on Vimpat. She was told that she had about 3 seizures yesterday. Anywhere from 15 seconds to about 3 minutes. She was on Vimpat 50 mg twice a day. Has had multiple EEGs outpatient. She is also had a prolonged EEG at [facility]. This morning when I saw the patient she is feeling better. Neurology is following. Patient was told she is at generalized tonic-clonic seizures. Review of systems: GEN.: Tired EYES: None HEENT: None NECK: None RESPIRATORY: None CARDIOVASCULAR: None GASTROINTESTINAL: None GENITOURINARY: None MUSCULOSKELETAL: None LYMPHATICS: None HEMATOLOGICAL: None PSYCHIATRY: None NEUROLOGICAL: As above] Social history: Has 3 children aged 1 3 and 5 years old. She stopped smoking in 2020. Smoked from the age of 17. Did do marijuana in the past. is on SSI. Physical examination: VITAL SIGNS: 97.7, 80, 16, 102 x 58, 99% room air GENERAL: BMI 28, reclining bed awake slightly tired. EYES: Pupils equal. Conjunctiva michele l. HEENT: External appearance of nose and ears normal, oral cavity grossly normal. NECK: JVD not raised; masses not palpable. HEART: First and second heart sounds are normal; no edema. LUNGS: Respiratory rate normal; clear to auscultation. ABDOMEN: Soft, nontender, liver spleen not palpable, no masses palpable. PSYCH: Alert and oriented x3; mood and affect michele l. MUSCULOSKELETAL:No Clubbing/cyanosis;muscles-grossly intact NEUROLOGICAL: Cranial nerves grossly intact; no facial asymmetry, power and sensation grossly intact. INVESTIGATIONS, reviewed in the clinical context: October 08, 2023: White count 6.8 hemoglobin 11.2 platelets 351 sodium 139 potassium 4.6 creatinine 0.67 Troponin I less than 0.012 EKG tracing personally reviewed by me-normal sinus rhythm. Chest x-ray film personally reviewed by me-unremarkable CT scan brain: No intracranial abnormalities CT angiogram of the head and neck. Unremarkable Assessment plan: -Breakthrough seizures. Uncontrolled. Patient had 3 episodes at home prior to presentation here. About 2 weeks ago by her neurologist Keppra was increased to 1500 g twice daily from 1000 g twice daily. Vimpat 50 mg twice daily was started. Neurochecks. Neurology consulted. Dose of Keppra and Vimpat is being increased -Bipolar disorder Zoloft 100 g nightly -Normocytic anemia Follow-up outpatient Patient is feeling better this morning. Seen by neurology. Dose of Keppra and Vimpat has been increased. Neurochecks. LYMPHATICS: No lymph nodes palpable in the axilla and neck Past Medical History Past Medical History: Seizure Disorder, Thyroid Disorder Additional Past Medical History / Comment(s): chiari malformation., migraine induced seizures (started age 23)., spinal stenosis, [id number] born [birth year].,. PTSD History of Any Multi-Drug Resistant Organisms: None Reported Past Surgical History: No Surgical Hx Reported Past Anesthesia/Blood Transfusion Reactions: No Reported Reaction Additional Past Anesthesia/Blood Transfusion Reaction / Comment(s): no hx blood transfusion Smoking Status: Former smoker - Past Family History Mother Additional Family Medical History / Comment(s): Mother . Patient unsure of how or the age she passed. Father Additional Family Medical History / Comment(s): Patient's father passed. Patient unsure of age or how he passed. Brother(s) Additional Family Medical History / Comment(s): Pt. reports she has 3 biological brothers who are all diabetic, have PTSD, Depression, and Bipolar. Medications and Allergies Home Medications Medication Instructions Recorded Confirmed Type SUMAtriptan succinate [Imitrex] 50 mg PO BID PRN 09/08/23 09/08/23 History Sertraline [Zoloft] 100 mg PO HS 09/08/23 09/08/23 History Lacosamide [Vimpat] 100 mg PO BID #60 tab 09/09/23 Rx levETIRAcetam [Keppra] 1,500 mg PO BID #100 tab 09/09/23 Rx Allergies Allergy/AdvReac Type Severity Reaction Status Date / Time banana Allergy Rash/Hives Verified 09/08/23 15:36 Physical Exam Vitals: Vital Signs Temp Pulse Pulse Resp BP BP Pulse Ox 09/09/23 08:43 97.7 F 80 16 102/58 99 09/09/23 08:04 73 14 101/61 100 09/09/23 06:35 62 16 110/68 100 09/09/23 05:00 51 L 16 108/59 98 09/09/23 02:38 53 L 16 105/66 100 09/08/23 22:03 97.7 F 61 18 94/57 100 09/08/23 18:43 77 18 97/61 98 09/08/23 15:40 70 18 101/65 100 09/08/23 13:38 98.0 F 61 18 104/68 100 Intake and Output 09/08/23 09/09/23 09/09/23 22:59 06:59 14:59 Other: Weight 73.936 kg Results CBC & Chem 7: 09/08/23 14:10 09/08/23 14:10 Labs: Abnormal Lab Results - Last 24 Hours (Table) 09/08/23 09/08/23 Range/Units 14:10 14:10 Hgb 11.2 L (11.4-16.0) gm/dL Chloride 109 H (98-107) mmol/L Thrombosis Risk Factor Assmnt - Choose All That Apply Each Factor Represents 1 point: Obesity (BMI >25) Thrombosis Risk Factor Assessment Total Risk Factor Score: 1 Thrombosis Risk Factor Assessment Level: Low Risk
[2023-09-09] MEDS ORDERED: LACOSAMIDE 50 MG TABLET PO SCH (21:00)
[2023-09-09] MEDS ORDERED: SERTRALINE 100 MG TAB PO SCH (21:00)
--- NOTE | 2023-09-10 03:38 | EEG ---
ELECTROENCEPHALOGRAM REPORT CLINICAL HISTORY: This is a 28-year-old woman with history of seizure, who presents to the ED because of breakthrough seizure. The video EEG is obtained to evaluate for seizure epileptiform activity. RELEVANT MEDICATIONS: Keppra and Vimpat. EEG TYPE: A routine 21-channel EEG with video using the 10/20 electrode placement system. DESCRIPTION: Wakefulness and drowsiness are obtained. During awake state, the posterior-dominant rhythm consists of [id number]-yg-cilzmxot voltage of 9 hertz activity that is well modulated, well sustained. There is no physiological stage 2 sleep architecture. There is no focal slowing. Interictal and ictal is none. ACTIVATION PROCEDURE: Photic stimulation did not evoke posterior driving response. There is no abnormality during the photic stimulation. Hyperventilation is not performed. CLINICAL INTERPRETATION: This is a normal routine EEG. There is no focal slowing, epileptiform discharge, or seizure on the EEG. A normal routine EEG does not rule out any underlying epilepsy. Clinical correlation is recommended. MMSTEVEN / JOANAN: [id number] /
--- NOTE | 2023-09-10 19:47 | P.DS ---
Providers Date of admission: 09/08/23 15:24 Expected date of discharge: 09/09/23 Attending physician: Marck Rodrigues Consults: 09/08/23 15:24 Consult Physician Routine Consulting Provider: Miguelina Porras Consult Reason/Comments: seizure Do you want consulting provider notified?: Already Contacted Primary care physician: [facility] Course: Chief Complaint: Seizure This is a pleasant 78-year-old patient, follows with Dr. Rizzo. Also follows with neurologist Floresita. Has a known history of seizures. Chiari malformation. Migraine induced seizures started age of 23. PTSD. Bipolar. About 2 weeks ago by her neurologist Keppra dose was increased to 1500 mg twice daily. Also she was started on Vimpat. She was told that she had about 3 seizures yesterday. Anywhere from 15 seconds to about 3 minutes. She was on Vimpat 50 mg twice a day. Has had multiple EEGs outpatient. She is also had a prolonged EEG at [facility]. This morning when I saw the patient she is feeling better. Neurology is following. Patient was told she is at generalized tonic-clonic seizures. Patient was cleared by neurology Dr. LOVETT., For discharge. Patient doing well. Tolerating diet. Up and about. Patient will follow-up with her neurologist Social history: Has 3 children aged 1 3 and 5 years old. She stopped smoking in 2020. Smoked from the age of 17. Did do marijuana in the past. is on SSI. Physical examination: VITAL SIGNS: 97.7, 80, 16, 102 x 58, 99% room air GENERAL: BMI 28, reclining bed awake slightly tired. EYES: Pupils equal. Conjunctiva michele l. HEENT: External appearance of nose and ears normal, oral cavity grossly normal. NECK: JVD not raised; masses not palpable. HEART: First and second heart sounds are normal; no edema. LUNGS: Respiratory rate normal; clear to auscultation. ABDOMEN: Soft, nontender, liver spleen not palpable, no masses palpable. PSYCH: Alert and oriented x3; mood and affect michele l. MUSCULOSKELETAL:No Clubbing/cyanosis;muscles-grossly intact NEUROLOGICAL: Cranial nerves grossly intact; no facial asymmetry, power and sensation grossly intact. INVESTIGATIONS, reviewed in the clinical context: October 08, 2023: White count 6.8 hemoglobin 11.2 platelets 351 sodium 139 potassium 4.6 creatinine 0.67 Troponin I less than 0.012 EKG tracing personally reviewed by me-normal sinus rhythm. Chest x-ray film personally reviewed by me-unremarkable CT scan brain: No intracranial abnormalities CT angiogram of the head and neck. Unremarkable Assessment plan: -Breakthrough seizures. Uncontrolled. Patient had 3 episodes at home prior to presentation here. About 2 weeks ago by her neurologist Keppra was increased to 1500 g twice daily from 1000 g twice daily. Vimpat 50 mg twice daily was started. Neurochecks. Neurology consulted. Keppra 1500 g twice daily. Vimpat increased to 100 mg twice daily. Follow-up with her own neurologist -Bipolar disorder Zoloft 100 g nightly -Normocytic anemia Follow-up outpatient Position: Home Past Medical History Past Medical History: Seizure Disorder, Thyroid Disorder Additional Past Medical History / Comment(s): chiari malformation., migraine induced seizures (started age 23)., spinal stenosis, [id number] born [birth year].,. PTSD History of Any Multi-Drug Resistant Organisms: None Reported Past Surgical History: No Surgical Hx Reported Past Anesthesia/Blood Transfusion Reactions: No Reported Reaction Additional Past Anesthesia/Blood Transfusion Reaction / Comment(s): no hx blood transfusion Smoking Status: Former smoker Plan - Discharge Summary Discharge Rx Participant: No New Discharge Prescriptions: New levETIRAcetam [Keppra] 1,500 mg PO BID #100 tab Lacosamide [Vimpat] 100 mg PO BID #60 tab Continue Sertraline [Zoloft] 100 mg PO HS SUMAtriptan succinate [Imitrex] 50 mg PO BID PRN PRN Reason: Migraine Headache Discontinued levETIRAcetam [Keppra] 1,000 mg PO BID Lacosamide [Vimpat] 50 mg PO BID Discharge Medication List SUMAtriptan succinate [Imitrex] 50 mg PO BID PRN 09/08/23 [History] Sertraline [Zoloft] 100 mg PO HS 09/08/23 [History] Lacosamide [Vimpat] 100 mg PO BID #60 tab 09/09/23 [Rx] levETIRAcetam [Keppra] 1,500 mg PO BID #100 tab 09/09/23 [Rx] Follow up Appointment(s)/Referral(s): Tony Rizzo MD [Primary Care Provider] - 1-2 days (please call to schedule. ) Gumaro Nicole MD [Medical Doctor] - 1 Week (please call to schedule appt. tell them you were discharged from [facility] 09/08. ) Patient Instructions/Handouts: Seizure/Epilepsy Discharge Instructions & Follow-Up, Epilepsy (DC) Discharge Disposition: HOME SELF-CARE
== END 2023-09-09 15:11 | disposition home or self-care (01) | DRG 101 ==
LOC: EC 13:30 → 3SCARD 15:24
PROVIDERS: ADMIT Hospitalist; ATTEND Hospitalist
PROC: 4A10X4Z Monitoring of Central Nervous Electrical Activity, External Approach (ICD-10-PCS; principal; 2023-09-09)
DX: G40.909 Epilepsy, unspecified, not intractable, without status epilepticus (principal); R47.01 Aphasia; F43.10 Post-traumatic stress disorder, unspecified; R47.1 Dysarthria and anarthria; D64.9 Anemia, unspecified; G43.909 Migraine, unspecified, not intractable, without status migrainosus; Z79.899 Other long term (current) drug therapy
CPT/HCPCS: 36415; 70450; 70496; 70498; 71046; 80053; 82550; 84484; 85025; 85610; 85730; 93005; 95816; 96372; 96374; 99291

== ENCOUNTER 2024-03-05 08:13 | Emergency (ER) | payer OTHER ==
--- NOTE | 2024-03-05 08:38 | ED ---
Chest Pain HPI - General Chief Complaint: Chest Pain Stated Complaint: chest pain/dizzy Time Seen by Provider: 03/05/24 08:18 Source: patient, RN notes reviewed Mode of arrival: wheelchair Limitations: no limitations - History of Present Illness Initial Comments: This is a 28-year-old female who presents to the emergency department for chest pain. States that it started this morning. Pain is in the center of her chest. States that this is typically associated with seizures. She feels like she could have a tonic-clonic seizure coming. Currently takes Keppra for seizures. Denies any missed doses. On the way here she had an absence seizure and believes that the tonic-clonic may be impending. Reports some shortness of breath, which is also associated with the seizures. Last seizure was 1.5 months ago. States that she has seizures every few weeks. MD Complaint: chest pain - Related Data Home Medications Medication Instructions Recorded Confirmed Sertraline [Zoloft] 100 mg PO HS 09/08/23 03/05/24 Lacosamide [Vimpat] 50 mg PO BID 03/05/24 03/05/24 Previous Rx's Medication Instructions Recorded levETIRAcetam [Keppra] 1,500 mg PO BID #100 tab 09/09/23 Allergies Allergy/AdvReac Type Severity Reaction Status Date / Time banana Allergy Rash/Hives Verified 03/05/24 10:30 Review of Systems ROS Statement: Those systems with pertinent positive or pertinent negative responses have been documented in the HPI. ROS Other: All systems not noted in ROS Statement are negative. Past Medical History Past Medical History: Seizure Disorder, Thyroid Disorder Additional Past Medical History / Comment(s): chiari malformation., migraine induced seizures (started age 23)., spinal stenosis, [id number] born [birth year]. PTSD History of Any Multi-Drug Resistant Organisms: None Reported Past Surgical History: No Surgical Hx Reported Past Anesthesia/Blood Transfusion Reactions: No Reported Reaction Additional Past Anesthesia/Blood Transfusion Reaction / Comment(s): no hx blood transfusion Past Psychological History: Anxiety, Bipolar, Depression, PTSD Smoking Status: Former smoker - Past Family History Mother Additional Family Medical History / Comment(s): Mother . Patient unsure of how or the age she passed. Father Additional Family Medical History / Comment(s): Patient's father passed. Patient unsure of age or how he passed. Brother(s) Additional Family Medical History / Comment(s): Pt. reports she has 3 biological brothers who are all diabetic, have PTSD, Depression, and Bipolar. General Exam Limitations: no limitations General appearance: alert, in no apparent distress Head exam: Present: atraumatic, normocephalic, normal inspection Respiratory exam: Present: normal lung sounds bilaterally. Absent: respiratory distress, wheezes, rales, rhonchi, stridor Cardiovascular Exam: Present: regular rate, normal rhythm, normal heart sounds. Absent: systolic murmur, diastolic murmur, rubs, gallop, clicks Neurological exam: Present: alert, oriented X3, CN II-XII intact Psychiatric exam: Present: normal affect, normal mood Skin exam: Present: warm, dry, intact, normal color. Absent: rash Course Vital Signs 03/05/24 03/05/24 03/05/24 08:14 09:00 10:30 Temperature 97.6 F 97.8 F Pulse Rate 77 80 66 Respiratory 16 17 14 Rate Blood Pressure 99/67 111/68 109/74 O2 Sat by Pulse 99 99 100 Oximetry Chest Pain MDM - MDM This is a 28-year-old female who presents to the emergency department for chest pain. Was pt. sent in by a medical professional or institution? @ -No Did you speak to anyone other than the patient for history? @ -No Did you review nursing and triage notes? @ -Yes, and I agree, it is accurate with regards to the patient's symptoms. Were old charts reviewed? @ -No Differential Diagnosis? @ -Differential Chest Pain: Stable Angina, Unstable Angina, STEMI, NSTEMI Aortic Dissection, Pneumothorax, Musculoskeletal, Esophageal Spasm GERD, Cholecystitis, Pancreatitis, Zoster, this is not meant to be an all-inclusive list. EKG interpreted by me (3pts min.)? @ -EKG interpreted by me demonstrating the following: Sinus rhythm. Ventricular rate 75 bpm, ME interval 162 ms, QRS duration 93 ms, QTc 397 ms. X-rays interpreted by me (1pt min.)? @ -Chest x-ray obtained, my interpretation identifies no localized consolidations or infiltrates. CT interpreted by me (1pt min.)? @ -Not obtained U/S interpreted by me (1pt. min.)? @ -Not obtained What testing was considered but not performed? (CT, X-rays, U/S, labs)? Why? @ -None What meds were considered but not given? Why? @ -None Did you discuss the management of the patient with other professionals? @ -No Did you reconcile home meds? @ -No Was smoking cessation discussed for >3mins.? @ -No Was critical care preformed (if so, how long)? @ -No Were there social determinants of health that impacted care today? How? (Homelessness, low income, unemployed, alcoholism, drug addiction, transportation, low edu. Level, literacy, decrease access to med. care, fci, rehab)? @ -No Was there de-escalation of care discussed even if they declined? (Discuss DNR or withdrawal of care, Hospice)? @ -No What co-morbidities impacted this encounter? (DM, HTN, Smoking, COPD, CAD, Cancer, CVA, Hep., AIDS, mental health diagnosis, sleep apnea, morbid obesity)? @ -Seizure disorder Was patient admitted / discharged? @ -Discharged. Lab work unremarkable. Troponin negative. Urinalysis negative for signs of infection. Given patient's concern for impending seizure, seizure precautions were initiated. She was given a loading dose of Keppra and Ativan to hopefully curb any potential seizure activity. Toradol and IV fluids administered as well. Patient monitored in the emergency department and exhibited no signs of seizure activity. Symptoms overall felt improved and she was discharged home. Advised ibuprofen and Tylenol as needed for any additional pain relief. Case discussed with ED attending Dr. Veras. Return precautions reviewed in depth, the patient is instructed to return to the emergency department with any new, worsening, or concerning symptoms. Patient verbalized understanding. Undiagnosed new problem with uncertain prognosis? @ -None Drug Therapy requiring intensive monitoring for toxicity (Heparin, Nitro, Insulin, Cardizem)? @ -None Were any procedures done? @ -None Diagnosis/symptom? @ -Chest pain Acute, or Chronic, or Acute on Chronic? @ -Acute Uncomplicated (without systemic symptoms) or Complicated (systemic symptoms)? @ -Uncomplicated Side effects of treatment? @ -None Exacerbation, Progression, or Severe Exacerbation] @ -Not applicable Poses a threat to life or bodily function? @ -No Disposition Clinical Impression: Chest pain Disposition: HOME SELF-CARE Instructions (If sedation given, give patient instructions): Chest Pain (ED) Additional Instructions: Return to the emergency department with any new, worsening, or concerning symptoms. Alternate with ibuprofen and Tylenol as needed for pain relief. Follow up with your primary care provider in 1-2 days. Is patient prescribed a controlled substance at d/c from ED?: No Referrals: Tony Rizzo MD [Primary Care Provider] - 1-2 days Time of Disposition: 10:19
[2024-03-05] MEDS: SODIUM CHLORIDE 0.9% 1,000 ML IV STA (09:25)
[2024-03-05] MEDS: LORazepam 2 MG/ML INJ IV STA (09:26)
[2024-03-05] MEDS: levETIRAcetam IV 500 MG/5 ML VIAL IVP STA (09:27)
[2024-03-05 09:47] LABS: Basophils % (A) 1 %; Eosinophils # (A) 0.6 k/uL (0-0.7); Eosinophils % (A) 10 %; HCT 37.8 % (34.0-46.0); HGB 12.1 gm/dL (11.4-16.0); Hypochromasia Slight; Lymphocytes # (A) 1.7 k/uL (1.0-4.8); Lymphocytes % (A) 29 %; MCH 24.9 pg (25.0-35.0); MCHC 31.9 g/dL (31.0-37.0); MCV 78.1 fL (80.0-100.0); Mean Platelet Volume 7.3; Microcytosis Slight; Monocytes # (A) 0.3 k/uL (0-1.0); Monocytes % (A) 6 %; Neutrophils # (A) 3.1 k/uL (1.3-7.7); Neutrophils % (A) 53 %; Platelet Count 353 k/uL (150-450); RBC 4.84 m/uL (3.80-5.40); RDW 15.7 % (11.5-15.5); WBC 5.8 k/uL (3.8-10.6)
--- NOTE | 2024-03-05 09:58 | XR ---
EXAMINATION TYPE: XR chest 2V DATE OF EXAM: 03/05/2024 9:55 AM CLINICAL INDICATION: Female, 28 years old with history of Chest Pain; [facility] COMPARISON: None TECHNIQUE: XR chest 2V Frontal view of the chest. FINDINGS: Lungs/Pleura: There is no evidence of pleural effusion, focal consolidation, or pneumothorax. Pulmonary vascularity: Unremarkable. Heart/mediastinum: Cardiomediastinal silhouette is unremarkable. Musculoskeletal: No acute osseous pathology. IMPRESSION: No acute cardiopulmonary disease/process. [facility], , 03/05/2024 9:56 AM
[2024-03-05 09:59] LABS: ALT 21 U/L (4-34); African American GFR (CKD) >90 (>60 ml/min/1.73 sqM); Albumin 4.5 g/dL (3.5-5.0); Anion Gap 10 mmol/L; Blood Urea Nitrogen 13 mg/dL (7-17); Calcium 9.4 mg/dL (8.4-10.2); Carbon Dioxide 22 mmol/L (22-30); Chloride 109 mmol/L (98-107); Glucose 83 mg/dL (74-99); Non-African American GFR(CKD) >90 (>60 ml/min/1.73 sqM); Sodium 141 mmol/L (137-145); Total Bilirubin 0.6 mg/dL (0.2-1.3); Total Protein 7.5 g/dL (6.3-8.2)
[2024-03-05 10:05] LABS: Appearance,Urine Clear (Clear); Bilirubin,Urine Negative (Negative); Blood,Urine Trace (Negative); Color,Urine Light Yellow; Glucose,Urine (UA) Negative (Negative); Ketones,Urine Negative (Negative); Leukocyte Esterase,Urine Small (Negative); Mucus,Urine Occasional /hpf; Nitrite,Urine Negative (Negative); Protein,Urine Negative (Negative); RBC,Urine 1 /hpf (0-5); Specific Gravity,Urine 1.018 (1.001-1.035); Squamous Epithelial Cell,Urine 5 /hpf (0-4); Urobilinogen,Urine <2.0 mg/dL (<2.0); WBC,Urine 4 /hpf (0-5)
[2024-03-05 10:08] LABS: AST 30 U/L (14-36); Alkaline Phosphatase 70 U/L (38-126); Potassium 4.7 mmol/L (3.5-5.1)
[2024-03-05] MEDS: KETOROLAC 15 MG/ML 1 ML VIAL IVP STA (10:25)
[2024-03-05 10:48] VITALS: BP 109/74; PULSE 66; RESP 14; TEMP 97.8
== END 2024-03-05 10:57 | disposition home or self-care (01) ==
LOC: EC 08:13
CPT/HCPCS: 36415; 71046; 80053; 80177; 81001; 81025; 83735; 84484; 85025; 93005; 96361; 96374; 96375; 99285

== ENCOUNTER 2024-06-04 12:35 | Emergency (ER) | payer OTHER ==
--- NOTE | 2024-06-04 13:12 | ED ---
General Adult HPI - General Chief complaint: Seizure Stated complaint: seizures Time Seen by Provider: 06/04/24 12:51 Source: patient, EMS Mode of arrival: EMS Limitations: no limitations - History of Present Illness Initial comments: Dictation was produced using [employer] dictation software. please excuse any grammatical, word or spelling errors. Chief Complaint: 28-year-old female presents emergency department with seizure History of Present Illness: Patient 28-year-old female presents to the emergency department seizure. Patient has history of seizure. Fatou at the bedside states that patient had multiple witnessed seizures today including grand mal and absence seizure's. She does see a neurologist takes Keppra daily. Denies any recent missed doses. States that she has a mild headache. Patient reports being under a lot of stress due to personal finances. The ROS documented in this emergency department record has been reviewed and c onfirmed by me. Those systems with pertinent positive or negative responses have been documented in the HPI. All other systems are other negative and/or noncontributory. - Related Data Home Medications Medication Instructions Recorded Confirmed Sertraline [Zoloft] 100 mg PO HS 09/08/23 06/04/24 Lacosamide [Vimpat] 50 mg PO BID PRN 03/05/24 06/04/24 Albuterol Sulfate [Albuterol 1 puff PO RT-Q4H PRN 06/04/24 06/04/24 Sulfate Hfa] Cyclobenzaprine [Flexeril] 10 mg PO BID PRN 06/04/24 06/04/24 Fluticasone Nasal [place] [Flonase 1 spray EA NOSTRIL DAILY PRN 06/04/24 06/04/24 Nasal [place]] Ondansetron Odt [Zofran Odt] 4 mg PO BID PRN 06/04/24 06/04/24 QUEtiapine XR [SEROquel XR] 100 mg PO HS 06/04/24 06/04/24 Previous Rx's Medication Instructions Recorded levETIRAcetam [Keppra] 1,500 mg PO BID #100 tab 09/09/23 Allergies Allergy/AdvReac Type Severity Reaction Status Date / Time banana Allergy Rash/Hives Verified 06/04/24 14:25 Review of Systems ROS Statement: Those systems with pertinent positive or pertinent negative responses have been documented in the HPI. ROS Other: All systems not noted in ROS Statement are negative. Past Medical History Past Medical History: Seizure Disorder, Thyroid Disorder Additional Past Medical History / Comment(s): chiari malformation., migraine induced seizures (started age 23)., spinal stenosis, [id number] born [birth year].,. PTSD History of Any Multi-Drug Resistant Organisms: None Reported Past Surgical History: Hysterectomy Past Anesthesia/Blood Transfusion Reactions: No Reported Reaction Additional Past Anesthesia/Blood Transfusion Reaction / Comment(s): no hx blood transfusion Past Psychological History: Anxiety, Bipolar, Depression, PTSD Smoking Status: Former smoker Past Alcohol Use History: None Reported Past Drug Use History: Marijuana - Past Family History Mother Additional Family Medical History / Comment(s): Mother . Patient unsure of how or the age she passed. Father Additional Family Medical History / Comment(s): Patient's father passed. Patient unsure of age or how he passed. Brother(s) Additional Family Medical History / Comment(s): Pt. reports she has 3 biological brothers who are all diabetic, have PTSD, Depression, and Bipolar. General Exam - General Exam Comments Initial Comments: PHYSICAL EXAM: General Impression: Alert and oriented x3, not in acute distress HEENT: Normocephalic atraumatic, extra-ocular movements intact, pupils equal and reactive to light bilaterally, mucous membranes moist. Cardiovascular: Heart regular rate and rhythm Chest: Able to complete full sentences, no retractions, no tachypnea Abdomen: abdomen soft, non-tender, non-distended, no organomegaly Musculoskeletal: Pulses present and equal in all extremities, no peripheral edema Motor: no focal deficits noted Neurological: CN II-XII grossly intact, no focal motor or sensory deficits noted Skin: Intact with no visualized rashes Psych: Normal affect and mood Limitations: no limitations Course Vital Signs 06/04/24 06/04/24 06/04/24 12:45 14:00 16:09 Temperature 98.3 F Pulse Rate 84 83 96 Respiratory 18 22 21 Rate Blood Pressure 106/71 107/88 117/71 O2 Sat by Pulse 100 100 100 Oximetry EKG Findings - EKG Comments: EKG Findings:: My EKG interpretation: Ventricular rate 81, sinus rhythm,. 177, QRS 92, QTc 4 6. No ND prolongation, no QTC prolongation, no ST or T-wave changes noted. Overall, this EKG is unremarkable Medical Decision Making - Medical Decision Making Was pt. sent in by a medical professional or institution (, PA, CREW ATTENDANT, urgent care, hospital, or [facility]...) When possible be specific @ -No Did you speak to anyone other than the patient for history (EMS, parent, family, police, friend...)? What history was obtained from this source @ -No Did you review nursing and triage notes (agree or disagree)? Why? @ -I reviewed and agree with nursing and triage notes Were old charts reviewed (outside hosp., previous admission, EMS record, old EKG, old radiological studies, urgent care reports/EKG's, [facility] records)? Report findings @ -No old charts were reviewed Differential Diagnosis (chest pain, altered mental status, abdominal pain women, abdominal pain men, vaginal bleeding, musculoskeletal, weakness, fever, dyspnea, syncope, headache, dizziness, GI bleed, back pain, seizure, CVA, palpatations, mental health)? @ -Differential Seizure: Recurrent seizure disorder, febrile seizure, alcohol withdrawal, stimulants, meningitis, encephalitis, intercranial hemorrhage, intracranial tumor, stroke, eclampsia, thyrotoxicosis, hypocalcemia, hyponatremia, hypernatremia, h ypomagnesemia, psychogenic, this is not meant to be an all-inclusive list. EKG interpreted by me (3pts min.). @ -As above X-rays interpreted by me (1pt min.). @ -None done CT interpreted by me (1pt min.). @ -None done U/S interpreted by me (1pt. min.). @ -None done What testing was considered but not performed or refused? (CT, X-rays, U/S, labs)? Why? @ -None What meds were considered but not given or refused? Why? @ -None Was smoking cessation discussed for >3mins.? @ -No Were there social determinants of health that impacted care today? How? (Homelessness, low income, unemployed, alcoholism, drug addiction, transportation, low edu. Level, literacy, decrease access to med. care, care home, rehab)? @ -No Was there de-escalation of care discussed even if they declined (Discuss DNR or withdrawal of care, Hospice)? DNR status @ -No What co-morbidities impacted this encounter? (DM, HTN, Smoking, COPD, CAD, Cancer, CVA, ARF, Chemo, Hep., AIDS, mental health diagnosis, sleep apnea, mor bid obesity)? @ -Seizure history Was patient admitted / discharged? Hospital course, mention meds given and route, prescriptions, significant lab abnormalities, going to OR and other pertinent info. @ --year-old female presents to the emergency department for alleged of multiple seizures today. Vital signs upon arrival are within acceptable limits. Patient well-appearing upon evaluation. Patient states she has been compliant with her medications. Laboratory evaluation is unremarkable. Urine hCG is negative. Patient given loading dose of Keppra. Upon reevaluation at the bedside at 5:08 PM she states that she forgot her Vimpat medication. Patient was offered hospital admission because by definition she is status epilepticus. Patient refusing will prefer to be discharged to follow-up with her outpatient neurologist. This is reasonable disposition given that patient is well-appea ring and she is under the care of her fianc. Return precautions discussed. Patient is agreeable with that plan. Did you discuss the management of the patient with other professionals (professionals i.e. , PA, CREW ATTENDANT, lab, RT, psych nurse, social work nurse, bath house attendant, teacher, seismology technical officer, housing case manager)? Give summary @ -No Was critical care preformed (if so, how long)? @ -No Undiagnosed new problem with uncertain prognosis? @ -No Drug Therapy requiring intensive monitoring for toxicity (Heparin, Nitro, Insulin, Cardizem)? @ -No Were any procedures done? @ -No Diagnosis/symptom? Acute, or Chronic, or Acute on Chronic? Uncomplicated (without systemic symptoms) or Complicated (systemic symptoms)? @ -Seizure Side effects of treatment? @ -No Exacerbation, Progression, or Severe Exacerbation? @ -No Poses a threat to life or bodily function? How? (Chest pain, [place], PR, pneumonia, PE, COPD, DKA, ARF, appy, cholecystitis, CVA, Diverticulitis, Homicidal, Suicidal, threat to staff... and all critical care pts) @ -yes - Lab Data Result diagrams: 06/04/24 13:39 06/04/24 13:39 Lab Results 06/04/24 06/04/24 06/04/24 Range/Units 13:39 13:39 13:50 WBC 8.3 (3.8-10.6) k/uL RBC 4.25 (3.80-5.40) m/uL Hgb 11.4 (11.4-16.0) gm/dL Hct 34.8 (34.0-46.0) % MCV 81.7 (80.0-100.0) fL MCH 26.9 (25.0-35.0) pg MCHC 32.9 (31.0-37.0) g/dL RDW 15.8 H (11.5-15.5) % Plt Count 269 (150-450) k/uL MPV 7.6 Neutrophils % 66 % Lymphocytes % 22 % Monocytes % 6 % Eosinophils % 5 % Basophils % 0 % Neutrophils # 5.5 (1.3-7.7) k/uL Lymphocytes # 1.8 (1.0-4.8) k/uL Monocytes # 0.5 (0-1.0) k/uL Eosinophils # 0.4 (0-0.7) k/uL Basophils # 0.0 (0-0.2) k/uL Sodium 140 (137-145) mmol/L Potassium 4.3 (3.5-5.1) mmol/L Chloride 107 (98-107) mmol/L Carbon Dioxide 26 (22-30) mmol/L Anion Gap 7 mmol/L BUN 11 (7-17) mg/dL Creatinine 0.74 (0.52-1.04) mg/dL Est GFR (CKD-EPI)AfAm >90 (>60 ml/min/1.73 sqM) Est GFR (CKD-EPI)NonAf >90 (>60 ml/min/1.73 sqM) Glucose 98 (74-99) mg/dL Calcium 9.6 (8.4-10.2) mg/dL Magnesium 1.7 (1.6-2.3) mg/dL Total Bilirubin 0.1 L (0.2-1.3) mg/dL AST 17 (14-36) U/L ALT 15 (4-34) U/L Alkaline Phosphatase 56 (38-126) U/L Total Protein 6.7 (6.3-8.2) g/dL Albumin 4.2 (3.5-5.0) g/dL Urine HCG, Qual Not Detected (Not Detectd) Disposition Clinical Impression: Seizure Disposition: HOME SELF-CARE Instructions (If sedation given, give patient instructions): Recurrent Seizures in Adults (ED) Is patient prescribed a controlled substance at d/c from ED?: No Referrals: Tony Rizzo MD [Primary Care Provider] - 1-2 days Time of Disposition: 17:10
[2024-06-04] MEDS: levETIRAcetam IV 500 MG/5 ML VIAL IVP STA (13:42)
[2024-06-04] MEDS: SODIUM CHLORIDE 0.9% 1,000 ML IV STA (13:44)
[2024-06-04 13:54] LABS: Basophils % (A) 0 %; Eosinophils # (A) 0.4 k/uL (0-0.7); Eosinophils % (A) 5 %; HCT 34.8 % (34.0-46.0); HGB 11.4 gm/dL (11.4-16.0); Lymphocytes # (A) 1.8 k/uL (1.0-4.8); Lymphocytes % (A) 22 %; MCH 26.9 pg (25.0-35.0); MCHC 32.9 g/dL (31.0-37.0); MCV 81.7 fL (80.0-100.0); Mean Platelet Volume 7.6; Monocytes # (A) 0.5 k/uL (0-1.0); Monocytes % (A) 6 %; Neutrophils # (A) 5.5 k/uL (1.3-7.7); Neutrophils % (A) 66 %; Platelet Count 269 k/uL (150-450); RBC 4.25 m/uL (3.80-5.40); RDW 15.8 % (11.5-15.5); WBC 8.3 k/uL (3.8-10.6)
[2024-06-04 14:04] LABS: ALT 15 U/L (4-34); AST 17 U/L (14-36); African American GFR (CKD) >90 (>60 ml/min/1.73 sqM); Albumin 4.2 g/dL (3.5-5.0); Alkaline Phosphatase 56 U/L (38-126); Anion Gap 7 mmol/L; Blood Urea Nitrogen 11 mg/dL (7-17); Calcium 9.6 mg/dL (8.4-10.2); Carbon Dioxide 26 mmol/L (22-30); Chloride 107 mmol/L (98-107); Glucose 98 mg/dL (74-99); Magnesium 1.7 mg/dL (1.6-2.3); Non-African American GFR(CKD) >90 (>60 ml/min/1.73 sqM); Potassium 4.3 mmol/L (3.5-5.1); Sodium 140 mmol/L (137-145); Total Bilirubin 0.1 mg/dL (0.2-1.3); Total Protein 6.7 g/dL (6.3-8.2)
--- NOTE | 2024-06-04 16:51 | CT ---
EXAMINATION TYPE: CT brain wo con DATE OF EXAM: 06/04/2024 4:45 PM COMPARISON: 09/08/2023 CLINICAL INDICATION: Female, 28 years old with history of seizure activity, SEIZURE TECHNIQUE: CT of the brain is performed utilizing 3 mm thick sections through the posterior fossa and 3 mm thick sections through the remaining calvarium. Study is performed within 24 hours of arrival to the hospital. Contrast used: mL of , (none if empty) CT DLP: 1095.4 mGycm, Automated exposure control for dose reduction was used. FINDINGS: No abnormal hyperdensity is present to suggest an acute intracranial hemorrhage. No mass lesion is evident. No acute infarcts are evident. Ventricles and sulci are appropriate for the patient age. Mucosal thickening within the right maxillary sinus. Remaining paranasal sinuses and mastoid air cell s are clear. IMPRESSION: 1. No acute intracranial process. Follow up MRI can be performed as clinically indicated. [facility], , 06/04/2024 4:49 PM
[2024-06-04 18:25] VITALS: BP 104/65; PULSE 95; RESP 20; TEMP 98.5
== END 2024-06-04 18:25 | disposition home or self-care (01) ==
LOC: EC 12:35
DX: G40.909 Epilepsy, unspecified, not intractable, without status epilepticus (principal); Z91.018 Allergy to other foods; Z87.891 Personal history of nicotine dependence
CPT/HCPCS: 82075; 36415; 93005; 80053; 83735; 85025; 81025; 70450; 99285; 96374; 96361; J1953

== ENCOUNTER 2024-09-28 22:14 | Emergency (ER) | payer OTHER ==
[2024-09-28 22:21] VITALS: TEMP 97.7
--- NOTE | 2024-09-28 23:30 | ED ---
Seizure HPI - General Chief Complaint: Seizure Stated Complaint: Seizures Source: EMS Mode of arrival: EMS - History of Present Illness Initial Comments: Patient is a 29-year-old female with history of seizure disorder presenting after a 3 to 4-minute grand mal seizure. She states that at around [] she developed some shortness of breath, took a couple puffs of her inhaler, sat down, developed chest tightness, called EMS, and within a few minutes she was having a seizure. Patient and partner report that EMS told her was a 3 to 4- minute grand mal seizure. Patient is not postictal at this time. She does have a history of Chiari malformation as well. She takes Keppra daily and denies any missed doses. She reports that she hit the back of her head when she had a seizure reports an occipital headache and describes it as a throbbing 02/26. She reports chest pain /10, nausea earlier today. She denies fever/chills, emesis, abdominal pain, bowel/bladder dysfunction. MD Complaint: seizure - Related Data Home Medications Medication Instructions Recorded Confirmed Sertraline [Zoloft] 100 mg PO HS 09/08/23 06/04/24 Lacosamide [Vimpat] 50 mg PO BID PRN 03/05/24 06/04/24 Albuterol Sulfate [Albuterol 1 puff PO RT-Q4H PRN 06/04/24 06/04/24 Sulfate Hfa] Cyclobenzaprine [Flexeril] 10 mg PO BID PRN 06/04/24 06/04/24 Fluticasone Nasal [place] [Flonase 1 spray EA NOSTRIL DAILY PRN 06/04/24 06/04/24 Nasal [place]] Ondansetron Odt [Zofran Odt] 4 mg PO BID PRN 06/04/24 06/04/24 QUEtiapine XR [SEROquel XR] 100 mg PO HS 06/04/24 06/04/24 Previous Rx's Medication Instructions Recorded levETIRAcetam [Keppra] 1,500 mg PO BID #100 tab 09/09/23 Allergies Allergy/AdvReac Type Severity Reaction Status Date / Time banana Allergy Rash/Hives Verified 06/04/24 14:25 Review of Systems ROS Statement: Those systems with pertinent positive or pertinent negative responses have been documented in the HPI. ROS Other: All systems not noted in ROS Statement are negative. Constitutional: Denies: fever, chills Eyes: Denies: vision change Respiratory: Denies: cough, dyspnea Cardiovascular: Reports: chest pain Gastrointestinal: Reports: nausea. Denies: abdominal pain, vomiting, hematemesis, melena, hematochezia Genitourinary: Denies: hematuria Neurological: Reports: headache Past Medical History Past Medical History: Seizure Disorder, Thyroid Disorder Additional Past Medical History / Comment(s): chiari malformation., migraine induced seizures (started age 23)., spinal stenosis, [id number] born [birth year]. PTSD History of Any Multi-Drug Resistant Organisms: None Reported Past Surgical History: Hysterectomy Past Anesthesia/Blood Transfusion Reactions: No Reported Reaction Additional Past Anesthesia/Blood Transfusion Reaction / Comment(s): no hx blood transfusion Past Psychological History: Anxiety, Bipolar, Depression, PTSD Smoking Status: Former smoker Past Alcohol Use History: None Reported Past Drug Use History: Marijuana - Past Family History Mother Additional Family Medical History / Comment(s): Mother . Patient unsure of how or the age she passed. Father Additional Family Medical History / Comment(s): Patient's father passed. Patient unsure of age or how he passed. Brother(s) Additional Family Medical History / Comment(s): Pt. reports she has 3 biological brothers who are all diabetic, have PTSD, Depression, and Bipolar. General Exam Limitations: no limitations General appearance: alert, in no apparent distress Head exam: Present: atraumatic Eye exam: Present: normal appearance, PERRL, EOMI. Absent: scleral icterus ENT exam: Present: mucous membranes moist, normal external ear exam Respiratory exam: Present: normal lung sounds bilaterally. Absent: respiratory distress, wheezes, rales, rhonchi, accessory muscle use Cardiovascular Exam: Present: regular rate, normal rhythm, normal heart sounds. Absent: systolic murmur, diastolic murmur GI/Abdominal exam: Present: soft, normal bowel sounds. Absent: distended, tenderness, guarding, rebound Extremities exam: Present: normal inspection, full ROM, normal capillary refill Back exam: Present: paraspinal tenderness (Cervical), vertebral tenderness ( cervical) Neurological exam: Present: alert, oriented X3 Psychiatric exam: Present: normal affect, normal mood Skin exam: Present: warm, dry, intact, normal color Course Vital Signs 09/28/24 09/28/24 22:16 23:40 Temperature 97.7 F Pulse Rate 89 83 Respiratory 18 17 Rate Blood Pressure 93/65 90/62 O2 Sat by Pulse 98 Oximetry Medical Decision Making - Medical Decision Making Was pt. sent in by a medical professional or institution (TERELL Banuelos, [employer], urgent care, hospital, or [place] [facility] facility...) When possible be specific @ -No Did you speak to anyone other than the patient for history (EMS, parent, family, police, friend...)? What history was obtained from this source @ -No Did you review nursing and triage notes (agree or disagree)? Why? @ -I reviewed and agree with nursing and triage notes Were old charts reviewed (outside hosp., previous admission, EMS record, old EKG, old radiological studies, urgent care reports/EKG's, [place] [facility] facility records)? Report findings @ -No old charts were reviewed Differential Diagnosis? @ -Differential Seizure: Recurrent seizure disorder, febrile seizure, alcohol withdrawal, stimulants, meningitis, encephalitis, intercranial hemorrhage, intracranial tumor, stroke, eclampsia, thyrotoxicosis, hypocalcemia, hyponatremia, hypernatremia, hypomagnesemia, psychogenic, this is not meant to be an all-inclusive list. EKG interpreted by me (3pts min.). @ -As above X-rays interpreted by me (1pt min.). @ -None done CT interpreted by me (1pt min.). @ -No acute intracranial hemorrhage or masses U/S interpreted by me (1pt. min.). @ -None done What testing was considered but not performed or refused? (CT, X-rays, U/S, labs)? Why? @ -None What meds were considered but not given or refused? Why? @ -None Did you discuss the management of the patient with other professionals (pro fessionals i.e. TERELL Banuelos, [employer], lab, RT, psych nurse, social work job titles, commercial real estate associate, teacher, logistics supply officer, geriatric case manager)? Give summary @ -No Was smoking cessation discussed for >3mins.? @ -No Was critical care preformed (if so, how long)? @ -No Were there social determinants of health that impacted care today? How? (Homelessness, low income, unemployed, alcoholism, drug addiction, transportation, low edu. Level, literacy, decrease access to med. care, usp, rehab)? @ -No Was there de-escalation of care discussed even if they declined (Discuss DNR or withdrawal of care, Hospice)? DNR status @ -No What co-morbidities impacted this encounter? (DM, HTN, Smoking, COPD, CAD, Cancer, CVA, ARF, Chemo, Hep., AIDS, mental health diagnosis, sleep apnea, morbid obesity)? @ -None Was patient admitted / discharged? Hospital course, mention meds given and route, prescriptions, significant lab abnormalities, going to OR and other pertinent info. @ -Patient is a 29-year-old female presenting to the emergency department after a 3-4-minute grand mal seizure. She reports hitting her head when she fell. She denies any missed doses of her Keppra. She is well-appearing on evaluation. A CT brain and C-spine was obtained and was unremarkable. Keppra 1500 mg given. An EKG was performed due to her reported chest pain prior to the seizure. EKG showed normal sinus rhythm, no ST segment changes. She was given Tylenol 650 mg for her headache. CT brain/C-spine acute findings. Patient is stable for discharge. She is agreeable to the plan. Return precautions discussed. Undiagnosed new problem with uncertain prognosis? @ -No Drug Therapy requiring intensive monitoring for toxicity (Heparin, Nitro, Insulin, Cardizem)? @ -No Were any procedures done? @ -No Diagnosis/symptom? @ -Seizure Acute, or Chronic, or Acute on Chronic? @ -Acute on chronic Uncomplicated (without systemic symptoms) or Complicated (systemic symptoms)? @ -Uncomplicated Side effects of treatment? @ -No Exacerbation, Progression, or Severe Exacerbation? @ -No Poses a threat to life or bodily function? How? (Chest pain, [place], MT, pneumonia, PE, COPD, DKA, ARF, appy, cholecystitis, CVA, Diverticulitis, Homicidal, Suicidal, threat to staff... and all critical care pts) @ -No - EKG Data EKG shows normal: sinus rhythm, axis, intervals, QRS complexes, ST-T waves Rate: normal EKG Comments: Normal sinus rhythm, normal axis deviation, ventricular rate 77 bpm, QTc 396 ms Disposition Clinical Impression: Breakthrough seizure Disposition: HOME SELF-CARE Instructions (If sedation given, give patient instructions): Recurrent Seizures in Adults (ED), Seizure/Epilepsy Discharge Instructions & Follow-Up Additional Instructions: Every disease is a spectrum and a small chance still exists that a serious condition could develop, for this reason, please monitor yourself closely for new, changing or worsening symptoms, >2 of seizures in 24 hours, symptoms that persist beyond 48 hours, fever, inability to tolerate/keep down fluids or your medications, inability to follow up with outpatient providers as instructed and should you experience these symptoms or should you have any further concerns for your wellbeing please return to the ED or call 911 immediately. Your pain can be treated with ibuprofen and acetaminophen. You can take up to 400-600 mg of ibuprofen (Advil, Motrin) 3 times daily (every 8 hours) but can a lso use lower doses if this relieves your pain. Some people prefer naproxen (Aleve, Naprosyn) which can be taken in doses of 500 mg up to twice a day. Do not take both of these medicines together, and do not combine either with ketorolac (Toradol), meloxicam (Mobic), or indomethacin (Tivorbex). Some people can develop stomach discomfort with higher doses of either ibuprofen or naproxen, if this develops decrease your dose or stop taking it. If you need to take this dose daily for more than a week, please schedule an appointment for re-evaluation with your PCP. Please take these medications with food. You can take up to 1000 mg of acetaminophen (Tylenol) every 6 hours. Be careful as this is included in some medicines like Nyquil, Ackworth, Percocet, Vicodin, STANBACK, Goody's Powders, and Excedrin. You can also use lidocaine patches for topical pain. You can purchase 4% patches over the counter at most drug stores. These can be helpful for pain from your muscles or bones. PLEASE call your primary care physician as soon as possible to arrange / discuss plan for followup appointment. Appointment in the next 1-3 days is strongly encouraged if possible. PLEASE let us know here before you leave if there is anything further we can do to be of any assistance. Take care and feel Better! Is patient prescribed a controlled substance at d/c from ED?: No Referrals: Tony Rizzo MD [Primary Care Provider] - 1-2 days Time of Disposition: 00:21
[2024-09-28] MEDS: ACETAMINOPHEN TAB 325 MG TAB PO STA (23:37)
[2024-09-28 23:41] VITALS: RESP 17
--- NOTE | 2024-09-28 23:59 | CT ---
EXAM: CT Head Without Intravenous Contrast CLINICAL HISTORY: ITS.REASON CT Reason: seizure TECHNIQUE: Axial computed tomography images of the head/brain without intravenous contrast. CTDI is 45.2 mGy and DLP is 1006 mGy-cm. This CT exam was performed using one or more of the following dose reduction techniques: automated exposure control, adjustment of the mA and/or kV according to patient size, and/or use of iterative reconstruction technique. COMPARISON: No relevant prior studies available. FINDINGS: Brain: Unremarkable. No hemorrhage. No significant white matter disease. No edema. Ventricles: Unremarkable. No ventriculomegaly. Bones/joints: Unremarkable. No acute fracture. Soft tissues: Unremarkable. Sinuses: Unremarkable as visualized. No acute sinusitis. Mastoid air cells: Unremarkable as visualized. No mastoid effusion. IMPRESSION: Normal head/brain CT. EXAM: CT Cervical Spine Without Intravenous Contrast CLINICAL HISTORY: ITS.REASON CT Reason: seizure TECHNIQUE: Axial computed tomography images of the cervical spine without intravenous contrast. CTDI is 14.7 mGy and DLP is 446 mGy-cm. This CT exam was performed using one or more of the following dose reduction techniques: automated exposure control, adjustment of the mA and/or kV according to patient size, and/or use of iterative reconstruction technique. COMPARISON: No relevant prior studies available. FINDINGS: Vertebrae: Unremarkable. No acute fracture. Discs/spinal canal/neural foramina: No acute findings. No spinal canal stenosis. Soft tissues: Unremarkable. IMPRESSION: Normal cervical spine CT.
[2024-09-29] MEDS: levETIRAcetam 500 MG TAB PO STA (00:24)
[2024-09-29 00:33] VITALS: BP 100/69; PULSE 86
== END 2024-09-29 00:33 | disposition home or self-care (01) ==
LOC: EC 22:14
DX: G40.409 Other generalized epilepsy and epileptic syndromes, not intractable, without status epilepticus (principal); Z87.891 Personal history of nicotine dependence; Z91.018 Allergy to other foods
CPT/HCPCS: 70450; 72125; 93005; 99284

== ENCOUNTER 2024-10-08 11:31 | Emergency (ER) | payer OTHER ==
[2024-10-08 11:42] VITALS: TEMP 97.8
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
[2024-10-08 12:46] LABS: Appearance,Urine Clear (Clear); Bilirubin,Urine Negative (Negative); Blood,Urine Negative (Negative); Color,Urine Light Yellow; Glucose,Urine (UA) Negative (Negative); Ketones,Urine Negative (Negative); Leukocyte Esterase,Urine Negative (Negative); Nitrite,Urine Negative (Negative); Protein,Urine Negative (Negative); Specific Gravity,Urine 1.028 (1.001-1.035); Urobilinogen,Urine <2.0 mg/dL (<2.0)
[2024-10-08] MEDS: levETIRAcetam IV 500 MG/5 ML VIAL IVP ONE (12:46)
[2024-10-08] MEDS: levETIRAcetam IV 1,000 MG in SODIUM CHLORIDE 0.9% 250 ML IVPB ONE (12:55)
[2024-10-08 12:56] LABS: ALT 16 U/L (4-34); AST 20 U/L (14-36); African American GFR (CKD) >90 (>60 ml/min/1.73 sqM); Albumin 4.2 g/dL (3.5-5.0); Alkaline Phosphatase 72 U/L (38-126); Anion Gap 10 mmol/L; Blood Urea Nitrogen 13 mg/dL (7-17); Calcium 9.5 mg/dL (8.4-10.2); Carbon Dioxide 18 mmol/L (22-30); Chloride 110 mmol/L (98-107); Glucose 93 mg/dL (74-99); Magnesium 1.7 mg/dL (1.6-2.3); Non-African American GFR(CKD) >90 (>60 ml/min/1.73 sqM); Potassium 4.4 mmol/L (3.5-5.1); Sodium 138 mmol/L (137-145); Total Bilirubin 0.4 mg/dL (0.2-1.3); Total Protein 7.1 g/dL (6.3-8.2)
[2024-10-08 12:59] LABS: Basophils # (A) 0.04 10*3/uL (0.00-0.10); Basophils % (A) 0.5 %; Eosinophils # (A) 0.24 10*3/uL (0.04-0.35); Eosinophils % (A) 2.8 %; HCT 34.1 % (37.2-46.3); Lymphocytes # (A) 1.71 10*3/uL (0.90-5.00); Lymphocytes % (A) 19.8 %; MCH 25.9 pg (27.0-32.0); MCHC 32.3 g/dL (32.0-37.0); MCV 80.2 fL (80.0-97.0); Mean Platelet Volume 10.2 fL (9.5-12.2); Monocytes # (A) 0.74 10*3/uL (0.20-1.00); Monocytes % (A) 8.6 %; Neutrophils # (A) 5.88 10*3/uL (1.80-7.70); Neutrophils % (A) 68.1 %; Platelet Count 315 10*3/uL (140-440); RBC 4.25 10*6/uL (4.10-5.20); RDW 15.6 % (11.5-14.5); WBC 8.63 10*3/uL (4.50-10.00)
[2024-10-08 13:12] LABS: HCG,Quantitative Serum <2.4 mIU/mL
[2024-10-08 14:14] VITALS: BP 93/52; PULSE 72; RESP 18
== END 2024-10-08 14:14 | disposition home or self-care (01) ==
LOC: EC 11:31
DX: O99.351 Diseases of the nervous system complicating pregnancy, first trimester (principal); G40.909 Epilepsy, unspecified, not intractable, without status epilepticus; Z91.018 Allergy to other foods; Z87.891 Personal history of nicotine dependence; Z3A.01 Less than 8 weeks gestation of pregnancy
CPT/HCPCS: 36415; 93005; 86900; 86901; 80053; 83735; 85025; 81003; 81025; 84702; 99284; 96374; J1953

== ENCOUNTER 2024-11-29 01:18 | Emergency (ER) | payer OTHER ==
[2024-11-29 01:27] VITALS: TEMP 97.4
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
[2024-11-29] MEDS: HYDROmorphone 1 MG/ML 1 ML SYRINGE IM STA (02:12)
[2024-11-29 03:21] VITALS: RESP 18
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
[2024-11-29] MEDS: ACETAMINOPHEN TAB 500 MG TAB PO STA (03:57)
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
[2024-11-29] MEDS: CYCLOBENZAPRINE 10 MG TAB PO STA (04:01)
[2024-11-29] MEDS: LIDOCAINE 4% PATCH TOPICAL ONE (04:02)
[2024-11-29] MEDS: KETOROLAC 15 MG/ML 1 ML VIAL IM STA (04:51)
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
[2024-11-29 07:32] VITALS: BP 90/42; PULSE 78
== END 2024-11-29 07:32 | disposition home or self-care (01) ==
LOC: EC 01:18
DX: R10.2 Pelvic and perineal pain (principal); F17.200 Nicotine dependence, unspecified, uncomplicated; Z91.018 Allergy to other foods; V89.2XXA Person injured in unspecified motor-vehicle accident, traffic, initial encounter
CPT/HCPCS: 72170; 72128; 72125; 72131; 70450; 73700; 99285; 96372; J1171; J1885

== ENCOUNTER 2024-12-01 20:20 | Emergency (ER) | payer OTHER ==
[2024-12-01 20:31] VITALS: RESP 17; TEMP 98.5
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
[2024-12-01] MEDS: SODIUM CHLORIDE 0.9% 1,000 ML IV STA (21:05)
[2024-12-01] MEDS: PANTOPRAZOLE 40 MG/10 ML VIAL IVP STA (21:06)
[2024-12-01] MEDS: ONDANSETRON 4 MG/2 ML VIAL IVP STA (21:06)
[2024-12-01 21:32] LABS: Basophils # (A) 0.02 10*3/uL (0.00-0.10); Basophils % (A) 0.2 %; Eosinophils # (A) 0.00 10*3/uL (0.04-0.35); Eosinophils % (A) 0.0 %; HCT 31.9 % (37.2-46.3); HGB 10.4 g/dL (12.0-15.0); Lymphocytes # (A) 0.89 10*3/uL (0.90-5.00); Lymphocytes % (A) 9.4 %; MCH 26.1 pg (27.0-32.0); MCHC 32.6 g/dL (32.0-37.0); MCV 80.2 fL (80.0-97.0); Monocytes # (A) 0.64 10*3/uL (0.20-1.00); Monocytes % (A) 6.8 %; Neutrophils # (A) 7.83 10*3/uL (1.80-7.70); Neutrophils % (A) 83.2 %; Platelet Count 341 10*3/uL (140-440); RBC 3.98 10*6/uL (4.10-5.20); RDW 15.4 % (11.5-14.5); WBC 9.42 10*3/uL (4.50-10.00)
[2024-12-01] MEDS: MORPHINE SULFATE 4 MG/ML SYRINGE IVP STA (21:34)
[2024-12-01 21:49] LABS: HCG,Qualitative Serum Not Detected
[2024-12-01 21:50] LABS: ALT 17 U/L (4-34); AST 23 U/L (14-36); African American GFR (CKD) >90 (>60 ml/min/1.73 sqM); Albumin 4.5 g/dL (3.5-5.0); Alkaline Phosphatase 89 U/L (38-126); Anion Gap 13 mmol/L; Blood Urea Nitrogen 10 mg/dL (7-17); Calcium 9.5 mg/dL (8.4-10.2); Carbon Dioxide 20 mmol/L (22-30); Chloride 109 mmol/L (98-107); Glucose 121 mg/dL (74-99); Lipase 32 U/L (23-300); Non-African American GFR(CKD) >90 (>60 ml/min/1.73 sqM); Potassium 4.3 mmol/L (3.5-5.1); Sodium 142 mmol/L (137-145); Total Protein 7.3 g/dL (6.3-8.2)
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
[2024-12-01] MEDS: METOCLOPRAMIDE 5 MG/ML 2 ML VIAL IVP STA (22:31)
[2024-12-01] MEDS: HYDROmorphone 1 MG/ML 1 ML SYRINGE IVP STA (22:31)
--- NOTE | 2024-12-02 00:17 | CT ---
EXAM: CT Abdomen and Pelvis With Intravenous Contrast CLINICAL HISTORY: ITS.REASON CT Reason: Abdominal pain TECHNIQUE: Axial computed tomography images of the abdomen and pelvis with intravenous contrast. CTDI is 20.8 mGy and DLP is 909.1 mGy-cm. This CT exam was performed using one or more of the following dose reduction techniques: automated exposure control, adjustment of the mA and/or kV according to patient size, and/or use of iterative reconstruction technique. COMPARISON: No relevant prior studies available. FINDINGS: Lung bases: Unremarkable. No mass. No consolidation. ABDOMEN: Liver: Unremarkable. No mass. Gallbladder and bile ducts: Unremarkable. No calcified stones. No ductal dilation. Pancreas: Unremarkable. No mass. No ductal dilation. Spleen: Unremarkable. No splenomegaly. Adrenals: Unremarkable. No mass. Kidneys and ureters: Unremarkable. No solid mass. No hydronephrosis. Stomach and bowel: Few scattered colonic diverticuli without evidence of diverticulitis. No obstruction. PELVIS: Appendix: Normal-appearing appendix. Bladder: Unremarkable. No mass. Reproductive: Unremarkable as visualized. ABDOMEN and PELVIS: Intraperitoneal space: Trace physiologic free fluid seen within dependent pelvis. No free air. Bones/joints: No acute fracture. No dislocation. Soft tissues: Unremarkable. Vasculature: Unremarkable. No abdominal aortic aneurysm. Lymph nodes: Unremarkable. No enlarged lymph nodes. IMPRESSION: No acute findings in the abdomen or pelvis.
[2024-12-02] MEDS: PROCHLORPERAZINE INJ 10 MG/2 ML VIAL IVP STA (00:24)
[2024-12-02] MEDS: ONDANSETRON 4 MG ODT STARTER PACK 2 TAB BTL PO STA (01:24)
[2024-12-02] MEDS: ACET/COD 300 MG/30 MG STARTER PACK 6 TAB BTL PO STA (01:24)
[2024-12-02 01:30] VITALS: BP 98/61; PULSE 60
== END 2024-12-02 01:31 | disposition home or self-care (01) ==
LOC: EC 20:20
DX: R11.2 Nausea with vomiting, unspecified (principal); M25.551 Pain in right hip; F17.200 Nicotine dependence, unspecified, uncomplicated; Z91.018 Allergy to other foods; V89.2XXA Person injured in unspecified motor-vehicle accident, traffic, initial encounter; Y92.410 Unspecified street and highway as the place of occurrence of the external cause
CPT/HCPCS: 36415; 80053; 83605; 83690; 85025; 84703; 73502; 74177; 99285; 96374; 96375 ×2; 96361; J2270; J2765; J2405; J1171; Q9967; J2470